=== PATIENT | male | born 1955 | race Caucasian/White ===

== ENCOUNTER → 2018-05-04 00:05 | Outpatient (CLI) | payer MEDICAID, SELFPAY ==
[2018-05-04 10:48] LABS: INR 1.2 (1.0-3.5); Prothrombin Time 11.5 sec (9.3-10.8)
[2018-05-05 07:29] LABS: Hemoglobin A1C 9.7 % (4.5-6.2)
== END ==
PROVIDERS: PCP Family Medicine; Visit Provider Family Medicine
DX: I26.99 Other pulmonary embolism without acute cor pulmonale (principal); E11.39 Type 2 diabetes mellitus with other diabetic ophthalmic complication
CPT/HCPCS: 36415; 83036; 85610

== ENCOUNTER → 2018-05-13 08:19 | Outpatient (CLI) | payer MEDICAID, SELFPAY ==
[2018-05-13 12:03] LABS: Hemoglobin A1C 9.4 % (4.5-6.2)
[2018-05-13 12:38] LABS: INR 2.2 (1.0-3.5); Prothrombin Time 20.6 sec (9.3-10.8)
[2018-05-13 13:23] LABS: CREATININE 2.03 mg/dL (0.70-1.30); Estimated GFR 33.56 (mL/min/1.73m2)
== END ==
PROVIDERS: PCP Family Medicine; Visit Provider Family Medicine
DX: E11.39 Type 2 diabetes mellitus with other diabetic ophthalmic complication (principal); E11.65 Type 2 diabetes mellitus with hyperglycemia; I10 Essential (primary) hypertension; I26.99 Other pulmonary embolism without acute cor pulmonale; Z79.01 Long term (current) use of anticoagulants
CPT/HCPCS: 36415; 82565; 83036; 85610

== ENCOUNTER → 2018-05-20 08:56 | Outpatient (CLI) | payer MEDICAID, SELFPAY ==
[2018-05-20 15:37] LABS: INR 1.8 (1.0-3.5); Prothrombin Time 17.6 sec (9.3-10.8)
== END ==
PROVIDERS: PCP Family Medicine; Visit Provider Family Medicine
DX: I26.99 Other pulmonary embolism without acute cor pulmonale (principal); Z79.01 Long term (current) use of anticoagulants
CPT/HCPCS: 36415; 85610

== ENCOUNTER → 2018-05-27 13:44 | Outpatient (CLI) | payer MEDICAID, SELFPAY ==
[2018-05-27 14:47] LABS: Prothrombin Time 46.3 sec (9.3-10.8)
== END ==
PROVIDERS: PCP Family Medicine; Visit Provider Family Medicine
DX: I26.99 Other pulmonary embolism without acute cor pulmonale (principal); Z79.01 Long term (current) use of anticoagulants
CPT/HCPCS: 36415; 85610

== ENCOUNTER 2018-05-29 13:16 | Outpatient (CLI) | payer MEDICAID, SELFPAY ==
[2018-05-29 13:51] LABS: INR 2.5 (1.0-3.5); Prothrombin Time 23.2 sec (9.3-10.8)
== END 2018-05-29 13:17 ==
PROVIDERS: PCP Family Medicine; Visit Provider Family Medicine
DX: I26.99 Other pulmonary embolism without acute cor pulmonale (principal); Z79.01 Long term (current) use of anticoagulants
CPT/HCPCS: 36415; 85610

== ENCOUNTER 2018-06-03 10:53 | Outpatient (CLI) | payer MEDICAID, SELFPAY ==
[2018-06-03 16:10] LABS: INR 2.8 (1.0-3.5); Prothrombin Time 26.4 sec (9.3-10.8)
== END 2018-06-03 11:13 ==
PROVIDERS: PCP Family Medicine; Visit Provider Family Medicine
DX: I26.99 Other pulmonary embolism without acute cor pulmonale (principal); Z79.01 Long term (current) use of anticoagulants
CPT/HCPCS: 36415; 85610

== ENCOUNTER 2018-06-17 09:28 | Outpatient (CLI) | payer MEDICAID, SELFPAY ==
[2018-06-17 14:49] LABS: INR 1.8 (1.0-3.5)
== END 2018-06-17 09:48 ==
PROVIDERS: PCP Family Medicine; Visit Provider Family Medicine
DX: I26.99 Other pulmonary embolism without acute cor pulmonale (principal); Z79.01 Long term (current) use of anticoagulants
CPT/HCPCS: 36415; 85610

== ENCOUNTER 2018-06-25 09:03 | Outpatient (CLI) | payer MEDICAID, SELFPAY ==
[2018-06-25 12:07] LABS: INR 2.4 (1.0-3.5); Prothrombin Time 22.9 sec (9.3-10.8)
== END 2018-06-25 09:23 ==
PROVIDERS: PCP Family Medicine; Visit Provider Family Medicine
DX: I26.99 Other pulmonary embolism without acute cor pulmonale (principal); Z79.01 Long term (current) use of anticoagulants
CPT/HCPCS: 36415; 85610

== ENCOUNTER 2018-07-02 08:43 | Outpatient (CLI) | payer MEDICAID, SELFPAY ==
[2018-07-02 10:27] LABS: Prothrombin Time 38.2 sec (9.3-10.8)
[2018-07-02 10:41] LABS: INR 4.1 (1.0-3.5)
== END 2018-07-02 09:03 ==
PROVIDERS: PCP Family Medicine; Visit Provider Family Medicine
DX: I26.99 Other pulmonary embolism without acute cor pulmonale (principal); Z79.01 Long term (current) use of anticoagulants
CPT/HCPCS: 36415; 85610

== ENCOUNTER 2018-07-09 08:01 | Outpatient (CLI) | payer MEDICAID, SELFPAY ==
[2018-07-09 11:42] LABS: INR 2.9 (1.0-3.5); Prothrombin Time 27.6 sec (9.3-10.8)
== END 2018-07-09 08:21 ==
PROVIDERS: PCP Family Medicine; Visit Provider Family Medicine
DX: I26.99 Other pulmonary embolism without acute cor pulmonale (principal); Z79.01 Long term (current) use of anticoagulants
CPT/HCPCS: 36415; 85610

== ENCOUNTER 2018-07-11 10:21 | Outpatient (CLI) | payer MEDICAID, SELFPAY ==
[2018-07-11 15:31] LABS: INR 1.2 (1.0-3.5); Prothrombin Time 12.1 sec (9.3-10.8)
== END 2018-07-11 10:41 ==
PROVIDERS: PCP Family Medicine; Visit Provider Family Medicine
DX: I26.99 Other pulmonary embolism without acute cor pulmonale (principal); Z79.01 Long term (current) use of anticoagulants
CPT/HCPCS: 36415; 85610

== ENCOUNTER 2018-10-16 09:32 | Outpatient (CLI) | payer MEDICARE, MEDICAID, SELFPAY ==
[2018-10-16 13:01] LABS: CREATININE 1.46 mg/dL (0.70-1.30); Cholesterol 218 mg/dL (50-200); Estimated GFR 49.09 (mL/min/1.73m2); HDL Cholesterol 31 mg/dL (40-60); LDL CHOLESTEROL 94 mg/dL (<100); Potassium 4.7 mmol/L (3.5-5.1); Triglyceride 422 mg/dL (30-150)
[2018-10-16 13:02] LABS: Hemoglobin A1C 9.7 % (4.5-6.2)
[2018-10-17 10:38] LABS: PSA, Screening 0.4 ng/ml (0-4.5)
== END 2018-10-16 09:52 ==
PROVIDERS: PCP Family Medicine; Visit Provider Family Medicine
DX: E78.5 Hyperlipidemia, unspecified (principal); E11.39 Type 2 diabetes mellitus with other diabetic ophthalmic complication; E11.65 Type 2 diabetes mellitus with hyperglycemia; Z12.5 Encounter for screening for malignant neoplasm of prostate
CPT/HCPCS: 36415; 80061; 83721; 84153; 82565; 83036; 84132

== ENCOUNTER 2019-01-13 09:00 | Outpatient (CLI) | payer MEDICARE, OTHER, SELFPAY ==
[2019-01-13 11:39] LABS: CREATININE 2.23 mg/dL (0.70-1.30); Estimated GFR 30.11 (mL/min/1.73m2); Potassium 4.4 mmol/L (3.5-5.1)
[2019-01-13 11:51] LABS: Hemoglobin A1C 10.3 % (4.5-6.2)
== END 2019-01-13 09:20 ==
PROVIDERS: PCP Family Medicine; Visit Provider Family Medicine
DX: E11.9 Type 2 diabetes mellitus without complications (principal)
CPT/HCPCS: 36415; 82565; 83036; 84132

== ENCOUNTER 2019-02-26 12:56 | Outpatient (CLI) | payer MEDICARE, OTHER, SELFPAY ==
[2019-02-26 14:21] LABS: Hemoglobin A1C 9.3 % (4.5-6.2)
[2019-02-26 14:23] LABS: Prothrombin Time 9.9 sec (9.3-11.0)
[2019-02-26 15:41] LABS: CREATININE 2.24 mg/dL (0.70-1.30); Estimated GFR 29.85 (mL/min/1.73m2); Potassium 4.6 mmol/L (3.5-5.1)
== END 2019-02-26 13:16 ==
PROVIDERS: Internal Medicine Endocrinology, Diabetes & Metabolism; PCP Family Medicine; Visit Provider Family Medicine
DX: E11.9 Type 2 diabetes mellitus without complications (principal); I26.99 Other pulmonary embolism without acute cor pulmonale; Z79.01 Long term (current) use of anticoagulants
CPT/HCPCS: 36415; 82565; 83036; 84132; 85610

== ENCOUNTER 2019-06-29 07:57 | Outpatient (CLI) | payer MEDICARE, OTHER, SELFPAY | END 2019-06-29 08:17 | PROVIDERS: PCP Family Medicine; Visit Provider Internal Medicine Interventional Cardiology | DX: I25.10 Atherosclerotic heart disease of native coronary artery without angina pectoris (principal); I27.20 Pulmonary hypertension, unspecified; I42.9 Cardiomyopathy, unspecified; I26.99 Other pulmonary embolism without acute cor pulmonale | CPT/HCPCS: 93005; 93010; 99213 ==

== ENCOUNTER → 2019-12-04 08:01 | Outpatient (BNVA) | payer MEDICARE, OTHER, SELFPAY | PROVIDERS: PCP Family Medicine; Referring Provider Family Medicine; Visit Provider Surgery | DX: Z12.11 Encounter for screening for malignant neoplasm of colon (principal); Z86.010 Personal history of colon polyps ==

== ENCOUNTER 2020-02-22 09:00 | Outpatient (CLI) | payer MEDICARE, OTHER, MEDICAID, SELFPAY ==
[2020-02-23 03:25] LABS: COVID-19 RT-PCR UVMMC Result Negative (Negative)
== END 2020-02-22 09:20 ==
PROVIDERS: PCP Family Medicine; Visit Provider Surgery
DX: Z03.818 Encounter for observation for suspected exposure to other biological agents ruled out (principal)
CPT/HCPCS: U0003

== ENCOUNTER 2020-02-24 06:11 | Day surgery (SDC) | payer MEDICARE, OTHER, MEDICAID, SELFPAY ==
--- NOTE | 2020-02-24 06:18 | HPE_ITS ---
Date of service: 02/24/20 Time of Service: 06:21 Assessment and Plan Assessment and plan (1) Hx of colonic polyps: Status: Acute Assessment and plan: A\\ 64 year old male with hx of polyp here to discuss colonoscopy. He had an CO in 1999 and a stent placed. Saw cardiology last months. Stable. On eliquis for DVT in 2016. NO chest pain, SOB P\\ Colonoscopy under sedation Risks, benefits and complications have been reviewed. Complications include but are not limited to bleeding, pain, perforation, missed small lesion/polyp, sore throat, aspiration and adverse reaction to the medications. Questions were entertained and answered to their satisfaction and they wished to proceed. No guarantees were given or implied History of Present Illness Narrative: Mr. Hernandez is a pleasant 64 year old male with a PMHx of CO in 1999 and stent placement in 1999, DM, DVT and obesity who is here to discuss another colonoscopy. His last Colonoscopy was in 2013 and he was noted to have an adenomatous polyp. He denies any melena, hematochezia, abdominal pain, unintentional weight loss or changes in bowel habits. He has no family history of colon cancer that he is aware off. His last ECHO was in 2016, cath in 1999. Last EKG this year. Saw Cardiology who felt patient has been stable. No ECHO ordered at this time as he has had no symptoms since stent placement in 2013. He denies chest pain, chest pressure or SOB. He also has sleep apnea diagnosed in 2016 His Colonoscopy was postponed in November due to COVID-19. He is here today to have his Colonoscopy done. He has had no new health issues since he was seen in the office. His COVID-19 test done on 02/22/20, was negative Review of Systems Constitutional Constitutional: Denies fever(s) Cardiovascular Cardiovascular: Denies chest pain, Denies irregular heart rhythm, Denies palpitations and Denies dyspnea Respiratory Respiratory: Denies cough and Denies dyspnea Endocrine Endocrine: Denies palpitations FORMERLY [facility], [facility] Medical History Acute osteomyelitis of right foot (Inactive 06/25/16) Atherosclerosis of [place] coronary artery (Inactive) Stent 1999 Positive MPI in May 2010 Coronary disease (Inactive) a. s/p cath with stent 1999 b. MPI positive for ischemia 2009 Current use of insulin (Inactive) Depression (Inactive) Depressive disorder (Inactive 08/10/13) Diabetes mellitus (Acute) Diabetes mellitus, type II (Inactive) a. Hgb A1C 11.6 b. on high dose glargine insulin therapy DM (diabetes mellitus), type 2, uncontrolled w/ophthalmic complication (Inactive 08/06/12) Essential hypertension (Inactive) if creat ok, will add KULWANT Heart failure (Inactive) 01/31/17 [facility]; EF 45-50%;ATRIAL DIALATION on coumadin Hyperlipidemia (Inactive 03/26/13) Impacted cerumen of both ears (Inactive) Low back pain (Acute) Obesity (Chronic) Osteomyelitis (Inactive 08/13/14) a. left foot fifth metatarsal and proximal phalanx Polyp of colon (Inactive 11/17/13) DR. Dick RODRIGUEZ; TUBULAR ADENOMA Proliferative diabetic retinopathy (Inactive 08/06/12) 08/09/16; [facility] Rupture of left quadriceps muscle (Inactive 01/15/18) Sensorineural hearing loss, bilateral (Chronic 07/16/16) Sleep apnea (Inactive 05/16/15) Well adult (Inactive) Surgical History (Updated 02/24/20 @ 06:28 by Alhaji Nixon) Colonoscopy - MAC (11/17/13) H/O surgical procedure (Inactive) a. Right quadriceps repair [address] Smart b. Colonoscopy 11/17/[address] Rodriguez History of appendectomy (Chronic) History of intravascular stent placement (Inactive) History of right knee surgery (Inactive 04/22/14) PROCEDURES INSERT 1 VASCULAR STENT, 1999 LEFT CIRC. QUADRICEPS REPAIR 01/16/18 (L) S/P cataract surgery (Acute) 10/02/18; [facility] [place] Family History Mother , AGE 84 Diabetes Stroke Father Depression Heart disease Hyperlipidemia Hypertension Sister Alcohol abuse Substance abuse Diabetes Depression Social History Smoking/Tobacco Use Status: Never Alcohol Intake: former Drug use: Never Substance use type: does not use Caregiver/Support person: No Household members: significant other Housing: house Communication Needs: Hard of Hearing Do you need help understanding health information?: Never Pets and animals: No Sexually active: Yes Do you think of yourself as: straight/heterosexual Current gender identity: male What is your relationship status?: living with partner How often do you talk on the phone with friends or family?: once per week How often do you get together with friends or relatives?: twice per week How often do you attend yarsanism or mormonism services?: decline to answer Do you belong to any clubs or organized social groups?: no Panel score (0-1 are the most socially isolated patients): 2 What type of physical activity do you participate in: other Details: Rowing Duration: 15-30 minutes/day Frequency: 3-4 times per week Verna/Voodoo: Restorationism Special verna needs: No Seatbelt use: always Helmet use: Yes Helmet use: always Drive intox or ride w/intox belly dump driver: No Do you feel safe at home: Yes Do you feel safe in your relationship?: Yes Meds Home Medications and Allergies Home Medications Medication Instructions Recorded Confirmed Type Bupropion HCl 100 mg PO BID #180 tab-cap 05/06/18 02/18/20 Clinic nitroglycerin [Nitrostat] 1 tab SUBLINGUAL PRN #25 tab 05/06/18 02/18/20 Rx blood-glucose meter #1 each 12/30/18 12/04/19 Rx insulin glargine 100 unit/mL (3 60 unit SUB-Q BID #8 box 04/21/19 02/18/20 Rx mL) subcutaneous pen metoprolol tartrate 25 mg tablet 25 mg PO BID #180 tab-cap 05/19/19 02/18/20 Rx bupropion HCl 100 mg tablet 100 mg PO BID #60 tab 08/18/19 02/18/20 Rx insulin aspart U-100 100 unit/mL 24 unit SUBCUT AC #5 ml MDD 90 09/16/19 0 Rx (3 mL) subcutaneous pen units blood sugar diagnostic #300 each 10/20/19 12/04/19 Rx citalopram 20 mg tablet 20 mg PO DAILY #90 tab 10/20/19 02/18/20 Rx lancets #100 each 10/20/19 12/04/19 Rx melatonin 5 mg tablet 10 mg PO HS tab 10/20/19 02/18/20 History pen needle, diabetic 31 gauge x #100 10/20/19 12/04/19 Rx 02/12 apixaban 5 mg tablet 5 mg PO BID #60 tab 11/18/19 02/18/20 Rx pravastatin 80 mg PO HS 02/18/20 02/18/20 History Allergies Allergy/AdvReac Type Severity Reaction Status Date / Time atorvastatin AdvReac Verified 02/18/20 11:22 Exam Const General: cooperative, comfortable and no acute distress Orientation: alert and oriented x3 HENMT Head: normocephalic and atraumatic Resp Effort & Inspection: normal respiratory effort Auscultation: clear to auscultation bilaterally Cardio Rate: regular rate Rhythm: regular rhythm Heart Sounds: no gallops, no murmurs and no rubs
--- NOTE | 2020-02-24 06:21 | W.PM.DSUDISC ---
Discharge Plan Disposition Patient Disposition: HOME Condition: Good Discharge Details Reason For Visit: HX OF COLON POLYPS Attending Provider: Crystal Blevins Primary Care Provider: Hammad Enrique Home Meds and New Rx's Prescriptions: Continued (DME) Accu-Chek Mariana Plus test strp Strip See Dose Instructions .ROUTE .MEDSUPPLY Qty: 300 RF: 3 citalopram [Celexa] 20 mg tablet 20 mg PO DAILY Qty: 90 RF: 3 (DME) lancets [Accu-Chek Fastclix Lancet Drum] Misc See Dose Instructions .ROUTE .MEDSUPPLY Qty: 100 RF: 6 (DME) pen needle, diabetic [BD Ultra-Fine Short Pen Needle] 31 gauge x 5/16 needle 1 ea SQ 5x day Qty: 100 RF: 6 melatonin 5 mg tablet 10 mg PO HS RF: 0 nitroglycerin [Nitrostat] 0.4 MG tablet, sublingual 1 tab Sublingual PRN Qty: 25 RF: 1 Bupropion HCl 100 MG tablet 100 mg PO BID Qty: 180 RF: 3 (DME) blood-glucose meter [Accu-Chek Mariana Plus Meter] misc See Dose Instructions .ROUTE .MEDSUPPLY Qty: 1 RF: 0 Lantus Solostar U-100 Insulin 100 unit/mL (3 mL) insulin pen 60 unit Sub-Q BID Qty: 8 RF: 2 metoprolol tartrate 25 mg tablet 25 mg PO BID Qty: 180 RF: 3 bupropion HCl 100 mg tablet 100 mg PO BID Qty: 60 RF: 5 insulin aspart U-100 [Novolog Flexpen U-100 Insulin] 100 unit/mL (3 mL) insulin pen 24 unit subcut AC MDD 90 units Qty: 5 RF: 12 Eliquis 5 mg tablet 5 mg PO BID Qty: 60 RF: 11 pravastatin 80 mg tablet 80 mg PO HS RF: 0 Discontinued bisacodyl [Dulcolax (bisacodyl)] 5 mg tablet,delayed release (DR/EC) 5 mg PO ONCE Qty: 4 RF: 0 polyethylene glycol 3350 17 gram powder in packet 255 g PO DAILY Qty: 15 RF: 0 Discharge Instructions Instructions: Colorectal Polyps (DC) Additional Instructions: Findings: 8 polyps Follow up: 3-5 years depending on final pathology Please call if you develop: fevers >101.5 Nausea or Vomiting Abdominal pain that is not transient DAY SURGERY UNIT POST ENDOSCOPY INSTRUCTIONS 1. Because there will be medication in your system for the next 24 hours, you may feel a little sleepy. Your coordination will be affected. Therefore: a. Do not drive or operate dangerous equipment for 24 hours. b. Do not drink alcohol beverages for 24 hours (not even beer). c. Plan to go home and rest for the day. 2. Generally there are no restrictions on your activity after a day or so has gone by, but you may feel a bit fatigued for a few days. 3 After you arrive home you may have a light meal and return to a normal diet as you can tolerate it without feeling sick to your stomach. 4. After surgery, you may feel pain or discomfort. This should be only transient, but if it persists please contact your doctor. 5. If there are any questions regarding the findings of your procedure, please feel free to contact your doctor. 6. If you are unable to contact your doctor with a problem, contact the hospital at [phone]. 7. Continue all your regular medications unless directed otherwise. I understand the above instructions and have no questions. Signature of Patient or Responsible Adult Escort Date/Time Name of Responsible Adult Escort Signature of Nurse Date/Time Activity:: Activity as Tolerated Diet:: As Tolerated Discharge Orders Discharge Orders: Discharge Order (Routine); Ordered 02/24/20 Ordered By: Crystal Blevins DS: Diagnosis Discharge Diagnosis (1) Hx of colonic polyps: Status: Acute
--- NOTE | 2020-02-24 06:22 | W.COLOREPORT ---
Date of service: 02/24/20 Time of Service: : Colonoscopy Report Date of procedure: 02/24/20 Pre-op diagnosis general: Hx of polyps Post-op diagnosis procedure note: same Procedure: Colonoscopy with polypectomy Surgeon: Crystal Blevins Anesthesia proc note operative: other (General/ ASA 3/Natasha cohen, CHOLO) Estimated blood loss (mL): 3 Pathology: other (Ascending polyp, Transverse polyps x7) Complications: None Disposition: same day Indications: 64 year old male with hx of polyp here to discuss colonoscopy. He had an HI in 1999 and a stent placed. Saw cardiology last months. Stable. On eliquis for DVT in 2017. Risks, benefits and complications have been reviewed. Complications include but are not limited to bleeding, pain, perforation, missed small lesion/polyp, sore throat, aspiration and adverse reaction to the medications. Questions were entertained and answered to their satisfaction and they wished to proceed. No guarantees were given or implied Prep: Miralax/Dulcolax Procedure Start Time: : Procedure End Time: :59 Retraction Time: 17 minutes Findings: multiple small adenomatous polyps Procedure Description: After informed consent was obtained the patient was taken to the procedure room and placed in a left decubitous position. Monitors were applied and a time out was done. The patients name, date of , procedure, allergies to medications and metal in their body was reviewed. The patient was then sedated. Once sedated and comfortable a rectal exam was done. External exam was normal. Internal exam revealed a normal sphincter tone and no palpable masses. The prostate could not be felt. The scope was then introduced and retro-flexed. No internal hemorrhoids, masses or polyps were identified on retro-flexion. The scope was then advanced to the cecum without difficulty. The TI and appendiceal orifice were identified. The prep was adequate. The scope was then slowly retracted over 17 minutes back into the rectum. Polyps were removed with cold forceps in the ascending colon, proximal transverse colon x2, mid-transverse colon x4, and with cold snare in the distal Transverse colon. There were no diverticula noted. The scope was removed and the patient was woken up and taken back to Same day surgery in stable condition. The patient tolerated the procedure well and there were no immediate complications. Follow up: The patient should follow up in 3-5 years unless they develop changes in bowel habits or other new gastrointestinal complaints.
[2020-02-24 06:33] VITALS: BP 147/56; PULSE 57; RESP 16; TEMP 36.4; O2SAT 96
[2020-02-24] MEDS: Lactated Ringers 1,000 ML 80 ML IV (06:50)
--- NOTE | 2020-02-24 07:36 | BOWEL_PTH ---
PATIENT: Alpesh Hernandez LOC: [facility] U#:[id number] AGE/SX: 65/M ROOM: RE02/24/[address]: Crystal Blevins MD : 1955 BED: DIS: 02/24/2020 SPEC #: [id number] RECD: 02/24/20 12:17 STATUS: TREVA RE #: [id number] ALVARO: 02/24/20 07:[address]: Crystal Blevins DEPT: Surgical Specimen RECD BY: Radha Hicks ENTERED: 02/24/20 12:19 SP TYPE: Bowel OTHR DR: Hammad Enrique MD Tissues: 1 - BIOPSY BOWEL 2 - BIOPSY BOWEL 3 - BIOPSY BOWEL 4 - BIOPSY BOWEL Procedures: GROSS AND MICRO LEVEL 4 Comments: [id number]
[2020-02-24 08:29] VITALS: BP 138/66; PULSE 53; RESP 18; TEMP 37.1; O2SAT 97
== END 2020-02-24 09:05 | disposition home or self-care (01) ==
PROVIDERS: PCP Family Medicine; Visit Provider Surgery
PROC: 0DJD8ZZ Inspection of Lower Intestinal Tract, Via Natural or Artificial Opening Endoscopic (ICD-10-PCS; CPT 45378; principal; 2020-02-24 07:30)
DX: Z12.11 Encounter for screening for malignant neoplasm of colon (principal); D12.2 Benign neoplasm of ascending colon; D12.3 Benign neoplasm of transverse colon; Z79.01 Long term (current) use of anticoagulants
CPT/HCPCS: 45385; 45380; 88305; NC; J2001

== ENCOUNTER 2020-04-18 08:25 | Outpatient (CLI) | payer MEDICARE, OTHER, MEDICAID, SELFPAY ==
[2020-04-18 12:42] LABS: Anion Gap 9.9 mmol/L (3-11); BUN 42 mg/dL (7-18); CO2 25.1 mmol/L (21.0-32.0); CREATININE 1.76 mg/dL (0.70-1.30); Calcium 8.4 mg/dL (8.5-10.1); Chloride 103 mmol/L (98-107); Cholesterol 200 mg/dL (<200); Glucose 132 mg/dL (74-106); HDL Cholesterol 31 mg/dL (40-60); Potassium 4.6 mmol/L (3.5-5.1); Sodium 138 mmol/L (136-145); Triglyceride 448 mg/dL (<150)
[2020-04-18 12:46] LABS: Hemoglobin A1C 7.8 % (3.8-5.6)
[2020-04-18 12:54] LABS: LDL CHOLESTEROL 106 mg/dL (<100)
== END 2020-04-18 08:45 ==
PROVIDERS: PCP Family Medicine; Visit Provider Family Medicine
DX: E11.65 Type 2 diabetes mellitus with hyperglycemia (principal); E78.5 Hyperlipidemia, unspecified; Z00.00 Encounter for general adult medical examination without abnormal findings
CPT/HCPCS: 36415; 80048; 80061; 83721; 83036

== ENCOUNTER 2020-06-20 00:10 | Outpatient (CLI) | payer MEDICARE, OTHER, SELFPAY ==
--- NOTE | 2020-06-20 09:30 | DI.NM_ITS ---
APPROVED REPORT Exam: Pharmacologic Patient Location: In-Patient Room/Bed: Stress Nurse: Mirian Garrison RN BMI: 38.68 Baseline Rhythm: Sinus Bradycardia, First Degree Heart Block. Indications: Patient testing today for further risk stratification. He reports extreme fatigue. He more s a history of coronary arteriosclerosis with an MD in 1999 and stent placement. Medical History Medical History: MD (stent 1999), Chronic Renal Impairment (Stage 2), NADIA, Obesity, PE/DVT, Pulmonary Hypertension, Cardiomyopathy, Heart Failure, Hypersomnia. Cardiac Medications: Eliquis, Metoprolol Tartrate, Nitroglycerine, Pravastatin. Allergies: Atorvastatin. Cardiac Risk Factors: FHX of CAD, HTN, Hyperlipidemia, Diabetes (insulin) Previous Cardiac Procedures: PCI, Stent X1. Pretest Chest Pain Characteristics: None reported per patient. Exercise History: Sedentary Lung Sounds: Crackles in bases bilaterally, Otherwise CTA. Heart Sounds: Regular, Distant. Stress Test Details Test: Pharmacologic stress testing performed using 0.4 mg of regadenoson per 5 mL given IV over 10 s econds. Nuclear Acquisition: Rest Tc-99m/Stress Tc-99m 1 day Rest Isotope: Tc-99m Sestamibi. Dose: 11.4 Date: 06/20/2020 Injection Time: 0930 Stress Isotope: Tc-99m Sestamibi. Dose: 36.3 Date: 06/20/2020 Injection Time: 1133 HR Resting HR Supine: 59 bpm Max Heart Rate (APMHR): 157 bpm Target HR (85% APMHR): 133 bpm Max HR Achieved: 72 bpm % of APMHR: 45 BP Resting BP Supine: 150/90 mmHg Max BP: 152/86 mmHg ECG Resting ECG: Sinus Bradycardia, 1st degree AV block Stress ECG: Sinus Rhythm ST Change: No significant ST segment changes noted. Arrhythmia: None Recovery ECG: Sinus Rhythm Recovery ST Change: Normal Recovery Arrhythmia: None Clinical Stress Symptoms: None reported per patient. Stress ECG Conclusion 1. This is a pharmacological stress test. 2. Patient no symptoms suggestive of ischemia. 3. EKG portion of the exam is nondiagnostic. Stress Test Summary STAGE HR BP Symptoms NOTES Supine 59 150/90 1 min post Lexiscan injection 71 146/80 3 min post Lexiscan injection 72 144/78 6 min post Lexiscan injection 70 152/86 MPI Conclusion Patient's ejection fraction was 40% with stress. There was global hypokinesis. There is a small area of fixed perfusion defect at the apex Stambaugh representing infarct. There is no significant mukund-infarct ischemia. Radiologist Interpretation Radiologist Interpretation by: Leo Dee MD Interpretation Date/Time: 06/20/2020 15:46:01
[2020-06-20] MEDS: Regadenoson 0.4 MG/5 ML SYR IVP (11:29)
== END 2020-06-20 00:30 ==
PROVIDERS: PCP Family Medicine; Visit Provider Internal Medicine Interventional Cardiology
DX: I25.10 Atherosclerotic heart disease of native coronary artery without angina pectoris (principal); R53.83 Other fatigue; Z82.49 Family history of ischemic heart disease and other diseases of the circulatory system; I10 Essential (primary) hypertension; E78.5 Hyperlipidemia, unspecified; E11.9 Type 2 diabetes mellitus without complications; Z79.4 Long term (current) use of insulin; Z95.5 Presence of coronary angioplasty implant and graft; R94.39 Abnormal result of other cardiovascular function study
CPT/HCPCS: 78452; 93016; 93018; 93017; J2785

== ENCOUNTER 2020-06-22 02:59 | Outpatient (CLI) | payer MEDICARE, OTHER, SELFPAY ==
[2020-06-22 10:20] LABS: Potassium 5.3 mmol/L (3.5-5.1)
== END 2020-06-22 03:19 ==
PROVIDERS: PCP Family Medicine; Visit Provider Family Medicine
DX: I10 Essential (primary) hypertension (principal)
CPT/HCPCS: 36415; 84132

== ENCOUNTER 2020-10-27 01:39 | Outpatient (CLI) | payer MEDICARE, OTHER, SELFPAY ==
--- NOTE | 2020-10-27 07:15 | DI.RAD_ITS ---
EXAM: XR LUMBAR SPINE COMPLETE CLINICAL HISTORY: chronic low back pain,ACUTE BILAT LOW BACK PAIN,M54.5. TECHNIQUE: 2D digital imaging was performed. COMPARISON: No exams were available for comparison FINDINGS: There is sacralization of the L5 segment. Rudimentary 12th ribs noted. No evidence of fracture or l isthesis. No prominent disc space narrowing with the exception of posteriorly at L2-3 level. Degene rative changes are noted in the facet joints-mild. No pars defects. Left-sided osteophytes bridging L2-3 level. There is no scoliosis. Sacroiliac joints appear unremarkable. IMPRESSION: Degenerative changes. Sacralized L5 segment. Rudimentary 12th ribs. DATA REPOSITORY: RADIATION DOSE DELIVERED:
== END 2020-10-27 01:59 ==
PROVIDERS: PCP Family Medicine; Visit Provider Family Medicine
DX: M47.816 Spondylosis without myelopathy or radiculopathy, lumbar region (principal); M43.27 Fusion of spine, lumbosacral region; Q79.9 Congenital malformation of musculoskeletal system, unspecified
CPT/HCPCS: 72110

== ENCOUNTER → 2021-01-04 09:29 | Outpatient (BNVA) | payer MEDICARE, OTHER, SELFPAY | PROVIDERS: PCP Family Medicine; Referring Provider Family Medicine; Visit Provider Physician Assistant Surgical | DX: M19.011 Primary osteoarthritis, right shoulder (principal); M19.012 Primary osteoarthritis, left shoulder; M75.21 Bicipital tendinitis, right shoulder; M75.22 Bicipital tendinitis, left shoulder; E11.9 Type 2 diabetes mellitus without complications | CPT/HCPCS: 99213 ==

== ENCOUNTER 2021-01-04 10:23 | Outpatient (CLI) | payer MEDICARE, OTHER, SELFPAY ==
--- NOTE | 2021-01-04 09:45 | DI.RAD_ITS ---
EXAM: XR SHOULDER LT COMPLETE 2+V CLINICAL HISTORY: shoulder pain limited motion TECHNIQUE: 2D digital imaging was performed. COMPARISON: CR CHEST 2 VIEWS PA,LAT from 01/30/2017 CR XR SHOULDER RT COMPLETE 2+V from 01/04/2021 FINDINGS: Deformity at the distal clavicle which could be secondary to an old fracture. Hypertrophic changes a t the AC joint. Moderate narrowing of the glenohumeral joint with marginal spurs. Spurs at the gela ral head. Subchondral cysts in the humeral head. Normal cranial humeral distance. IMPRESSION: Moderate to severe degenerative changes
--- NOTE | 2021-01-04 09:45 | DI.RAD_ITS ---
EXAM: XR SHOULDER RT COMPLETE 2+V CLINICAL HISTORY: pain limited motion TECHNIQUE: 2D digital imaging was performed. COMPARISON: No exams were available for comparison FINDINGS: Spurring at the inferior AC joint and tip of the acromion. Spurring at the glenoid and humeral head . Joint space relatively well maintained. Question of faint calcifications in the distal supraspina tus tendon. IMPRESSION: Moderate degenerative changes. Question of mild supraspinatus calcific tendinosis.
== END 2021-01-04 10:24 | disposition home or self-care (01) ==
LOC: DIORS 10:23
PROVIDERS: PCP Family Medicine; Referring Provider Family Medicine; Visit Provider Physician Assistant Surgical
DX: M25.511 Pain in right shoulder (principal); M25.512 Pain in left shoulder; M19.011 Primary osteoarthritis, right shoulder; M19.012 Primary osteoarthritis, left shoulder
CPT/HCPCS: 99213; 73030

== ENCOUNTER 2021-01-15 18:14 | Inpatient (IN) | payer MEDICARE, OTHER, SELFPAY ==
[2021-01-15] VITALS (15 sets, daily range): BP systolic 122–218; BP diastolic 43–161; PULSE 90–153; RESP 15–26; TEMP 37.9–39.6; O2SAT 90–98
--- NOTE | 2021-01-15 18:30 | RT.EKG_ITS ---
APPROVED REPORT Exam: Resting ECG Patient Location: E HR:107 bpm ECG Measurements Heart Rate 107 AXIS ID [id number] P 57 QRSd 111 QRS 30 QT 320 T 55 QTc 426 Conclusion Sinus tachycardia...rate> 99 I have reviewed and interpreted ECG and agree with software generated interpretation.
--- NOTE | 2021-01-15 18:37 | W.ED.GENAD ---
Discharge Plan Disposition Patient Disposition: [facility] INPATIENT Condition: Serious Discharge Details Clinical Impression: Fever, Rash, Transaminitis Admit Date/Time: 01/17/21 10:05 Admit Provider: Abimael Vinson Attending Provider: Abimael Vinson Primary Care Provider: Hammad Enrique ED Provider: Erik Bowles Discharge Data Discharge Date/Time-TO BE ENTERED AT DEPARTURE: 01/15/21 23:00 Medical Decision Making <Mary Elizondo DO - Last Filed: 01/17/21 14:14> 1830 -- 65-year-old male with a history of morbid obesity, diabetes, hypertension, coronary artery disease, CHF, hyperlipidemia, OR, pulmonary embolism and coronary stent placement presents for fever, shaking chills and rash today. Patient appears fatigued and slow to respond but oriented x3. Temp 102.4 on arrival. Patient noted to have shaking chills. Heart rate 110s to 120s. Oxygen saturation 90 to 94% on room air. He has a diffuse erythematous maculopapular rash with questionable areas of urticaria. As he endorses some itching with scratching, consider allergic source. He is currently on prednisone and another NSAID for the past 12 days so unsure if this is associated. As he has a fever, also consider rash of viral or infectious origin. Considering patient's age and multiple comorbidities, will check screening labs, lactate, blood cultures, ESR, CRP, urinalysis, rapid Covid and CT chest to rule out PE. Will give IV Tylenol, IV Benadryl, IV Solu-Medrol and fluids. Patient will need admission or transfer due to potential need for IV fluids and medication and potential concern for sepsis. 1919 -- Labs reviewed. Normal white blood cell count. ESR 29. Potassium 5.3. Creatinine 2.2, GFR 30. Magnesium 1.6. AST 311. ALT 545. These are both increased from baseline. Alk phos 355 which is slightly improved from baseline. Strep negative. CRP elevated at 9.56. Urinalysis negative. Covid negative. EKG notes a rate of 107, sinus tachycardia. Patient potassium has been 5.3 in May 2020. As he has no EKG changes, will hold on treatment for hyperkalemia at this time. Will cancel CT chest with IV contrast and change to CT chest abdomen pelvis without IV. 2019 -- Patient reassessed and he states he feels better. Patient appears more awake and alert and rash appears improved. Repeat temp still 39. Patient has already received IV Tylenol. He cannot receive NSAIDs due to Eliquis. Will give another liter of IV fluids and continue to monitor. Case endorsed to Dr. Bowles to follow-up on imaging results and final disposition. Patient will either need admission or transfer for fever, rash. Medical Records Medical records reviewed: Yes I reviewed the patient's medical records. <Erik Bowles, DO - Last Filed: 01/15/21 22:47> Case was signed out to me by my colleague Dr. Mary Elizondo. Please refer to her HPI, physical exam assessment and plan. At time of signout we are pending labs and imaging to come back. CT scan shows no acute process, there is some subsegmental atelectasis but no other significant abnormality otherwise. Labs do show transaminitis, but no elevation in white count. Patient remains febrile. Lactate is 2.0, potassium is minimally elevated at 5.3, EKG is benign though per Dr. Elizondo's report. Creatinine high at 2.2, GFR low at 30. Magnesium slightly low at 1.6. Troponin normal, CRP and ESR are both elevated, urinalysis is negative for infection. Covid test is negative. On my personal reevaluation of the patient he demonstrates no meningeal signs, no nuchal rigidity. Rashes present but improving per staff. Posterior oropharynx shows no redness, no signs of tonsillitis. No signs of airway compromise or other abnormality otherwise. Uncertain as to what the exact causes of his transaminitis and his rash and his fever. I do feel that the patient definitely needs needs admission, we will start broad-spectrum antibiotics for bacteremia and sepsis. Uncertain for the etiology but it certainly does not appear to be significant pneumonia, Covid, meningococcemia meningitis or urinary source. Potentially a viral etiology causing the transaminitis and fever and rash. Discussed the case with Dr. Vinson, he agrees with the assessment and plan. We have started vancomycin and Zosyn and doxycycline. I have extensively reviewed the treatment plan with the patient. I have addressed all patient concerns at this time. I have also discussed the plan with the admitting physician and they agree with the current assessment and plan and have agreed to assume responsibility for the patient. All parties demonstrate verbal understanding and agreement with our assessment and plan at this time. The documentation in this chart was dictated using [employer] dictation software. Please excuse any dictation errors. FINDINGS: Lungs: Dependent subsegmental atelectasis in the lung bases. Pleural spaces: Unremarkable. No pneumothorax. No pleural effusion. Heart: Mild coronary artery calcification. No cardiac chamber enlargement, great vessel dilatation, or pericardial effusion. Aorta: Unremarkable. No aortic aneurysm. Lymph nodes: Pretracheal and subcarinal lymphadenopathy. Left greater than right bilateral hilar lymphadenopathy. Bones/joints: Unremarkable. No acute fracture. Soft tissues: Unremarkable. IMPRESSION: 1. Dependent subsegmental atelectasis. No focal parenchymal consolidation or mass. 2. Mediastinal and hilar lymphadenopathy FINDINGS: Liver: Normal. No mass. Gallbladder and bile ducts: Normal. No calcified stones. No ductal dilation. Pancreas: Normal. No ductal dilation. Spleen: Normal. No splenomegaly. Adrenal glands: Normal. No mass. Kidneys and ureters: Normal. No hydronephrosis. Stomach and bowel: Unremarkable. No obstruction. No mucosal thickening. Appendix: No evidence of appendicitis. Intraperitoneal space: Unremarkable. No free air. No significant fluid collection. Vasculature: Mild calcified atherosclerotic disease. No aneurysm. Pelvic phleboliths. Lymph nodes: Unremarkable. No enlarged lymph nodes. Urinary bladder: Pitts catheter in place. Urinary bladder is nondistended. Reproductive: Unremarkable as visualized. Bones/joints: Unremarkable. No acute fracture. Soft tissues: Bilateral anterior abdominal wall subcutaneous fat stranding, likely related to medication administration. IMPRESSION: 1. No significant abnormality. 2. Pitts catheter in place. Thank you for allowing us to participate in the care of your patient. Dictated and Authenticated by: Abimael Hinojosa MD 01/15/2021 8:28 PM Eastern Time ([place] & [place]) HPI <Mary Elizondo DO - Last Filed: 01/17/21 14:14> General Mode of arrival: wheelchair. Date/Time Provider Initiated Documentation: 01/15/21 18:15. Limitations to Documentation: no limitations. Information obtained by: patient. HPI Narrative: Patient is a 55-year-old male with a history of diabetes, morbid obesity, coronary artery disease, CHF, hypertension, hyperlipidemia, pulmonary embolism and coronary stents who presents to the ED for fever, rash and shaking chills today. Case discussed with partner Roseanna over the phone who states that patient complained of not feeling well with fatigue yesterday. She states he awoke this morning with a diffuse body rash and a temperature of 101.4. She states he appeared confused at times today and also had a low blood sugar at 56 at one point this afternoon for which he had a chocolate bar. She states he had his first Moderna vaccine on December 25. She states he also is taking prednisone and an NSAID for his shoulder pain per Dr. Leiva for the past 12 days. She denies any other new medications, recent antibiotics, recent travel or known exposure to coronavirus. She states she gave him Tylenol early afternoon and Benadryl at 3 PM. She states that patient appeared to have some itching of his rash earlier. Patient does admit to itching and scratching at the rash but denies any itching at present. He also took a bath for his rash which seemed to give him some improvement with the itching. Related Data Home Medications Medication Instructions Recorded Confirmed blood-glucose meter #1 each 12/30/18 01/15/21 lancets #100 each 10/20/19 01/15/21 bupropion HCl 100 mg tablet 100 mg PO BID #60 tab 04/06/20 01/15/21 metoprolol tartrate 25 mg tablet 25 mg PO BID #180 tab-cap 04/19/20 01/15/21 nitroglycerin 0.4 mg sublingual 0.4 mg SUBLINGUAL PRN #25 tab 04/19/20 01/15/21 tablet pravastatin 80 mg tablet 80 mg PO HS #90 tab 04/19/20 01/15/21 pen needle, diabetic 31 gauge x #400 ea 09/06/20 01/15/2116 apixaban 5 mg tablet 5 mg PO BID #60 tab 10/26/20 01/15/21 citalopram 20 mg tablet 20 mg PO DAILY #90 tab 10/26/20 01/15/21 insulin glargine 100 unit/mL (3 60 unit SUB-Q BID #36 ml 10/26/20 01/15/21 mL) subcutaneous pen losartan 25 mg tablet 25 mg PO DAILY 01/04/21 01/15/21 prednisone 5 mg tablet 5 mg PO BID #30 tab 01/04/21 01/15/21 blood sugar diagnostic #300 each 01/05/21 01/15/21 insulin aspart U-100 100 unit/mL 26 - 30 unit SUBCUT AC #27 syrg 01/05/21 01/15/21 (3 mL) subcutaneous pen celecoxib 200 mg PO BID 01/15/21 01/15/21 Previous Rx's Medication Instructions Recorded blood-glucose meter #1 each 12/30/18 lancets #100 each 10/20/19 bupropion HCl 100 mg tablet 100 mg PO BID #60 tab 04/06/20 metoprolol tartrate 25 mg tablet 25 mg PO BID #180 tab-cap 04/19/20 nitroglycerin 0.4 mg sublingual 0.4 mg SUBLINGUAL PRN #25 tab 04/19/20 tablet pravastatin 80 mg tablet 80 mg PO HS #90 tab 04/19/20 pen needle, diabetic 31 gauge x #400 ea 09/06/20 5/16 apixaban 5 mg tablet 5 mg PO BID #60 tab 10/26/20 citalopram 20 mg tablet 20 mg PO DAILY #90 tab 10/26/20 insulin glargine 100 unit/mL (3 60 unit SUB-Q BID #36 ml 10/26/20 mL) subcutaneous pen prednisone 5 mg tablet 5 mg PO BID #30 tab 01/04/21 blood sugar diagnostic #300 each 01/05/21 insulin aspart U-100 100 unit/mL 26 - 30 unit SUBCUT AC #27 syrg 01/05/21 (3 mL) subcutaneous pen Allergies Allergy/AdvReac Type Severity Reaction Status Date / Time atorvastatin AdvReac Verified 01/04/21 09:33 General Stated Complaint: Fever SCOTT: 2 Review of Systems <Mary Elizondo, - Last Filed: 01/17/21 14:14> All systems reviewed & are unremarkable except as noted in HPI and below Constitutional Constitutional: Reports as per HPI, Reports chills and Reports fever(s) Eyes Eyes: Denies blurry vision ENT Ears, Nose, Mouth, and Throat: Denies dizziness, Denies sore throat and Denies throat swelling Cardiovascular Cardiovascular: Denies chest pain and Denies dyspnea Respiratory Respiratory: Denies cough and Denies dyspnea Gastrointestinal Gastrointestinal: Denies abdominal pain, Denies diarrhea and Denies vomiting Genitourinary Genitourinary: Denies hematuria and Denies dysuria Musculoskeletal Musculoskeletal: Denies back pain and Denies numbness Integumentary/Breasts Skin/Breast: Denies lesions and Reports rash Neurologic Neurologic: Denies dizziness, Denies localized weakness and Denies numbness Allergic/Immunologic Allergic/Immunologic: Denies throat swelling [facility] <Mary Elizondo DO - Last Filed: 01/17/21 14:14> Medical History (Updated 01/17/21 @ 09:50 by Delilah Allen NP) Acute osteomyelitis of right foot (06/25/16) Atherosclerosis of [place] coronary artery Stent 1999 Positive MPI in May 2010 Chronic renal impairment, stage 2 (mild) Coronary disease a. s/p cath with stent 1999 b. MPI positive for ischemia 2009 Current use of insulin Depression Depressive disorder (08/10/13) Diabetes mellitus Diabetes mellitus, type II a. Hgb A1C 11.6 b. on high dose glargine insulin therapy DM (diabetes mellitus), type 2, uncontrolled w/ophthalmic complication (08/06/12) Essential hypertension if creat ok, will add KULWANT Heart failure 01/31/17 [facility] ; EF 45-50%;ATRIAL DIALATION on coumadin Hyperlipidemia (03/26/13) Impacted cerumen of both ears Low back pain Obesity Osteomyelitis (08/13/14) a. left foot fifth metatarsal and proximal phalanx Polyp of colon (11/17/13) DR. Dick RODRIGUEZ; TUBULAR ADENOMA Proliferative diabetic retinopathy (08/06/12) 08/09/16; [facility] Rupture of left quadriceps muscle (01/15/18) Sensorineural hearing loss, bilateral (07/16/16) Sleep apnea (05/16/15) Well adult Surgical History Colonoscopy - MAC (11/17/13) H/O surgical procedure a. Right quadriceps repair [address] Bing mendoza. Colonoscopy 11/17/[address] Rodriguez History of appendectomy History of intravascular stent placement History of right knee surgery (04/22/14) PROCEDURES INSERT 1 VASCULAR STENT, 1999 LEFT CIRC. QUADRICEPS REPAIR 01/16/18 (L) S/P [place]02[place]18[place] [facility] [place] Family History Mother , AGE 84 Diabetes Stroke Father Depression Heart disease Hyperlipidemia Hypertension Sister Alcohol abuse Substance abuse Diabetes Depression Social History Smoking/Tobacco Use Status: Never Second Hand Exposure: Yes Smoking risk assessment performed?: Yes Alcohol Intake: former Drug use: Never Substance use type: does not use Caregiver/Support person: No Household members: significant other Housing: house Communication Needs: Hard of Hearing Do you need help understanding health information?: Never Pets and animals: No Sexually active: Yes Do you think of yourself as: straight/heterosexual Current gender identity: male What is your relationship status?: living with partner How often do you talk on the phone with friends or family?: once per week How often do you get together with friends or relatives?: twice per week How often do you attend alevism or catholic services?: decline to answer Do you belong to any clubs or organized social groups?: no Panel score (0-1 are the most socially isolated patients): 2 What type of physical activity do you participate in: other Details: Rowing Duration: 15-30 minutes/day Frequency: 3-4 times per week Verna/Pentecostal: Druze Special verna needs: No Seatbelt use: always Helmet use: Yes Helmet use: always Drive intox or ride w/intox school bus driver/teacher assistant: No Do you feel safe at home: Yes Do you feel safe in your relationship?: Yes Exam <Mary Elizondo DO - Last Filed: 01/17/21 14:14> Const General: cooperative and ill appearing chronically Orientation: awake and oriented x3 HENMT Head: normal to inspection Ears: hearing grossly normal bilaterally and external ears normal General nose exam: external nose normal Face and sinus: normal facial exam Mouth: mucous membranes dry Throat: posterior oropharynx normal Eyes General: appearance normal, both eyes and all related structures Eyelids: eyelids normal Pupils: PERRL EOM: EOM intact bilaterally Neck Neck: normal visual inspection Lymphatic: no lymphadenopathy noted Chest Chest: normal inspection of the chest Resp Effort & Inspection: normal respiratory effort and able to speak in complete sentences Auscultation: clear to auscultation bilaterally Cardio Rate: regular rate Rhythm: regular rhythm GI Inspection: normal to inspection and obesity Palpation: soft, not firm, no guarding, no hepatosplenomegaly, no masses and nontender Auscultation: hypoactive bowel sounds Back/Spine/Pelvis Back: no CVA tenderness Skin Rashes: rashes noted (diffuse, erythematous, maculopapular) Neuro General: patient alert and patient awake Cognition: normal cognition Speech: speech normal Gait: normal gait Motor: muscle tone normal throughout Sensory Exam: no sensory deficits noted Extrem General: normal to inspection, full ROM and capillary refill normal Psych Appearance: grossly normal Mental Status: mental status grossly normal Speech and Movement: speech and movement normal Affect: normal affect Thought Process: normal Course <Mary Elizondo DO - Last Filed: 01/17/21 14:14> Vital Signs Vital signs: Vital Signs Temperature 102.4 F H 01/15/21 18:28 Pulse 124 H 01/15/21 18:28 Respiratory Rate 21 01/15/21 18:28 Blood Pressure 205/82 H 01/15/21 18:28 Pulse Oximetry 94 01/15/21 18:28 Temperature 102.4 F H 01/15/21 18:28 Temperature Source Temporal Artery Scan 01/15/21 18:28 Pulse 124 H 01/15/21 18:28 Respiratory Rate 21 01/15/21 18:28 Blood Pressure 205/82 H 01/15/21 18:28 Blood Pressure Position Supine 01/15/21 18:28 Pulse Oximetry 94 01/15/21 18:28 Oxygen Delivery Method Room Air 01/15/21 18:28 Oxygen Flow Rate 0 01/15/21 18:28 Pain Level 0 01/15/21 18:28 Comment 01/15/21 18:28 Lab/Test Results Lab/Test Results: 01/15/21 18:34 Blood Blood Culture - Pending 01/15/21 18:34 Blood Blood Culture - Pending Sign Out <Mary Elizondo DO - Last Filed: 01/17/21 14:14> Sign Out Data: Sign Out Comment: Follow up on CT imaging and final disposition. Will need admission or transfer for fever, chills, rash. Last updated by Mary Elizondo DO at 01/15/21 19:44
--- NOTE | 2021-01-15 18:42 | NUR.NOTE ---
Nursing Note: Kenneth, female recordak operator cell [phone], home [phone]
[2021-01-15] MEDS: ACETAMINOPHEN 1,000 MG/100 ML BTL 400 MG IVPB (18:45)
[2021-01-15 19:03] LABS: Absolute Basophil Count 0.04 10^3/uL (0.0-0.2); Absolute Eosinophil Count 0.08 10^3/uL (0.0-0.7); Absolute Lymphocyte Count 0.67 10^3/uL (1.2-3.4); Absolute Neutrophil Count 9.34 10^3/uL (1.2-6.7); Basophils % 0.4; Eosinophils % 0.8; HCT 36.6 % (40.0-50.0); HGB 11.7 g/dL (13.5-17.5); Immature Grans % 0.9; Lymphocytes % 6.3; MCH 28.3 pg (27.0-33.0); MCV 88.4 fL (80-95); MPV 8.5 fL (8.0-11.0); Monocytes % 3.8; Neutrophils % 87.8; Nucleated RBC 0 %; Platelet Count 255 10^3/uL (130-400); RBC 4.14 10^6/uL (4.36-5.78); RDW 13.4 % (11.8-14.1); RDW-SD 43.6 fL; WBC 10.63 10^3/uL (4.4-10.8)
[2021-01-15 19:06] LABS: ESR 29 mm//hr (0-20)
[2021-01-15] MEDS: Normal Saline 1,000 ML 1000 ML IV ×2 (19:06→20:27)
[2021-01-15] MEDS: methylPREDNISolone SUCC 125 MG VIAL IVP (19:07)
[2021-01-15] MEDS: diphenhydrAMINE 50 MG/ML VIAL 25 MG IVP (19:08)
--- NOTE | 2021-01-15 19:15 | DI.CT_ITS ---
EXAM: CT CHEST/ABD/PEL WO CLINICAL HISTORY: fever, cough, chills. TECHNIQUE: Imaging Protocol: Axial computed tomography images with coronal and sagittal reformatted images were created and reviewed CONTRAST MATERIAL: Intravenous: none Oral: None COMPARISON: No exams were available for comparison FINDINGS: CHEST: LUNGS: Less than optimal inspiration which results in some increased markings but no true confluent i nfiltrates. No air bronchograms. No pleural effusions. No focal findings in the trachea and mainst em bronchi.. MEDIASTINUM: There is adenopathy in both hilar regions. There is also significant subcarinal adenopa thy. There is no supraclavicular adenopathy. No significant axillary adenopathy. Visualized thyroi d unremarkable. CARDIAC: There is cardiomegaly. No pericardial effusion.Caliber of the thoracic aorta is within norm al limits. OSSEOUS: There is a healed fracture of the left 8th rib posterolaterally. No other significant rib f indings.No lytic osseous lesions identified.. ABDOMEN: There is no ascites. LIVER: There are no obvious focal hepatic lesions evident of this noninfused study. GALLBLADDER/BILIARY: No obvious gallbladder pathology. CBD is not dilated. PANCREAS: No evidence of obvious pancreatic mass nor dilatation of the pancreatic duct. SPLEEN: Spleen size is upper normal. No obvious intrasplenic lesions. ADRENALS: There are no significant adrenal masses. KIDNEYS: No calculi nor hydronephrosis. No obvious solid renal masses. No cysts evident. ABDOMINAL AORTA: Abdominal aorta is not enlarged. LYMPH NODES: There is no retroperitoneal nor para-aortic adenopathy. ABDOMINAL WALL/GI: No evidence of signature anterior abdominal wall hernia. No bowel obstruction. PELVIS: LYMPH NODES: There is no intrapelvic nor inguinal adenopathy. GI: No evidence of appendicitis.No evidence of sigmoid diverticulitis. URINARY BLADDER: There is a Pitts catheter in the urinary bladder in the bladder is collapsed. REPRODUCTIVE: Prostate gland is not enlarged. OSSEOUS: No significant osseous lesions. IMPRESSION: 1. The main finding here is mediastinal-subcarinal and hilar adenopathy. Suspicious for lymphoma. N o other adenopathy evident in the abdomen and pelvis nor in the axillary regions nor in the groins. 2. Spleen size is upper normal. 3. There is Pitts catheter in the urinary bladder and the urinary bladder is collapsed. RADIATION DOSE DELIVERED: 1,890.87mGy.cm Total DLP DATA REPOSITORY: All CT scans at this facility are submitted to the National Radiology Data Registry (NRDR) Dose Index Registry (DIR) with the [employer] (ACR). RADIATION OPTIMIZATION: All CT scans at this facility use at least one of these dose optimization te chniques: automated exposure control; mA and/or kV adjustment per patient size (includes targeted exa ms where dose is matched to clinical indication); or iterative reconstruction.
[2021-01-15 19:18] LABS: INR 1.2 (0.9-1.1); PTT Activated 26.7 sec (21.0-27.5)
[2021-01-15 19:19] LABS: C-Reactive Protein 9.56 mg/dL (0.0-0.3)
[2021-01-15 19:23] LABS: ALT 545 U/L (16-63); AST 311 U/L (15-37); Albumin 3.2 g/dL (3.4-5.0); Alkaline Phosphatase 355 U/L (46-116); Anion Gap 9.7 mmol/L (3-11); BUN 51 mg/dL (7-18); Bilirubin, Total 1.1 mg/dL (0.2-1.0); CO2 25.3 mmol/L (21.0-32.0); CREATININE 2.2 mg/dL (0.70-1.30); Chloride 100 mmol/L (98-107); Estimated GFR 30.38 (mL/min/1.73m2); Glucose 107 mg/dL (74-106); Magnesium 1.6 mg/dL (1.8-2.4); Potassium 5.3 mmol/L (3.5-5.1); Sodium 135 mmol/L (136-145); Total Protein 7.4 g/dL (6.4-8.2); Troponin I < 0.05 ng/mL (<0.06)
[2021-01-15 19:27] LABS: Bilirubin Negative (Negative); Blood Small (Negative); Clarity Clear (Clear); Glucose Negative (Negative); Ketones Negative (Negative); Leukocyte Esterase Negative (Negative); Nitrite Negative (Negative); Specific Gravity 1.015 (1.005-1.025); pH 5.5 (5-8)
[2021-01-15 19:39] LABS: Bacteria Negative HPF (Negative); C & S Indicated? No; Crystals Few Amorphous HPF (Negative); Epithelial Cells Negative HPF (Negative); Mucus Negative (Negative); Other Cells Few Transitional (Negative); RBC 0-2 HPF (0-2); WBC Negative HPF (0-5)
[2021-01-15 19:48] LABS: COVID-19 PCR Negative (Negative)
--- NOTE | 2021-01-15 20:28 | DI.VRAD_ITS ---
PROCEDURE INFORMATION: Exam: CT Chest Without Contrast; Diagnostic Exam date and time: 01/15/2021 7:50 PM Age: 65 years old Clinical indication: Prior surgery; Surgery date: 6+ months; Surgery type: Appendectomy and vascular stent; Patient HX: Cough, fever, chills, rash TECHNIQUE: Imaging protocol: Diagnostic computed tomography of the chest without contrast. Radiation optimization: All CT scans at this facility use at least one of these dose optimization techniques: automated exposure control; mA and/or kV adjustment per patient size (includes targeted exams where dose is matched to clinical indication); or iterative reconstruction. COMPARISON: CR CHEST 2 VIEWS PA,LAT 01/30/2017 11:12 PM FINDINGS: Lungs: Dependent subsegmental atelectasis in the lung bases. Pleural spaces: Unremarkable. No pneumothorax. No pleural effusion. Heart: Mild coronary artery calcification. No cardiac chamber enlargement, great vessel dilatation, or pericardial effusion. Aorta: Unremarkable. No aortic aneurysm. Lymph nodes: Pretracheal and subcarinal lymphadenopathy. Left greater than right bilateral hilar lymphadenopathy. Bones/joints: Unremarkable. No acute fracture. Soft tissues: Unremarkable. IMPRESSION: 1. Dependent subsegmental atelectasis. No focal parenchymal consolidation or mass. 2. Mediastinal and hilar lymphadenopathy. PROCEDURE INFORMATION: Exam: CT Abdomen And Pelvis Without Contrast Exam date and time: 01/15/2021 7:50 PM Age: 65 years old Clinical indication: Prior surgery; Surgery date: 6+ months; Surgery type: Appendectomy and vascular stent; Patient HX: Cough, fever, chills, rash TECHNIQUE: Imaging protocol: Computed tomography of the abdomen and pelvis without contrast. Radiation optimization: All CT scans at this facility use at least one of these dose optimization techniques: automated exposure control; mA and/or kV adjustment per patient size (includes targeted exams where dose is matched to clinical indication); or iterative reconstruction. COMPARISON: CR CHEST 2 VIEWS PA,LAT 01/30/2017 11:12 PM FINDINGS: Liver: Normal. No mass. Gallbladder and bile ducts: Normal. No calcified stones. No ductal dilation. Pancreas: Normal. No ductal dilation. Spleen: Normal. No splenomegaly. Adrenal glands: Normal. No mass. Kidneys and ureters: Normal. No hydronephrosis. Stomach and bowel: Unremarkable. No obstruction. No mucosal thickening. Appendix: No evidence of appendicitis. Intraperitoneal space: Unremarkable. No free air. No significant fluid collection. Vasculature: Mild calcified atherosclerotic disease. No aneurysm. Pelvic phleboliths. Lymph nodes: Unremarkable. No enlarged lymph nodes. Urinary bladder: Pitts catheter in place. Urinary bladder is nondistended. Reproductive: Unremarkable as visualized. Bones/joints: Unremarkable. No acute fracture. Soft tissues: Bilateral anterior abdominal wall subcutaneous fat stranding, likely related to medication administration. IMPRESSION: 1. No significant abnormality. 2. Pitts catheter in place. Dictated and Authenticated by: Abimael Hinojosa MD. Ordering:BLADIMIR Hernandez MD
[2021-01-15] MEDS: DOXYCYCLINE 100 MG in Normal Saline 100 ML IVPB (21:35)
--- NOTE | 2021-01-15 21:35 | HPE_ITS ---
Date of service: 01/15/21 Time of Service: 21:35 Assessment and Plan Assessment and plan (1) Fever: Status: Acute Assessment and plan: Fever and rash, with transaminitis and hilar lympadenopathy. DDx is broad but I think infectious is most likely, more likely than not viral. Drug reaction (to prednisone) to be considered. Would also consider systemic inflammatory process (eg sarcoid). The only specific clue is the liver enzymes and in addition to current w/u will add acute viral serology, along with HIV, tick panel and Caroline screen. I do not see indication for antibiotics at present and will hold any further. History of Present Illness History of Present Illness Chief Complaint: fever and rash Narrative: 65 male with multiple problems. Comes in with one day of fever, chills and diffuse rash, starting on LEs. In ER findings of note for temp 39.2, diffuse rash, normal white count, CT chest negastive for airspace disease but showing hilar adenopathy, CT abd negative, negative urine and chemistries of note for moderate transaminitis, with AST 311, ALT 545, Alkphos 355, TB 1.1. Rapid COVID negative. No similar illness at home. Denies IVDA, shared needles, transfusion or new sex partner. Only new medication (2 weeks [employer]) is prednisone, which he is on for so me shoulder pain which developed after COVID vaccine some 3 weeks ago. States he feels entirely well otherwise. Here in ER he was given doses of Vanco, Zosyn and Doxy along with Benadryl and Solumedrol. he is admitted for further management. Review of Systems All systems reviewed & are unremarkable except as noted in HPI and below PFSH Medical History Acute osteomyelitis of right foot (06/25/16) Atherosclerosis of [place] coronary artery Stent 1999 Positive MPI in May 2010 Chronic renal impairment, stage 2 (mild) Coronary disease a. s/p cath with stent 1999 b. MPI positive for ischemia 2009 Current use of insulin Depression Depressive disorder (08/10/13) Diabetes mellitus Diabetes mellitus, type II a. Hgb A1C 11.6 b. on high dose glargine insulin therapy DM (diabetes mellitus), type 2, uncontrolled w/ophthalmic complication (08/06/12) Essential hypertension if creat ok, will add KULWANT Heart failure 01/31/17 [facility] ; EF 45-50%;ATRIAL DIALATION on coumadin Hyperlipidemia (03/26/13) Impacted cerumen of both ears Low back pain Obesity Osteomyelitis (08/13/14) a. left foot fifth metatarsal and proximal phalanx Polyp of colon (11/17/13) DR. Dick RODRIGUEZ; TUBULAR ADENOMA Proliferative diabetic retinopathy (08/06/12) 08/09/16; [facility] Rupture of left quadriceps muscle (01/15/18) Sensorineural hearing loss, bilateral (07/16/16) Sleep apnea (05/16/15) Well adult Surgical History Colonoscopy - MAC (11/17/13) H/O surgical procedure a. Right quadriceps repair [address] Smart b. Colonoscopy 11/17/[address] Rodriguez History of appendectomy History of intravascular stent placement History of right knee surgery (04/22/14) PROCEDURES INSERT 1 VASCULAR STENT, 1999 LEFT CIRC. QUADRICEPS REPAIR 01/16/18 (L) S/P [place] 10[place]02/18[place] [facility] [place] Family History Mother , AGE 84 Diabetes Stroke Father Depression Heart disease Hyperlipidemia Hypertension Sister Alcohol abuse Substance abuse Diabetes Depression Social History Smoking/Tobacco Use Status: Never Second Hand Exposure: Yes Smoking risk assessment performed?: Yes Alcohol Intake: former Drug use: Never Substance use type: does not use Caregiver/Support person: No Household members: significant other Housing: house Communication Needs: Hard of Hearing Do you need help understanding health information?: Never Pets and animals: No Sexually active: Yes Do you think of yourself as: straight/heterosexual Current gender identity: male What is your relationship status?: living with partner How often do you talk on the phone with friends or family?: once per week How often do you get together with friends or relatives?: twice per week How often do you attend jehovah's witness or sabianist services?: decline to answer Do you belong to any clubs or organized social groups?: no Panel score (0-1 are the most socially isolated patients): 2 What type of physical activity do you participate in: other Details: Rowing Duration: 15-30 minutes/day Frequency: 3-4 times per week Verna/Anabaptist: Oriental Orthodox Special verna needs: No Seatbelt use: always Helmet use: Yes Helmet use: always Drive intox or ride w/intox over the road driver: No Do you feel safe at home: Yes Do you feel safe in your relationship?: Yes Meds Allergies and Home Medications Allergies Allergy/AdvReac Type Severity Reaction Status Date / Time atorvastatin AdvReac Verified 01/04/21 09:33 Home Medications Medication Instructions Recorded Confirmed Type Bupropion HCl 100 mg PO BID #180 tab-cap 05/06/18 01/15/21 Clinic blood-glucose meter #1 each 12/30/18 01/15/21 Rx lancets #100 each 10/20/19 01/15/21 Rx bupropion HCl 100 mg tablet 100 mg PO BID #60 tab 04/06/20 01/15/21 Rx metoprolol tartrate 25 mg tablet 25 mg PO BID #180 tab-cap 04/19/20 01/15/21 Rx nitroglycerin 0.4 mg sublingual 0.4 mg SUBLINGUAL PRN #25 tab 04/19/20 01/15/21 Rx tablet pravastatin 80 mg tablet 80 mg PO HS #90 tab 04/19/20 01/15/21 Rx pen needle, diabetic 31 gauge x #400 ea 09/06/20 01/15/21 Rx 5/16 apixaban 5 mg tablet 5 mg PO BID #60 tab 10/26/20 01/15/21 Rx citalopram 20 mg tablet 20 mg PO DAILY #90 tab 10/26/20 01/15/21 Rx insulin glargine 100 unit/mL (3 60 unit SUB-Q BID #36 ml 10/26/20 01/15/21 Rx mL) subcutaneous pen losartan 25 mg tablet 25 mg PO DAILY 01/04/21 01/15/21 History prednisone 5 mg tablet 5 mg PO BID #30 tab 01/04/21 01/15/21 Rx blood sugar diagnostic #300 each 01/05/21 01/15/21 Rx insulin aspart U-100 100 unit/mL 26 - 30 unit SUBCUT AC #27 syrg 01/05/21 01/15/21 Rx (3 mL) subcutaneous pen celecoxib 200 mg PO BID 01/15/21 01/15/21 History Exam Narrative Exam Narrative: 133/43, 92, 38.6 (Tmax 39.6), 23, 97% RA. HEENT conjunctiva clear; throat no oral lesions or exudate; neck supple; lungs clear; heart RRR w/o MRG; abdomen soft and NT w/O HSM; no scrotal swelling of penile D/C; ext remities w/o edema; neuro Ox3, nonfocal; no lymphadenopathy; skin diffuse erythematous eruption in large whorls and plaques with areas of confluence Results Labs Result diagrams: 01/15/21 18:45 01/15/21 18:45 Labs: Laboratory Results - last 24 hr 01/15/21 01/15/21 01/15/21 18:45 18:45 18:45 WBC RBC Hgb Hct MCV MCH MCHC RDW Plt Count MPV Immature Gran % Neutrophils % Lymphocytes % Monocytes % Eosinophils % Basophils % Nucleated RBC % Absolute Neutrophils Absolute Lymphocytes Absolute Monocytes Absolute Eosinophils Absolute Basophils ESR PT 12.0 H INR 1.2 H APTT 26.7 VBG Lactate 2.0 H Sodium 135 L Potassium 5.3 H Chloride 100 Carbon Dioxide 25.3 Anion Gap 9.7 BUN 51 H Creatinine 2.2 H Estimated GFR/1.73 m2 30.38 Glucose 107 H Calcium 9.0 Magnesium 1.6 L Total Bilirubin 1.1 H AST 311 H ALT 545 H Alkaline Phosphatase 355 H Troponin I < 0.05 C-Reactive Protein Total Protein 7.4 Albumin 3.2 L Urine Color Urine Clarity Urine pH Ur Specific [place] Urine Protein Urine Ketones Urine Blood Urine Nitrite Urine Bilirubin Urine Urobilinogen Ur Leukocyte Esterase Urine RBC Urine WBC Ur Epithelial Cells Urine Crystals Urine Bacteria Urine Mucus Urine Other Ur Culture Indicated? Urine Glucose COVID-19 Source SARS-CoV-2 (PCR) 01/15/21 01/15/21 01/15/21 18:45 18:45 18:45 WBC 10.63 RBC 4.14 L Hgb 11.7 L Hct 36.6 L MCV 88.4 MCH 28.3 MCHC 32.0 RDW 13.4 Plt Count 255 MPV 8.5 Immature Gran % 0.9 Neutrophils % 87.8 Lymphocytes % 6.3 Monocytes % 3.8 Eosinophils % 0.8 Basophils % 0.4 Nucleated RBC % 0 Absolute Neutrophils 9.34 H Absolute Lymphocytes 0.67 L Absolute Monocytes 0.40 Absolute Eosinophils 0.08 Absolute Basophils 0.04 ESR 29 H PT INR APTT VBG Lactate Sodium Potassium Chloride Carbon Dioxide Anion Gap BUN Creatinine Estimated GFR/1.73 m2 Glucose Calcium Magnesium Total Bilirubin AST ALT Alkaline Phosphatase Troponin I C-Reactive Protein 9.56 H Total Protein Albumin Urine Color Urine Clarity Urine pH Ur Specific [place] Urine Protein Urine Ketones Urine Blood Urine Nitrite Urine Bilirubin Urine Urobilinogen Ur Leukocyte Esterase Urine RBC Urine WBC Ur Epithelial Cells Urine Crystals Urine Bacteria Urine Mucus Urine Other Ur Culture Indicated? Urine Glucose COVID-19 Source SARS-CoV-2 (PCR) 01/15/21 01/15/21 19:00 19:05 WBC RBC Hgb Hct MCV MCH MCHC RDW Plt Count MPV Immature Gran % Neutrophils % Lymphocytes % Monocytes % Eosinophils % Basophils % Nucleated RBC % Absolute Neutrophils Absolute Lymphocytes Absolute Monocytes Absolute Eosinophils Absolute Basophils ESR PT INR APTT VBG Lactate Sodium Potassium Chloride Carbon Dioxide Anion Gap BUN Creatinine Estimated GFR/1.73 m2 Glucose Calcium Magnesium Total Bilirubin AST ALT Alkaline Phosphatase Troponin I C-Reactive Protein Total Protein Albumin Urine Color Yellow Urine Clarity Clear Urine pH 5.5 Ur Specific [place] 1.015 Urine Protein 100 H Urine Ketones Negative Urine Blood Small H Urine Nitrite Negative Urine Bilirubin Negative Urine Urobilinogen 2.0 H Ur Leukocyte Esterase Negative Urine RBC 0-2 Urine WBC Negative Ur Epithelial Cells Negative Urine Crystals Few amorphous Urine Bacteria Negative Urine Mucus Negative Urine Other Few transitional Ur Culture Indicated? No Urine Glucose Negative COVID-19 Source Nasopharyx SARS-CoV-2 (PCR) Negative Last Vital Signs Temp 38.6 C H 01/15/21 21:28 Pulse 92 H 01/15/21 21:28 Resp 23 01/15/21 21:28 BP 133/43 L 01/15/21 21:28 Pulse Ox 97 01/15/21 21:28 COVID-19 Screening Have you, or household traveled for leisure in last 14 days?: No
[2021-01-15 22:20] LABS: Mono Screening Negative (Negative)
[2021-01-15] MEDS: PIPERACILLIN/TAZO 3.375 GM in Normal Saline 50 ML IVPB (22:45)
[2021-01-16] VITALS (10 sets, daily range): BP systolic 144–204; BP diastolic 66–78; PULSE 70–104; RESP 16–25; TEMP 37–39.8; O2SAT 92–94
[2021-01-16] MEDS: Normal Saline 500 ML 30 ML IV (01:40)
[2021-01-16] MEDS: VANCOMYCIN 2,000 MG in Normal Saline 500 ML 333.3333 MG IVPB (01:41)
[2021-01-16] MEDS: Water,Injection,Sterile 10 ML VIAL (01:55)
[2021-01-16] MEDS: Ibuprofen 600 MG TAB PO (03:29)
[2021-01-16 06:39] LABS: HCT 30.7 % (40.0-50.0); HGB 9.9 g/dL (13.5-17.5); MCH 28.2 pg (27.0-33.0); MCHC 32.2 % (32.0-36.0); MCV 87.5 fL (80-95); MPV 8.7 fL (8.0-11.0); Platelet Count 215 10^3/uL (130-400); RBC 3.51 10^6/uL (4.36-5.78); RDW 13.6 % (11.8-14.1); RDW-SD 43.9 fL; WBC 13.51 10^3/uL (4.4-10.8)
[2021-01-16 06:56] LABS: ALT 426 U/L (16-63); AST 149 U/L (15-37); Alkaline Phosphatase 307 U/L (46-116); Bilirubin, Total 0.8 mg/dL (0.2-1.0)
--- NOTE | 2021-01-16 07:00 | HOME_ITS ---
Home Ventilator Equipment Home care company [employer] Reason: Obstructive Sleep Apnea Make: Respironics Model: Dreamstation Mask type: Face mask Mask size: Medium Mode: BiPAP Settings: Max IPAP 25/Min EPAP 17 PS min/max 4 Oxygen bleed in (lpm): Condition: Good Date last checked: 01/16/21 Year of last sleep study: Compliance Daily Comments: Device on RA
[2021-01-16] MEDS: Insulin Glargine 300 UNITS/3 ML PEN 30 UNITS SC ×2 (08:51→23:28)
[2021-01-16] MEDS: Famotidine 20 MG TAB PO (08:52)
[2021-01-16] MEDS: Celecoxib 200 MG CAP PO ×2 (08:52→21:25)
[2021-01-16] MEDS: Losartan 25 MG TAB PO (08:52)
[2021-01-16] MEDS: Citalopram 20 MG TAB PO (08:52)
[2021-01-16] MEDS: Metoprolol 25 MG TAB PO ×2 (08:52→21:26)
[2021-01-16] MEDS: buPROPion 100 MG TAB PO ×2 (08:52→21:25)
[2021-01-16] MEDS: Apixaban 5 MG TAB PO ×2 (08:52→21:26)
[2021-01-16 10:04] LABS: C-Reactive Protein 12.72 mg/dL (0.0-0.3)
[2021-01-16] MEDS: predniSONE 20 MG TAB PO ×2 (10:08→21:26)
[2021-01-16] MEDS: Insulin Aspart 300 UNITS/3 ML PEN SC ×2 (11:53→16:55)
--- NOTE | 2021-01-16 14:29 | CHAPLAIN ---
Alpesh was resting in bed when I visited. He's dealing with some kind of rash, that he believes is caused a new medicine he is taking following surgery with Dr. Leiva. Alpesh is calm and taking everything in stride. He's in touch with family by johnathan
--- NOTE | 2021-01-16 15:19 | PGE_ITS ---
Date of Service Date of service: 01/16/21 Time of Service: 15:19 Assessment and Plan Assessment and plan (1) Fever: Start date: 01/16/21 Start time: 15:28 Status: Acute Assessment and plan: Fever and rash, with transaminitis and hilar lympadenopathy. DDx is broad but I think infectious is most likely, more likely than not viral. [place] negative R/o sarcoidosis, lupus, tick panel, HIV, Hep c, CRP 12.72 UKLWANT level pending Ila titer, ESR 29 Afebrile since 0420 High dose steroid in setting of possible sarcoidosis, this is a drug reaction from prednisone will d/c Also given pepcid and IV benadryl (2) Rash: Start date: 01/16/21 Start time: 15:35 Status: Acute Assessment and plan: as above (3) Transaminitis: Start date: 01/16/21 Start time: 15:35 Status: Acute Assessment and plan: elevated LFT hold statin until they improve (4) Diabetes mellitus: Start date: 01/16/21 Start time: 15:40 Status: Acute Assessment and plan: Monitor fingersticks Ac/hs SSI above case discussed with dr. Darling Subjective Subjective Patient reports: no new complaints Interval history since last seen: No SOB, CP, denies itching. R/o lupus vs sarcoidosis vs lyme panel vs HIV vs Hep panel, vs viral. He received his first COVID vaccine 3 weeks. Greene negative. Started on high dose steroids. Continue to monitor. Exam Narrative Exam Narrative: . HEENT conjunctiva clear; throat no oral lesions or exudate; neck supple; lungs clear; heart RRR w/o MRG; abdomen soft and NT w/O HSM; ; extremities w/o edema; neuro Ox3, nonfocal; no lymphadenopathy; skin diffuse erythematous in large whorls and plaques with areas of confluence no itchy or raised. Able to move all extremities no edema clubbing or cyanosis. Objective Last Vital Signs Temp 37 C 01/16/21 15:16 Pulse 70 01/16/21 15:16 Resp 16 01/16/21 15:16 BP 172/77 H 01/16/21 15:16 Pulse Ox 94 01/16/21 15:16 Laboratory Results - last 24 hr 01/15/21 01/15/21 01/15/21 18:45 18:45 18:45 WBC RBC Hgb Hct MCV MCH MCHC RDW Plt Count MPV Immature Gran % Neutrophils % Lymphocytes % Monocytes % Eosinophils % Basophils % Nucleated RBC % Absolute Neutrophils Absolute Lymphocytes Absolute Monocytes Absolute Eosinophils Absolute Basophils ESR PT 12.0 H INR 1.2 H APTT 26.7 VBG Lactate 2.0 H Sodium 135 L Potassium 5.3 H Chloride 100 Carbon Dioxide 25.3 Anion Gap 9.7 BUN 51 H Creatinine 2.2 H Estimated GFR/1.73 m2 30.38 Glucose 107 H Calcium 9.0 Magnesium 1.6 L Total Bilirubin 1.1 H AST 311 H ALT 545 H Alkaline Phosphatase 355 H Troponin I < 0.05 C-Reactive Protein Total Protein 7.4 Albumin 3.2 L Urine Color Urine Clarity Urine pH Ur Specific [place] Urine Protein Urine Ketones Urine Blood Urine Nitrite Urine Bilirubin Urine Urobilinogen Ur Leukocyte Esterase Urine RBC Urine WBC Ur Epithelial Cells Urine Crystals Urine Bacteria Urine Mucus Urine Other Ur Culture Indicated? Urine Glucose CSF Lyme DNA Comment CSF B.burgdorferi (PCR) CSF B.mayonii (PCR) CSF B.alexsandra/afzel PCR Lyme Specimen Source COVID-19 Source SARS-CoV-2 (PCR) Monoscreen 01/15/21 01/15/21 01/15/21 18:45 18:45 18:45 WBC 10.63 RBC 4.14 L Hgb 11.7 L Hct 36.6 L MCV 88.4 MCH 28.3 MCHC 32.0 RDW 13.4 Plt Count 255 MPV 8.5 Immature Gran % 0.9 Neutrophils % 87.8 Lymphocytes % 6.3 Monocytes % 3.8 Eosinophils % 0.8 Basophils % 0.4 Nucleated RBC % 0 Absolute Neutrophils 9.34 H Absolute Lymphocytes 0.67 L Absolute Monocytes 0.40 Absolute Eosinophils 0.08 Absolute Basophils 0.04 ESR 29 H PT INR APTT VBG Lactate Sodium Potassium Chloride Carbon Dioxide Anion Gap BUN Creatinine Estimated GFR/1.73 m2 Glucose Calcium Magnesium Total Bilirubin AST ALT Alkaline Phosphatase Troponin I C-Reactive Protein 9.56 H Total Protein Albumin Urine Color Urine Clarity Urine pH Ur Specific [place] Urine Protein Urine Ketones Urine Blood Urine Nitrite Urine Bilirubin Urine Urobilinogen Ur Leukocyte Esterase Urine RBC Urine WBC Ur Epithelial Cells Urine Crystals Urine Bacteria Urine Mucus Urine Other Ur Culture Indicated? Urine Glucose CSF Lyme DNA Comment CSF B.burgdorferi (PCR) CSF B.mayonii (PCR) CSF B.alexsandra/afzel PCR Lyme Specimen Source COVID-19 Source SARS-CoV-2 (PCR) Monoscreen 01/15/21 01/15/21 01/15/21 18:45 19:00 19:05 WBC RBC Hgb Hct MCV MCH MCHC RDW Plt Count MPV Immature Gran % Neutrophils % Lymphocytes % Monocytes % Eosinophils % Basophils % Nucleated RBC % Absolute Neutrophils Absolute Lymphocytes Absolute Monocytes Absolute Eosinophils Absolute Basophils ESR PT INR APTT VBG Lactate Sodium Potassium Chloride Carbon Dioxide Anion Gap BUN Creatinine Estimated GFR/1.73 m2 Glucose Calcium Magnesium Total Bilirubin AST ALT Alkaline Phosphatase Troponin I C-Reactive Protein Total Protein Albumin Urine Color Yellow Urine Clarity Clear Urine pH 5.5 Ur Specific [place] 1.015 Urine Protein 100 H Urine Ketones Negative Urine Blood Small H Urine Nitrite Negative Urine Bilirubin Negative Urine Urobilinogen 2.0 H Ur Leukocyte Esterase Negative Urine RBC 0-2 Urine WBC Negative Ur Epithelial Cells Negative Urine Crystals Few amorphous Urine Bacteria Negative Urine Mucus Negative Urine Other Few transitional Ur Culture Indicated? No Urine Glucose Negative CSF Lyme DNA Comment CSF B.burgdorferi (PCR) CSF B.mayonii (PCR) CSF B.alexsandra/afzel PCR Lyme Specimen Source COVID-19 Source Nasopharyx SARS-CoV-2 (PCR) Negative Monoscreen Negative 01/16/21 01/16/21 01/16/21 06:20 06:20 07:53 WBC 13.51 H RBC 3.51 L Hgb 9.9 L Hct 30.7 L MCV 87.5 MCH 28.2 MCHC 32.2 RDW 13.6 Plt Count 215 MPV 8.7 Immature Gran % Neutrophils % Lymphocytes % Monocytes % Eosinophils % Basophils % Nucleated RBC % Absolute Neutrophils Absolute Lymphocytes Absolute Monocytes Absolute Eosinophils Absolute Basophils ESR PT INR APTT VBG Lactate Sodium Potassium Chloride Carbon Dioxide Anion Gap BUN Creatinine Estimated GFR/1.73 m2 Glucose Calcium Magnesium Total Bilirubin 0.8 AST 149 H ALT 426 H Alkaline Phosphatase 307 H Troponin I C-Reactive Protein Total Protein Albumin Urine Color Urine Clarity Urine pH Ur Specific [place] Urine Protein Urine Ketones Urine Blood Urine Nitrite Urine Bilirubin Urine Urobilinogen Ur Leukocyte Esterase Urine RBC Urine WBC Ur Epithelial Cells Urine Crystals Urine Bacteria Urine Mucus Urine Other Ur Culture Indicated? Urine Glucose CSF Lyme DNA Comment Cancelled CSF B.burgdorferi (PCR) Cancelled CSF B.mayonii (PCR) Cancelled CSF B.alexsandra/afzel PCR Cancelled Lyme Specimen Source Cancelled COVID-19 Source SARS-CoV-2 (PCR) Monoscreen 01/16/21 08:48 WBC RBC Hgb Hct MCV MCH MCHC RDW Plt Count MPV Immature Gran % Neutrophils % Lymphocytes % Monocytes % Eosinophils % Basophils % Nucleated RBC % Absolute Neutrophils Absolute Lymphocytes Absolute Monocytes Absolute Eosinophils Absolute Basophils ESR PT INR APTT VBG Lactate Sodium Potassium Chloride Carbon Dioxide Anion Gap BUN Creatinine Estimated GFR/1.73 m2 Glucose Calcium Magnesium Total Bilirubin AST ALT Alkaline Phosphatase Troponin I C-Reactive Protein 12.72 H Total Protein Albumin Urine Color Urine Clarity Urine pH Ur Specific [place] Urine Protein Urine Ketones Urine Blood Urine Nitrite Urine Bilirubin Urine Urobilinogen Ur Leukocyte Esterase Urine RBC Urine WBC Ur Epithelial Cells Urine Crystals Urine Bacteria Urine Mucus Urine Other Ur Culture Indicated? Urine Glucose CSF Lyme DNA Comment CSF B.burgdorferi (PCR) CSF B.mayonii (PCR) CSF B.alexsandra/afzel PCR Lyme Specimen Source COVID-19 Source SARS-CoV-2 (PCR) Monoscreen
[2021-01-16] MEDS: diphenhydrAMINE 50 MG/ML VIAL 25 MG IVP ×2 (16:21→22:15)
--- NOTE | 2021-01-16 17:10 | INITIAL_ITS ---
- If Service Date Differs Date of service: 01/16/21 Time of Service: 17:16 Care Management Initial Assess REASON FOR HOSPITALIZATION:: Fever and Rash PAST MEDICAL HISTORY/PAST SURGICAL HISTORY:: DM, AMI, CAD, DVT, hyperlipidemia, HTN, PE, NADIA surgical hx: angioplasty, cardiac stent, appendectomy, knee arthroscopy and quad tendon repair. PREVIOUS FUNCTIONAL STATUS/SOCIAL/FAMILY SUPPORTS:: Alpesh lives at home with his JOVI Condon in [place], [place]. He has his own home, and his own truck. He is independent with ADL's. Alpesh retired from the [employer]. He is disabled and receives disability. CURRENT FUNCTIONAL STATUS:: Alpesh is lying in bed, he reports having little memory of the events after admitting to [facility]. He reports being delirious from fever. He shares that he is feeling much better and has not had any fever since admission. ADVANCE DIRECTIVES:: None on file at [facility]. Has patient been provided with info about the portal/API?: Yes Did the patient sign up for the portal?: No CODE STATUS:: Full Code INSURANCE COVERAGE / FINANCIAL ISSUES:: Medicaid CURRENT HOME/COMMUNITY SERVICES/EQUIPMENT:: CPAP through [facility], crutches, glucometer. PRIMARY CARE PHYSICIAN:: Dr. Enrique POTENTIAL DISCHARGE NEEDS:: Follow up with appointment with , and primary care provider. PATIENT/FAMILY EDUCATION NEEDS:: Discharge education, limitations, follow up plan of care and ask me three discussion and self management. ANTICIPATED BARRIERS TO DISCHARGE:: No barriers identified at this time. TRANSPORTATION:: Alpesh will transport home with his SO at time of discharge via private car. PLAN:: Alpesh will discharge home when medically ready per MD. He will be transported home via private vehicle with his SOAmy upon discharge. CM will continue to follow and support discharge planning consideration.
[2021-01-16] MEDS: Ibuprofen 400 MG TAB PO (22:13)
[2021-01-16 23:06] LABS: Glucose 445 mg/dL (74-106)
[2021-01-16] MEDS: ACETAMINOPHEN 1,000 MG/100 ML BTL 400 MG IVPB (23:29)
[2021-01-17] VITALS (14 sets, daily range): BP systolic 111–198; BP diastolic 64–75; PULSE 57–93; RESP 15–25; TEMP 35.8–40.2; O2SAT 90–97
[2021-01-17] MEDS: Normal Saline Flush 10 ML SYR IVP ×3 (00:20→22:11)
[2021-01-17] MEDS: diphenhydrAMINE 50 MG/ML VIAL 25 MG IVP ×3 (04:17→22:10)
[2021-01-17 06:59] LABS: Abs Immature Grans 0.23 10^3/uL (0.0-0.06); HCT 35.4 % (40.0-50.0); HGB 11.2 g/dL (13.5-17.5); MCH 28.2 pg (27.0-33.0); MCHC 31.6 % (32.0-36.0); MCV 89.2 fL (80-95); MPV 8.8 fL (8.0-11.0); Nucleated RBC 0 %; Platelet Count 238 10^3/uL (130-400); RBC 3.97 10^6/uL (4.36-5.78); RDW 13.3 % (11.8-14.1); RDW-SD 43.8 fL; WBC 16.97 10^3/uL (4.4-10.8)
[2021-01-17 07:23] LABS: ALT 422 U/L (16-63); AST 69 U/L (15-37); Albumin 2.9 g/dL (3.4-5.0); Alkaline Phosphatase 362 U/L (46-116); BUN 53 mg/dL (7-18); Bilirubin, Total 0.8 mg/dL (0.2-1.0); CREATININE 2.4 mg/dL (0.70-1.30); Calcium 9.2 mg/dL (8.5-10.1); Chloride 102 mmol/L (98-107); Estimated GFR 27.48 (mL/min/1.73m2); Glucose 255 mg/dL (74-106); Potassium 5.6 mmol/L (3.5-5.1); Sodium 134 mmol/L (136-145)
[2021-01-17 07:33] LABS: Absolute Eosinophil Count 0.17 10^3/uL (0.0-0.7); Absolute Lymphocyte Count 0.68 10^3/uL (1.2-3.4); Absolute Monocyte Count 0.68 10^3/uL (0.1-0.8); Absolute Neutrophil Count 15.44 10^3/uL (1.2-6.7); Bands % 4
[2021-01-17 07:34] LABS: Diff Comment Manual Differential; RBC Morphology Normal
[2021-01-17] MEDS: Citalopram 20 MG TAB PO (08:08)
[2021-01-17] MEDS: buPROPion 100 MG TAB PO ×2 (08:08→21:07)
[2021-01-17] MEDS: Famotidine 20 MG TAB PO (08:08)
[2021-01-17] MEDS: Losartan 25 MG TAB PO (08:09)
[2021-01-17] MEDS: Apixaban 5 MG TAB PO ×2 (08:09→21:07)
[2021-01-17] MEDS: Celecoxib 200 MG CAP PO (08:09)
[2021-01-17] MEDS: Metoprolol 25 MG TAB PO ×2 (08:09→21:06)
[2021-01-17] MEDS: Insulin Aspart 300 UNITS/3 ML PEN SC ×3 (08:09→17:12)
[2021-01-17] MEDS: predniSONE 20 MG TAB PO ×2 (08:09→21:07)
[2021-01-17] MEDS: Insulin Glargine 300 UNITS/3 ML PEN 30 UNITS SC (08:10)
--- NOTE | 2021-01-17 08:54 | W.PM.PROGNOT ---
Date of Service Date of service: 01/17/21 Time of Service: 08:54 Assessment and Plan Assessment and plan (1) Fever: Status: Acute Assessment and plan: ongoing fever and rash, with transaminitis and hilar lympadenopathy. white count up to 16 from 13 with left shift. blood cultures remain negative. max temp overnight 39.4 [place] negative R/o sarcoidosis, lupus, tick panel, HIV, Hep c, CRP 12.72 KULWANT level pending Ila titer, ESR 29 High dose steroid in setting of possible sarcoidosis, this is a drug reaction from prednisone will d/c Also given pepcid and IV benadryl started on doxycycline while awaiting lab investigations (2) Rash: Status: Acute Assessment and plan: as above (3) Transaminitis: Status: Acute Assessment and plan: elevated LFT hold statin until they improve (4) Depressive disorder: Status: Acute Assessment and plan: stable, continue antidepressant. (5) KATRIN (acute kidney injury): Status: Acute Assessment and plan: creatinine up 2.4, potassium at 5.6 hold losartan and celebrex give gentle IV fluid bolus. (6) Diabetes mellitus, type II: Status: Acute Assessment and plan: hyperglycemia in setting of steroids with blood sugars over 200 Monitor fingersticks Ac/hs SSI continue lantus bid increasing to 35 units bid from 30 units, at home on 60 units bid. A1C 7.8 in March 2020, will recheck. (7) Sleep apnea: Status: Acute Assessment and plan: continue home cpap (8) Discharge planning issues: Status: Acute Assessment and plan: case management following above case discussed with Subjective Subjective Patient reports: no new complaints, feels better, tolerating liquids well, tolerating a regular diet and afebrile; denies shortness of breath Interval history since last seen: denies itching, states he feels well today. Exam Const General: cooperative, frail appearing (older than stated age) and ill appearing chronically Nutritional Appearance: overweight Orientation: alert, awake and oriented x3 HENMT Head: normal to inspection, normocephalic and atraumatic Mouth: oral mucosae normal and moist mucous membranes Resp Effort & Inspection: normal respiratory effort Auscultation: clear to auscultation bilaterally Cardio Rate: regular rate Rhythm: regular rhythm GI Inspection: normal to inspection Palpation: soft Auscultation: normal bowel sounds Skin Rashes: rashes noted (diffuse red macular rash, states not itchy) Neuro General: patient alert, patient awake, patient oriented x3 (some intermittent confusion), moves all extremities and no focal motor deficits Speech: speech normal Extrem General: normal to inspection and full ROM Objective Last Vital Signs Temp 35.8 C L 01/17/21 07:25 Pulse 62 01/17/21 07:25 Resp 18 01/17/21 07:25 BP 111/66 01/17/21 07:25 Pulse Ox 93 01/17/21 08:24 Laboratory Results - last 24 hr 01/16/21 01/16/21 01/17/21 08:48 22:45 06:30 WBC RBC Hgb Hct MCV MCH MCHC RDW Plt Count MPV Immature Gran % Neutrophils % Band Neutrophils % Lymphocytes % Monocytes % Eosinophils % Basophils % Nucleated RBC % Absolute Neutrophils Absolute Lymphocytes Absolute Monocytes Absolute Eosinophils Absolute Basophils RBC Morphology Sodium 134 L Potassium 5.6 H Chloride 102 Carbon Dioxide 23.0 Anion Gap 9.0 BUN 53 H Creatinine 2.4 H Estimated GFR/1.73 m2 27.48 Glucose 445 H D 255 H D Calcium 9.2 Total Bilirubin 0.8 AST 69 H ALT 422 H Alkaline Phosphatase 362 H C-Reactive Protein 12.72 H Total Protein 7.0 Albumin 2.9 L 01/17/21 06:30 WBC 16.97 H RBC 3.97 L Hgb 11.2 L Hct 35.4 L MCV 89.2 MCH 28.2 MCHC 31.6 L RDW 13.3 Plt Count 238 MPV 8.8 Immature Gran % See Differential Neutrophils % 87.0 Band Neutrophils % 4 Lymphocytes % 4.0 Monocytes % 4.0 Eosinophils % 1.0 Basophils % 0.0 Nucleated RBC % 0 Absolute Neutrophils 15.44 H Absolute Lymphocytes 0.68 L Absolute Monocytes 0.68 Absolute Eosinophils 0.17 Absolute Basophils 0.00 RBC Morphology Normal Sodium Potassium Chloride Carbon Dioxide Anion Gap BUN Creatinine Estimated GFR/1.73 m2 Glucose Calcium Total Bilirubin AST ALT Alkaline Phosphatase C-Reactive Protein Total Protein Albumin
[2021-01-17 10:21] LABS: HIV-1/2 Ag & Ab Screen Negative (Negative)
[2021-01-17] MEDS: Normal Saline 500 ML IV (10:35)
[2021-01-17] MEDS: DOXYCYCLINE 100 MG in Normal Saline 100 ML IVPB ×2 (10:35→22:09)
[2021-01-17 10:47] LABS: Lyme Ab w Rflx to Lyme Confirm Negative (Negative)
[2021-01-17 10:54] LABS: Hepatitis A Antibody IgM Negative (Negative); Hepatitis B Core Antibody Negative (Negative); Hepatitis B surface Ag Negative (Negative); Hepatitis C Ab w Rflx HCV PCR Negative (Negative)
[2021-01-17] MEDS: Sodium Zirconium Cyclosilicate 10 GM PKT PO ×2 (11:04→22:08)
[2021-01-17 12:10] LABS: Glucose 454 mg/dL (74-106)
--- NOTE | 2021-01-17 12:40 | W.INDIABCONS ---
Date of service: 01/17/21 Time of Service: 12:40 Diabetes Inpatient Consult DESCRIPTION/ASSESSMENT: 65 year old male admitted with fever, transaminitis with hx of CKD, DM 2, obesity, osteo of right foot with A1C of 8% (01/17/21) and elevated finger sticks. Meds include steriods. Alpesh reports reduction of 50% of his typical lantus dose this AM. MD to adjust to help normalize BS while having steriods on board. Home DM meds: lantus 60 u BID, novolog 26-30 u AC. Alpesh reports checking blood sugars TID. Provided education on new diabetes medications/devices- not interested in continuous glucose monitor at this time or diet education at this time. A1C mildly elevated indicating blood sugars ranging 170-190 mg/dl. INTERVENTION: Declines diet education at this time PLAN: Continue diabetic diet will monitor po intake, labs and weight Time Spent in Nutritional Counseling and Treatment: 5
[2021-01-17] MEDS: Insulin Glargine 300 UNITS/3 ML PEN 10 UNITS SC (13:01)
--- NOTE | 2021-01-17 13:17 | PDOC.CMPRO ---
Care Management Progress Note S/O: Work-up continues for Alpesh per MD. He remains pleasant in interaction and shares no concerns with this designer/writer at this time. CM continues to follow. A: 65 year old male admitted to [facility] 01/15/21 for Fever and Rash P: Anticipate Alpesh will return home when ready per MD. He will follow up with his PCP and plan of care as prescribed. He will transport via private vehicle with his significant other, Amy.
[2021-01-17 13:53] LABS: dsDNA Ab, IgG <12.3 IU/mL (<30.0)
[2021-01-17 14:24] LABS: ANCA Interpretation Negative (Negative)
[2021-01-17 14:55] LABS: Angiotensin Converting Enzyme 65 U/L (16 - 85)
[2021-01-17 15:51] LABS: Potassium 5.7 mmol/L (3.5-5.1)
[2021-01-17 16:36] LABS: Glucose 509 mg/dL (74-106)
[2021-01-17] MEDS: Insulin Glargine 300 UNITS/3 ML PEN 50 UNITS SC (21:07)
[2021-01-17] MEDS: Acetaminophen 325 MG TAB 650 MG PO (23:39)
[2021-01-18 01:57] LABS: Anaplasma phagocytophilum Negative (Negative); B. miyamotoi PCR Negative (Negative); Babesia divergens/MO-1 Negative (Negative); Babesia duncani Negative (Negative); Babesia microti Negative (Negative); Ehrlichia chaffeensis Negative (Negative); Ehrlichia ewingii/canis Negative (Negative); Ehrlichia muris eauclairensis Negative (Negative)
[2021-01-18 02:29] VITALS: O2SAT 92
[2021-01-18] MEDS: Normal Saline Flush 10 ML SYR IVP ×3 (03:48→22:04)
[2021-01-18] MEDS: diphenhydrAMINE 50 MG/ML VIAL 25 MG IVP ×4 (03:48→22:03)
[2021-01-18 03:55] VITALS: BP 125/64; PULSE 74; RESP 18; TEMP 37; O2SAT 91
[2021-01-18] MEDS: Sodium Zirconium Cyclosilicate 10 GM PKT PO (05:41)
[2021-01-18 07:46] LABS: Abs Immature Grans 0.33 10^3/uL (0.0-0.06); HCT 31.9 % (40.0-50.0); HGB 10.1 g/dL (13.5-17.5); MCH 27.8 pg (27.0-33.0); MCHC 31.7 % (32.0-36.0); MCV 87.9 fL (80-95); MPV 9.4 fL (8.0-11.0); Nucleated RBC 0 %; Platelet Count 282 10^3/uL (130-400); RBC 3.63 10^6/uL (4.36-5.78); RDW 13.6 % (11.8-14.1); RDW-SD 43.7 fL; WBC 16.31 10^3/uL (4.4-10.8)
[2021-01-18 07:49] LABS: Anion Gap 9.2 mmol/L (3-11); BUN 61 mg/dL (7-18); CO2 24.8 mmol/L (21.0-32.0); CREATININE 2.4 mg/dL (0.70-1.30); Calcium 8.7 mg/dL (8.5-10.1); Chloride 106 mmol/L (98-107); Estimated GFR 27.48 (mL/min/1.73m2); Glucose 128 mg/dL (74-106); Potassium 5.1 mmol/L (3.5-5.1); Sodium 140 mmol/L (136-145)
[2021-01-18 07:52] VITALS: BP 134/66; PULSE 65; RESP 19; TEMP 36.9; O2SAT 93
[2021-01-18] MEDS: Famotidine 20 MG TAB PO (08:23)
[2021-01-18] MEDS: Metoprolol 25 MG TAB PO ×2 (08:23→20:06)
[2021-01-18] MEDS: predniSONE 20 MG TAB PO (08:23)
[2021-01-18] MEDS: buPROPion 100 MG TAB PO ×2 (08:23→20:06)
[2021-01-18] MEDS: Citalopram 20 MG TAB PO (08:23)
[2021-01-18] MEDS: Apixaban 5 MG TAB PO ×2 (08:23→20:06)
[2021-01-18] MEDS: DOXYCYCLINE 100 MG in Normal Saline 100 ML IVPB (08:24)
[2021-01-18] MEDS: Insulin Glargine 300 UNITS/3 ML PEN 50 UNITS SC ×2 (08:25→20:05)
[2021-01-18] MEDS: Insulin Aspart 300 UNITS/3 ML PEN SC ×3 (08:25→17:09)
[2021-01-18 08:53] LABS: Absolute Lymphocyte Count 1.63 10^3/uL (1.2-3.4); Absolute Monocyte Count 0.65 10^3/uL (0.1-0.8); Absolute Neutrophil Count 14.03 10^3/uL (1.2-6.7); Atypical Lymphocytes % 0; Bands % 1; Diff Comment Manual Differential; RBC Morphology Normal
[2021-01-18 09:10] VITALS: RESP 25
--- NOTE | 2021-01-18 09:38 | W.PM.PROGNOT ---
Date of Service Date of service: 01/18/21 Time of Service: 09:38 Assessment and Plan Assessment and plan (1) Fever: Status: Acute Assessment and plan: ongoing fever and rash, with transaminitis and hilar lympadenopathy. white count stable at 16 from 13 with left shift. blood cultures remain negative. max temp overnight 40.2 All investigations negative: [place] negative R/o sarcoidosis, lupus, tick panel, HIV, Hep c, CRP 12.72 KULWANT level 65 Ila titer, negative ESR 29 continued on steroids in setting of possible sarcoidosis Also given pepcid and IV benadryl stop doxycycline as tick panel negative discussed with Dr Blevins at [facility] infectious diseases, consider DRESS syndrome but with normal KULWANT, less likely. will consult surgery for rash biopsy. (2) Rash: Status: Acute Assessment and plan: as above awaiting biopsy (3) Transaminitis: Status: Acute Assessment and plan: elevated LFT stable and slightly improving hold statin until they improve (4) Depressive disorder: Status: Acute Assessment and plan: stable, continue antidepressant. (5) KATRIN (acute kidney injury): Status: Acute Assessment and plan: creatinine up 2.4, potassium improving on lokema continue to hold losartan and celebrex give gentle IV fluid bolus. (6) Diabetes mellitus, type II: Status: Acute Assessment and plan: hyperglycemia in setting of steroids with blood sugars over 200 Monitor fingersticks Ac/hs SSI continue lantus bid increasing to 35 units bid from 30 units, at home on 60 units bid. A1C 7.8 in March 2020, will recheck. (7) Sleep apnea: Status: Acute Assessment and plan: continue home cpap (8) Discharge planning issues: Status: Acute Assessment and plan: case management following above case discussed with Subjective Subjective Patient reports: no new complaints Interval history since last seen: denies itching, states he feels well today. Exam Const General: cooperative, frail appearing (older than stated age) and ill appearing chronically Nutritional Appearance: overweight Orientation: alert, awake and oriented x3 HENMT Head: normal to inspection, normocephalic and atraumatic Mouth: oral mucosae normal and moist mucous membranes Resp Effort & Inspection: normal respiratory effort Auscultation: clear to auscultation bilaterally Cardio Rate: regular rate Rhythm: regular rhythm GI Inspection: normal to inspection Palpation: soft Auscultation: normal bowel sounds Skin Rashes: rashes noted (diffuse red macular rash, states not itchy) Neuro General: patient alert, patient awake, patient oriented x3 (some intermittent confusion), moves all extremities and no focal motor deficits Speech: speech normal Extrem General: normal to inspection and full ROM Objective Last Vital Signs Temp 36.9 C 01/18/21 07:52 Pulse 65 01/18/21 07:52 Resp 19 01/18/21 07:52 BP 134/66 01/18/21 07:52 Pulse Ox 93 01/18/21 07:52 Laboratory Results - last 24 hr 01/15/21 01/15/21 01/16/21 18:45 18:45 08:48 WBC RBC Hgb Hct MCV MCH MCHC RDW Plt Count MPV Immature Gran % Neutrophils % Band Neutrophils % Lymphocytes % Atypical Lymphs % Monocytes % Eosinophils % Basophils % Nucleated RBC % Absolute Neutrophils Absolute Lymphocytes Absolute Monocytes Absolute Eosinophils Absolute Basophils RBC Morphology Sodium Potassium Chloride Carbon Dioxide Anion Gap BUN Creatinine Estimated GFR/1.73 m2 Glucose Hemoglobin A1c Calcium Angiotensin Convert Enz 65 ANCA Immunofluorescen ANCA Titer ANCA Pattern Double Strand DNA Ab A.phagocytophil DNA PCR B. divergens/MO-1 PCR Babesia duncani (PCR) Babesia microti DNA PCR Borrelia (PCR) Lyme Disease Antibody E.chaffeensis DNA (PCR) E.ewingii/canis DNA PCR E. muris-like DNA (PCR) Hepatitis A IgM Ab Negative Hep Bs Antigen Negative Hep B Core Total Ab Negative Hepatitis C Antibody Negative HIV 1&2 Ag/Ab, 4th Gen Negative 01/16/21 01/16/21 01/16/21 08:48 08:48 08:48 WBC RBC Hgb Hct MCV MCH MCHC RDW Plt Count MPV Immature Gran % Neutrophils % Band Neutrophils % Lymphocytes % Atypical Lymphs % Monocytes % Eosinophils % Basophils % Nucleated RBC % Absolute Neutrophils Absolute Lymphocytes Absolute Monocytes Absolute Eosinophils Absolute Basophils RBC Morphology Sodium Potassium Chloride Carbon Dioxide Anion Gap BUN Creatinine Estimated GFR/1.73 m2 Glucose Hemoglobin A1c Calcium Angiotensin Convert Enz ANCA Immunofluorescen Negative ANCA Titer Not Applicable ANCA Pattern Not Applicable Double Strand DNA Ab <12.3 A.phagocytophil DNA PCR Negative B. divergens/MO-1 PCR Negative Babesia duncani (PCR) Negative Babesia microti DNA PCR Negative Borrelia (PCR) Negative Lyme Disease Antibody Negative E.chaffeensis DNA (PCR) Negative E.ewingii/canis DNA PCR Negative E. muris-like DNA (PCR) Negative Hepatitis A IgM Ab Hep Bs Antigen Hep B Core Total Ab Hepatitis C Antibody HIV 1&2 Ag/Ab, 4th Gen 01/17/21 01/17/21 01/17/21 06:30 11:56 15:35 WBC RBC Hgb Hct MCV MCH MCHC RDW Plt Count MPV Immature Gran % Neutrophils % Band Neutrophils % Lymphocytes % Atypical Lymphs % Monocytes % Eosinophils % Basophils % Nucleated RBC % Absolute Neutrophils Absolute Lymphocytes Absolute Monocytes Absolute Eosinophils Absolute Basophils RBC Morphology Sodium Potassium 5.7 H Chloride Carbon Dioxide Anion Gap BUN Creatinine Estimated GFR/1.73 m2 Glucose 454 H D Hemoglobin A1c 8.0 H Calcium Angiotensin Convert Enz ANCA Immunofluorescen ANCA Titer ANCA Pattern Double Strand DNA Ab A.phagocytophil DNA PCR B. divergens/MO-1 PCR Babesia duncani (PCR) Babesia microti DNA PCR Borrelia (PCR) Lyme Disease Antibody E.chaffeensis DNA (PCR) E.ewingii/canis DNA PCR E. muris-like DNA (PCR) Hepatitis A IgM Ab Hep Bs Antigen Hep B Core Total Ab Hepatitis C Antibody HIV 1&2 Ag/Ab, 4th Gen 01/17/21 01/18/21 01/18/21 15:35 06:50 06:50 WBC 16.31 H RBC 3.63 L Hgb 10.1 L Hct 31.9 L MCV 87.9 MCH 27.8 MCHC 31.7 L RDW 13.6 Plt Count 282 MPV 9.4 Immature Gran % 0.0 Neutrophils % 85.0 Band Neutrophils % 1 Lymphocytes % 10.0 Atypical Lymphs % 0 Monocytes % 4.0 Eosinophils % 0.0 Basophils % 0.0 Nucleated RBC % 0 Absolute Neutrophils 14.03 H Absolute Lymphocytes 1.63 Absolute Monocytes 0.65 Absolute Eosinophils 0.00 Absolute Basophils 0.00 RBC Morphology Normal Sodium 140 Potassium 5.1 Chloride 106 Carbon Dioxide 24.8 Anion Gap 9.2 BUN 61 H Creatinine 2.4 H Estimated GFR/1.73 m2 27.48 Glucose 509 H* 128 H D Hemoglobin A1c Calcium 8.7 Angiotensin Convert Enz ANCA Immunofluorescen ANCA Titer ANCA Pattern Double Strand DNA Ab A.phagocytophil DNA PCR B. divergens/MO-1 PCR Babesia duncani (PCR) Babesia microti DNA PCR Borrelia (PCR) Lyme Disease Antibody E.chaffeensis DNA (PCR) E.ewingii/canis DNA PCR E. muris-like DNA (PCR) Hepatitis A IgM Ab Hep Bs Antigen Hep B Core Total Ab Hepatitis C Antibody HIV 1&2 Ag/Ab, 4th Gen
[2021-01-18 10:37] LABS: ALT 319 U/L (16-63); AST 39 U/L (15-37); Albumin 2.6 g/dL (3.4-5.0); Alkaline Phosphatase 351 U/L (46-116); Bilirubin, Direct 0.2 mg/dL (0.0-0.2); Bilirubin, Total 0.4 mg/dL (0.2-1.0); Total Protein 6.6 g/dL (6.4-8.2)
[2021-01-18] MEDS: Normal Saline 500 ML 1000 ML IV (12:20)
[2021-01-18 15:40] VITALS: BP 158/75; PULSE 67; RESP 17; TEMP 36.6; O2SAT 92
[2021-01-18] MEDS: Lidocaine 1% Multi-Dose 50 ML VIAL (17:15)
--- NOTE | 2021-01-18 17:18 | W.SURGCON ---
Date of service: 01/18/21 Time of Service: 17:18 Assessment and Plan Assessment and plan (1) Fever: Status: Acute (2) Rash: Status: Acute Assessment and plan: A\\ Diffuse rash and fevers of unknown origin. P\\ Punch biopsy of skin Risks, benefits and complications were reviewed with him. He agrees to proceed. History of Present Illness Narrative: Mr. Hernandez is a 65 year old male admitted on 01/15 for fevers of unknown origin. He came in with one day of fever, chills and diffuse rash, starting on LEs. In ER findings of note for temp 39.2, diffuse rash, normal white count, CT chest negative for airspace disease but showing hilar adenopathy, CT abd negative, negative urine and chemistries of note for moderate transaminitis, with AST 311, ALT 545, Alkphos 355, TB 1.1. Rapid COVID negative. No similar illness at home. Denies IVDA, shared needles, transfusion or new sex partner. Only new medication (2 weeks [employer]) is prednisone, which he is on for some shoulder pain which developed after COVID vaccine some 3 weeks ago. States he feels entirely well otherwise. Extensive workup has been done for his fever. I was asked to do a punch biopsy of the rash to potentially help with diagnoses. Consults Consult date: 01/18/21 Requesting physician: Delilah Allen Review of Systems Constitutional Constitutional: Reports fever(s) and Denies headache(s) Eyes Eyes: Denies change in vision ENT Ears, Nose, Mouth, and Throat: Denies change in voice, Denies headache(s) and Denies hoarseness Cardiovascular Cardiovascular: Denies chest pain, Denies chest pain at rest, Denies irregular heart rhythm, Denies dyspnea and Denies dyspnea on exertion Respiratory Respiratory: Denies cough, Denies dyspnea and Denies dyspnea on exertion Gastrointestinal Gastrointestinal: Reports system reviewed and no additional complaints, except as documented Genitourinary Genitourinary: Reports system reviewed and no additional complaints, except as documented, Denies dysuria, Denies urinary incontinence and Denies urinary urgency Musculoskeletal Musculoskeletal: Reports system reviewed and no additional complaints, except as documented Integumentary/Breasts Skin/Breast: Reports as per HPI Neurologic Neurologic: Denies headache(s) Psychiatric Psychiatric: Reports system reviewed and no additional complaints, except as documented Endocrine Endocrine: Reports system reviewed and no additional complaints, except as documented Hematologic/Lymphatic Hematologic/Lymphatic: Denies easy bruising and Denies lymphadenopathy [facility] Medical History Acute osteomyelitis of right foot (06/25/16) Atherosclerosis of [place] coronary artery Stent 1999 Positive MPI in May 2010 Chronic renal impairment, stage 2 (mild) Coronary disease a. s/p cath with stent 1999 b. MPI positive for ischemia 2009 Current use of insulin Depression Depressive disorder (08/10/13) Diabetes mellitus Diabetes mellitus, type II a. Hgb A1C 11.6 b. on high dose glargine insulin therapy DM (diabetes mellitus), type 2, uncontrolled w/ophthalmic complication (08/06/12) Essential hypertension if creat ok, will add KULWANT Heart failure 01/31/17 [facility] ; EF 45-50%;ATRIAL DIALATION on coumadin Hyperlipidemia (03/26/13) Impacted cerumen of both ears Low back pain Obesity Osteomyelitis (08/13/14) a. left foot fifth metatarsal and proximal phalanx Polyp of colon (11/17/13) DR. Dick RODRIGUEZ; TUBULAR ADENOMA Proliferative diabetic retinopathy (08/06/12) 08/09/16; [facility] Rupture of left quadriceps muscle (01/15/18) Sensorineural hearing loss, bilateral (07/16/16) Sleep apnea (05/16/15) Well adult Surgical History Colonoscopy - MAC (11/17/13) H/O surgical procedure a. Right quadriceps repair [address] Smart b. Colonoscopy 11/17/[address] Rodriguez History of appendectomy History of intravascular stent placement History of right knee surgery (04/22/14) PROCEDURES INSERT 1 VASCULAR STENT, 1999 LEFT CIRC. QUADRICEPS REPAIR 01/16/18 (L) S/P cataract [place]02[place]18[place] [facility] [place] Family History Mother , AGE 84 Diabetes Stroke Father Depression Heart disease Hyperlipidemia Hypertension Sister Alcohol abuse Substance abuse Diabetes Depression Social History Smoking/Tobacco Use Status: Never Second Hand Exposure: Yes Smoking risk assessment performed?: Yes Alcohol Intake: former Drug use: Never Substance use type: does not use Caregiver/Support person: No Household members: significant other Housing: house Communication Needs: Hard of Hearing Do you need help understanding health information?: Never Pets and animals: No Sexually active: Yes Do you think of yourself as: straight/heterosexual Current gender identity: male What is your relationship status?: living with partner How often do you talk on the phone with friends or family?: once per week How often do you get together with friends or relatives?: twice per week How often do you attend christian or hoahaoism services?: decline to answer Do you belong to any clubs or organized social groups?: no Panel score (0-1 are the most socially isolated patients): 2 What type of physical activity do you participate in: other Details: Rowing Duration: 15-30 minutes/day Frequency: 3-4 times per week Verna/Uatsdin: Denominational Special verna needs: No Seatbelt use: always Helmet use: Yes Helmet use: always Drive intox or ride w/intox driver medic: No Do you feel safe at home: Yes Do you feel safe in your relationship?: Yes Exam Const General: cooperative, comfortable and no acute distress Orientation: alert and oriented x3 HENMT Head: normocephalic and atraumatic Eyes Pupils: PERRL Resp Effort & Inspection: normal respiratory effort Auscultation: clear to auscultation bilaterally Cardio Rate: regular rate Rhythm: regular rhythm Results Last Vital Signs Temp 97.9 F 01/18/21 15:40 Pulse 67 01/18/21 15:40 Resp 17 01/18/21 15:40 BP 158/75 H 01/18/21 15:40 Pulse Ox 92 01/18/21 15:40 Labs Result diagrams: 01/18/21 06:50 01/18/21 06:50 Labs: Laboratory Results - last 24 hr 01/16/21 01/18/21 01/18/21 08:48 06:50 06:50 WBC 16.31 H RBC 3.63 L Hgb 10.1 L Hct 31.9 L MCV 87.9 MCH 27.8 MCHC 31.7 L RDW 13.6 Plt Count 282 MPV 9.4 Immature Gran % 0.0 Neutrophils % 85.0 Band Neutrophils % 1 Lymphocytes % 10.0 Atypical Lymphs % 0 Monocytes % 4.0 Eosinophils % 0.0 Basophils % 0.0 Nucleated RBC % 0 Absolute Neutrophils 14.03 H Absolute Lymphocytes 1.63 Absolute Monocytes 0.65 Absolute Eosinophils 0.00 Absolute Basophils 0.00 RBC Morphology Normal Sodium 140 Potassium 5.1 Chloride 106 Carbon Dioxide 24.8 Anion Gap 9.2 BUN 61 H Creatinine 2.4 H Estimated GFR/1.73 m2 27.48 Glucose 128 H D Calcium 8.7 Total Bilirubin Conjugated Bilirubin AST ALT Alkaline Phosphatase Total Protein Albumin A.phagocytophil DNA PCR Negative B. divergens/MO-1 PCR Negative Babesia duncani (PCR) Negative Babesia microti DNA PCR Negative Borrelia (PCR) Negative E.chaffeensis DNA (PCR) Negative E.ewingii/canis DNA PCR Negative E. muris-like DNA (PCR) Negative 01/18/21 06:50 WBC RBC Hgb Hct MCV MCH MCHC RDW Plt Count MPV Immature Gran % Neutrophils % Band Neutrophils % Lymphocytes % Atypical Lymphs % Monocytes % Eosinophils % Basophils % Nucleated RBC % Absolute Neutrophils Absolute Lymphocytes Absolute Monocytes Absolute Eosinophils Absolute Basophils RBC Morphology Sodium Potassium Chloride Carbon Dioxide Anion Gap BUN Creatinine Estimated GFR/1.73 m2 Glucose Calcium Total Bilirubin 0.4 Conjugated Bilirubin 0.2 AST 39 H ALT 319 H Alkaline Phosphatase 351 H Total Protein 6.6 Albumin 2.6 L A.phagocytophil DNA PCR B. divergens/MO-1 PCR Babesia duncani (PCR) Babesia microti DNA PCR Borrelia (PCR) E.chaffeensis DNA (PCR) E.ewingii/canis DNA PCR E. muris-like DNA (PCR) Procedures Other Procedure Description/Findings: After informed consent was obtained the an area on the dorsum of the forearm was cleaned with alcohol and injected with 1% Lidocaine. The skin was then prepped with chlorhexedine. A 5 mm punch biopsy of the skin was done. The specimen was placed in formalin. Pressure was held over the punch biopsy site and secured with a band-aid. The patient tolerated the procedure well.
--- NOTE | 2021-01-18 17:41 | SKI_PTH ---
PATIENT: Alpesh Hernandez LOC: U#:[id number] AGE/SX: 65/M ROOM: RE01/17/[address]: Abimael Vinson : 1955 BED: A DIS: 01/21/2021 SPEC #: [id number] RECD: 01/18/21 18:02 STATUS: TREVA ADORE #: [id number] ALVARO: 01/18/21 17:[address]: Abimael Vinson DEPT: Surgical Specimen RECD BY: Radha Hicks ENTERED: 01/18/21 18:03 SP TYPE: SKI OTHR DR: Hammad Enrique MD Tissues: 1 - SKIN BIOPSY(SHAVE/PUNCH) Procedures: SKIN LEVEL 4 Comments: [id number]
--- NOTE | 2021-01-18 17:49 | PDOC.CMPRO ---
Care Management Progress Note S/O: Per provider, Alpesh will likely return home tomorrow. He will follow up with [facility] [place] for lymph node biopsy. Surgery will be consulted for possible punch biopsy for Alpesh's rash as well. He remains pleasant in interaction and shares no concerns with this technical proposal writer at this time. CM continues to follow. A: 65 year old male admitted to [facility] 01/15/21 for Fever and Rash P: Anticipate Alpesh will return home when ready per MD. He will follow up with his PCP and plan of care as prescribed. He will transport via private vehicle with his significant other, Amy.
--- NOTE | 2021-01-19 | DI.MRI_ITS ---
EXAM: MR BRAIN WO/W CLINICAL HISTORY: AMS ,Fever TECHNIQUE: Multiplanar multisequence MRI of the brain was performed. Both noninfused and contrast i nfused sequences were performed. IV Contrast injected was 12 cc Dotarem. COMPARISON: No exams were available for comparison FINDINGS: CEREBRAL PARENCHYMA: No evidence of intracranial hemorrhage, mass effect nor shift of midline structu re. No extraaxial fluid collections. Ventricles are not enlarged nor shifted. There is no significant focal signal abnormality in the cerebellar hemispheres nor within the tonya, m idbrain, and thalami. There are few small nonspecific foci of FLAIR bright signal in the periventricular regions, not assoc iated with hemorrhage or surrounding edema nor abnormal enhancement. There are no ring enhancing les ions in the brain. There is no abnormal meningeal enhancement, focal nor diffuse. PITUITARY GLAND: No mass nor parasellar abnormality. No obvious abnormality in the cavernous sinuses. FLOW VOIDS: The expected flow void are noted. No evidence of obvious aneurysm nor obvious vascular ma lformation. PARANASAL SINUSES: There is focal mucosal thickening in the medial wall of the left maxillary sinus w hich is probably a small post inflammatory retention cyst. There is no fluid level. Right maxillary sinus and sphenoid sinuses are clear. Ethmoidal air cells are clear. The frontal sinuses are not d eveloped. ORBITS: No obvious abnormal findings. IMPRESSION: 1. No significant intracranial findings on this MRI scan of the brain. 2. No abnormal enhancing intracranial findings. 3. Incidental note of small retention cyst in the left maxillary sinus. No evidence of acute sinusi tis. DATA REPOSITORY:
[2021-01-19 01:48] VITALS: BP 165/79; PULSE 67; RESP 16; TEMP 36.3; O2SAT 97
[2021-01-19] MEDS: Normal Saline Flush 10 ML SYR IVP ×4 (04:36→12:10)
[2021-01-19] MEDS: diphenhydrAMINE 50 MG/ML VIAL 25 MG IVP ×3 (04:36→22:37)
[2021-01-19 07:23] LABS: Abs Immature Grans 0.79 10^3/uL (0.0-0.06); HCT 35.5 % (40.0-50.0); MCH 27.7 pg (27.0-33.0); MCV 89.4 fL (80-95); MPV 9.2 fL (8.0-11.0); Nucleated RBC 0 %; Platelet Count 272 10^3/uL (130-400); RBC 3.97 10^6/uL (4.36-5.78); RDW 13.5 % (11.8-14.1); RDW-SD 44.3 fL
[2021-01-19 07:33] LABS: ALT 245 U/L (16-63); AST 30 U/L (15-37); Albumin 2.8 g/dL (3.4-5.0); Alkaline Phosphatase 338 U/L (46-116); BUN 58 mg/dL (7-18); Bilirubin, Total 0.5 mg/dL (0.2-1.0); C-Reactive Protein 10.14 mg/dL (0.0-0.3); CREATININE 2.1 mg/dL (0.70-1.30); Calcium 9.2 mg/dL (8.5-10.1); Chloride 106 mmol/L (98-107); Estimated GFR 32.06 (mL/min/1.73m2); Glucose 121 mg/dL (74-106); Potassium 4.4 mmol/L (3.5-5.1); Sodium 140 mmol/L (136-145); Total Protein 7.2 g/dL (6.4-8.2)
[2021-01-19 07:42] VITALS: BP 184/76; PULSE 78; RESP 18; TEMP 37.4; O2SAT 95
[2021-01-19] MEDS: Apixaban 5 MG TAB PO (07:46)
[2021-01-19] MEDS: buPROPion 100 MG TAB PO ×2 (07:46→19:53)
[2021-01-19] MEDS: predniSONE 20 MG TAB PO (07:47)
[2021-01-19] MEDS: Famotidine 20 MG TAB PO (07:47)
[2021-01-19] MEDS: Citalopram 20 MG TAB PO (07:47)
[2021-01-19] MEDS: Metoprolol 25 MG TAB PO ×2 (07:47→19:53)
[2021-01-19] MEDS: Insulin Glargine 300 UNITS/3 ML PEN 50 UNITS SC ×2 (07:48→19:53)
[2021-01-19 08:20] LABS: Absolute Eosinophil Count 0.14 10^3/uL (0.0-0.7); Absolute Lymphocyte Count 2.13 10^3/uL (1.2-3.4); Absolute Monocyte Count 0.71 10^3/uL (0.1-0.8); Absolute Neutrophil Count 10.51 10^3/uL (1.2-6.7); Bands % 16
[2021-01-19 08:21] LABS: Diff Comment Manual Differential; Metamyelocytes % 3; Myelocytes % 2; RBC Morphology Normal
--- NOTE | 2021-01-19 11:36 | PDOC.CMPRO ---
Care Management Progress Note S/O: Per provider, Alpesh will remain at [facility] for further monitoring today due to concerns central to Alpesh presenting differently-with possible altered mental status. He will follow up with [facility] for lymph node biopsy. Surgery will be consulted for possible punch biopsy for Alpesh's rash as well. CM met with Alpesh and Amy with CARLOS Osuna present in the room as well. Amy shared concerns and RN answered questions. CM reviewed periods of confusion with Alpesh who is well known to this telegraphic typewriter operator, and need to remain at [facility] at this time. Both Alpesh and Amy verbalized understanding of the current plan. CM continues to follow. A: 65 year old male admitted to [facility] 01/15/21 for Fever and Rash P: Anticipate Alpesh will return home when ready per MD. He will follow up with his PCP and plan of care as prescribed. He will transport via private vehicle with his significant other, Amy.
[2021-01-19] MEDS: Gadoterate meglumine 20 ML VIAL 12 ML IVP (12:11)
[2021-01-19] MEDS: cefTRIAXone 2 GM/50 ML BAG IVPB ×2 (12:56→23:40)
[2021-01-19] MEDS: Normal Saline 500 ML 30 ML IV (12:56)
[2021-01-19] MEDS: AMPICILLIN SODIUM 2 GM in Normal Saline 100 ML IVPB ×2 (14:18→18:29)
[2021-01-19] MEDS: VANCOMYCIN/WATER (PEG) 1 GM/200 ML BAG IV (15:36)
--- NOTE | 2021-01-19 16:26 | NCONE_ITS ---
Date of service: 01/19/21 Time of Service: 16:26 Assessment and Plan Assessment and plan (1) Encephalopathy: Status: Acute (2) Fever: Status: Acute (3) Rash: Status: Acute Assessment and plan: Mr. Hernandez is a 65 year-old, right-handed man admitted with fever, rash, and transamnitis. Now with encephalopathy and hallucinations. He has no signs of meningismus, but agree with lucero-coverage for infection. Agree with ongoing work-up as per primary team. His symptoms Please call with any further questions. History of Present Illness History of Present Illness Chief Complaint: altered mental status Narrative: Handedness: right. HPI: Mr. Hernandez is a 65 year-old man with HTN, HLD, heart disease s/p MA and stenting, CHF, diabetes, PE/DVT on Eliquis, NADIA, depression, obesity, and chronic low back. Mr. Hernandez was admitted on 01/15/21 with diffuse maculopapular rash, fevers, and chills. About two weeks prior to admission, he was started on prednisone 10mg BID for bilateral shoulder pain by orthopedics. He has had an extensive negative work-up as below. He had an initial normal WBC count that then increased and is now downtrending with noted neutrophilia. He also had moderate transaminitis with AST 311, ALT 545, Alkphos 355, TB 1.1 - also now down-trending to AST 30 and ALT 245. ESR 29. CRP 9->12->10. KULWANT 65. He had a CT Chest negative for airspace disease but showing hilar adenopathy. A CT abd was negative. Rapid COVID negative. Lyme/tick panel, HIV, hepatitis panel, and monospot have all been negative. ANCA and dsDNA were also negative. UA negative Blood cx x2 on 01/15/21 NG. He underwent punch biopsy of his rash on 01/18/21 - pathology pending. RPR pending. Repeat blood cultures drawn today. This am, reported by staff with altered mental status and odd behavior. Per common-law , she noted early odd behavior yesterday. She notes intermittent confusion: acting like he was talking on the phone and visual hallucinations - saw a car outside, trying to get her to see it too. She notes at home, he will occasionally say and do weird things out of sleep, but isn't sure if this is similar or not. Given AMS, he was started on ampicillin, cefepime, vanco, and acyclovir. He has been afebrile since 01/17/21 at 2350. His rash has improved in some aspects. He underwent a brain MRI w/wo today. I reviewed the images personally. It was unremarkable. Consults Requesting physician: Merari Maza Review of Systems All systems reviewed & are unremarkable except as noted in HPI and below PFSH Medical History Acute osteomyelitis of right foot (06/25/16) Atherosclerosis of [place] coronary artery Stent 1999 Positive MPI in May 2010 Chronic renal impairment, stage 2 (mild) Coronary disease a. s/p cath with stent 1999 b. MPI positive for ischemia 2009 Current use of insulin Depression Depressive disorder (08/10/13) Diabetes mellitus Diabetes mellitus, type II a. Hgb A1C 11.6 b. 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 left foot fifth metatarsal and proximal phalanx Polyp of colon (11/17/13) DR. Dick RODRIGUEZ; TUBULAR ADENOMA Proliferative diabetic retinopathy (08/06/12) 08/09/16; [facility] Rupture of left quadriceps muscle (01/15/18) Sensorineural hearing loss, bilateral (07/16/16) Sleep apnea (05/16/15) Well adult Surgical History Colonoscopy - MAC (11/17/13) H/O surgical procedure a. Right quadriceps repair [address] Smart b. Colonoscopy 11/17/[address] Rodriguez History of appendectomy History of intravascular stent placement History of right knee surgery (04/22/14) PROCEDURES INSERT 1 VASCULAR STENT, 1999 LEFT CIRC. QUADRICEPS REPAIR 01/16/18 (L) [place]/P [place]18[place] [facility] [place] Family History Mother , AGE 84 Diabetes Stroke Father Depression Heart disease Hyperlipidemia Hypertension Sister Alcohol abuse Substance abuse Diabetes Depression Social History Smoking/Tobacco Use Status: Never Second Hand Exposure: Yes Smoking risk assessment performed?: Yes Alcohol Intake: former Drug use: Never Substance use type: does not use Caregiver/Support person: No Household members: significant other Housing: house Communication Needs: Hard of Hearing Do you need help understanding health information?: Never Pets and animals: No Sexually active: Yes Do you think of yourself as: straight/heterosexual Current gender identity: male What is your relationship status?: living with partner How often do you talk on the phone with friends or family?: once per week How often do you get together with friends or relatives?: twice per week How often do you attend worship or orthodox services?: decline to answer Do you belong to any clubs or organized social groups?: no Panel score (0-1 are the most socially isolated patients): 2 What type of physical activity do you participate in: other Details: Rowing Duration: 15-30 minutes/day Frequency: 3-4 times per week Verna/Islam: Jew Special verna needs: No Seatbelt use: always Helmet use: Yes Helmet use: always Drive intox or ride w/intox medical driver: No Do you feel safe at home: Yes Do you feel safe in your relationship?: Yes Visit Medication and Allergies Active Medications Generic Name Dose Route Start Last Admin Trade Name Freq PRN Reason Stop Dose Admin Acetaminophen 650 mg 01/17/21 23:23 01/17/21 23:39 Acetaminophen 325 Mg Tab PO 650 mg Q6H PRN PRN Administration Apixaban 5 mg 01/16/21 08:30 01/19/21 07:46 Apixaban 5 Mg Tab PO 5 mg BID KYLE Administration Bupropion HCl 100 mg 01/16/21 08:30 01/19/21 07:46 Bupropion 100 Mg Tab PO 100 mg BID KYLE Administration Citalopram Hydrobromide 20 mg 01/16/21 08:30 01/19/21 07:47 Citalopram 20 Mg Tab PO 20 mg DAILY KYLE Administration Dextrose 0 gm 01/15/21 22:00 Glucose 40% Oral Solution 15 Gm/37.5 Gm Tube PO DIRECTED PRN Dextrose/Water 0 gm 01/15/21 22:00 Dextrose 50%-Water 25 Gm/50 Ml Syr IVP DIRECTED PRN Dimethicone/Zinc Oxide 0 gm 01/15/21 21:56 Sena Protect Cream 142 Gm Tube TP PRN PRN Diphenhydramine HCl 25 mg 01/16/21 16:00 01/19/21 11:32 Diphenhydramine 50 Mg/Ml Vial IVP 25 mg Q6H KYLE Administration Famotidine 20 mg 01/16/21 08:30 01/19/21 07:47 Famotidine 20 Mg Tab PO 20 mg DAILY KYLE Administration Gadoterate Meglumine 12 ml 01/19/21 12:15 01/19/21 12:11 Gadoterate Meglumine 20 Ml Vial IVP 01/19/21 23:59 12 ml DIRECTED KYLE Administration Hydrocortisone 0 gm 01/16/21 07:57 01/17/21 16:29 Hydrocortisone 2.5% Cr 30 Gm Tube TP 1 applic TID PRN PRN Administration Sodium Chloride 500 mls @ 0 mls/hr 01/15/21 18:34 01/19/21 12:56 Saline 500ml Bag IV 30 mls/hr PRN PRN Administration As Directed Vancomycin/PEG/NADA/Lysine/Water 1 gm in 200 mls @ 200 mls/hr 01/19/21 14:00 01/19/21 15:36 Vancocin Injection IV 200 mls/hr Q16H KYLE Administration Protocol Ceftriaxone Sodium/Dextrose 2 gm in 50 mls @ 100 mls/hr 01/19/21 10:00 01/19/21 12:56 Rocephin IVPB 100 mls/hr Q12H KYLE Administration Ampicillin Sodium 2 gm/ Sodium 100 mls @ 200 mls/hr 01/19/21 12:00 01/19/21 14:18 Chloride IVPB 200 mls/hr Q6H KYLE Administration Acyclovir Sodium 1,000 mg/ 250 mls @ 250 mls/hr 01/19/21 12:00 01/19/21 14:18 Sodium Chloride IVPB 250 mls/hr Q12H KYLE Administration IV Miscellaneous Supplies 1 each 01/15/21 18:45 Iv Access IV DIRECTED [facility] Insulin Aspart 0 units 01/16/21 08:00 01/19/21 12:56 Insulin Aspart 300 Units/3 Ml Pen SC Not Given 0800,1200,1700 [facility] Protocol Insulin Glargine 50 units 01/17/21 20:00 01/19/21 07:48 Insulin Glargine 300 Units/3 Ml Pen SC 50 units BID KYLE Administration Lidocaine HCl 50 ml 01/18/21 17:30 Lidocaine 1% Multi-Dose 50 Ml Vial IJ DIRECTED [facility] Metoprolol Tartrate 25 mg 01/16/21 08:30 01/19/21 07:47 Metoprolol 25 Mg Tab PO 25 mg BID KYLE Administration Prednisone 20 mg 01/19/21 08:30 01/19/21 07:47 Prednisone 20 Mg Tab PO 20 mg DAILY KYLE Administration Sodium Chloride 0 ml 01/15/21 18:34 01/19/21 11:32 Normal Saline Flush 10 Ml Syr IVP 20 ml PRN PRN Administration Sodium Chloride 10 ml 01/19/21 12:10 01/19/21 12:10 Normal Saline Flush 10 Ml Syr IVP 01/19/21 23:59 10 ml PRN PRN Administration Zolpidem Tartrate 5 mg 01/15/21 22:06 Zolpidem 5 Mg Tab PO HS PRN MAY REPEAT X1 PRN Allergies atorvastatin Adverse Reaction (Verified 01/04/21 09:33) Exam Narrative Exam Narrative: Physical Exam: Gen: Patient of apparent stated age, NAD Head and face: no facial or cranial abnormalities Neck: Supple, no meningismus, no occipital tenderness CV: + S1, S2, RRR, no murmur Resp: CTA B/L Abd: soft, nontender, nondistended Ext: No edema. No clubbing or cyanosis. No bony deformity. Diffuse maculopapular rash, mainly of the LE at present. Scalded look to the cheeks L>R with peeling of the skin. Neuro Exam: Language: fluency, naming, repetition, and comprehension intact; Mental Status: AAOx2 - knew year, month, date, day but did not know location - said he was home in [facility] each time I asked; could not recall current President; current events however were intact Speech: no dysarthria Cranial nerves: Funduscopy: not performed CN II: visual ross intact CN III, IV, : extraocular movements intact, no nystagmus, pupils symmetric and reactive to light CN V: face sensation intact to LT and PP CN VII: no facial asymmetry noted CN VIII: hearing intact bilaterally CN IX, X: palate rises symmetrically CN XI: trapezius/SCM 5/5 bilaterally CN XII: protrudes tongue symmetrically Sensory: intact to PP, vibration, and joint position in all extremities Motor: bulk and tone intact. Fine motor movements intact bilaterally. No pronator drift. Strength 5/5 throughout including the deltoids, biceps, triceps, wrist extensors, hip flexors, knee flexors, knee extensors, ankle flexors, and ankle extensors. Reflexes: hyporeflexic throughout; toes down going bilaterally; Coordination: FTN and HTS intact bilaterally Gait: not performed First Impression: When I first walked in the room, he was sleeping - no CPAP. When he awoke, he immediately asked for a drink of water. Once he was given his cup, he used his other hand to take pills - i.e. brought his left hand to his mouth like he had pills in them and kept trying to get them into his mouth. When we asked him what he was doing, he said he was trying to take pills. We told him he didn't have any and he insisted that he did. Then he looked at his hand and realized he didn't have any and then carried on like nothing happened. Results Last Vital Signs Temp 37.4 C 01/19/21 07:42 Pulse 78 01/19/21 07:42 Resp 18 01/19/21 07:42 BP 184/76 H 01/19/21 07:42 Pulse Ox 95 01/19/21 07:42 Labs Result diagrams: 01/19/21 06:56 01/19/21 06:56 Labs: Laboratory Results - last 24 hr 01/19/21 01/19/21 06:56 06:56 WBC 14.20 H RBC 3.97 L Hgb 11.0 L Hct 35.5 L MCV 89.4 MCH 27.7 MCHC 31.0 L RDW 13.5 Plt Count 272 MPV 9.2 Immature Gran % See Differential Neutrophils % 58.0 Band Neutrophils % 16 Lymphocytes % 15.0 Monocytes % 5.0 Eosinophils % 1.0 Basophils % 0.0 Metamyelocytes % 3 Myelocytes % 2 Nucleated RBC % 0 Absolute Neutrophils 10.51 H Absolute Lymphocytes 2.13 Absolute Monocytes 0.71 Absolute Eosinophils 0.14 Absolute Basophils 0.00 RBC Morphology Normal Sodium 140 Potassium 4.4 Chloride 106 Carbon Dioxide 24.0 Anion Gap 10.0 BUN 58 H Creatinine 2.1 H Estimated GFR/1.73 m2 32.06 Glucose 121 H Calcium 9.2 Total Bilirubin 0.5 AST 30 ALT 245 H Alkaline Phosphatase 338 H C-Reactive Protein 10.14 H Total Protein 7.2 Albumin 2.8 L
--- NOTE | 2021-01-19 16:43 | W.PM.PROGNOT ---
Date of Service Date of service: 01/19/21 Time of Service: 16:43 Assessment and Plan Assessment and plan (1) Fever: Start date: 01/19/21 Start time: 15:30 Status: Acute Assessment and plan: Fever and rash, with transaminitis and hilar lympadenopathy. All differentials have been r/o at this time. LP to r/o meningitis. Will be done on Saturday Syphilis serology Steroids are po Also given pepcid and IV benadryl (2) Rash: Start date: 01/19/21 Start time: 16:51 Status: Acute Assessment and plan: as above (3) Transaminitis: Start date: 01/19/21 Start time: 16:51 Status: Acute Assessment and plan: elevated LFT improving hold statin until they improve (4) Diabetes mellitus: Start date: 01/19/21 Start time: 16:52 Status: Acute Assessment and plan: Monitor fingersticks Ac/hs SSI above case discussed with dr. Darling Subjective Subjective Patient reports: fever Interval history since last seen: Patient is now having periods of confusion with fever and rash, thus far all work up has been negative. Tick panel, HIV, Hepatitis, lupus, sarcoidosis mono all negative. MRI done today negative. Anesthesia consulted for lumbar puncture of spine r/o syphilis vs meningitis. He was started on ampicillin cefepime vanco and antiviral. Eliquis on hold will plan for LP on Saturday. ABG in am to assess for CO2 and ammonia to r/o encephalitis. He denies CP, SOB, N/V/D Exam Narrative Exam Narrative: . HEENT conjunctiva clear; throat no oral lesions or exudate; neck supple; lungs clear; heart RRR w/o MRG; abdomen soft and NT w/O HSM; ; extremities w/o edema; neuro Ox3, nonfocal; no lymphadenopathy; skin diffuse erythematous in large whorls and plaques with areas of confluence no itchy or raised. Able to move all extremities no edema clubbing or cyanosis. Palms with whorls of rash as well HENMT Head: normal to inspection, normocephalic and atraumatic Mouth: oral mucosae normal and moist mucous membranes Resp Effort & Inspection: normal respiratory effort Auscultation: clear to auscultation bilaterally Cardio Rate: regular rate Rhythm: regular rhythm GI Inspection: normal to inspection Palpation: soft Auscultation: normal bowel sounds Skin Rashes: rashes noted (diffuse red macular rash, states not itchy) Neuro General: patient alert, patient awake, patient oriented x3 (some intermittent confusion), moves all extremities and no focal motor deficits Speech: speech normal Extrem General: normal to inspection and full ROM Objective Last Vital Signs Temp 37.4 C 01/19/21 07:42 Pulse 78 01/19/21 07:42 Resp 18 01/19/21 07:42 BP 184/76 H 01/19/21 07:42 Pulse Ox 95 01/19/21 07:42 Laboratory Results - last 24 hr 01/19/21 01/19/21 06:56 06:56 WBC 14.20 H RBC 3.97 L Hgb 11.0 L Hct 35.5 L MCV 89.4 MCH 27.7 MCHC 31.0 L RDW 13.5 Plt Count 272 MPV 9.2 Immature Gran % See Differential Neutrophils % 58.0 Band Neutrophils % 16 Lymphocytes % 15.0 Monocytes % 5.0 Eosinophils % 1.0 Basophils % 0.0 Metamyelocytes % 3 Myelocytes % 2 Nucleated RBC % 0 Absolute Neutrophils 10.51 H Absolute Lymphocytes 2.13 Absolute Monocytes 0.71 Absolute Eosinophils 0.14 Absolute Basophils 0.00 RBC Morphology Normal Sodium 140 Potassium 4.4 Chloride 106 Carbon Dioxide 24.0 Anion Gap 10.0 BUN 58 H Creatinine 2.1 H Estimated GFR/1.73 m2 32.06 Glucose 121 H Calcium 9.2 Total Bilirubin 0.5 AST 30 ALT 245 H Alkaline Phosphatase 338 H C-Reactive Protein 10.14 H Total Protein 7.2 Albumin 2.8 L
[2021-01-19] MEDS: Insulin Aspart 300 UNITS/3 ML PEN SC (17:15)
[2021-01-19 17:36] VITALS: BP 146/62; PULSE 65; RESP 19; TEMP 36.2; O2SAT 65
[2021-01-19 19:51] VITALS: BP 178/74; PULSE 65; RESP 19; TEMP 36.3; O2SAT 93
[2021-01-19] MEDS: Normal Saline 50 ML (20:51)
[2021-01-19] MEDS: PHENobarbital 130 MG/ML VIAL 650 MG IVP (20:51)
[2021-01-19 20:59] VITALS: BP 164/66; PULSE 66; RESP 18; TEMP 36.4; O2SAT 93
[2021-01-19 21:28] VITALS: BP 167/66; PULSE 66; RESP 18; TEMP 36.3; O2SAT 94
[2021-01-20] VITALS (8 sets, daily range): BP systolic 137–186; BP diastolic 68–88; PULSE 61–84; RESP 18–20; TEMP 35.9–36.5; O2SAT 93–98
[2021-01-20] MEDS: AMPICILLIN SODIUM 2 GM in Normal Saline 100 ML IVPB ×5 (00:23→23:32)
[2021-01-20] MEDS: diphenhydrAMINE 50 MG/ML VIAL 25 MG IVP ×4 (04:30→21:11)
[2021-01-20] MEDS: Normal Saline Flush 10 ML SYR IVP ×7 (06:20→21:15)
[2021-01-20 06:54] LABS: Ammonia 11 umol/L (11-32)
[2021-01-20 07:06] LABS: Anion Gap 9.6 mmol/L (3-11); CO2 25.4 mmol/L (21.0-32.0); CREATININE 1.8 mg/dL (0.70-1.30); Calcium 8.9 mg/dL (8.5-10.1); Chloride 109 mmol/L (98-107); Magnesium 1.8 mg/dL (1.8-2.4); Potassium 3.9 mmol/L (3.5-5.1); Sodium 144 mmol/L (136-145)
[2021-01-20 07:15] LABS: Glucose 58 mg/dL (74-106)
[2021-01-20 07:16] LABS: BUN 45 mg/dL (7-18)
[2021-01-20] MEDS: Dextrose 50%-Water 25 GM/50 ML SYR IVP (07:21)
[2021-01-20] MEDS: VANCOMYCIN/WATER (PEG) 1 GM/200 ML BAG IV ×2 (07:24→22:08)
[2021-01-20 08:45] LABS: BE 2 mmol/L (-2-3); HCO3 28 mmol/L (22-26); pCO2 55 mmHg (35-45); pH 7.31 (7.35-7.45); pO2 42 mmHg (80-105); sO2 70 % (95-98); tCO2 26 mmol/L (23-27)
[2021-01-20] MEDS: Normal Saline 500 ML 100 ML IV (08:45)
[2021-01-20 08:49] LABS: FIO2 21 %; Site Right Radial
[2021-01-20] MEDS: Insulin Glargine 300 UNITS/3 ML PEN 25 UNITS SC ×2 (08:55→21:14)
[2021-01-20] MEDS: cefTRIAXone 2 GM/50 ML BAG IVPB ×2 (10:00→21:10)
--- NOTE | 2021-01-20 10:45 | CMPROGNOTE_ITS ---
Care Management Progress Note S/O: Alpesh continues to be closely monitored and treated. Per provider, lumbar puncture anticipated over the weekend. Both Alpesh and Amy verbalized understanding of the current plan. CM continues to follow. A: 65 year old male admitted to [facility] 01/15/21 for Fever and Rash P: Anticipate Alpesh will return home when ready per MD. He will follow up with his PCP and plan of care as prescribed. He will transport via private vehicle with his significant other, Amy.
[2021-01-20 10:56] LABS: Syphilis Serology (RPR) Negative (Negative)
--- NOTE | 2021-01-20 13:00 | W.PM.PROGNOT ---
Date of Service Date of service: 01/20/21 Time of Service: 09:00 Assessment and Plan Assessment and plan (1) Encephalopathy: Start date: 01/20/21 Start time: 09:00 Status: Acute Assessment and plan: Intermittent episodes of AMS evaluation done while patient sleeping not wearing bipap, he was having apnec episodes lasting at least 20 seconds. Oxygen sat 78% on RA ABG with 70% SO2, 7.31 pH CO2 55 po2 42 This is why patient is having AMS intermittently, he is sleeping off and no throughout the day and hypoxic Ammonia level 11 (2) Sleep apnea: Start date: 01/20/21 Start time: 09:00 Status: Chronic Assessment and plan: Needs to wear bipap at all times when sleeping, if not complaint at least wear oxygen to sats above 92%, will do overnight oximetry (3) Hypoglycemia: Start date: 01/20/21 Start time: 09:00 Status: Acute Assessment and plan: Hypoglycemic episode this am at 58. decreased long acting in half and will monitor bgl and am labs 1600 fingerstick 71, he is eating now. Lantus for HS only and changed to sensitive will monitor glucose and increase as needed. (4) Fever: Start date: 01/20/21 Start time: 09:00 Status: Acute Assessment and plan: Afebrile in over 48 hours. On multiple antibiotics, including antivirals All differentials have been r/o at this time. LP to r/o meningitis. Will be done on Saturday also r/o lymphoma and leukemia. Syphilis serology negative Steroids are po Also given pepcid and IV benadryl (5) Rash: Start date: 01/20/21 Start time: 16:23 Status: Acute Assessment and plan: as above, little to no improvement (6) Urinary retention: Start date: 01/20/21 Start time: 16:26 Status: Acute Assessment and plan: Patient was not having a lot of output, bladder scanned and found to have 991 in bladder calero placed with 1250 UOP. Will start flomax and trial calero d/c (7) Transaminitis: Start date: 01/20/21 Start time: 16:23 Status: Acute Assessment and plan: elevated LFT improving hold statin until they improve Repeat LFT in am (8) Diabetes mellitus: Start date: 01/20/21 Start time: 16:25 Status: Acute Assessment and plan: Monitor fingersticks Ac/hs SSI (9) DVT prophylaxis: Start date: 01/20/21 Start time: 16:28 Status: Acute Assessment and plan: eliquis on hold for LP on saturday (10) Discharge planning issues: Start date: 01/20/21 Start time: 16:28 Status: Acute Assessment and plan: Home when medically cleared above case discussed with dr. Darling Subjective Subjective Patient reports: other Interval history since last seen: Intermittent confusion, when assessing patient he was sleeping and found to not be using bipap. He had several episodes of apnea lasting apprx 20+ seconds. ABG ordered his sO2 was 70%. pH 7.3, p02 42, CO2 26. He needs to wear bipap at all times if he is refusing then oxygen is at least required. Will do continuous over night extremity. My suspicion is that his AMS likely is due oxygen deprivation. He wakes up with AMS and then clears after hours of being awake. So far all testing has been negative. So far all testing has been negative. Will reach out to [facility] tomorrow ID and discuss patient. r/o leukemia panel and meningitis as well. LP for Saturday. Anticoags on hold till then Exam Narrative Exam Narrative: . HEENT conjunctiva clear; throat no oral lesions or exudate; neck supple; lungs clear; heart RRR w/o MRG; abdomen soft and NT w/O HSM; ; extremities w/o edema; neuro Ox3, nonfocal; no lymphadenopathy; skin diffuse erythematous in large whorls and plaques with areas of confluence no itchy or raised. Able to move all extremities no edema clubbing or cyanosis. Palms with whorls of rash as well, AMS due to hypoxia Objective Last Vital Signs Temp 36.4 C L 01/20/21 11:51 Pulse 68 01/20/21 11:51 Resp 20 01/20/21 11:51 BP 186/84 H 01/20/21 11:52 Pulse Ox 98 01/20/21 12:14 Laboratory Results - last 24 hr 01/19/21 01/19/21 01/20/21 06:56 10:50 06:37 ABG Sample Site ABG pH ABG pCO2 ABG pO2 ABG HCO3 ABG Total CO2 ABG O2 Saturation ABG Base Excess FiO2 Sodium 144 Potassium 3.9 Chloride 109 H Carbon Dioxide 25.4 Anion Gap 9.6 BUN 45 H D Creatinine 1.8 H Estimated GFR/1.73 m2 38.30 Glucose 58 L D Calcium 8.9 Magnesium 1.8 Ammonia Syphilis Serology Negative Path Cons Comment 01/20/21 01/20/21 06:37 08:40 ABG Sample Site Right radial ABG pH 7.31 L ABG pCO2 55 H ABG pO2 42 L ABG HCO3 28 H ABG Total CO2 26 ABG O2 Saturation 70 L ABG Base Excess 2 FiO2 21 Sodium Potassium Chloride Carbon Dioxide Anion Gap BUN Creatinine Estimated GFR/1.73 m2 Glucose Calcium Magnesium Ammonia 11 Syphilis Serology Path Cons Comment
[2021-01-20] MEDS: Tamsulosin 0.4 MG CAPCR PO (13:07)
--- NOTE | 2021-01-20 14:49 | RESPIRATORY ---
At 0840 pt had an abg on RA while sleeping. He was had obvious apneic episodes lasting up to 20 seconds and his pulse ox was reading from 70-95%. Pt was placed back on his home bipap unit after abg was drawn and provider notified. If pt sleeps without bipap tonight RN is expected to do a cont pulse ox and place pt on oxygen per provider Foulke.
[2021-01-20 16:38] LABS: BE 2 mmol/L (-2-3); HCO3 27 mmol/L (22-26); pCO2 42 mmHg (35-45); pH 7.41 (7.35-7.45); pO2 65 mmHg (80-105); sO2 92 % (95-98); tCO2 25 mmol/L (23-27)
[2021-01-20 16:41] LABS: FIO2 21 %; Site Left Radial
[2021-01-20] MEDS: buPROPion 100 MG TAB PO (19:56)
[2021-01-20] MEDS: Metoprolol 25 MG TAB PO (19:56)
[2021-01-21 02:32] VITALS: BP 157/68; PULSE 66; RESP 19; TEMP 36.3; O2SAT 96
[2021-01-21 02:44] LABS: PROTEIN 90.7 mg/dL (0.0-11.9)
[2021-01-21 02:50] LABS: TOTAL PROTEIN,URINE TIMED 2267.5 mg/24hr (0.0-149.1); Total Volume 2500 ml
[2021-01-21] MEDS: Normal Saline Flush 10 ML SYR IVP ×2 (03:45→12:35)
[2021-01-21] MEDS: diphenhydrAMINE 50 MG/ML VIAL 25 MG IVP (03:48)
[2021-01-21 04:32] VITALS: O2SAT 96
[2021-01-21] MEDS: AMPICILLIN SODIUM 2 GM in Normal Saline 100 ML IVPB ×2 (05:28→11:26)
[2021-01-21 07:54] LABS: ALT 135 U/L (16-63); AST 30 U/L (15-37); Albumin 2.4 g/dL (3.4-5.0); Alkaline Phosphatase 248 U/L (46-116); Bilirubin, Direct 0.1 mg/dL (0.0-0.2); Bilirubin, Total 0.3 mg/dL (0.2-1.0); Total Protein 6.1 g/dL (6.4-8.2)
[2021-01-21 08:04] VITALS: BP 184/78; PULSE 68; RESP 18; TEMP 36.8; O2SAT 98
[2021-01-21 08:23] LABS: Anion Gap 11.6 mmol/L (3-11); BUN 36 mg/dL (7-18); CO2 24.4 mmol/L (21.0-32.0); CREATININE 1.6 mg/dL (0.70-1.30); Calcium 8.3 mg/dL (8.5-10.1); Chloride 108 mmol/L (98-107); Creatine Kinase 106 U/L (39-308); Estimated GFR 43.87 (mL/min/1.73m2); Glucose 54 mg/dL (74-106); Sodium 144 mmol/L (136-145)
[2021-01-21 08:24] LABS: Creatine Kinase 261 U/L (39-308)
[2021-01-21] MEDS: Tamsulosin 0.4 MG CAPCR PO (08:34)
[2021-01-21] MEDS: buPROPion 100 MG TAB PO (08:34)
[2021-01-21] MEDS: Metoprolol 25 MG TAB PO (08:34)
[2021-01-21] MEDS: Famotidine 20 MG TAB PO (08:34)
[2021-01-21] MEDS: Citalopram 20 MG TAB PO (08:34)
[2021-01-21] MEDS: cefTRIAXone 2 GM/50 ML BAG IVPB (10:36)
[2021-01-21 10:55] VITALS: PULSE 61; RESP 25; O2SAT 100
[2021-01-21 11:10] LABS: Syphilis Total Ab w/Reflex Nonreactive (Nonreactive)
[2021-01-21] MEDS: Insulin Aspart 300 UNITS/3 ML PEN SC ×2 (12:35→17:06)
[2021-01-21 13:36] LABS: Vancomycin, Trough 10.8 ug/mL (10.0-20.0)
[2021-01-21] MEDS: VANCOMYCIN/WATER (PEG) 1.25 GM/250 ML BAG IV (14:25)
--- NOTE | 2021-01-21 14:50 | W.PM.PROGNOT ---
Date of Service Date of service: 01/21/21 Time of Service: 14:50 Assessment and Plan Assessment and plan (1) Encephalopathy: Status: Acute Assessment and plan: Intermittent episodes of AMS evaluation done while patient sleeping not wearing bipap, he was having apnec episodes lasting at least 20 seconds. Oxygen sat 78% on RA ABG with 70% SO2, 7.31 pH CO2 55 po2 42 This is why patient is having AMS intermittently, he is sleeping off and no throughout the day and hypoxic Ammonia level 11 (2) Sleep apnea: Status: Chronic Assessment and plan: Needs to wear bipap at all times when sleeping, if not complaint at least wear oxygen to sats above 92%, will do overnight oximetry (3) Hypoglycemia: Status: Acute Assessment and plan: Hypoglycemic episode this am at 58. decreased long acting in half and will monitor bgl and am labs 1600 fingerstick 71, he is eating now. Lantus for HS only and changed to sensitive will monitor glucose and increase as needed. (4) Fever: Status: Acute Assessment and plan: Afebrile in over 48 hours. On multiple antibiotics, including antivirals All differentials have been r/o at this time. LP to r/o meningitis. Will be done on Saturday also r/o lymphoma and leukemia. Syphilis serology negative Steroids are po Also given pepcid and IV benadryl (5) Rash: Status: Acute Assessment and plan: as above, little to no improvement (6) Urinary retention: Status: Acute Assessment and plan: Patient was not having a lot of output, bladder scanned and found to have 991 in bladder calero placed with 1250 UOP. Will start flomax and trial calero d/c (7) Transaminitis: Status: Acute Assessment and plan: elevated LFT improving hold statin until they improve Repeat LFT in am (8) Diabetes mellitus: Status: Acute Assessment and plan: Monitor fingersticks Ac/hs SSI (9) DVT prophylaxis: Status: Acute Assessment and plan: eliquis on hold for LP on saturday (10) Discharge planning issues: Status: Acute Assessment and plan: Home when medically cleared above case discussed with dr. Darling Subjective Subjective Patient reports: no new complaints Interval history since last seen: he is alert awake and oriented. Alpesh's rash is improving though he is starting to have skin peeling to his face and back. he still has rashes to bilateral legs. He has open sores around lips. I have contacted dermatology Dr. La at [facility] [place] they are requesting pictures . We will take and send. Patient was on bipap all night. He is AAOx3 Exam Narrative Exam Narrative: . Objective Last Vital Signs Temp 36.8 C 01/21/21 08:04 Pulse 61 01/21/21 10:55 Resp 18 01/21/21 08:04 BP 184/78 H 01/21/21 08:04 Pulse Ox 100 01/21/21 10:55 Laboratory Results - last 24 hr 01/20/21 01/20/21 01/21/21 06:37 16:39 01:00 ABG Sample Site Left radial ABG pH 7.41 ABG pCO2 42 ABG pO2 65 L ABG HCO3 27 H ABG Total CO2 25 ABG O2 Saturation 92 L ABG Base Excess 2 FiO2 21 Sodium 144 Potassium 3.9 Chloride 109 H Carbon Dioxide 25.4 Anion Gap 9.6 BUN 45 H D Creatinine 1.8 H Estimated GFR/1.73 m2 38.30 Glucose 58 L D Calcium 8.9 Magnesium 1.8 Total Bilirubin Conjugated Bilirubin AST ALT Alkaline Phosphatase Creatine Kinase 261 Total Protein Albumin U Random Total Protein 90.7 H Urine Total Volume 2500 Ur Total Protein 24 Hr 2267.5 H Vancomycin Trough 01/21/21 01/21/21 01/21/21 06:20 06:20 13:12 ABG Sample Site ABG pH ABG pCO2 ABG pO2 ABG HCO3 ABG Total CO2 ABG O2 Saturation ABG Base Excess FiO2 Sodium 144 Potassium 4.0 Chloride 108 H Carbon Dioxide 24.4 Anion Gap 11.6 H BUN 36 H D Creatinine 1.6 H Estimated GFR/1.73 m2 43.87 Glucose 54 L Calcium 8.3 L Magnesium Total Bilirubin 0.3 Conjugated Bilirubin 0.1 AST 30 ALT 135 H Alkaline Phosphatase 248 H Creatine Kinase 106 Total Protein 6.1 L Albumin 2.4 L U Random Total Protein Urine Total Volume Ur Total Protein 24 Hr Vancomycin Trough 10.8
[2021-01-21 15:50] VITALS: BP 167/71; PULSE 70; RESP 20; TEMP 37.2; O2SAT 94
--- NOTE | 2021-01-21 16:05 | DSE_ITS ---
Date of service: 01/21/21 Time of Service: 16:06 DS: Diagnosis Discharge Diagnosis (1) Encephalopathy: Start date: 01/21/21 Start time: 16:06 Status: Resolved Asessment and Plan: Found to be due to hypoxia with hypercabnic due to not using bipap. Once he was using bipap mental status cleared. (2) Sleep apnea: Start date: 01/21/21 Start time: 16:10 Status: Chronic Asessment and Plan: Requires bipap at all times (3) Hypoglycemia: Start date: 01/21/21 Start time: 16:10 Status: Acute Asessment and Plan: He did have low am glucose by labs. Lantus decreased toa 15 units (4) Fever: Start date: 01/21/21 Start time: 16:11 Status: Resolved Asessment and Plan: Has defervesced for about 3 days after being started on antivirals, ampicilliin, vanco, ceftriaxone. found out he was on celebrex prior to admission today in addition to prednsione. 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 and they want the patient at their facility. Derm atology wants to see him in person and feel he needs transfer there fore he is being transferred to [facility] accepting Dr. Jarvis (5) Rash: Start date: 01/21/21 Start time: 16:16 Status: Acute Asessment and Plan: desquamantion of rash to face, back, ears, he also has lesions and open sores to his lips all within the last 24 hours (6) Urinary retention: Start date: 01/21/21 Start time: 16:18 Status: Acute Asessment and Plan: Could be part of his syndrome. Continue calero and flomax (7) Transaminitis: Start date: 01/21/21 Start time: 16:18 Status: Acute Asessment and Plan: Alt elevated but improving, ast normalized (8) Diabetes mellitus: Start date: 01/21/21 Start time: 16:19 Status: Acute Asessment and Plan: as above continue finger sticks Discharge Plan Disposition Patient Disposition: [facility] Condition: Serious Discharge Details Reason For Visit: FEVER AND RASH Admit Date/Time: 01/17/21 10:05 Admit Provider: Abimael Vinson Attending Provider: Abimael Vinson Primary Care Provider: Hammad Enrique Hospital Course Hospital Course: 65 y.o male with PMH of DM, tendinitis dx prior to admission presented to the ED after 3 days of rash with high fever. Work in ED revealed elevated LFTs, Leukocytosis, ESR 29, BGL 445, CT revealed the main finding here is mediastinal-subcarinal and hilar adenopathy. Suspicious for lymphoma. He was asked to be admitted for further management. At the time he was not found to be infectious and not placed on antibiotics. Over course of couple days he continued to spike fevers as high as 40.2. Rash appeared in whorls all over his body on palms, back legs, abdomen, due to imaging, lukemia, lymphoma is being r/o. Tick panel, sarcoidosis, HIV, Hep C, lupus, syphilis, mono all negative. Punch biopsy revealed pigmented purpuric dermatosis, however drug-related eruption possible. Due to no findings, he was placed on antibiotics and antivirals. After 24 hours of IV medications fevers defervesced. He did start to have intermittent ams a couple of days ago, yesterday I witnessed patient have 20+ sec of apnec episodes off bipap, abg done revealing hypoxia with hypercapnia. He was placed on bipap throughout the day and his abg last night corrected. Today he is AAOx 3 however he is have desquamanination of skin to face, ears, back, his lips have oral lesion on them, the rash is receding on palms but continues on his bilateral lower extremities. We found out today by his patient took celebrex prior to admission, which means this co uld likely by SJS. [facility] dermatology contacted and spoke with Dr. Roblero. Both her and her attending felt that the patient needed to be seen by them at the hospital. Hospitalist Dr. Jarvis has agreed to accept patient for transfer to /. Of note he did have two mornings of hypogylcemic events. I decreased his lantus from BID yesterday to daily and halved it then I cut it from 25 to 15 today and changed him from resistant to sensitive. He denies itching, SOB, N/V/D, CP. Home Meds and New Rx's Prescriptions: No Action (DME) lancets [Accu-Chek Fastclix Lancet Drum] Misc See Dose Instructions .ROUTE .MEDSUPPLY Qty: 100 RF: 6 citalopram [Celexa] 20 mg tablet 20 mg PO DAILY Qty: 90 RF: 3 Eliquis 5 mg tablet 5 mg PO BID Qty: 60 RF: 11 Lantus Solostar U-100 Insulin 100 unit/mL (3 mL) insulin pen 60 unit Sub-Q BID Qty: 36 RF: 3 metoprolol tartrate 25 mg tablet 25 mg PO BID Qty: 180 RF: 3 nitroglycerin [Nitrostat] 0.4 mg tablet, sublingual 0.4 mg Sublingual PRN Qty: 25 RF: 1 pravastatin 80 mg tablet 80 mg PO HS Qty: 90 RF: 3 losartan 25 mg tablet 25 mg PO DAILY RF: 0 prednisone 5 mg tablet 5 mg PO BID Qty: 30 RF: 0 Bupropion HCl 100 MG tablet 100 mg PO BID Qty: 180 RF: 3 (DME) blood-glucose meter [Accu-Chek Mariana Plus Meter] [facility] See Dose Instructions .ROUTE .MEDSUPPLY Qty: 1 RF: 0 bupropion HCl 100 mg tablet 100 mg PO BID Qty: 60 RF: 11 (DME) pen needle, diabetic [BD Ultra-Fine Short Pen Needle] 31 gauge x 5/16 needle 1 ea SQ 5x day Qty: 400 RF: 3 (DME) Accu-Chek Mariana Plus test strp Strip See Dose Instructions .ROUTE .MEDSUPPLY Qty: 300 RF: 3 insulin aspart U-100 [Novolog Flexpen U-100 Insulin] 100 unit/mL (3 mL) insulin pen 26 - 30 unit subcut AC Qty: 27 RF: 3 celecoxib 200 mg capsule 200 mg PO BID RF: 0 Discharge Instructions Additional Instructions: Transfer to [facility] for higher level of care Please see medication list for meds administered at [facility] and home med list Activity:: Activity as Tolerated Diet:: Low Sodium Discharge Orders Discharge Orders: Discharge Order (Routine); Ordered 01/21/21 Ordered By: Merari Maza DS: Summary Time Spent with Patient providing and/or coordinating discharge services: Greater than 30 minutes (discharge approx 90 min) Status at Discharge Functional status at discharge: independent ambulation Overall status at discharge: patient is not back to baseline Mental Status: mental status grossly normal Speech and Movement: speech and movement normal Mood: congruent mood Affect: normal affect Exam HENMT Head: abnormal to inspection, normocephalic, atraumatic and other (skin peeling from multiple areas) Mouth: oral mucosae normal and lip abnormal (sores around mouth) Resp Effort & Inspection: normal respiratory effort Auscultation: clear to auscultation bilaterally Cardio Rate: regular rate Rhythm: regular rhythm GI Inspection: normal to inspection Palpation: soft Auscultation: normal bowel sounds Skin General skin exam: purpura Rashes: rashes noted (diffuse red macular rash, to bilateral lE) Other: desquaminating to face, back, ears. Neuro General: patient alert, patient awake, patient oriented x3 (some intermittent confusion), moves all extremities and no focal motor deficits Speech: speech normal Extrem General: normal to inspection and full ROM Psych Mental Status: mental status grossly normal Speech and Movement: speech and movement normal Mood: congruent mood Affect: normal affect DS: Data Vitals/I&O Vitals and I&O: Vital Signs Temperature 37.2 C 01/21/21 15:50 Temperature Source Tympanic 01/21/21 15:50 Pulse 70 01/21/21 15:50 Pulse Rhythm Regular 01/21/21 08:35 Pulse 102 H 01/15/21 19:16 Respiratory Rate 20 01/21/21 15:50 Respiratory Effort Non-Labored 01/21/21 08:35 Respiratory Depth Deep 01/21/21 08:35 Respiratory Pattern Normal 01/21/21 08:35 Blood Pressure 167/71 H 01/21/21 15:50 Blood Pressure Mean 90 01/15/21 19:16 Blood Pressure Position Supine 01/15/21 18:28 Pulse Oximetry 94 01/21/21 15:50 Oxygen Delivery Method Room Air 01/21/21 15:50 Oxygen Flow Rate 0 01/21/21 15:50 Fraction of Inspired Oxygen (FIO2) 21 01/21/21 10:55 Pain Level 0 01/21/21 02:32 Comment 01/20/21 14:40 Intake & Output 01/20/21 01/21/21 01/21/21 23:59 11:59 23:59 Intake Total 1383.333 / 2840.000 840 / 1190 350 / 1190 Output Total 525 / 2750 850 / 850 Balance 858.333 / 90.000 -10 / 340 350 / 340 Intake: IV 783.333 / 2240.000 500 / 850 350 / 850 Oral 600 / 600 340 / 340 Output: Urine 525 / 2750 850 / 850 Other: Urine Color Yellow Yellow Urine Appearance Clear Clear Data Completed and Pending Completed studies during hospitalization [Text1]: Exam(s) a CT:CT chest/abd/pel wo EXAM: CT CHEST/ABD/PEL WO CLINICAL HISTORY: fever, cough, chills. TECHNIQUE: Imaging Protocol: Axial computed tomography images with coronal and sagittal reformatted images were created and reviewed CONTRAST MATERIAL: Intravenous: none Oral: None COMPARISON: No exams were available for comparison FINDINGS: CHEST: LUNGS: Less than optimal inspiration which results in some increased markings but no true confluent infiltrates. No air bronchograms. No pleural effusions. No focal findings in the trachea and mainstem bronchi.. MEDIASTINUM: There is adenopathy in both hilar regions. There is also significant subcarinal adenopathy. There is no supraclavicular adenopathy. No significant axillary adenopathy. Visualized thyroid unremarkable. CARDIAC: There is cardiomegaly. No pericardial effusion.Caliber of the thoracic aorta is within normal limits. OSSEOUS: There is a healed fracture of the left 8th rib posterolaterally. No other significant rib findings.No lytic osseous lesions identified.. ABDOMEN: There is no ascites. LIVER: There are no obvious focal hepatic lesions evident of this noninfused study. GALLBLADDER/BILIARY: No obvious gallbladder pathology. CBD is not dilated. PANCREAS: No evidence of obvious pancreatic mass nor dilatation of the pancreatic duct. SPLEEN: Spleen size is upper normal. No obvious intrasplenic lesions. ADRENALS: There are no significant adrenal masses. KIDNEYS: No calculi nor hydronephrosis. No obvious solid renal masses. No cysts evident. ABDOMINAL AORTA: Abdominal aorta is not enlarged. LYMPH NODES: There is no retroperitoneal nor para-aortic adenopathy. ABDOMINAL WALL/GI: No evidence of signature anterior abdominal wall hernia. No bowel obstruction. PELVIS: LYMPH NODES: There is no intrapelvic nor inguinal adenopathy. GI: No evidence of appendicitis.No evidence of sigmoid diverticulitis. URINARY BLADDER: There is a Calero catheter in the urinary bladder in the bladder is collapsed. REPRODUCTIVE: Prostate gland is not enlarged. OSSEOUS: No significant osseous lesions. IMPRESSION: 1. The main finding here is mediastinal-subcarinal and hilar adenopathy. Suspicious for lymphoma. No other adenopathy evident in the abdomen and pelvis nor in the axillary regions nor in the groins. 2. Spleen size is upper normal. 3. There is Calero catheter in the urinary bladder and the urinary bladder is collapsed. Exam(s) PROCEDURE INFORMATION: Exam: CT Chest Without Contrast; Diagnostic Exam date and time: 01/15/2021 7:50 PM Age: 65 years old Clinical indication: Prior surgery; Surgery date: 6+ months; Surgery type: Appendectomy and vascular stent; Patient HX: Cough, fever, chills, rash TECHNIQUE: Imaging protocol: Diagnostic computed tomography of the chest without contrast. Radiation optimization: All CT scans at this facility use at least one of these dose optimization techniques: automated exposure control; mA and/or kV adjustment per patient size (includes targeted exams where dose is matched to clinical indication); or iterative reconstruction. COMPARISON: CR CHEST 2 VIEWS PA,LAT 01/30/2017 11:12 PM FINDINGS: Lungs: Dependent subsegmental atelectasis in the lung bases. Pleural spaces: Unremarkable. No pneumothorax. No pleural effusion. Heart: Mild coronary artery calcification. No cardiac chamber enlargement, great vessel dilatation, or pericardial effusion. Aorta: Unremarkable. No aortic aneurysm. Lymph nodes: Pretracheal and subcarinal lymphadenopathy. Left greater than right bilateral hilar lymphadenopathy. Bones/joints: Unremarkable. No acute fracture. Soft tissues: Unremarkable. IMPRESSION: 1. Dependent subsegmental atelectasis. No focal parenchymal consolidation or mass. 2. Mediastinal and hilar lymphadenopathy. Exam(s) a MRI:MR brain wo/w EXAM: MR BRAIN WO/W CLINICAL HISTORY: AMS ,Fever TECHNIQUE: Multiplanar multisequence MRI of the brain was performed. Both noninfused and contrast infused sequences were performed. IV Contrast injected was 12 cc Dotarem. COMPARISON: No exams were available for comparison FINDINGS: CEREBRAL PARENCHYMA: No evidence of intracranial hemorrhage, mass effect nor shift of midline structure. No extraaxial fluid collections. Ventricles are not enlarged nor shifted. There is no significant focal signal abnormality in the cerebellar hemispheres nor within the tonya, midbrain, and thalami. There are few small nonspecific foci of FLAIR bright signal in the periventricular regions, not associated with hemorrhage or surrounding edema nor abnormal enhancement. There are no ring enhancing lesions in the brain. There is no abnormal meningeal enhancement, focal nor diffuse. PITUITARY GLAND: No mass nor parasellar abnormality. No obvious abnormality in the cavernous sinuses. FLOW VOIDS: The expected flow void are noted. No evidence of obvious aneurysm nor obvious vascular malformation. PARANASAL SINUSES: There is focal mucosal thickening in the medial wall of the left maxillary sinus which is probably a small post inflammatory retention cyst. There is no fluid level. Right maxillary sinus and sphenoid sinuses are clear. Ethmoidal air cells are clear. The frontal sinuses are not developed. ORBITS: No obvious abnormal findings. IMPRESSION: 1. No significant intracranial findings on this MRI scan of the brain. 2. No abnormal enhancing intracranial findings. 3. Incidental note of small retention cyst in the left maxillary sinus. No evidence of acute sinusitis. Labs on day of discharge: Labs from last 24 hours 01/21/21 01/21/21 01/21/21 13:12 06:20 06:20 Xanthochromia ABG Sample Site ABG pH ABG pCO2 ABG pO2 ABG HCO3 ABG Total CO2 ABG O2 Saturation ABG Base Excess FiO2 Sodium 144 Potassium 4.0 Chloride 108 H Carbon Dioxide 24.4 Anion Gap 11.6 H BUN 36 H D Creatinine 1.6 H Estimated GFR/1.73 m2 43.87 Glucose 54 L Calcium 8.3 L Magnesium Total Bilirubin 0.3 Conjugated Bilirubin 0.1 AST 30 ALT 135 H Alkaline Phosphatase 248 H Creatine Kinase 106 Total Protein 6.1 L Albumin 2.4 L Ur Random Albumin U Random Total Protein U Collection Duration Urine Total Volume Ur Total Protein 24 Hr Ur Protein 24 Hr Calc Urine Globulin Urine Random PEP Note CSF Tube Number CSF Color CSF Clarity CSF WBC CSF RBC CSF Neutrophils % CSF Lymphocytes % CSF Monos/Macrophage % CSF Other Cells % CSF Diff Comment CSF VDRL Vancomycin Trough 10.8 Urine Immunofixation Syphilis Total Ab 01/21/21 01/21/21 01/21/21 02:01 01:00 01:00 Xanthochromia Cancelled ABG Sample Site ABG pH ABG pCO2 ABG pO2 ABG HCO3 ABG Total CO2 ABG O2 Saturation ABG Base Excess FiO2 Sodium Potassium Chloride Carbon Dioxide Anion Gap BUN Creatinine Estimated GFR/1.73 m2 Glucose Calcium Magnesium Total Bilirubin Conjugated Bilirubin AST ALT Alkaline Phosphatase Creatine Kinase Total Protein Albumin Ur Random Albumin Pending U Random Total Protein Pending 90.7 H U Collection Duration Pending Urine Total Volume Pending 2500 Ur Total Protein 24 Hr 2267.5 H Ur Protein 24 Hr Calc Pending Urine Globulin Pending Urine Random PEP Note Pending CSF Tube Number Cancelled CSF Color Cancelled CSF Clarity Cancelled CSF WBC Cancelled CSF RBC Cancelled CSF Neutrophils % Cancelled CSF Lymphocytes % Cancelled CSF Monos/Macrophage % Cancelled CSF Other Cells % Cancelled CSF Diff Comment Cancelled CSF VDRL Vancomycin Trough Urine Immunofixation Pending Syphilis Total Ab 01/20/21 01/20/21 01/19/21 16:39 06:37 10:50 Xanthochromia ABG Sample Site Left radial ABG pH 7.41 ABG pCO2 42 ABG pO2 65 L ABG HCO3 27 H ABG Total CO2 25 ABG O2 Saturation 92 L ABG Base Excess 2 FiO2 21 Sodium 144 Potassium 3.9 Chloride 109 H Carbon Dioxide 25.4 Anion Gap 9.6 BUN 45 H D Creatinine 1.8 H Estimated GFR/1.73 m2 38.30 Glucose 58 L D Calcium 8.9 Magnesium 1.8 Total Bilirubin Conjugated Bilirubin AST ALT Alkaline Phosphatase Creatine Kinase 261 Total Protein Albumin Ur Random Albumin U Random Total Protein U Collection Duration Urine Total Volume Ur Total Protein 24 Hr Ur Protein 24 Hr Calc Urine Globulin Urine Random PEP Note CSF Tube Number CSF Color CSF Clarity CSF WBC CSF RBC CSF Neutrophils % CSF Lymphocytes % CSF Monos/Macrophage % CSF Other Cells % CSF Diff Comment CSF VDRL Vancomycin Trough Urine Immunofixation Syphilis Total Ab Nonreactive 01/19/21 10:07 Xanthochromia ABG Sample Site ABG pH ABG pCO2 ABG pO2 ABG HCO3 ABG Total CO2 ABG O2 Saturation ABG Base Excess FiO2 Sodium Potassium Chloride Carbon Dioxide Anion Gap BUN Creatinine Estimated GFR/1.73 m2 Glucose Calcium Magnesium Total Bilirubin Conjugated Bilirubin AST ALT Alkaline Phosphatase Creatine Kinase Total Protein Albumin Ur Random Albumin U Random Total Protein U Collection Duration Urine Total Volume Ur Total Protein 24 Hr Ur Protein 24 Hr Calc Urine Globulin Urine Random PEP Note CSF Tube Number CSF Color CSF Clarity CSF WBC CSF RBC CSF Neutrophils % CSF Lymphocytes % CSF Monos/Macrophage % CSF Other Cells % CSF Diff Comment CSF VDRL Cancelled Vancomycin Trough Urine Immunofixation Syphilis Total Ab Preliminary micro results at discharge 01/19/21 10:50 Blood Culture - Preliminary Blood NO GROWTH 48 HOURS 01/19/21 10:50 Blood Culture - Preliminary Blood NO GROWTH 48 HOURS 01/20/21 01:10 Urine Culture - Preliminary Urine - Voided Gram Positive Deja,Mixed [facility] Medical History Acute osteomyelitis of right foot (06/25/16) Atherosclerosis of [place] coronary artery Stent 1999 Positive MPI in May 2010 Chronic renal impairment, stage 2 (mild) Coronary disease a. s/p cath with stent 1999 b. MPI positive for ischemia 2009 Current use of insulin Depression Depressive disorder (08/10/13) Diabetes mellitus Diabetes mellitus, type II a. Hgb A1C 11.6 b. on high dose glargine insulin therapy DM (diabetes mellitus), type 2, uncontrolled w/ophthalmic complication (08/06/12) Essential hypertension if creat ok, will add KULWANT Heart failure 01/31/17 [facility] ; EF 45-50%;ATRIAL DIALATION on coumadin Hyperlipidemia (03/26/13) Impacted cerumen of both ears Low back pain Obesity Osteomyelitis (08/13/14) a. left foot fifth metatarsal and proximal phalanx Polyp of colon (11/17/13) DR. Dick RODRIGUEZ; TUBULAR ADENOMA Proliferative diabetic retinopathy (08/06/12) 08/09/16; [facility] Rupture of left quadriceps muscle (01/15/18) Sensorineural hearing loss, bilateral (07/16/16) Sleep apnea (05/16/15) Well adult Surgical History Colonoscopy - MAC (11/17/13) H/O surgical procedure a. Right quadriceps repair [address] Smart b. Colonoscopy 11/17/[address] Rodriguez History of appendectomy History of intravascular stent placement History of right knee surgery (04/22/14) PROCEDURES INSERT 1 VASCULAR STENT, 1999 LEFT CIRC. QUADRICEPS REPAIR 01/16/18 (L) S/P cataract surgery 10/02/18; [facility];B/L-kb Family History Mother , AGE 84 Diabetes Stroke Father Depression Heart disease Hyperlipidemia Hypertension Sister Alcohol abuse Substance abuse Diabetes Depression Social History Smoking/Tobacco Use Status: Never Second Hand Exposure: Yes Smoking risk assessment performed?: Yes Alcohol Intake: former Drug use: Never Substance use type: does not use Caregiver/Support person: No Household members: significant other Housing: house Communication Needs: Hard of Hearing Do you need help understanding health information?: Never Pets and animals: No Sexually active: Yes Do you think of yourself as: straight/heterosexual Current gender identity: male What is your relationship status?: living with partner How often do you talk on the phone with friends or family?: once per week How often do you get together with friends or relatives?: twice per week How often do you attend caodaism or taoism services?: decline to answer Do you belong to any clubs or organized social groups?: no Panel score (0-1 are the most socially isolated patients): 2 What type of physical activity do you participate in: other Details: Rowing Duration: 15-30 minutes/day Frequency: 3-4 times per week Verna/Christian: Adventism Special verna needs: No Seatbelt use: always Helmet use: Yes Helmet use: always 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
--- NOTE | 2021-01-21 16:22 | WOUNDCONS_ITS ---
- If Service Date Differs Date of service: 01/21/21 Time of Service: 16:23 Wound Initial Evaluation Narrative: Pt has transfer orders to [facility]. Wound consult deferred @ this time.
--- NOTE | 2021-01-21 16:22 | WOUNDCONS ---
- If Service Date Differs Date of service: 01/21/21 Time of Service: 16:23 Wound Initial Evaluation Narrative: Pt [place] [facility] Wound consult deferred @ this time.
--- NOTE | 2021-01-21 17:10 | PDOC.CMPRO ---
- If Service Date Differs Date of service: 01/21/21 Time of Service: 17:10 Care Management Progress Note S/O: Alpesh was sitting up in bed with his by his side when CM met with them. He reported that he didn't really know what was going on. His asked to speak to the provider. CM informed the provider, who was on the way to meet with both the pt and his . Per report, Alpesh was accepted in transfer to [facility] to be seen by dermatology for the rash. There is a suspicion of SJS, due to new information that he had taken celebrex prior to admission. Alpesh will transport via ambulance, coordinated by RN Holistic Health Practitioner. A: 65 year old male admitted to [facility] 01/15/21 for Fever and Rash P: Alpesh is being transferred to [facility] to be seen by dermatology today. He will transport via ambulance, coordinated by RN Holistic Health Practitioner. His was present when this was determined, so she has been updated on the plan. Alpesh is agreeable to transfer.
--- NOTE | 2021-01-21 18:52 | RESPIRATORY ---
Patient was suppose to have an overnight oximetry done on Saturday night but it wasn't performed. Doctor placed order to have testing done tonight but patient is transfering to [facility] for further testing per nursing. Overnight oximetry not performed on patiet pre-discharge to [facility] as leaving shortly.
[2021-01-23 15:06] LABS: Albumin 50.7 % (55.8-66.1); Total Protein 6.1 g/dL (6.3-8.2)
[2021-01-23 15:24] LABS: Albumin, Urine % 56.4 %; Globulins, Urine % 43.6 %; Immunotyping, Urine (See Note); Total Protein Urine 84 mg/dL (See Note); Total Protein, Urine 24hrs 2100 mg/24hrs (<150); Urine Volume 2500 mL
[2021-01-25 09:43] LABS: Leukemia/Lymphoma by FC (Blood See Comments
== END 2021-01-21 19:10 | disposition short-term general hospital (02) | DRG 596 ==
LOC: ER 22:46 → MS 23:10
PROVIDERS: Internal Medicine; Nurse Practitioner Acute Care; Nurse Practitioner Family; Physician Assistant; Admitting Provider General Practice; Emergency Provider Student in an Organized Health Care Education/Training Program; PCP Family Medicine; Visit Provider General Practice
DX: L51.1 Stevens-Johnson syndrome (principal); N17.9 Acute kidney failure, unspecified; I13.0 Hypertensive heart and chronic kidney disease with heart failure and stage 1 through stage 4 chronic kidney disease, or unspecified chronic kidney disease; G93.1 Anoxic brain damage, not elsewhere classified; R50.9 Fever, unspecified; R21 Rash and other nonspecific skin eruption; R74.01 Elevation of levels of liver transaminase levels; R59.0 Localized enlarged lymph nodes; Z20.822 Contact with and (suspected) exposure to COVID-19; I25.10 Atherosclerotic heart disease of native coronary artery without angina pectoris; Z95.5 Presence of coronary angioplasty implant and graft; N18.2 Chronic kidney disease, stage 2 (mild); Z79.4 Long term (current) use of insulin; F32.9 Major depressive disorder, single episode, unspecified; E11.22 Type 2 diabetes mellitus with diabetic chronic kidney disease; E11.65 Type 2 diabetes mellitus with hyperglycemia; Z79.01 Long term (current) use of anticoagulants; I50.9 Heart failure, unspecified; E78.5 Hyperlipidemia, unspecified; M54.5 Low back pain; E66.9 Obesity, unspecified; E11.3599 Type 2 diabetes mellitus with proliferative diabetic retinopathy without macular edema, unspecified eye; H90.3 Sensorineural hearing loss, bilateral; G47.33 Obstructive sleep apnea (adult) (pediatric); R44.1 Visual hallucinations; I25.2 Old myocardial infarction; G89.29 Other chronic pain; R09.02 Hypoxemia; E11.649 Type 2 diabetes mellitus with hypoglycemia without coma; R33.9 Retention of urine, unspecified; T38.0X5A Adverse effect of glucocorticoids and synthetic analogues, initial encounter
CPT/HCPCS: 11104; 36415; 36416; 70553; 71250; 80048; 80053; 80076; 82164; 82550; 82805; 82947; 82962; 84156; 84166; 85027; 85652; 86255; 86335; 86704; 86709; 86803; 87040; 87340; 87389; 87635; 87798; 87880; 88185; 89050; 89051; 93005; 96361; 96365; 96367; 96375; 99221; 99222; 99226; 99233; 99252; 99285; 36600; 74176; 80202; 81003; 81015; 82140; 82247; 83036; 83605; 83735; 84075; 84132; 84155; 84165; 84450; 84460; 84484; 85025; 85610; 85730; 86140; 86225; 86308; 86592; 86618; 86780; 87081; 87086; 87476; 88184; 88189; 88305; 93010; 99219; 99239; G0378; J0131; J0133; J0290; J1200; J2543; J2560; J2930; J7512

== ENCOUNTER → 2021-01-19 10:15 | Outpatient (BNVA) | payer MEDICARE, OTHER, SELFPAY | PROVIDERS: PCP Family Medicine; Referring Provider Family Medicine; Visit Provider Psychiatry & Neurology Neurology | DX: R69 Illness, unspecified (principal) ==

== ENCOUNTER 2021-08-15 09:13 | Outpatient (CLI) | payer MEDICARE, OTHER, SELFPAY ==
[2021-08-15 11:11] LABS: Hemoglobin A1C 8.4 % (<5.7)
[2021-08-15 12:28] LABS: CREATININE 1.7 mg/dL (0.70-1.30); Estimated GFR 40.78 (mL/min/1.73m2); Potassium 5.4 mmol/L (3.5-5.1)
== END 2021-08-15 09:14 | disposition home or self-care (01) ==
LOC: LBO 09:14
PROVIDERS: PCP Family Medicine; Visit Provider Family Medicine
DX: I10 Essential (primary) hypertension (principal); R73.9 Hyperglycemia, unspecified
CPT/HCPCS: 36415; 82565; 83036; 84132

== ENCOUNTER 2021-10-31 02:08 | Outpatient (CLI) | payer MEDICARE, OTHER, SELFPAY ==
[2021-10-31 14:19] LABS: Potassium 4.8 mmol/L (3.5-5.1)
== END 2021-10-31 02:09 | disposition home or self-care (01) ==
LOC: LBO 02:08
PROVIDERS: PCP Family Medicine; Visit Provider Family Medicine
DX: I10 Essential (primary) hypertension (principal)
CPT/HCPCS: 36415; 84132

== ENCOUNTER 2021-12-02 03:13 | Emergency (ER) | payer MEDICARE, OTHER, SELFPAY ==
[2021-12-02] VITALS (29 sets, daily range): BP systolic 151–195; BP diastolic 62–77; PULSE 61–74; RESP 10–18; TEMP 36.8; O2SAT 84–98
--- NOTE | 2021-12-02 03:00 | RT.EKG_ITS ---
APPROVED REPORT Exam: Resting ECG Reason for Exam: chest pain Patient Location: E HR:65 bpm ECG Measurements Heart Rate 65 AXIS FL 229 P 51 QRSd 105 QRS -20 QT 408 T 62 QTc 424 Conclusion Sinus rhythm...normal P axis, V-rate 60- 99 Prolonged FL interval...FL >220, V-rate 50- 90 Physician: Sinus rhythm, rate 85, no significant ST elevations or depressions. No STEMI. Small ques tionable Q wave in lead III. No change from prior EKGin 2019
--- NOTE | 2021-12-02 03:15 | RT.EKG_ITS ---
APPROVED REPORT Exam: Resting ECG Reason for Exam: chest pain Patient Location: E HR:63 bpm ECG Measurements Heart Rate 63 AXIS NE 233 P 35 QRSd 115 QRS -12 QT 417 T 39 QTc 427 Conclusion Sinus rhythm...normal P axis, V-rate 60- 99 Prolonged NE interval...NE >220, V-rate 50- 90 Nonspecific intraventricular conduction delay...QRSd >115mS, not LBBB/RBBB Physician: no stemi, unchagned
--- NOTE | 2021-12-02 03:15 | DI.RAD_ITS ---
Exam(s) XR CHEST 2V PA LATERAL EXAM: XR CHEST 2V PA LATERAL CLINICAL HISTORY: epigastric pressure TECHNIQUE: COMPARISON: CR CHEST 2 VIEWS PA,LAT from 01/30/2017 FINDINGS: The diaphragm is mildly elevated on the right as noted on prior films from 2017. Heart is not enlarg ed. Lungs appear grossly clear. No pleural effusion identified. IMPRESSION: No evidence of acute process. RADIATION DOSE DELIVERED: Total DLP
[2021-12-02 03:52] LABS: Abs Immature Grans 0.08 10^3/uL (0.0-0.06); Absolute Basophil Count 0.09 10^3/uL (0.0-0.2); Absolute Eosinophil Count 0.36 10^3/uL (0.0-0.7); Absolute Lymphocyte Count 1.47 10^3/uL (1.2-3.4); Absolute Monocyte Count 0.82 10^3/uL (0.1-0.8); Absolute Neutrophil Count 3.63 10^3/uL (1.2-6.7); Basophils % 1.4; Eosinophils % 5.6; HCT 37.3 % (40.0-50.0); HGB 11.9 g/dL (13.5-17.5); Immature Grans % 1.2; Lymphocytes % 22.8; MCHC 31.9 % (32.0-36.0); MCV 87.8 fL (80-95); MPV 8.3 fL (8.0-11.0); Monocytes % 12.7; Neutrophils % 56.3; Nucleated RBC 0 %; Platelet Count 251 10^3/uL (130-400); RBC 4.25 10^6/uL (4.36-5.78); RDW-SD 41.4 fL; WBC 6.45 10^3/uL (4.4-10.8)
--- NOTE | 2021-12-02 03:55 | W.ED.GENAD ---
Discharge Plan Disposition Patient Disposition: HOME Condition: Good Discharge Details Clinical Impression: Epigastric fullness Primary Care Provider: Hammad Enrique ED Provider: Erik Bowles Home Meds and New Rx's Prescriptions: Continued (DME) lancets [Accu-Chek Fastclix Lancet Drum] Misc See Dose Instructions .ROUTE .MEDSUPPLY Qty: 100 6RF Dose Instruction: As directed Rx Instructions: test TID nitroglycerin [Nitrostat] 0.4 mg tablet, sublingual 0.4 mg Sublingual PRN Qty: 25 1RF Rx Instructions: REPEAT Q5 MIN. PRN X 3 (DME) Accu-Chek Guide test strips Strip See Rx Instructions .ROUTE .MEDSUPPLY Qty: 300 3RF Rx Instructions: test TID citalopram [Celexa] 20 mg tablet 20 mg PO DAILY Qty: 90 3RF Bupropion HCl 100 MG tablet 100 mg PO BID Qty: 180 3RF (DME) blood-glucose meter [Accu-Chek Mariana Plus Meter] [facility] [place] See Dose Instructions .ROUTE .MEDSUPPLY Qty: 1 0RF Dose Instruction: As directed Rx Instructions: As directed (DME) pen needle, diabetic [BD Ultra-Fine Short Pen Needle] 31 gauge x 5/16 needle 1 ea SQ 5x day Qty: 400 3RF Rx Instructions: inject 4 times/day (DME) Accu-Chek Mariana Plus test strp Strip See Dose Instructions .ROUTE .MEDSUPPLY Qty: 300 3RF Dose Instruction: As directed Rx Instructions: test TID bupropion HCl 100 mg tablet 100 mg PO BID Qty: 60 11RF metoprolol tartrate 25 mg tablet 25 mg PO BID Qty: 180 3RF losartan 25 mg tablet 12.5 mg PO DAILY Qty: 90 3RF Rx Instructions: dose reduction 08/15/21 Lantus Solostar U-100 Insulin 100 unit/mL (3 mL) insulin pen 60 unit Sub-Q BID Qty: 108 3RF Eliquis 5 mg tablet 5 mg PO BID Qty: 180 3RF insulin aspart U-100 [Novolog Flexpen U-100 Insulin] 100 unit/mL (3 mL) insulin pen 26 - 30 unit subcut AC Qty: 27 3RF Rx Instructions: diabetes E11.9 24 units plus sliding scale before each meal needs three boxes for a thirty day supply Discharge Instructions Instructions: Chest Pain (ED) Additional Instructions: At first time your work-up shows normal blood work showing no sign of heart attack, your EKG shows no signs of heart attack. There may certainly have been a component of indigestion that brought about your symptoms. Although this work-up currently shows no signs of heart attack, you still do have a history of heart disease and so it is very important to follow-up closely your primary care provider for reassessment. If you notice any worsening of your symptoms, or any new symptoms such as vomiting, diarrhea, fever, chills, shortness of breath, chest pain, numbness, weakness, or fainting , please return immediately to the emergency department for reevaluation. Please follow up with your primary care provider as soon as possible for reassessment and reevaluation. As always, it was a pleasure participating in your medical care today. Referrals: Hammad Enrique MD [Primary Care Provider] - Medical Decision Making 66-year-old male with a past medical history of type 2 diabetes, acute kidney injury, hypertension, renal disease, previous heart attack with stents placed in 1999, currently on apixaban, presents today for evaluation. Patient states that this evening he woke up out of bed felt tingly all over, and then had notable amount of self-described indigestion. He states he burped a few times, took a nitroglycerin he had and around the same time his symptoms got better on their own. He denies any chest arm neck back or shoulder pain. He denies any chest heaviness or chest pressure. He denies any cough, hemoptysis, numbness in general, or weakness. He denies any tearing or ripping sensation in his chest. Patient states that when he had his previous stent he had similar symptoms. He does not smoke, but does have other cardiac risk factors. No other complaints at this time. Currently the patient states he feels fine and asymptomatic but is concerned due to his history. No other modifying factors. He denies any recent exertional chest pain or exertional shortness of breath. Physical exam demonstrates no significant abnormalities. No epigastric tenderness. No chest wall tenderness. Lung sounds are clear. Vital signs are stable. EKG demonstrates no evidence of STEMI, no significant ST elevation. Comparison with prior EKG from 06/29/2019 demonstrates no acute changes currently. At this time whether the patient's symptoms certainly appear atypical for ACS, with his previous history, risk factors, and previous self described symptoms this does raise her differential. Symptoms clinically inconsistent at this time with dissection, pulmonary embolism, or pneumonia. Pancreatitis is included on the differential. We will get basic labs, evaluate for concerning etiologies, since he has no pain at this time, and he is already on anticoagulant will not give any additional aspirin or nitroglycerin at this time. Will monitor closely and reassess. 7:15 AM Laboratory work-up is returned, the CBC was unremarkable, hemoglobin stable. Electrolytes normal, renal function at baseline. Initial troponin and repeat troponin are both normal. Lipase is normal. Initial and repeat EKG are stable with no evidence of STEMI or significant T wave abnormality or changes. Patient remains completely asymptomatic during his entire stay here. He feels well, and would like to go home. Symptoms at this time are clinically inconsistent with ACS, and inconsistent with ACS and unstable angina. However the patient does have a history of heart disease, so we do recommend very close follow-up with his primary care provider for reassessment. Discussed red flags for which to return. I have extensively reviewed the treatment plan and discharge instructions with the patient. I have addressed all patient concerns at this time. The patient was made aware of what symptoms to monitor for that would warrant a return to the emergency department. Discussed the plan with the patient, they demonstrate verbal understanding and agreement with our assessment and plan at this time. The documentation in this chart was dictated using [employer] dictation software. Please excuse any dictation errors. EKG 3: 34 Sinus rhythm, rate 85, no significant ST elevations or depressions. No STEMI. Small questionable Q wave in lead III. No change from prior EKGin 2019 FINDINGS: Lungs: Unremarkable. No consolidation or pulmonary edema. Pleural spaces: Unremarkable. No pleural effusion or pneumothorax. Heart/Mediastinum: Cardiomediastinal contours are stable and satisfactory. Heart size is within normal limits. Bones/joints: Unremarkable. Visualized upper abdomen: No radiographic findings of concern. IMPRESSION: No active disease in the chest. Thank you for allowing us to participate in the care of your patient. Dictated and Authenticated by: Fern Gramajo MD 12/02/2021 4:22 AM Eastern Time ([place] & [place]) HPI General Date/Time Provider Initiated Documentation: 12/02/21 03:14. HPI Narrative: 66-year-old male with a past medical history of type 2 diabetes, acute kidney injury, hypertension, renal disease, previous heart attack with stents placed in 1999, currently on apixaban, presents today for evaluation. Patient states that this evening he woke up out of bed felt tingly all over, and then had notable amount of self-described indigestion. He states he burped a few times, took a nitroglycerin he had and around the same time his symptoms got better on their own. He denies any chest arm neck back or shoulder pain. He denies any chest heaviness or chest pressure. He denies any cough, hemoptysis, numbness in general, or weakness. He denies any tearing or ripping sensation in his chest. Patient states that when he had his previous stent he had similar symptoms. He does not smoke, but does have other cardiac risk factors. No other complaints at this time. Currently the patient states he feels fine and asymptomatic but is concerned due to his history. No other modifying factors. He denies any recent exertional chest pain or exertional shortness of breath. Related Data Home Medications Medication Instructions Recorded Confirmed blood-glucose meter (Accu-Chek #1 each 12/30/18 11/01/21 Mariana Plus Meter) lancets (Accu-Chek Fastclix Lancet #100 each 10/20/19 11/01/21 Drum) nitroglycerin 0.4 mg sublingual 0.4 mg SUBLINGUAL PRN #25 tab 04/19/20 12/02/21 tablet (Nitrostat) pen needle, diabetic 31 gauge x #400 ea 09/06/20 11/01/2102/12 (BD Ultra-Fine Short Pen Needle) blood sugar diagnostic (Accu-Chek #300 each 01/05/21 11/01/21 Mariana Plus test strp) bupropion HCl 100 mg tablet 100 mg PO BID #60 tab 06/08/21 12/02/21 metoprolol tartrate 25 mg tablet 25 mg PO BID #180 tab-cap 07/27/21 12/02/21 losartan 25 mg tablet 12.5 mg PO DAILY #90 tab 08/15/21 12/02/21 insulin glargine 100 unit/mL (3 60 unit (0.6 mL) SUB-Q BID #108 ml 10/16/21 12/02/21 mL) subcutaneous pen (Lantus Solostar U-100 Insulin) blood sugar diagnostic (Accu-Chek #300 ea 11/01/21 11/01/21 Guide test strips) citalopram 20 mg tablet (Celexa) 20 mg PO DAILY #90 tab 11/01/21 12/02/21 apixaban 5 mg tablet (Eliquis) 5 mg PO BID #180 tab 11/27/21 12/02/21 insulin aspart U-100 100 unit/mL 26 - 30 unit (0.26 - 0.3 mL) 11/28/21 12/02/21 (3 mL) subcutaneous pen (Novolog SUBCUT AC #27 syrg Flexpen U-100 Insulin aspart) Previous Rx's Medication Instructions Recorded blood-glucose meter (Accu-Chek #1 each 12/30/18 Mariana Plus Meter) lancets (Accu-Chek Fastclix Lancet #100 each 10/20/19 Drum) nitroglycerin 0.4 mg sublingual 0.4 mg SUBLINGUAL PRN #25 tab 04/19/20 tablet (Nitrostat) pen needle, diabetic 31 gauge x #400 ea 09/06/2002/12 (BD Ultra-Fine Short Pen Needle) blood sugar diagnostic (Accu-Chek #300 each 01/05/21 Mariana Plus test strp) bupropion HCl 100 mg tablet 100 mg PO BID #60 tab 06/08/21 metoprolol tartrate 25 mg tablet 25 mg PO BID #180 tab-cap 07/27/21 losartan 25 mg tablet 12.5 mg PO DAILY #90 tab 08/15/21 insulin glargine 100 unit/mL (3 60 unit (0.6 mL) SUB-Q BID #108 ml 10/16/21 mL) subcutaneous pen (Lantus Solostar U-100 Insulin) blood sugar diagnostic (Accu-Chek #300 ea 11/01/21 Guide test strips) citalopram 20 mg tablet (Celexa) 20 mg PO DAILY #90 tab 11/01/21 apixaban 5 mg tablet (Eliquis) 5 mg PO BID #180 tab 11/27/21 insulin aspart U-100 100 unit/mL 26 - 30 unit (0.26 - 0.3 mL) 11/28/21 (3 mL) subcutaneous pen (Novolog SUBCUT AC #27 syrg Flexpen U-100 Insulin aspart) Allergies Allergy/AdvReac Type Severity Reaction Status Date / Time celecoxib [From Celebrex] Allergy Severe BERRIOS-JAYME Verified 12/02/21 03:27 SYNDROME atorvastatin AdvReac Verified 12/02/21 03:27 General Stated Complaint: GenMedical SCOTT: 3 Review of Systems All systems reviewed & are unremarkable except as noted in HPI and below PFSH All Active Problems (Updated 12/02/21 @ 07:18 by Erik Bowles DO) Epigastric fullness (Acute) Mixed conductive and sensorineural hearing loss of right ear with restricted hearing of left ear (Acute) DVT prophylaxis (Acute) Urinary retention (Acute) Hypoglycemia (Acute) Sleep apnea (Chronic 05/16/15) KATRIN (acute kidney injury) (Acute) Diabetes mellitus, type II (Acute) a. Hgb A1C 11.6 b. on high dose glargine insulin therapy Depressive disorder (Acute 08/10/13) Discharge planning issues (Acute) Transaminitis (Acute) Rash (Acute) Arthritis of right shoulder region (Acute) Arthritis of left shoulder region (Acute) History of rotator cuff tear (Acute ~1995) Tendinitis of long head of biceps brachii of left shoulder (Acute) Tendinitis of long head of biceps brachii of right shoulder (Acute) Tendinitis of left rotator cuff (Acute) Right rotator cuff tendonitis (Acute) Multiple exostoses (Acute) Abnormal auditory perception (Acute) Essential hypertension (Acute) if creat ok, will add KULWANT Chronic renal impairment, stage 2 (mild) (Acute) Hx of colonic polyps (Acute) Obesity (Acute) Low back pain (Acute) Diabetes mellitus (Acute) Sensorineural hearing loss, bilateral (Chronic 07/16/16) Medical History Acute osteomyelitis of right foot (06/25/16) Atherosclerosis of [place] coronary artery Stent 1999 Positive MPI in May 2010 Coronary disease a. s/p cath with stent 1999 b. MPI positive for ischemia 2009 Current use of insulin Depression DM (diabetes mellitus), type 2, uncontrolled w/ophthalmic complication (08/06/12) Heart failure 01/31/17 [facility]; EF 45-50%;ATRIAL DIALATION on coumadin Hyperlipidemia (03/26/13) Impacted cerumen of both ears Osteomyelitis (08/13/14) a. left foot fifth metatarsal and proximal phalanx Polyp of colon (11/17/13) DR. Dick RODRIGUEZ; TUBULAR ADENOMA Proliferative diabetic retinopathy (08/06/12) 08/09/16; [facility] Rupture of left quadriceps muscle (01/15/18) Well adult Surgical History Colonoscopy - MAC (11/17/13) H/O surgical procedure a. Right quadriceps repair [address] Bing guillory Colonoscopy 11/17/[address] Rodriguez History of appendectomy History of intravascular stent placement History of right knee surgery (04/22/14) PROCEDURES INSERT 1 VASCULAR STENT, 1999 LEFT CIRC. QUADRICEPS REPAIR 01/16/18 (L) S/P cataract surgery 10/02/18; [facility] [place] Family History Mother , AGE 84 Diabetes Stroke Father Depression Heart disease Hyperlipidemia Hypertension Sister Alcohol abuse Substance abuse Diabetes Depression Social History Smoking/Tobacco Use Status: Never Second Hand Exposure: Yes Smoking risk assessment performed?: Yes Alcohol Intake: never Drug use: Never Substance use type: does not use Caregiver/Support person: No Household members: significant other Housing: house Communication Needs: Hard of Hearing Do you need help understanding health information?: Never Pets and animals: No Sexually active: Yes Do you think of yourself as: straight/heterosexual Current gender identity: male What is your relationship status?: never How often do you talk on the phone with friends or family?: three or more times per week How often do you get together with friends or relatives?: once per week How often do you attend yazidism or episcopalian services?: decline to answer Do you belong to any clubs or organized social groups?: no Panel score (0-1 are the most socially isolated patients): 1 What type of physical activity do you participate in: other Details: Rowing Duration: 15-30 minutes/day Frequency: daily Verna/Jainism: Taoism Special verna needs: No Seatbelt use: always Helmet use: Yes Helmet use: always Drive intox or ride w/intox special client bus driver: No Do you feel safe at home: Yes Do you feel safe in your relationship?: Yes Exam Narrative Exam Narrative: 1.Const: Well-nourished, Well-developed, appearing stated age 2.Eyes: PERRL, no conjunctival injection, and symmetrical lids. 3.ENT: Atraumatic external nose and ears. Moist MM. Neck: Symmetric, trachea midline, No thyromegaly. 4.CVS: +S1/S2, No murmurs or gallops. Peripheral pulses 2+ and equal in all extremities. Brisk capillary refill in all extremities. 5.RESP: Unlabored respiratory effort. Clear to auscultation bilaterally. No wheezes rales or rhonchi 6.GI: Soft, Nontender/Nondistended, No hepatosplenomegaly. No guarding or rebound. No pain at McBurney's point, negative Huertas sign. No epigastric tenderness. 7.MSK: Normocephalic/Atraumatic, Extremities w/o deformity or ttp No cyanosis or clubbing, Normal movement of all extremities 8.Skin: Warm, Dry. No rashes or lesions. 9.Neuro: sales operations II-XII grossly intact. Sensation grossly intact, no focal neurologic deficits. 10.Psych: (AAO) x3. Appropriate mood and affect Course Vital Signs Vital signs: Vital Signs Temperature 36.8 C 12/02/21 03:17 Pulse 74 12/02/21 03:17 Respiratory Rate 18 12/02/21 03:17 Blood Pressure 195/76 H 12/02/21 03:17 Pulse Oximetry 98 12/02/21 03:17 Temperature 36.8 C 12/02/21 03:17 Temperature Source Oral 12/02/21 03:17 Pulse 74 12/02/21 03:17 Respiratory Rate 18 12/02/21 03:24 Respiratory Effort 12/02/21 03:50 Respiratory Depth Normal 12/02/21 03:24 Respiratory Pattern Normal 12/02/21 03:24 Blood Pressure 195/76 H 12/02/21 03:17 Blood Pressure Position Supine 12/02/21 03:17 Pulse Oximetry 98 12/02/21 03:17 Oxygen Delivery Method Room Air 12/02/21 03:17 Oxygen Flow Rate 0 12/02/21 03:17 Pain Level 0 12/02/21 03:17 Lab/Test Results Lab/Test Results: Laboratory Tests Range/Units 12/02/21 03:40 WBC (4.4-10.8) 10^3/uL 6.45 RBC (4.36-5.78) 10^6/uL 4.25 L Hgb (13.5-17.5) g/dL 11.9 L Hct (40.0-50.0) % 37.3 L MCV (80-95) fL 87.8 MCH (27.0-33.0) pg 28.0 MCHC (32.0-36.0) % 31.9 L RDW (11.8-14.1) % 13.0 Plt Count (130-400) 10^3/uL 251 MPV (8.0-11.0) fL 8.3 Immature Gran % 1.2 Neutrophils % 56.3 Lymphocytes % 22.8 Monocytes % 12.7 Eosinophils % 5.6 Basophils % 1.4 Nucleated RBC % % 0 Absolute Neutrophils (1.2-6.7) 10^3/uL 3.63 Absolute Lymphocytes (1.2-3.4) 10^3/uL 1.47 Absolute Monocytes (0.1-0.8) 10^3/uL 0.82 H Absolute Eosinophils (0.0-0.7) 10^3/uL 0.36 Absolute Basophils (0.0-0.2) 10^3/uL 0.09
[2021-12-02 04:07] LABS: PTT Activated 24.5 sec (21.0-27.5); Prothrombin Time 10.4 sec (9.3-11.0)
[2021-12-02 04:13] LABS: ALT 59 U/L (16-63); AST 26 U/L (15-37); Albumin 3.3 g/dL (3.4-5.0); Alkaline Phosphatase 115 U/L (46-116); Anion Gap 7.2 mmol/L (3-11); BUN 34 mg/dL (7-18); Bilirubin, Total 0.3 mg/dL (0.2-1.0); CO2 26.8 mmol/L (21.0-32.0); CREATININE 1.9 mg/dL (0.70-1.30); Calcium 8.9 mg/dL (8.5-10.1); Chloride 103 mmol/L (98-107); Estimated GFR 35.87 (mL/min/1.73m2); Glucose 250 mg/dL (74-106); Sodium 137 mmol/L (136-145); Total Protein 6.9 g/dL (6.4-8.2); Troponin I < 50 ng/L (<or=60)
[2021-12-02 04:23] LABS: Lipase 59 U/L (73-393)
--- NOTE | 2021-12-02 04:23 | DI.VRAD_ITS ---
PROCEDURE INFORMATION: Exam: XR Chest Exam date and time: 12/02/2021 3:28 AM Age: 66 years old Clinical indication: Other: Epigastric pressure TECHNIQUE: Imaging protocol: XR of the chest. Views: 2 views. COMPARISON: CT CHEST/ABD/PEL WO 01/15/2021 7:38 PM, chest radiographs dated 01/30/2017. FINDINGS: Lungs: Unremarkable. No consolidation or pulmonary edema. Pleural spaces: Unremarkable. No pleural effusion or pneumothorax. Heart/Mediastinum: Cardiomediastinal contours are stable and satisfactory. Heart size is within normal limits. Bones/joints: Unremarkable. Visualized upper abdomen: No radiographic findings of concern. IMPRESSION: No active disease in the chest. Dictated and Authenticated by: Fern Gramajo MD. Ordering:SHARMAINE Valencia MD
[2021-12-02 06:54] LABS: Troponin I < 50 ng/L (<or=60)
== END 2021-12-02 07:39 | disposition home or self-care (01) ==
PROVIDERS: Emergency Provider Student in an Organized Health Care Education/Training Program; PCP Family Medicine
DX: R10.13 Epigastric pain (principal); R14.0 Abdominal distension (gaseous); R07.89 Other chest pain; I10 Essential (primary) hypertension
CPT/HCPCS: 36415; 80053; 83690; 93005; 99284; 71046; 84484; 85025; 85610; 85730; 93010; 99283

== ENCOUNTER 2021-12-07 02:36 | Outpatient (CLI) | payer MEDICARE, OTHER, SELFPAY ==
[2021-12-07 11:49] LABS: Hemoglobin A1C 8.2 % (<5.7)
[2021-12-07 12:16] LABS: Calculated LDL 231 mg/dL (<100); Cholesterol 308 mg/dL (<200); HDL Cholesterol 36 mg/dL (40-60); Triglyceride 209 mg/dL (<150)
== END 2021-12-07 02:37 | disposition home or self-care (01) ==
LOC: LBO 02:36
PROVIDERS: PCP Family Medicine; Visit Provider Family Medicine
DX: E78.5 Hyperlipidemia, unspecified (principal); R73.9 Hyperglycemia, unspecified
CPT/HCPCS: 36415; 80061; 83036

== ENCOUNTER 2022-11-05 03:30 | Outpatient (CLI) | payer MEDICARE, OTHER, SELFPAY ==
[2022-11-05 12:45] LABS: Calculated LDL 118 mg/dL (<100); Cholesterol 184 mg/dL (<200); HDL Cholesterol 41 mg/dL (40-60); Triglyceride 127 mg/dL (<150)
[2022-11-05 19:54] LABS: Lab Add On Test DONE
[2022-11-05 20:11] LABS: ALT 62 U/L (16-63); AST 29 U/L (15-37)
== END 2022-11-05 03:31 | disposition home or self-care (01) ==
LOC: LOS 03:30
PROVIDERS: PCP Family Medicine; Visit Provider Family Medicine
DX: E11.69 Type 2 diabetes mellitus with other specified complication (principal); E78.5 Hyperlipidemia, unspecified
CPT/HCPCS: 36415; 80061; 84450; 84460

== ENCOUNTER 2023-01-03 03:21 | Outpatient (CLI) | payer MEDICARE, OTHER, SELFPAY ==
[2023-01-03 12:59] LABS: Anion Gap 8.5 mmol/L (3-11); BUN 49 mg/dL (7-18); CO2 26.5 mmol/L (21.0-32.0); CREATININE 1.9 mg/dL (0.70-1.30); Calcium 8.9 mg/dL (8.5-10.1); Chloride 104 mmol/L (98-107); Estimated GFR 38.66 (mL/min/1.73m2); Glucose 235 mg/dL (74-106); Potassium 5.5 mmol/L (3.5-5.1); Sodium 139 mmol/L (136-145)
== END 2023-01-03 03:22 | disposition home or self-care (01) ==
LOC: LOS 03:21
PROVIDERS: PCP Family Medicine; Visit Provider Family Medicine
DX: E87.1 Hypo-osmolality and hyponatremia (principal); E78.5 Hyperlipidemia, unspecified; E11.9 Type 2 diabetes mellitus without complications
CPT/HCPCS: 36415; 80048

== ENCOUNTER 2023-02-06 09:30 | Outpatient (CLI) | payer MEDICARE, OTHER, SELFPAY ==
[2023-02-06 13:06] LABS: CREATININE 1.9 mg/dL (0.70-1.30); Estimated GFR 38.66 (mL/min/1.73m2); Potassium 5.6 mmol/L (3.5-5.1)
== END 2023-02-06 09:31 | disposition home or self-care (01) ==
LOC: LOS 09:30
PROVIDERS: PCP Family Medicine; Referring Provider Family Medicine; Visit Provider Family Medicine
DX: I10 Essential (primary) hypertension (principal); E11.9 Type 2 diabetes mellitus without complications
CPT/HCPCS: 36415; 82565; 84132

== ENCOUNTER 2023-03-14 01:13 | Outpatient (CLI) | payer MEDICARE, OTHER, SELFPAY ==
[2023-03-14 15:46] LABS: Potassium 5.9 mmol/L (3.5-5.1)
== END 2023-03-14 01:14 | disposition home or self-care (01) ==
LOC: LBO 01:13
PROVIDERS: PCP Family Medicine; Visit Provider Family Medicine
DX: I10 Essential (primary) hypertension (principal)
CPT/HCPCS: 36415; 84132

== ENCOUNTER 2023-03-21 02:15 | Outpatient (CLI) | payer MEDICARE, OTHER, SELFPAY ==
[2023-03-21 13:42] LABS: Potassium 4.5 mmol/L (3.5-5.1)
== END 2023-03-21 02:16 | disposition home or self-care (01) ==
PROVIDERS: PCP Family Medicine; Visit Provider Family Medicine
DX: I10 Essential (primary) hypertension (principal)
CPT/HCPCS: 36415; 84132

== ENCOUNTER 2023-05-09 02:44 | Outpatient (CLI) | payer MEDICARE, OTHER, SELFPAY ==
[2023-05-09 12:21] LABS: Potassium 4.3 mmol/L (3.5-5.1)
== END 2023-05-09 02:45 | disposition home or self-care (01) ==
LOC: LOS 02:44
PROVIDERS: PCP Family Medicine; Visit Provider Family Medicine
DX: E78.5 Hyperlipidemia, unspecified (principal); I10 Essential (primary) hypertension
CPT/HCPCS: 36415; 84132

== ENCOUNTER 2023-07-31 05:37 | Outpatient (CLI) | payer MEDICARE, OTHER, SELFPAY ==
[2023-07-31 12:51] LABS: Potassium 5.1 mmol/L (3.5-5.1)
== END 2023-07-31 05:38 | disposition home or self-care (01) ==
LOC: LOS 05:38
PROVIDERS: PCP Family Medicine; Visit Provider Family Medicine
DX: I10 Essential (primary) hypertension (principal)
CPT/HCPCS: 36415; 84132

== ENCOUNTER 2023-12-11 03:54 | Outpatient (CLI) | payer MEDICARE, OTHER, SELFPAY ==
[2023-12-11 12:38] LABS: CREATININE 2.3 mg/dL (0.70-1.30); Estimated GFR 30.55 (mL/min/1.73m2)
== END 2023-12-11 03:55 | disposition home or self-care (01) ==
LOC: LOS 03:54
PROVIDERS: PCP Family Medicine; Visit Provider Family Medicine
DX: I10 Essential (primary) hypertension (principal)
CPT/HCPCS: 36415; 82565; 84132

== ENCOUNTER 2024-02-06 00:53 | Outpatient (CLI) | payer MEDICARE, OTHER, SELFPAY ==
[2024-02-06 12:37] LABS: CREATININE 2.3 mg/dL (0.70-1.30); Estimated GFR 30.55 (mL/min/1.73m2)
== END 2024-02-06 00:54 | disposition home or self-care (01) ==
LOC: LOS 00:53
PROVIDERS: PCP Family Medicine; Visit Provider Family Medicine
DX: I10 Essential (primary) hypertension (principal)
CPT/HCPCS: 36415; 82565

== ENCOUNTER 2024-03-25 15:12 | Inpatient (IN) | payer MEDICARE, OTHER, SELFPAY ==
[2024-03-25] VITALS (11 sets, daily range): BP systolic 143–167; BP diastolic 45–74; PULSE 71–81; RESP 14–18; TEMP 37.2–38; O2SAT 93–95
--- NOTE | 2024-03-25 15:30 | DI.RAD_ITS ---
Exam(s) XR FOOT LT COMPLETE EXAM: XR FOOT LT COMPLETE CLINICAL HISTORY: dm, foot infection, concern for osteo lateral. TECHNIQUE: 2D digital imaging was performed of the left foot. Three images were obtained. AP, obli que and lateral views were obtained. COMPARISON: CR LEFT FOOT COMPLETE from 09/13/2014 FINDINGS: BONES: No acute fracture is present. No bony destructive lesion is seen. There again seen findings of an amputation of the 5th toe to the level of the proximal 5th metatarsal bone. Dystrophic calcifica tions are seen in the soft tissues laterally. There is an enthesophyte at the posterior calcaneus. JOINTS: No dislocation present. SOFT TISSUE: There is diffuse soft tissue swelling of the foot, but there is prominent soft tissue sw elling lateral to the base of the 5th metatarsal with subcutaneous gas. Vascular calcifications are present. IMPRESSION: 1. Prominent soft tissue swelling lateral to the base of the 5th metatarsal with a large amount of hayes bcutaneous gas present. Infection/ulcer is suggested. 2. No radiographic evidence to suggest osteomyelitis. 3. Findings are again seen of a 5th digit amputation. DATA REPOSITORY: RADIATION DOSE DELIVERED:
--- NOTE | 2024-03-25 15:36 | W.ED.GENAD ---
Discharge Plan Disposition Patient Disposition: Admit to [facility] Condition: Stable Discharge Details Chief Complaint: Cellulitis Clinical Impression: Gangrene of left foot, Cellulitis of foot Primary Care Provider: Hammad Enrique ED Provider: Max Spencer [place] Meds and New Rx's Prescriptions: No Action (DME) lancets [Accu-Chek Fastclix Lancet Drum] Misc See Dose Instructions .ROUTE .MEDSUPPLY Qty: 100 6RF Dose Instruction: As directed Rx Instructions: test TID (DME) pen needle, diabetic [BD Ultra-Fine Short Pen Needle] 31 gauge x 5/16 needle 1 ea SQ 5x day Qty: 400 3RF Rx Instructions: inject 4 times/day sildenafil (pulm.hypertension) 20 mg tablet 20 - 100 mg PO DAILY PRN (Reason: sexual activity) Qty: 30 5RF dapagliflozin propanediol [Farxiga] 10 mg tablet 10 mg PO DAILY Qty: 90 3RF nitroglycerin [Nitrostat] 0.4 mg tablet, sublingual 0.4 mg Sublingual PRN Qty: 25 1RF Rx Instructions: REPEAT Q5 MIN. PRN X 3 (DME) blood-glucose meter [Accu-Chek Mariana Plus Meter] [facility] [place] See Dose Instructions .ROUTE .MEDSUPPLY Qty: 1 0RF Dose Instruction: As directed Rx Instructions: As directed (DME) Accu-Chek Mariana Plus test strp Strip See Dose Instructions .ROUTE .MEDSUPPLY Qty: 300 3RF Dose Instruction: As directed Rx Instructions: test TID (DME) Accu-Chek Guide test strips Strip See Rx Instructions .ROUTE .MEDSUPPLY Qty: 300 3RF Rx Instructions: test 3 x day rosuvastatin 20 mg tablet 20 mg PO DAILY Qty: 90 3RF insulin glargine-yfgn [Semglee(insulin glarg-yfgn)Pen] 100 unit/mL (3 mL) insulin pen 60 unit subcut BID Qty: 45 3RF citalopram [Celexa] 20 mg tablet 20 mg PO DAILY Qty: 90 3RF losartan 100 mg tablet 50 mg PO DAILY Qty: 90 3RF Rx Instructions: dose reduce 12/11/23 (due to creatinine rise) carvedilol 12.5 mg tablet 12.5 mg PO BID Qty: 180 3RF Rx Instructions: must administer with a meal/food insulin aspart U-100 [Novolog FlexPen U-100 Insulin] 100 unit/mL (3 mL) insulin pen 26 - 30 unit subcut AC Qty: 27 3RF Rx Instructions: diabetes E11.9 24 units plus sliding scale before each meal needs three boxes for a thirty day supply bupropion HCl 100 mg tablet 100 mg PO BID Qty: 180 3RF Eliquis 5 mg tablet 5 mg PO BID Qty: 180 3RF HPI General Date/Time Provider Initiated Documentation: 03/25/24 15:24. HPI Narrative: 69-year-old male history of diabetes, prior amputation of left fifth digit presents with infection to lateral aspect of left foot over the last couple of months worsening swelling discomfort drainage foul-smelling after obtaining a new pair of shoes Related Data Home Medications Medication Instructions Recorded Confirmed blood-glucose meter (Accu-Chek #1 ea 12/30/18 11/29/23 Mariana Plus Meter) lancets (Accu-Chek Fastclix Lancet #100 ea 10/20/19 11/29/23 Drum) blood sugar diagnostic (Accu-Chek #300 ea 01/05/21 11/29/23 Mariana Plus test strips) pen needle, diabetic 31 gauge x #400 ea 11/07/22 11/29/2302/12 (BD Ultra-Fine Short Pen Needle) sildenafil (pulm.hypertension) 20 20 - 100 mg (1 - 5 x 20 mg) PO 11/07/22 03/25/24 mg tablet DAILY PRN sexual activity #30 tabs blood sugar diagnostic (Accu-Chek #300 ea 04/22/23 11/29/23 Guide test strips) rosuvastatin 20 mg tablet 20 mg PO DAILY #90 tabs 05/09/23 03/25/24 dapagliflozin propanediol 10 mg 10 mg PO DAILY #90 tabs 08/27/23 03/25/24 tablet (Farxiga) nitroglycerin 0.4 mg sublingual 0.4 mg sublingual PRN #25 tabs 08/27/23 03/25/24 tablet (Nitrostat) insulin glargine-yfgn 100 unit/mL 60 unit (0.6 mL) subcut BID #45 mL 09/17/23 03/25/24 (3 mL) subcutaneous pen (Semglee (insulin glargine-yfgn) Pen) citalopram 20 mg tablet (Celexa) 20 mg PO DAILY #90 tabs 11/14/23 03/25/24 losartan 100 mg tablet 50 mg (1/2 x 100 mg) PO DAILY #90 12/11/23 03/25/24 tabs carvedilol 12.5 mg tablet 12.5 mg PO BID #180 tabs 02/01/24 03/25/24 insulin aspart U-100 100 unit/mL 26 - 30 unit (0.26 - 0.3 mL) 02/03/24 03/25/24 (3 mL) subcutaneous pen (Novolog subcut AC #27 SYRGS FlexPen U-100 Insulin aspart) bupropion HCl 100 mg tablet 100 mg PO BID #180 tabs 03/17/24 03/25/24 apixaban 5 mg tablet (Eliquis) 5 mg PO BID #180 tabs 03/18/24 03/25/24 Previous Rx's Medication Instructions Recorded blood-glucose meter (Accu-Chek #1 ea 12/30/18 Mariana Plus Meter) lancets (Accu-Chek Fastclix Lancet #100 ea 10/20/19 Drum) blood sugar diagnostic (Accu-Chek #300 ea 01/05/21 Mariana Plus test strips) pen needle, diabetic 31 gauge x #400 ea 11/07/2202/12 (BD Ultra-Fine Short Pen Needle) sildenafil (pulm.hypertension) 20 20 - 100 mg (1 - 5 x 20 mg) PO 11/07/22 mg tablet DAILY PRN sexual activity #30 tabs blood sugar diagnostic (Accu-Chek #300 ea 04/22/23 Guide test strips) rosuvastatin 20 mg tablet 20 mg PO DAILY #90 tabs 05/09/23 dapagliflozin propanediol 10 mg 10 mg PO DAILY #90 tabs 08/27/23 tablet (Farxiga) nitroglycerin 0.4 mg sublingual 0.4 mg sublingual PRN #25 tabs 08/27/23 tablet (Nitrostat) insulin glargine-yfgn 100 unit/mL 60 unit (0.6 mL) subcut BID #45 mL 09/17/23 (3 mL) subcutaneous pen (Semglee (insulin glargine-yfgn) Pen) citalopram 20 mg tablet (Celexa) 20 mg PO DAILY #90 tabs 11/14/23 losartan 100 mg tablet 50 mg (1/2 x 100 mg) PO DAILY #90 12/11/23 tabs carvedilol 12.5 mg tablet 12.5 mg PO BID #180 tabs 02/01/24 insulin aspart U-100 100 unit/mL 26 - 30 unit (0.26 - 0.3 mL) 02/03/24 (3 mL) subcutaneous pen (Novolog subcut AC #27 SYRGS FlexPen U-100 Insulin aspart) bupropion HCl 100 mg tablet 100 mg PO BID #180 tabs 03/17/24 apixaban 5 mg tablet (Eliquis) 5 mg PO BID #180 tabs 03/18/24 Allergies Allergy/AdvReac Type Severity Reaction Status Date / Time celecoxib [From Celebrex] Allergy Severe BERRIOS-JAYME Verified 03/25/24 15:22 SYNDROME atorvastatin AdvReac Unknown Verified 03/25/24 15:22 General Stated Complaint: Cellulitis SCOTT: 3 Review of Systems Narrative: Review of Systems Constitutional: negative Eyes: negative ENT: negative Cardiovascular: negative Respiratory: negative Gastrointestinal: negative : negative Musculoskeletal: Foot infection Skin: negative Neurologic: negative Psych: negative Exam Narrative Exam Narrative: Physical Examination General: alert, awake, cooperative, resting comfortably, no acute distress HEENT: normocephalic, atraumatic; PERRL, EOM intact, conjunctiva normal; no nasal discharge; moist mucous membranes, oral and pharyngeal mucosa normal, tolerating secretions Neck: supple, trachea midline; full ROM Respiratory: normal respiratory effort, speaking in full sentences, clear to auscultation, no wheezing, rales or rhonchi Cardiac: regular rate, regular rhythm, S1S2 intact, no murmurs rubs or gallops GI: abdomen soft, non-tender, non-distended; no palpable mass or hepatosplenomegaly Neuro: AAOx3, normal speech, moving all extremities Skin: Appears pale and ashen Extremities: Mixture of dry wet gangrene lateral aspect of left foot, 2 cm open ulceration with surrounding necrotic flesh, erythema and induration to remainder of dorsum of left foot, DP pulse intact able to range remaining toes sensation intact Psych: Appropriate mood and affect Course Vital Signs Vital signs: Vital Signs Temperature 37.2 C 03/25/24 15:17 Pulse 81 03/25/24 15:17 Respiratory Rate 18 03/25/24 15:17 Blood Pressure 162/72 H 03/25/24 15:17 Pulse Oximetry 95 03/25/24 15:17 Temperature 37.2 C 03/25/24 15:17 Pulse 81 03/25/24 15:17 Respiratory Rate 18 03/25/24 15:17 Blood Pressure 162/72 H 03/25/24 15:17 Pulse Oximetry 95 03/25/24 15:17 Oxygen Delivery Method Room Air 03/25/24 15:17 Oxygen Flow Rate 0 03/25/24 15:17 Pain Level 2 03/25/24 15:17 Lab/Test Results Lab/Test Results: 03/25/24 15:32 Blood Blood Culture - Pending 03/25/24 15:32 Blood Blood Culture - Pending Medical Decision Making 69-year-old male presents with several weeks to months of worsening infection to left foot, mixture of dry and wet gangrene lateral aspect of left foot, foul-smelling active drainage, with surrounding induration erythema high clinical suspicion for underlying osteomyelitis of metatarsals must also consider underlying abscess, patient appears ashen and pale although afebrile normotensive and nontachycardic patient is likely systemically ill, starting empiric fluids and antibiotics vancomycin and cefepime IV, obtaining wound cultures and blood cultures, attempted to contact podiatry team but was unsuccessful as office is closed, will likely need operative debridement will consult with orthopedic surgery and general surgery 18: 06 discussed case with on-call orthopedic surgeon Dr. Medina who does not perform debridement of feet, however he was able to contact mid level developer Dr. Harris who is available tomorrow to assess patient. Will admit patient to medical service will continue with antibiotics will have patient evaluated by podiatric team tomorrow 18: 44 in the interim x-rays returned showing gas in the subcutaneous tissue concerning for necrotizing infection. Attempting to make contact directly with podiatry team to see if they are willing to debride this evening have been unable to contact directly, and currently in conversation with general surgeon Dr. Dee who is willing to debride this evening if podiatry team unavailable 20: 31 was able to speak with Dr. Harris who after reviewing case and images will be taking patient to the operating room tomorrow for debridement. Patient be kept n.p.o. tonight. Quality:SDOH Health Related Social Needs: No Data to Display PFSH All Active Problems (Updated 03/25/24 @ 20:32 by Max Spencer MD) Cellulitis of foot (Acute) Gangrene of left foot (Acute) Hyponatremia (Acute) CKD (chronic kidney disease) (Chronic) Cellulitis and abscess of foot (Acute) Cerumen impaction (Acute) Conductive hearing loss (Acute) Hyperkalemia (Acute) Erectile dysfunction (Acute) Diabetes mellitus (Acute) Obesity (Acute) Diabetic retinopathy (Acute ~12/2021) 01/12/22 B/L MODERATE/[facility]-KB Hyperlipidemia associated with type 2 diabetes mellitus (Acute) Mixed hearing loss (Acute) Depressive disorder (Acute 08/10/13) Mixed conductive and sensorineural hearing loss of right ear with restricted hearing of left ear (Acute) DVT prophylaxis (Acute) Urinary retention (Acute) Hypoglycemia (Acute) Sleep apnea (Chronic 05/16/15) KATRIN (acute kidney injury) (Acute) Diabetes mellitus, type II (Acute) a. Hgb A1C 11.6 b. on high dose glargine insulin therapy Discharge planning issues (Acute) Transaminitis (Acute) Rash (Acute) Arthritis of right shoulder region (Acute) Arthritis of left shoulder region (Acute) History of rotator cuff tear (Acute ~1995) Tendinitis of long head of biceps brachii of left shoulder (Acute) Tendinitis of long head of biceps brachii of right shoulder (Acute) Tendinitis of left rotator cuff (Acute) Right rotator cuff tendonitis (Acute) Multiple exostoses (Acute) Abnormal auditory perception (Acute) Essential hypertension (Acute) if creat ok, will add KULWANT Chronic renal impairment, stage 2 (mild) (Acute) Hx of colonic polyps (Acute) Low back pain (Acute) Sensorineural hearing loss, bilateral (Chronic 07/16/16) Medical History Well adult Impacted cerumen of both ears Acute osteomyelitis of right foot (06/25/16) Rupture of left quadriceps muscle (01/15/18) Proliferative diabetic retinopathy (08/06/12) 08/09/16; [facility] Polyp of colon (11/17/13) DR. Dick RODRIGUEZ; TUBULAR ADENOMA Hyperlipidemia (03/26/13) Heart failure 01/31/17 [facility] ; EF 45-50%;ATRIAL DIALATION on coumadin DM (diabetes mellitus), type 2, uncontrolled w/ophthalmic complication (08/06/12) Atherosclerosis of [place] coronary artery Stent 1999 Positive MPI in May 2010 Depression Coronary disease a. s/p cath with stent 1999 b. MPI positive for ischemia 2009 Current use of insulin Osteomyelitis (08/13/14) a. left foot fifth metatarsal and proximal phalanx Surgical History History of appendectomy History of intravascular stent placement History of right knee surgery (04/22/14) S/P cataract surgery 10/02/18[place] [facility] [place]/L-kb QUADRICEPS REPAIR 01/16/18 (L) PROCEDURES INSERT 1 VASCULAR STENT, 1999 LEFT CIRC. Colonoscopy - MAC (11/17/13) H/O surgical procedure a. Right quadriceps repair [address] Smart b. Colonoscopy 11/17/[address] Rodriguez Family History Mother , AGE 84 Diabetes Stroke Father Depression Heart disease Hyperlipidemia Hypertension Sister Alcohol abuse Substance abuse Diabetes Depression Social History Smoking/Tobacco Use Status: Never Second Hand Exposure: Yes Smoking risk assessment performed?: Yes Alcohol Intake: never Drug use: Never Substance use type: does not use Caregiver/Support person: No Household members: significant other Housing: house Communication Needs: Hard of Hearing Do you need help understanding health information?: Never Pets and animals: No Sexually active: Yes Do you think of yourself as: straight/heterosexual Current gender identity: male What is your relationship status?: never How often do you talk on the phone with friends or family?: three or more times per week How often do you get together with friends or relatives?: decline to answer How often do you attend christianity or caodaism services?: decline to answer Do you belong to any clubs or organized social groups?: no Panel score (0-1 are the most socially isolated patients): 1 What type of physical activity do you participate in: other Details: Rowing Duration: 15-30 minutes/day Frequency: daily Verna/Buddhism: Sikhism Special verna needs: No Seatbelt use: always Helmet use: Yes Helmet use: always Drive intox or ride w/intox passenger coach driver: No Do you feel safe at home: Yes Do you feel safe in your relationship?: Yes
[2024-03-25 16:48] LABS: HCT 34.3 % (40.0-50.0); HGB 11.1 g/dL (13.5-17.5); MCHC 32.4 % (32.0-36.0); MCV 87 fL (80-95); MPV 8.5 fL (8.0-11.0); Platelet Count 325 10^3/uL (130-400); RBC 3.96 10^6/uL (4.36-5.78); RDW 12.8 % (11.8-14.1); RDW-SD 40.5 fL; WBC 14.61 10^3/uL (4.4-10.8)
[2024-03-25 17:01] LABS: INR 1.1 (0.9-1.1); Prothrombin Time 11.1 sec (9.1-11.1)
[2024-03-25 17:03] LABS: ALT 33 U/L (16-63); AST 20 U/L (15-37); Albumin 3.1 g/dL (3.4-5.0); Alkaline Phosphatase 143 U/L (46-116); Anion Gap 10.4 mmol/L (3-11); BUN 55 mg/dL (7-18); Bilirubin, Total 0.69 mg/dL (0.2-1.0); CO2 26.6 mmol/L (21.0-32.0); CREATININE 2.5 mg/dL (0.70-1.30); Calcium 8.9 mg/dL (8.5-10.1); Chloride 98 mmol/L (98-107); Estimated GFR 27.47 (mL/min/1.73m2); Glucose 86 mg/dL (74-106); Potassium 4.6 mmol/L (3.5-5.1); Sodium 135 mmol/L (136-145); Total Protein 8.1 g/dL (6.4-8.2)
[2024-03-25 17:07] LABS: Absolute Lymphocyte Count 0.73 10^3/uL (1.2-3.4); Absolute Monocyte Count 1.17 10^3/uL (0.1-0.8); Absolute Neutrophil Count 12.71 10^3/uL (1.2-6.7); Bands % 1 %; Diff Comment Manual Differential; RBC Morphology Normal
[2024-03-25] MEDS: CEFEPIME 2 GM in Normal Saline 100 ML IVPB (17:10)
[2024-03-25] MEDS: Normal Saline 1,000 ML 1000 ML IV (17:12)
--- NOTE | 2024-03-25 17:12 | NUR.NOTE ---
Nursing Note: this Rn and [address] IV, S.D. placed 18g left upper arm via US. Lab dia blood. This RN retrieved ABX from pyxsis. while out of room patient urinated all over bed. Said he missed the urinal APPLICATION SUPPORT ANALYST and this RN changed sheets, gave patient wipes to clean self. Patient in DI at this time
--- NOTE | 2024-03-25 18:00 | DI.VRAD_ITS ---
Addendum created by Harsh Tariq MD on 03/25/2024 6:15:03 PM EDT: THIS REPORT CONTAINS FINDINGS THAT MAY BE CRITICAL TO PATIENT CARE. The findings were verbally communicated via telephone conference with Max Spencer at 6:14 PM EDT on 03/25/2024. The findings were acknowledged and understood. Initial report created on 03/25/2024 5:59:52 PM EDT: PROCEDURE INFORMATION: Exam: XR Left Foot Exam date and time: 03/25/2024 5:14 PM Age: 69 years old Clinical indication: Other: Dm, foot infection, concern for osteo lateral TECHNIQUE: Imaging protocol: Radiologic exam of the left foot. Views: 3 or more views. Total images: 3 COMPARISON: CR LEFT TIB/FIB 12/31/2017 5:49 PM FINDINGS: Bones/joints: Status post 5th digit amputation with residual heterotopic bone. No acute bony destruction. Achilles insertion heel spur. Soft tissues: Significant soft tissue gas lateral midfoot. Midfoot soft tissue swelling. Vasculature: Vascular calcification. IMPRESSION: 1. Possible necrotizing infection lateral left midfoot. 2. No plain film evidence of acute osteomyelitis. Dictated and Authenticated by: Harsh Tariq MD. Ordering:PIDA Santana MD
[2024-03-25] MEDS: VANCOMYCIN/WATER (PEG) 2 GM/400 ML BAG IVPB (18:06)
--- NOTE | 2024-03-25 18:26 | NUR.NOTE ---
Nursing Note: Patient pushed call light, HUMAN RESOURCES PROJECT MANAGER responded, turned light on in the room. Patient stated We (him and )are having wild sex in here . This RN reminded patient that it is not approp to speak to health care workers in this manner. patient said okay.
--- NOTE | 2024-03-25 20:02 | HPE_ITS ---
Date of service: 03/25/24 Time of Service: 20:02 Assessment and Plan Assessment and plan (1) Cellulitis and abscess of foot: Start date: 03/25/24 Status: Acute Assessment and plan: This is a 69-year-old gentleman with chronic problems with his left foot present with persistent infection and worsening swelling and drainage over his left lateral foot. He does not have sensation in that foot. Initial trauma was removed boot but now he has new shoes which fit better. He was placed on IV antibiotics with vancomycin and cefepime having failed oral antibiotic therapy as an outpatient. He will be n.p.o. for surgical debridement in the morning. He is on Eliquis and this will be held and to be reinitiated after surgery once surgery clears this treatment. Patient is a full code. (2) Hyponatremia: Start date: 03/25/24 Status: Acute Assessment and plan: Gentle IV hydration and treatment of acute infection. Patient may need fluid restriction if this persist. (3) Diabetes mellitus: Status: Chronic Assessment and plan: Check glucometer measurements before meals and at bedtime with Jardiance and insulin coverage holding outpatient medical therapy while hospitalized. Qualifiers: Chronic kidney disease stage: stage 4 (severe) Diabetes mellitus complication detail: with chronic kidney disease Diabetes mellitus complication status: with kidney complications Diabetes mellitus senior living insulin use: with termite treater helper use Diabetes mellitus type: type 2 Qualified Code(s): E11.22 - Type 2 diabetes mellitus with diabetic chronic kidney disease; N18.4 - Chronic kidney disease, stage 4 (severe); Z79.4 - FDC (current) use of insulin (4) Sleep apnea: Status: Chronic Assessment and plan: Continue home BiPAP with home measurements. Patient is morbidly obese. Qualifiers: Sleep apnea type: obstructive Qualified Code(s): G47.33 - Obstructive sleep apnea (adult) (pediatric) (5) CKD (chronic kidney disease): Status: Chronic Assessment and plan: Appearing stable stage IV. Monitor while hospitalized on vancomycin with adjusting dose through pharmacy. Qualifiers: Chronic kidney disease stage: stage 4 (severe) Qualified Code(s): N18.4 - Chronic kidney disease, stage 4 (severe) History of Present Illness History of Present Illness Chief Complaint: Worsening left foot infection in diabetic Narrative: This is a 69-year-old male patient who has been battling an infection in his left foot status post amputation of the left fifth digit and now infected over the lateral aspect of his left foot with increased swelling and drainage. He recently had new shoes which are benefiting after having 2 boots 1 month ago which caused the start of this infection. He reported to the ED for evaluation was found to have a mixture of wet and dry gangrene of the left foot. It was foul-smelling with active drainage. There is question of underlying osteomyelitis as well. Patient is diabetic with neuropathy. He was afebrile but appeared pale and chronically ill. He was given IV fluids and IV antibiotic therapy with vancomycin and cefepime which will be continued. Consultation with podiatry was obtained and plans are for debridement and evaluation surgically in the morning. Patient is on Eliquis and this will be held. He is not complaining of pain. Patient does wear BiPAP at night with sleep apnea and is overweight. He is diabetic and does have CKD with these problems. Stable. He does have neuropathy and does not have feeling in his feet. He is a full code. Review of Systems Narrative: 13 point review of systems otherwise unrevealing or stable. [facility] All Active Problems (Updated 03/26/24 @ 00:54 by Abimael Harry) Cellulitis of foot (Acute) Gangrene of left foot (Acute) Hyponatremia (Acute) CKD (chronic kidney disease) (Chronic) Cellulitis and abscess of foot (Acute) Cerumen impaction (Acute) Conductive hearing loss (Acute) Hyperkalemia (Acute) Erectile dysfunction (Acute) Diabetes mellitus (Chronic) Obesity (Acute) Diabetic retinopathy (Acute ~12/2021) 01/12/22 B/L MODERATE/SHIPPEE-KB Hyperlipidemia associated with type 2 diabetes mellitus (Acute) Mixed hearing loss (Acute) Depressive disorder (Acute 08/10/13) Mixed conductive and sensorineural hearing loss of right ear with restricted hearing of left ear (Acute) DVT prophylaxis (Acute) Urinary retention (Acute) Hypoglycemia (Acute) Sleep apnea (Chronic 05/16/15) KATRIN (acute kidney injury) (Acute) Diabetes mellitus, type II (Acute) a. Hgb A1C 11.6 b. on high dose glargine insulin therapy Discharge planning issues (Acute) Transaminitis (Acute) Rash (Acute) Arthritis of right shoulder region (Acute) Arthritis of left shoulder region (Acute) History of rotator cuff tear (Acute ~1995) Tendinitis of long head of biceps brachii of left shoulder (Acute) Tendinitis of long head of biceps brachii of right shoulder (Acute) Tendinitis of left rotator cuff (Acute) Right rotator cuff tendonitis (Acute) Multiple exostoses (Acute) Abnormal auditory perception (Acute) Essential hypertension (Acute) if creat ok, will add UKLWANT Chronic renal impairment, stage 2 (mild) (Acute) Hx of colonic polyps (Acute) Low back pain (Acute) Sensorineural hearing loss, bilateral (Chronic 07/16/16) Medical History Well adult Impacted cerumen of both ears Acute osteomyelitis of right foot (06/25/16) Rupture of left quadriceps muscle (01/15/18) Proliferative diabetic retinopathy (08/06/12) 08/09/16; [facility] Polyp of colon (11/17/13) DR. Dick RODRIGUEZ; TUBULAR ADENOMA Hyperlipidemia (03/26/13) Heart failure 01/31/17 [facility] ; EF 45-50%;ATRIAL DIALATION on coumadin DM (diabetes mellitus), type 2, uncontrolled w/ophthalmic complication (08/06/12) Atherosclerosis of [place] coronary artery Stent 1999 Positive MPI in May 2010 Depression Coronary disease a. s/p cath with stent 1999 b. MPI positive for ischemia 2009 Current use of insulin Osteomyelitis (08/13/14) a. left foot fifth metatarsal and proximal phalanx Surgical History History of appendectomy History of intravascular stent placement History of right knee surgery (04/22/14) [place] [facility] [place] QUADRICEPS REPAIR 01/16/18 (L) PROCEDURES INSERT 1 VASCULAR STENT, 1999 LEFT CIRC. Colonoscopy - MAC (11/17/13) H/O surgical procedure a. Right quadriceps repair [address] Smart b. Colonoscopy 11/17/[address] Rodriguez Family History Mother , AGE 84 Diabetes Stroke Father Depression Heart disease Hyperlipidemia Hypertension Sister Alcohol abuse Substance abuse Diabetes Depression Social History Smoking/Tobacco Use Status: Never Second Hand Exposure: Yes Smoking risk assessment performed?: Yes Alcohol Intake: never Drug use: Never Substance use type: does not use Caregiver/Support person: No Household members: significant other Housing: house Communication Needs: Hard of Hearing Do you need help understanding health information?: Never Pets and animals: No Sexually active: Yes Do you think of yourself as: straight/heterosexual Current gender identity: male What is your relationship status?: never How often do you talk on the phone with friends or family?: three or more times per week How often do you get together with friends or relatives?: decline to answer How often do you attend buddhism or sikhism services?: decline to answer Do you belong to any clubs or organized social groups?: no Panel score (0-1 are the most socially isolated patients): 1 What type of physical activity do you participate in: other Details: Rowing Duration: 15-30 minutes/day Frequency: daily Verna/Sabianism: Zoroastrianism Special verna needs: No Seatbelt use: always Helmet use: Yes Helmet use: always Drive intox or ride w/intox corrugated fastener driver: No Do you feel safe at home: Yes Do you feel safe in your relationship?: Yes Meds Allergies and Home Medications Allergies Allergy/AdvReac Type Severity Reaction Status Date / Time celecoxib [From Celebrex] Allergy Severe BERRIOS-JAYME Verified 03/25/24 15:22 SYNDROME atorvastatin AdvReac Unknown Verified 03/25/24 15:22 Home Medications Medication Instructions Recorded Confirmed Type blood-glucose meter (Accu-Chek #1 ea 12/30/18 03/25/24 Rx Mariana Plus Meter) lancets (Accu-Chek Fastclix Lancet #100 ea 10/20/19 03/25/24 Rx Drum) blood sugar diagnostic (Accu-Chek #300 ea 01/05/21 03/25/24 Rx Mariana Plus test strips) pen needle, diabetic 31 gauge x #400 ea 11/07/22 03/25/24 Rx 5/16 (BD Ultra-Fine Short Pen Needle) sildenafil (pulm.hypertension) 20 20 - 100 mg (1 - 5 x 20 mg) PO 11/07/22 03/25/24 Rx mg tablet DAILY PRN sexual activity #30 tabs blood sugar diagnostic (Accu-Chek #300 ea 04/22/23 03/25/24 Rx Guide test strips) rosuvastatin 20 mg tablet 20 mg PO DAILY #90 tabs 05/09/23 03/25/24 Rx dapagliflozin propanediol 10 mg 10 mg PO DAILY #90 tabs 08/27/23 03/25/24 Rx tablet (Farxiga) nitroglycerin 0.4 mg sublingual 0.4 mg sublingual PRN #25 tabs 08/27/23 03/25/24 Rx tablet (Nitrostat) insulin glargine-yfgn 100 unit/mL 60 unit (0.6 mL) subcut BID #45 mL 09/17/23 03/25/24 Rx (3 mL) subcutaneous pen (Semglee (insulin glargine-yfgn) Pen) citalopram 20 mg tablet (Celexa) 20 mg PO DAILY #90 tabs 11/14/23 03/25/24 Rx losartan 100 mg tablet 50 mg (1/2 x 100 mg) PO DAILY #90 12/11/23 03/25/24 Rx tabs carvedilol 12.5 mg tablet 12.5 mg PO BID #180 tabs 02/01/24 03/25/24 Rx insulin aspart U-100 100 unit/mL 26 - 30 unit (0.26 - 0.3 mL) 02/03/24 03/25/24 Rx (3 mL) subcutaneous pen (Novolog subcut AC #27 SYRGS FlexPen U-100 Insulin aspart) bupropion HCl 100 mg tablet 100 mg PO BID #180 tabs 03/17/24 03/25/24 Rx apixaban 5 mg tablet (Eliquis) 5 mg PO BID #180 tabs 03/18/24 03/25/24 Rx Exam Narrative Exam Narrative: General: Patient appears appropriate for age, morbidly obese with tense obesity over the trunk, alert and oriented x 3 in no acute distress. He is wearing BiPAP when I approached him for exam. HEENT: Normocephalic, eyes with pupils equal and react to light symmetrically, extraocular movement intact and sclera anicteric. Oropharynx with moist mucosa and poor dentition. Neck: Supple without JVD. Back: Kyphotic without CVA tenderness. Lungs: Fair aeration and clear to auscultation percussion with no focalizing rales or rhonchi. Heart: Regular rate and rhythm with no murmurs or gallops appreciated. Abdomen: Obese contour, soft and nontender to palpation no palpable hepatosplenomegaly. Bowel sounds positive all quadrants. Genitalia/rectal: Exam deferred. Extremities: Without clubbing, cyanosis or pitting edema with chronic nonpitting edema both lower extremities. Left foot has a bandage with foul-smelling drainage over the lateral aspect and was not unwrapped for inspection. Fair capillary refill. Skin: Normal color, warm and dry. Neuro: Cranial nerves II through XII gross intact, no focal motor deficits. No tremor. Patient does have decreased sensation over both lower extremities. Psych: Normal affect and mood. Normal thought processes. Remote and recent memory grossly intact. Results Imaging Imaging Studies: Exam: XR Left Foot Exam date and time: 03/25/2024 5:14 PM Age: 69 years old Clinical indication: Other: Dm, foot infection, concern for osteo lateral TECHNIQUE: Imaging protocol: Radiologic exam of the left foot. Views: 3 or more views. Total images: 3 COMPARISON: CR LEFT TIB/FIB 12/31/2017 5:49 PM FINDINGS: Bones/joints: Status post 5th digit amputation with residual heterotopic bone. No acute bony destruction. Achilles insertion heel spur. Soft tissues: Significant soft tissue gas lateral midfoot. Midfoot soft tissue swelling. Vasculature: Vascular calcification. IMPRESSION: 1. Possible necrotizing infection lateral left midfoot. 2. No plain film evidence of acute osteomyelitis. Labs 03/25/24 16:30 03/25/24 16:30 Labs: Laboratory Results - last 24 hr 03/25/24 16:30 WBC 14.61 H RBC 3.96 L Hgb 11.1 L Hct 34.3 L MCV 87 MCH 28.0 MCHC 32.4 RDW 12.8 Plt Count 325 MPV 8.5 Immature Gran % 0.0 Neutrophils % 86.0 Band Neutrophils % 1 Lymphocytes % 5.0 Monocytes % 8.0 Eosinophils % 0.0 Basophils % 0.0 Nucleated RBC % 0.0 Absolute Neutrophils 12.71 H Absolute Lymphocytes 0.73 L Absolute Monocytes 1.17 H Absolute Eosinophils 0.00 Absolute Basophils 0.00 RBC Morphology Normal PT 11.1 INR 1.1 APTT 35.0 H Sodium 135 L Potassium 4.6 Chloride 98 Carbon Dioxide 26.6 Anion Gap 10.4 BUN 55 H Creatinine 2.5 H Est GFR (CKD-EPI 2020) 27.47 Glucose 86 Calcium 8.9 Total Bilirubin 0.69 AST 20 ALT 33 Alkaline Phosphatase 143 H Total Protein 8.1 Albumin 3.1 L ABO/Rh A Positive Antibody Screen NEGATIVE Last Vital Signs Temp 37.2 C 03/25/24 17:47 Pulse 75 03/25/24 19:31 Resp 18 03/25/24 17:47 BP 158/51 H 03/25/24 19:31 Pulse Ox 95 03/25/24 17:47 Time Spent Time spent with Patient: >75 minutes Time was spent: preparing to see the patient(eg.review tests), obtaining and/or reviewing separately otained hiistory, ordering medications,tests, procedures, referring, communicating with other health daytime caregiver, indepentently interpreting results and care coordination
--- NOTE | 2024-03-25 20:56 | NUR.NOTE ---
Nursing Note: patient was reminded multiple times during stay in ED to not eat or drink anything due to pending surgery. This RN witnessed patient drinking soda @ 2044 just prior to transport to Med/Surg. Pateint transported to MS hand off given to MS GONZALEZ
[2024-03-26] VITALS (17 sets, daily range): BP systolic 113–158; BP diastolic 44–85; PULSE 56–81; RESP 12–19; TEMP 36.3–37; O2SAT 95–100; BMI 35.9
--- NOTE | 2024-03-26 | DI.RAD_ITS ---
Exam(s) XR TIB/FIB LT EXAM: XR TIB/FIB LT CLINICAL HISTORY: gas. TECHNIQUE: 2D digital imaging was performed of the left tibia and fibula. Two images were obtained. AP and lateral views were obtained. COMPARISON: CR LEFT TIB/FIB from 12/31/2017 CR LEFT FEMUR from 12/31/2017 CR LEFT KNEE 3 VIEW COMPLETE from 01/06/2018 FINDINGS: BONES: No acute fracture is present. No bony destructive lesion is seen. Degenerative changes are see n around the knee in the proximal tibial fibular joint. SOFT TISSUE: Vascular calcifications are present. No soft tissue gas is seen. IMPRESSION: No soft tissue gas is present. DATA REPOSITORY: RADIATION DOSE DELIVERED:
[2024-03-26] MEDS: Normal Saline Flush 10 ML SYR IVP ×2 (06:02→08:26)
[2024-03-26] MEDS: CEFEPIME 2 GM in Normal Saline 100 ML IVPB ×2 (06:03→17:32)
[2024-03-26 06:19] LABS: HCT 31.1 % (40.0-50.0); HGB 10.1 g/dL (13.5-17.5); MCH 27.9 pg (27.0-33.0); MCHC 32.5 % (32.0-36.0); MCV 86 fL (80-95); MPV 8.7 fL (8.0-11.0); Platelet Count 318 10^3/uL (130-400); RBC 3.62 10^6/uL (4.36-5.78); RDW 12.8 % (11.8-14.1); RDW-SD 39.8 fL; WBC 12.31 10^3/uL (4.4-10.8)
[2024-03-26 06:36] LABS: ALT 28 U/L (16-63); AST 17 U/L (15-37); Albumin 2.6 g/dL (3.4-5.0); Alkaline Phosphatase 123 U/L (46-116); Anion Gap 11.2 mmol/L (3-11); BUN 57 mg/dL (7-18); CO2 22.8 mmol/L (21.0-32.0); CREATININE 2.4 mg/dL (0.70-1.30); Calcium 8.6 mg/dL (8.5-10.1); Chloride 102 mmol/L (98-107); Estimated GFR 28.85 (mL/min/1.73m2); Glucose 104 mg/dL (74-106); Potassium 4.4 mmol/L (3.5-5.1); Sodium 136 mmol/L (136-145); Total Protein 7.1 g/dL (6.4-8.2)
[2024-03-26 07:02] LABS: Vancomycin, Random 17.3 ug/mL
[2024-03-26] MEDS: Lactated Ringers 1,000 ML 125 ML IV (07:03)
[2024-03-26] MEDS: Rosuvastatin 20 MG TAB PO (08:25)
[2024-03-26] MEDS: buPROPion 100 MG TAB PO ×2 (08:26→19:35)
[2024-03-26] MEDS: Citalopram 20 MG TAB PO (08:26)
[2024-03-26] MEDS: Losartan 50 MG TAB PO (08:26)
[2024-03-26] MEDS: Carvedilol 12.5 MG TAB PO ×2 (08:26→19:35)
--- NOTE | 2024-03-26 08:35 | INITIAL_ITS ---
Date of service: 03/26/24 Time of Service: 08:35 Care Management Initial Assmt Initial Assessment Reason for Hospitalization: Foot infection, Gangrene, needs surgical intervention Functional Status/Living Situation Patient Presentation: Alpesh went to the OR today and is currently sleeping. CM will follow. Town of Residence: [place] Resides with: Other (Female Partner: Amy Mcdaniel) Significant Other/Family: Local Instrumental Activities of Daily Living (ADLs): Independent Medications Medication Management: No Issues/Barriers identified Physical Functioning/Mobility Assistive Device: CPAP Glucometer Advance Directives Advance Directives: Do you have an Advance Directive: N 05/22/21 11:30 AD On File at [facility]: N 05/22/21 11:30 Date Asked 03/25/24 03/25/24 15:25 AD Date Reviewed COLST On File at [facility] COLST Date Scanned Code Status Resuscitation Status Full Code Insurance Coverage/Financial Issues Insurance: Medicare Supplemental Insurance ACO Member: Yes Care Team Visit Care Team Role Provider Type Hammad Enrique MD Primary Care Provider [facility] STAFF PHYSICIAN Tammy Harris, DPM Other Providers DPM [facility] STAFF PHYSICIAN Bonifacio Falk, UI DEVELOPER DESIGNER Other Providers [employer] REG NURSE MINE SURVEYOR Swapnil Spring, DPM Other Providers [facility] STAFF PHYSIC[facility] Max Spencer MD Emergency Provider [facility] STAFF PHYSICIAN Abimael Harry Admit Provider NON-[facility] STAFF PHYSICIAN Attending Provider Discharge Potential Discharge Needs: PT Evaluation, PCP F/U Appt and Surgical F/U Appt Anticipated Barriers to Discharge: None Identified Patient/Family Education Needs: Review discharge instructions, discuss Ask Me Three Transportation: Private vehicle Plan: Alpesh is diagnosed with Diabetic wet gangrene of the foot and requires surgical intervention and likely lobsterman abx. Anticipate, Alpesh will discharge home when medically ready per MD. Pt will be transported home via private car at the time of discharge. CM will continue to support discharge considerations. PFSH All Active Problems Uncontrolled diabetes mellitus with hyperglycemia (Acute) Gas gangrene (Acute) Diabetic wet gangrene of the foot (Acute) Cellulitis of foot (Acute) Gangrene of left foot (Acute) Hyponatremia (Acute) CKD (chronic kidney disease) (Chronic) Cellulitis and abscess of foot (Acute) Cerumen impaction (Acute) Conductive hearing loss (Acute) Hyperkalemia (Acute) Erectile dysfunction (Acute) Diabetes mellitus (Chronic) Obesity (Acute) Diabetic retinopathy (Acute ~12/2021) 01/12/22 B/L MODERATE/SHIPPEE-KB Hyperlipidemia associated with type 2 diabetes mellitus (Acute) Mixed hearing loss (Acute) Depressive disorder (Acute 08/10/13) Mixed conductive and sensorineural hearing loss of right ear with restricted hearing of left ear (Acute) DVT prophylaxis (Acute) Urinary retention (Acute) Hypoglycemia (Acute) Sleep apnea (Chronic 05/16/15) KATRIN (acute kidney injury) (Acute) Diabetes mellitus, type II (Acute) a. Hgb A1C 11.6 b. on high dose glargine insulin therapy Discharge planning issues (Acute) Transaminitis (Acute) Rash (Acute) Arthritis of right shoulder region (Acute) Arthritis of left shoulder region (Acute) History of rotator cuff tear (Acute ~1995) Tendinitis of long head of biceps brachii of left shoulder (Acute) Tendinitis of long head of biceps brachii of right shoulder (Acute) Tendinitis of left rotator cuff (Acute) Right rotator cuff tendonitis (Acute) Multiple exostoses (Acute) Abnormal auditory perception (Acute) Essential hypertension (Acute) if creat ok, will add KULWANT Chronic renal impairment, stage 2 (mild) (Acute) Hx of colonic polyps (Acute) Low back pain (Acute) Sensorineural hearing loss, bilateral (Chronic 07/16/16) Medical History Well adult Impacted cerumen of both ears Acute osteomyelitis of right foot (06/25/16) Rupture of left quadriceps muscle (01/15/18) Proliferative diabetic retinopathy (08/06/12) 08/09/16; [facility] Polyp of colon (11/17/13) DR. Dick RODRIGUEZ; TUBULAR ADENOMA Hyperlipidemia (03/26/13) Heart failure 01/31/17 [facility] ; EF 45-50%;ATRIAL DIALATION on coumadin DM (diabetes mellitus), type 2, uncontrolled w/ophthalmic complication (08/06/12) Atherosclerosis of [place] coronary artery Stent 1999 Positive MPI in May 2010 Depression Coronary disease a. s/p cath with stent 1999 b. MPI positive for ischemia 2009 Current use of insulin Osteomyelitis (08/13/14) a. left foot fifth metatarsal and proximal phalanx Surgical History History of appendectomy History of intravascular stent placement History of right knee surgery (04/22/14) S/P cataract surgery 10/02/18; [facility] [place]B/L-kb QUADRICEPS REPAIR 01/16/18 (L) PROCEDURES INSERT 1 VASCULAR STENT, 1999 LEFT CIRC. Colonoscopy - MAC (11/17/13) H/O surgical procedure a. Right quadriceps repair [address] Bing mendoza. Colonoscopy 11/17/[address] Rodrgiuez Family History Mother , AGE 84 Diabetes Stroke Father Depression Heart disease Hyperlipidemia Hypertension Sister Alcohol abuse Substance abuse Diabetes Depression Social History Smoking/Tobacco Use Status: Never Second Hand Exposure: Yes Smoking risk assessment performed?: Yes Alcohol Intake: never Drug use: Never Substance use type: does not use Caregiver/Support person: No Household members: significant other Housing: house Communication Needs: Hard of Hearing Do you need help understanding health information?: Never Pets and animals: No Sexually active: Yes Do you think of yourself as: straight/heterosexual Current gender identity: male What is your relationship status?: never How often do you talk on the phone with friends or family?: three or more times per week How often do you get together with friends or relatives?: decline to answer How often do you attend roman catholic or adventism services?: decline to answer Do you belong to any clubs or organized social groups?: no Panel score (0-1 are the most socially isolated patients): 1 What type of physical activity do you participate in: other Details: Rowing Duration: 15-30 minutes/day Frequency: daily Verna/Cheondoism: Sabianist Special verna needs: No Seatbelt use: always Helmet use: Yes Helmet use: always Drive intox or ride w/intox trailer truck driver: No Do you feel safe at home: Yes Do you feel safe in your relationship?: Yes SDOH(Care Management) Screening Will the Patient Participate in the Screening?: Yes Do you worry about having a steady place to live?: yes In the past 12 months, have you had to go without electric, gas, oil or water in your home?: no Have you or anyone in your house had to go without enough food to eat?: no Has lack of transportation kept you from medical appointments or from doing things needed for daily living?: no Has anyone in your support network made you feel unsafe for any reason?: no Health Related Social Needs Health related social needs: housing instability, housed, with risk of homeles keysha(Z59.085)
--- NOTE | 2024-03-26 08:45 | DI.RAD_ITS ---
Exam(s) XR FOOT LT COMPLETE EXAM: XR FOOT LT COMPLETE CLINICAL HISTORY: gas. TECHNIQUE: 2D digital imaging was performed of the left foot. Three images were obtained. AP, obli que and lateral views were obtained. COMPARISON: CR,XR XR FOOT LT COMPLETE from 03/25/2024 FINDINGS: Compared to the examination from the prior day the amount of gas in the subcutaneous tissues adjacent to the 5th metatarsal remnant has decreased in size. There is focal soft tissue swelling in this ar ea. This may be secondary to surgical intervention. No radiopaque foreign bodies are seen. There i s overlying bandage material present. There is again seen prior resection of the 5th digit to the le asif of the base of the 5th metatarsal bone. No destructive changes are seen in the bone at this time to suggest osteomyelitis. IMPRESSION: Interval decrease in the amount of subcutaneous gas adjacent to the base of the 5th metatarsal bone s uggesting interval surgical intervention. No evidence radiographically at this time to suggest osteo myelitis. DATA REPOSITORY: RADIATION DOSE DELIVERED:
--- NOTE | 2024-03-26 08:56 | POCOE_ITS ---
Date of service: 03/26/24 Time of Service: 07:30 Assessment and Plan Assessment and plan (1) Gangrene of left foot: Status: Acute (2) Diabetic wet gangrene of the foot: Status: Acute (3) Gas gangrene: Status: Acute (4) CKD (chronic kidney disease): Status: Chronic Qualifiers: Chronic kidney disease stage: stage 4 (severe) Qualified Code(s): N18.4 - Chronic kidney disease, stage 4 (severe) (5) Cellulitis and abscess of foot: Status: Acute (6) Uncontrolled diabetes mellitus with hyperglycemia: Status: Acute (7) Heart failure: (8) DM (diabetes mellitus), type 2, uncontrolled w/ophthalmic complication: (9) Atherosclerosis of [place] coronary artery: (10) Osteomyelitis: Assessment and plan: Patient was seen and evaluated bedside today. I was consulted yesterday and in discussion with the ER physician, considering the patient was hemodynamically stable and there is no evidence for ascending soft tissue emphysema and decision was made to place the patient n.p.o. and proceed with incision and drainage in the morning to allow for n.p.o. prior to surgery. At bedside today, patient denies pain. He reports that ulcer has been present for several months. He states he does not know why he did not seek medical intervention earlier. I advised the patient that there is a large necrotic ulcer to the left foot with presence of soft tissue gas. I advised the patient he is at risk for limb loss. I recommended bedside incision and drainage of the abscess/gas to prevent worsening. Patient understood and agreed. Using a sterile #15 blade, a large incision was made directly overlying the necrotic tissue laterally on the left foot this incision was deepened through the necrotic tissue to the level of bone and gas/bubbling was noted immediately from the wound bed as well as drainage. Several 4 to 5 cm incisions were made throughout the wound bed to allow for drainage of reaccumulating abscess. The sites were then irrigated with copious amounts of sterile saline. Dressings were then applied with 4 x 4, Kerlix, Alex wrap. I advised the patient I recommend call our wound debridement today. Patient has been placed n.p.o. since midnight. OR debridement planned for around 1:30 PM today. May resect some bone if it appears necrotic. Please continue IV antibiotics. Will likely require shelter antibiotics. Repeat foot XR ordered as well as Tib/Fib XR to rule out ascending gas Thank you for allow me to participate in this patient's care History of Present Illness Narrative: This is a 69-year-old male patient with history of uncontrolled diabetes, prior amputation of the left fifth ray presented to the ER on 03/25/2024 for infection to the left foot. Patient presented with wound and worsening swelling with drainage to the lateral aspect of the foot. He states that the wound has been present for a while. He states he does not know why he did not seek care for this wound earlier. No other pedal complaints reported at this time. Patient seen bedside today resting comfortably. Offers no pedal complaints today. Consults Consult date: 03/25/24 Requesting physician: Max Spencer Review of Systems Cardiovascular Cardiovascular: Reports system reviewed and no additional complaints, except as documented Integumentary/Breasts Comments: Infected ulcer left foot Neurologic Comments: Numbness to the toes bilateral bilateral foot PFSH All Active Problems Uncontrolled diabetes mellitus with hyperglycemia (Acute) Gas gangrene (Acute) Diabetic wet gangrene of the foot (Acute) Cellulitis of foot (Acute) Gangrene of left foot (Acute) Hyponatremia (Acute) CKD (chronic kidney disease) (Chronic) Cellulitis and abscess of foot (Acute) Cerumen impaction (Acute) Conductive hearing loss (Acute) Hyperkalemia (Acute) Erectile dysfunction (Acute) Hyperlipidemia associated with type 2 diabetes mellitus (Acute) Mixed hearing loss (Acute) Diabetic retinopathy (Acute ~12/2021) 01/12/22 B/L MODERATE/SHIPPEE-KB Mixed conductive and sensorineural hearing loss of right ear with restricted hearing of left ear (Acute) DVT prophylaxis (Acute) Urinary retention (Acute) Hypoglycemia (Acute) KATRIN (acute kidney injury) (Acute) Discharge planning issues (Acute) Transaminitis (Acute) Rash (Acute) Arthritis of right shoulder region (Acute) Arthritis of left shoulder region (Acute) History of rotator cuff tear (Acute ~1995) Tendinitis of long head of biceps brachii of left shoulder (Acute) Tendinitis of long head of biceps brachii of right shoulder (Acute) Tendinitis of left rotator cuff (Acute) Right rotator cuff tendonitis (Acute) Multiple exostoses (Acute) Abnormal auditory perception (Acute) Chronic renal impairment, stage 2 (mild) (Acute) Hx of colonic polyps (Acute) Obesity (Acute) Essential hypertension (Acute) if creat ok, will add ALEX Low back pain (Acute) Diabetes mellitus (Chronic) Sleep apnea (Chronic 05/16/15) Sensorineural hearing loss, bilateral (Chronic 07/16/16) Depressive disorder (Acute 08/10/13) Diabetes mellitus, type II (Acute) a. Hgb A1C 11.6 b. on high dose glargine insulin therapy Medical History Well adult Impacted cerumen of both ears Acute osteomyelitis of right foot (06/25/16) Rupture of left quadriceps muscle (01/15/18) Proliferative diabetic retinopathy (08/06/12) 08/09/16; [facility] Polyp of colon (11/17/13) DR. Dick RODRIGUEZ; TUBULAR ADENOMA Hyperlipidemia (03/26/13) Heart failure 01/31/17 [facility] ; EF 45-50%;ATRIAL DIALATION on coumadin DM (diabetes mellitus), type 2, uncontrolled w/ophthalmic complication (08/06/12) Atherosclerosis of [place] coronary artery Stent 1999 Positive MPI in May 2010 Depression Coronary disease a. s/p cath with stent 1999 b. MPI positive for ischemia 2009 Current use of insulin Osteomyelitis (08/13/14) a. left foot fifth metatarsal and proximal phalanx Surgical History History of appendectomy History of intravascular stent placement History of right knee surgery (04/22/14) S/P cataract surgery 10/02/18; [facility] [place]B/L-kb QUADRICEPS REPAIR 01/16/18 (L) PROCEDURES INSERT 1 VASCULAR STENT, 1999 LEFT CIRC. Colonoscopy - MAC (11/17/13) H/O surgical procedure a. Right quadriceps repair [address] Smart b. Colonoscopy 11/17/[address] Rodriguez Family History Mother , AGE 84 Diabetes Stroke Father Depression Heart disease Hyperlipidemia Hypertension Sister Alcohol abuse Substance abuse Diabetes Depression Social History (Reviewed 03/26/24 @ 09:04 by GLORIA Collins Smoking/Tobacco Use Status: Never Second Hand Exposure: Yes Smoking risk assessment performed?: Yes Alcohol Intake: never Drug use: Never Substance use type: does not use Caregiver/Support person: No Household members: significant other Housing: house Communication Needs: Hard of Hearing Do you need help understanding health information?: Never Pets and animals: No Sexually active: Yes Do you think of yourself as: straight/heterosexual Current gender identity: male What is your relationship status?: never How often do you talk on the phone with friends or family?: three or more times per week How often do you get together with friends or relatives?: decline to answer How often do you attend yarsani or tenriism services?: decline to answer Do you belong to any clubs or organized social groups?: no Panel score (0-1 are the most socially isolated patients): 1 What type of physical activity do you participate in: other Details: Rowing Duration: 15-30 minutes/day Frequency: daily Verna/Gnosticism: Synagogue Special verna needs: No Seatbelt use: always Helmet use: Yes Helmet use: always Drive intox or ride w/intox hammer driver: No Do you feel safe at home: Yes Do you feel safe in your relationship?: Yes Exam Extrem Other: Bilateral lower extremity physical exam: Derm: Unstageable ulcer, with gangrenous changes noted to the lateral aspect of the left fifth metatarsal base into the fourth metatarsal base area as seen above, there is periwound erythema edema drainage and foul odor, there is brown purulence noted from the wound, upon incision there is evidence for gas noted. No proximal crepitus or fluctuance noted, no crepitus appreciated to the erythematous area there is crepitus noted to the necrotic tissue however, no ascending erythema beyond the margins is marked in the ER. Skin is otherwise warm dry and supple bilaterally no other open lesions or ulcerations noted bilaterally. Vascular: DP PT pulses are palpable to the right lower extremity diminished to nonpalpable to the left lower extremity could be secondary to edema, CFT is delayed bilaterally. There is evidence for fifth toe amputation to the left. Hair growth is absent. MSK: No tenderness to palpation noted to the left foot or ankle. 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 Results Last Vital Signs Temp 98.2 F 03/26/24 07:29 Pulse 67 03/26/24 07:29 Resp 16 03/26/24 07:29 BP 136/57 L 03/26/24 07:29 Pulse Ox 97 03/26/24 07:29 Labs 03/26/24 05:58 03/26/24 05:58 Labs: Laboratory Results - last 24 hr 03/25/24 03/26/24 16:30 05:58 WBC 14.61 H 12.31 H RBC 3.96 L 3.62 L Hgb 11.1 L 10.1 L Hct 34.3 L 31.1 L MCV 87 86 MCH 28.0 27.9 MCHC 32.4 32.5 RDW 12.8 12.8 Plt Count 325 318 MPV 8.5 8.7 Immature Gran % 0.0 Neutrophils % 86.0 Band Neutrophils % 1 Lymphocytes % 5.0 Monocytes % 8.0 Eosinophils % 0.0 Basophils % 0.0 Nucleated RBC % 0.0 Absolute Neutrophils 12.71 H Absolute Lymphocytes 0.73 L Absolute Monocytes 1.17 H Absolute Eosinophils 0.00 Absolute Basophils 0.00 RBC Morphology Normal PT 11.1 INR 1.1 APTT 35.0 H Sodium 135 L 136 Potassium 4.6 4.4 Chloride 98 102 Carbon Dioxide 26.6 22.8 Anion Gap 10.4 11.2 H BUN 55 H 57 H Creatinine 2.5 H 2.4 H Est GFR (CKD-EPI 2020) 27.47 28.85 Glucose 86 104 Calcium 8.9 8.6 Magnesium 2.0 Total Bilirubin 0.69 0.60 AST 20 17 ALT 33 28 Alkaline Phosphatase 143 H 123 H Total Protein 8.1 7.1 Albumin 3.1 L 2.6 L Random Vancomycin 17.3 ABO/Rh A Positive Antibody Screen NEGATIVE Imaging Imaging Studies: Patient Name: Alpesh Hernandez Unit #: [id number] Loc: [place] Ordering Provider: Max Spencer M.D. Status: ADM IN Primary Care Provider: Hammad Enrique M.D. Date of Exam: 03/25/24 Sex: M Admission Date: 03/25/24 : 1955 Age: 69 Exam(s) XR FOOT LT COMPLETE EXAM: XR FOOT LT COMPLETE CLINICAL HISTORY: dm, foot infection, concern for osteo lateral. TECHNIQUE: 2D digital imaging was performed of the left foot. Three images were obtained. AP, oblique and lateral views were obtained. COMPARISON: CR LEFT FOOT COMPLETE from 09/13/2014 FINDINGS: BONES: No acute fracture is present. No bony destructive lesion is seen. There again seen findings of an amputation of the 5th toe to the level of the proximal 5th metatarsal bone. Dystrophic calcifications are seen in the soft tissues laterally. There is an enthesophyte at the posterior calcaneus. JOINTS: No dislocation present. SOFT TISSUE: There is diffuse soft tissue swelling of the foot, but there is prominent soft tissue swelling lateral to the base of the 5th metatarsal with subcutaneous gas. Vascular calcifications are present. IMPRESSION: 1. Prominent soft tissue swelling lateral to the base of the 5th metatarsal with a large amount of subcutaneous gas present. Infection/ulcer is suggested. 2. No radiographic evidence to suggest osteomyelitis. 3. Findings are again seen of a 5th digit amputation. Procedures Abscess I/D Site: foot (Left) Side (if applicable): left Sedation/analgesia: none Amount of fluid (mL): 20 Irrigation: Yes (Normal saline) Packing used?: none
--- NOTE | 2024-03-26 10:46 | W.ANESPRE ---
General Info Date of Service Date Performed: 03/26/24 Height: 5 ft 9 in Weight: 110.2 kg Body Mass Index (BMI): 35.9 Surgical Procedure: Operation Date: 03/26/24 11:25 Proposed Procedure Side Surgeon p I&D Foot Left Tammy Harris DPM Meds Allergies and Home Medications Allergies Allergy/AdvReac Type Severity Reaction Status Date / Time celecoxib [From Celebrex] Allergy Severe BERRIOS-JAYME Verified 03/25/24 15:22 SYNDROME atorvastatin AdvReac Unknown Verified 03/25/24 15:22 Home Medication Medication Instructions Recorded blood-glucose meter (Accu-Chek #1 ea 12/30/18 Mariana Plus Meter) lancets (Accu-Chek Fastclix Lancet #100 ea 10/20/19 Drum) blood sugar diagnostic (Accu-Chek #300 ea 01/05/21 Mariana Plus test strips) pen needle, diabetic 31 gauge x #400 ea 11/07/2202/12 (BD Ultra-Fine Short Pen Needle) sildenafil (pulm.hypertension) 20 20 - 100 mg (1 - 5 x 20 mg) PO 11/07/22 mg tablet DAILY PRN sexual activity #30 tabs blood sugar diagnostic (Accu-Chek #300 ea 04/22/23 Guide test strips) rosuvastatin 20 mg tablet 20 mg PO DAILY #90 tabs 05/09/23 dapagliflozin propanediol 10 mg 10 mg PO DAILY #90 tabs 08/27/23 tablet (Farxiga) nitroglycerin 0.4 mg sublingual 0.4 mg sublingual PRN #25 tabs 08/27/23 tablet (Nitrostat) insulin glargine-yfgn 100 unit/mL 60 unit (0.6 mL) subcut BID #45 mL 09/17/23 (3 mL) subcutaneous pen (Semglee (insulin glargine-yfgn) Pen) citalopram 20 mg tablet (Celexa) 20 mg PO DAILY #90 tabs 11/14/23 losartan 100 mg tablet 50 mg (1/2 x 100 mg) PO DAILY #90 12/11/23 tabs carvedilol 12.5 mg tablet 12.5 mg PO BID #180 tabs 02/01/24 insulin aspart U-100 100 unit/mL 26 - 30 unit (0.26 - 0.3 mL) 05/06/24 (3 mL) subcutaneous pen (Novolog subcut AC #27 SYRGS FlexPen U-100 Insulin aspart) bupropion HCl 100 mg tablet 100 mg PO BID #180 tabs 03/17/24 apixaban 5 mg tablet (Eliquis) 5 mg PO BID #180 tabs 03/18/24 Current Visit Medications: Current Medications Generic Name Dose Route Start Last Admin Trade Name Freq PRN Reason Stop Dose Admin Acetaminophen 0 mg 03/25/24 20:08 Acetaminophen 325 Mg Tab PO Q4H PRN PRN Al Hydrox/Mg Hydrox/Simethicone 15 ml 03/25/24 20:08 Mylanta Double Strength Suspension 30 Ml Cup PO Q2H PRN PRN Bupropion HCl 100 mg 03/26/24 08:30 03/26/24 08:26 Bupropion 100 Mg Tab PO 100 mg BID KYLE Administration Carvedilol 12.5 mg 03/26/24 08:30 03/26/24 08:26 Carvedilol 12.5 Mg Tab PO 12.5 mg BID KYLE Administration Citalopram Hydrobromide 20 mg 03/26/24 08:30 03/26/24 08:26 Citalopram 20 Mg Tab PO 20 mg DAILY KYLE Administration Dextrose 0 gm 03/25/24 20:14 Glucose Oral Gel 15 Gm/37.5 Gm Tube PO DIRECTED PRN Dextrose/Water 0 gm 03/25/24 20:14 Dextrose 50%-Water 25 Gm/50 Ml Syr IVP DIRECTED PRN Docusate Sodium 100 mg 03/25/24 20:08 Docusate Sodium 100 Mg Cap PO TID PRN PRN Ringer's Solution 1,000 mls @ 125 mls/hr 03/25/24 20:15 03/26/24 07:03 IV 125 mls/hr INFUSION KYLE Administration Cefepime HCl 2 gm/ Sodium 100 mls @ 200 mls/hr 03/26/24 06:00 03/26/24 07:03 Chloride IVPB Infused Q12H [facility] Infusion Vancomycin/PEG/NADA/Lysine/Water 1 gm in 200 mls @ 133.333 mls/hr 03/26/24 18:00 Vancocin Injection IV Q24H [facility] IV Miscellaneous Supplies 1 each 03/25/24 20:15 Iv Access IV DIRECTED [facility] Insulin Aspart 0 units 03/25/24 21:00 03/26/24 09:09 Insulin Aspart 300 Units/3 Ml Pen SC Not Given Q6H [facility] Protocol Losartan Potassium 50 mg 03/26/24 08:30 03/26/24 08:26 Losartan 50 Mg Tab PO 50 mg DAILY KYLE Administration Magnesium Hydroxide 30 ml 03/25/24 20:08 Milk Of Magnesia 30 Ml Cup PO DAILY PRN PRN Nitroglycerin 0.4 mg 03/25/24 20:16 Nitroglycerin 0.4 Mg Tab SL Q5 MIN PRN X3 PRN Patient's Own 1 each 03/27/24 08:30 Medication ( PO Dapagliflozin [ DAILY [facility]] 10 Mg Tablet) Polyethylene Glycol 17 gm 03/25/24 20:08 Polyethylene Glycol 3350 17 Gm Packet PO DAILY PRN PRN Constipation Rosuvastatin Calcium 20 mg 03/26/24 08:30 03/26/24 08:25 Rosuvastatin 20 Mg Tab PO 20 mg DAILY KYLE Administration Sodium Chloride 0 ml 03/25/24 20:08 03/26/24 06:02 Normal Saline Flush 10 Ml Syr IVP 10 ml PRN PRN Administration Sodium Chloride 0 ml 03/26/24 08:30 03/26/24 08:26 Normal Saline Flush 10 Ml Syr IVP 10 ml BID KYLE Administration Sodium Chloride 0 ml 03/25/24 20:08 Normal Saline 10 Ml Vial IJ DIRECTED PRN Sodium Hypochlorite 473 ml 03/26/24 09:00 Dakin's Solution 0.25% 473 Ml Btl TP DIRECTED [facility] PFSH Active Problems Active Problems: Problem Status Onset Code Uncontrolled diabetes mellitus with hyperglycemia E11.65 Gas gangrene A48.0 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 Cellulitis of foot L03.119 Gangrene of left foot I96 Hyponatremia E87.1 CKD (chronic kidney disease) N18.9 Cellulitis and abscess of foot L03.119, L02.619 Cerumen impaction H61.20 Conductive hearing loss H90.2 Hyperkalemia E87.5 Erectile dysfunction N52.9 Diabetes mellitus E11.9 Obesity E66.9 Diabetic retinopathy ~12/2021 E11.319 Hyperlipidemia associated with type 2 diabetes mellitus E11.69, E78.5 Mixed hearing loss H90.8 Depressive disorder 08/10/13 F32.9 Mixed conductive and sensorineural hearing loss of right ear with restricted hearing of left ear H90.A31 DVT prophylaxis Z29.9 Urinary retention R33.9 Hypoglycemia E16.2 Encephalopathy G93.40 Sleep apnea 05/16/15 G47.30 KATRIN (acute kidney injury) N17.9 Diabetes mellitus, type II E11.9 Discharge planning issues Z02.9 Transaminitis R74.01 Fever R50.9 Rash R21 Arthritis of right shoulder region M19.011 Arthritis of left shoulder region M19.012 History of rotator cuff tear ~1995 Z87.39 Tendinitis of long head of biceps brachii of left shoulder M75.22 Tendinitis of long head of biceps brachii of right shoulder M75.21 Tendinitis of left rotator cuff M75.82 Right rotator cuff tendonitis M75.81 Multiple exostoses M89.8X0 Abnormal auditory perception H93.299 Essential hypertension I10 Chronic renal impairment, stage 2 (mild) N18.2 Hx of colonic polyps Z86.010 Low back pain M54.5 Sensorineural hearing loss, bilateral 07/16/16 H90.3 Medical History Medical History Well adult Impacted cerumen of both ears Acute osteomyelitis of right foot (06/25/16) Rupture of left quadriceps muscle (01/15/18) Proliferative diabetic retinopathy (08/06/12) 08/09/16; [facility] Polyp of colon (11/17/13) DR. Dick RODRIGUEZ; TUBULAR ADENOMA Hyperlipidemia (03/26/13) Heart failure 01/31/17 [facility] ; EF 45-50%;ATRIAL DIALATION on coumadin DM (diabetes mellitus), type 2, uncontrolled w/ophthalmic complication (08/06/12) Atherosclerosis of [place] coronary artery Stent 1999 Positive MPI in May 2010 Depression Coronary disease a. s/p cath with stent 1999 b. MPI positive for ischemia 2009 Current use of insulin Osteomyelitis (08/13/14) a. left foot fifth metatarsal and proximal phalanx Surgical History Surgical History History of appendectomy History of intravascular stent placement History of right knee surgery (04/22/14) [place] [facility] [place] QUADRICEPS REPAIR 01/16/18 (L) PROCEDURES INSERT 1 VASCULAR STENT, 2000 LEFT CIRC. Colonoscopy - MAC (11/17/13) H/O surgical procedure a. Right quadriceps repair [address] Smart b. Colonoscopy 11/17/[address] Rodriguez Tobacco Smoking/Tobacco Use Status: Never Passive smoking exposure: Yes Second hand exposure: Yes Alcohol Alcohol Intake: never Substance Use Substance use: Never Substance use type: does not use Vital Signs and Lab Results Vital Signs Most Recent Vital Signs in EMR: Most Recent Vital Signs Temp Pulse Resp BP Pulse Ox 36.8 C 67 16 136/57 L 97 03/26/24 07:29 03/26/24 07:29 03/26/24 07:29 03/26/24 07:29 03/26/24 07:29 Point of Care Results Point of Care Results: Finger Stick Blood Glucose 103 03/26/24 09:03 Lab Results 03/26/24 05:58 03/26/24 05:58 Blood Type / Crossmatch: Antibody Screen NEGATIVE 03/25/24 Complete Blood Count: White Blood Count 12.31 10^3/uL (4.4-10.8) H 03/26/24 05:58 Red Blood Count 3.62 10^6/uL (4.36-5.78) L 03/26/24 05:58 Hemoglobin 10.1 g/dL (13.5-17.5) L 03/26/24 05:58 Hematocrit 31.1 % (40.0-50.0) L 03/26/24 05:58 Platelet Count 318 10^3/uL (130-400) 03/26/24 05:58 Complete Metabolic Panel: Sodium 136 mmol/L (136-145) 03/26/24 05:58 Potassium 4.4 mmol/L (3.5-5.1) 03/26/24 05:58 Chloride 102 mmol/L (98-107) 03/26/24 05:58 Carbon Dioxide 22.8 mmol/L (21.0-32.0) 03/26/24 05:58 BUN 57 mg/dL (7-18) H 03/26/24 05:58 Creatinine 2.4 mg/dL (0.70-1.30) H 03/26/24 05:58 Est GFR (CKD-EPI 2020) 28.85 (mL/min/1.73m2) 03/26/24 05:58 Magnesium 2.0 mg/dL (1.8-2.4) 03/26/24 05:58 Calcium 8.6 mg/dL (8.5-10.1) 03/26/24 05:58 Albumin 2.6 g/dL (3.4-5.0) L 03/26/24 05:58 Glucose 104 mg/dL (74-106) 03/26/24 05:58 Hemoglobin A1c 9.1 % (4.5-5.7) H 03/25/24 14:39 Liver Function Panel: Alanine Aminotransferase (ALT/SGPT) 28 U/L (16-63) 03/26/24 05:58 Aspartate Amino Transf (AST/SGOT) 17 U/L (15-37) 03/26/24 05:58 Coagulation Panel: INR International Normalized Ratio 1.1 (0.9-1.1) 03/25/24 16:30 Prothrombin Time 11.1 sec (9.1-11.1) 03/25/24 16:30 Activated Partial Thromboplast Time 35.0 sec (23.6-32.8) H 03/25/24 16:30 Cardiac Panel: No Data to Display Arterial Blood Gas: No Data to Display Venous Blood Gas: No Data to Display Pancreas Panel: No Data to Display Thyroid Panel: No Data to Display Infectious Disease: No Data to Display Blood Cultures: No Data to Display Toxicology Panel: No Data to Display Imaging and Studies Imaging and Studies Study information below may be from another EMR and interpreted by another provider. Please see original notes in EMR for more complete details. EKG Summary: DATE/TIME OF SERVICE: 12/02/21635 : 1955 PERFORMING LOCATION: ER APPROVED REPORT Exam: Resting ECG Reason for Exam: chest pain Patient Location: E HR:63 bpm ECG Measurements Heart Rate 63 AXIS OR 233 P 35 QRSd 115 QRS -12 QT 417 T39 QTc 427 Conclusion Sinus rhythm...normal P axis, V-rate 60- 99 Prolonged OR interval...OR >220, V-rate 50- 90 Nonspecific intraventricular conduction delay...QRSd >115mS, not LBBB/RBBB Stress Test Summary: Patient Name: TABBY JOSUE Unit #: [id number] Loc: Ordering Provider: Kareem Whitehead M.D. Status: [facility] Primary Care Provider: Hammad Enrique Date of Exam: 06/20/20 Sex: M Admission Date: 06/20/20 : 1955 Age: 65 Exam(s) a NM:NM MPI rest & stress grp APPROVED REPORT Exam: Pharmacologic Patient Location: In-Patient Room/Bed: Stress Nurse: Mirian Garrison RN BMI: 38.68 Baseline Rhythm: Sinus Bradycardia, First Degree Heart Block. Indications: Patient testing today for further risk stratification. He reports extreme fatigue. He has a history of coronary arteriosclerosis with an AR in 1999 and stent placement. Medical History Medical History: AR (stent 1999), Chronic Renal Impairment (Stage 2), NADIA, Obesity, PE/DVT, Pulmonary Hypertension, Cardiomyopathy, Heart Failure, Hypersomnia. Cardiac Medications: Eliquis, Metoprolol Tartrate, Nitroglycerine, Pravastatin. Allergies: Atorvastatin. Cardiac Risk Factors: FHX of CAD, HTN, Hyperlipidemia, Diabetes (insulin) Previous Cardiac Procedures: PCI, Stent X1. Pretest Chest Pain Characteristics: None reported per patient. Exercise History: Sedentary Lung Sounds: Crackles in bases bilaterally, Otherwise CTA. Heart Sounds: Regular, Distant. Stress Test Details Test: Pharmacologic stress testing performed using 0.4 mg of regadenoson per 5 mL given IV over 10 seconds. Nuclear Acquisition: Rest Tc-99m/Stress Tc-99m 1 day Rest Isotope: Tc-99m Sestamibi. Dose: 11.4 Date: 06/20/2020 Injection Time: 0930 Stress Isotope: Tc-99m Sestamibi. Dose: 36.3 Date: 06/20/2020 Injection Time: 1133 HR Resting HR Supine: 59 bpmMax Heart Rate (APMHR): 157 bpm Target HR (85% APMHR): 133 bpm Max HR Achieved: 72 bpm % of APMHR: 45 BP Resting BP Supine: 150/90 mmHg Max BP: 152/86 mmHg ECG Resting ECG: Sinus Bradycardia, 1st degree AV block Stress ECG: Sinus Rhythm ST Change: No significant ST segment changes noted. Arrhythmia: None Recovery ECG: Sinus Rhythm Recovery ST Change: Normal Recovery Arrhythmia: None Clinical Stress Symptoms: None reported per patient. Stress ECG Conclusion 1. This is a pharmacological stress test. 2. Patient no symptoms suggestive of ischemia. 3. EKG portion of the exam is nondiagnostic. Stress Test Summary STAGEHRBPSymptomsNOTES [id number]/90 1 min post Lexiscan [id number]/80 3 min post Lexiscan [id number]/78 6 min post Lexiscan [id number]/86 MPI Conclusion Patient's ejection fraction was 40% with stress. There was global hypokinesis. There is a small area of fixed perfusion defect at the apex [place] representing infarct. There is no significant mukund-infarct ischemia. Echocardiogram Summary: 06/2020: moderate hypokinesis, EF 45-50% Anesthesia Assessment and Plan Anesthesia History Personal History: No History of Anesthesia Complications Family History: No Family History of Anesthesia Complications Exercise Tolerance Exercise Tolerance: Metabolic Equivalents>4 Pertinent Negatives Pertinent Negatives: No Symptoms of GERD, No Major Pulmonary Symptoms or Complaints and No History of CVA/TIA Cardiac & Pulmonary Exam Cardiac Exam: Normal S1/S2 Heart Sounds Pulmonary Exam: Clear Bilateral Breath Sounds Implantable Cardiac Device Does patient have a Pacemaker or an ICD?: No Airway Exam Known Difficult Airway: Yes Mallampati Class: 2 Mouth Opening: Normal (> 3cm) Thyromental Distance: Greater than 3 cm Neck Range of Motion: Full ROM Neck Circumference: Normal Teeth Condition: Normal Dentition ASA Classification ASA Score: ASA 4 Emergency Case?: No NPO Status NPO Status: NPO Clears >2 hours, Solids >8 hours Anesthesia Plan Resuscitation Status: Full Code Anesthesia Technique: General Anesthesia Airway Planned: Natural Airway Monitors Used: Standard Monitors
[2024-03-26] MEDS: Lactated Ringers 1,000 ML 30 ML IV (13:00)
--- NOTE | 2024-03-26 13:04 | W.ANESVAS ---
Midline Placement Date Performed: 03/26/24 Procedure Time: 12:44 Requesting Provider: Tammy Harris Procedure Location: PACU Sedation Given (Indicate Dose Given): No Sedation given Patient Mental Status: Awake Sterility: Hand Hygiene, Surgical Cap, Surgical Mask, Sterile Gloves, Sterile Drape/Sheet and Chlorhexidine Laterality: Right Insertion Site: Cephalic Midline Device: PowerGlide Pro 20G Catheter Length: 10 cm Midline Procedure Procedure: Vessel accessed with catheter over needle, Guidewire placed with ease, Catheter placed without resistance and Guidewire removed Dressing: Tegaderm Applied, Statlock Applied and Mastisol Used Blood Return: Present Flushes: Easily Ultrasound: Sterile probe cover and gel used Ultrasound Image Saved?: Yes Number of Attempts (See previous attempts in note section): 1 Procedure Tolerated: No Complications and Patient tolerated well Procedure Outcome: Successful Procedure Comment:: Left arm completely infiltrated with fluid. PIV removed and new midline placed Performed By: Abimael Moore
--- NOTE | 2024-03-26 13:30 | SOFT_PTH ---
PATIENT: Alpesh Hernandez LOC: U#:[id number] AGE/SX: 69/M ROOM: RE03/25/[address]: bAimael Harry : 1955 BED: A DIS: 04/07/2024 SPEC #: [id number] RECD: 03/26/24 18:13 STATUS: TREVA REQ #: [id number] ALVARO: 03/26/24 13:[address]: Abimael Harry DEPT: Surgical Specimen RECD BY: Radha Hicks ENTERED: 03/26/24 18:15 SP TYPE: SOFT OTHR DR: Bonifacio Falk Denis J Mitchell J. Sullivan, MD Sara Zaidi, DPM Tissues: 1 - SOFT TISSUE MISC (INC. LIPOMA) 2 - SOFT TISSUE MISC (INC. LIPOMA) 3 - BONE BX/CURRETTE NOT PATH FRACTURE Procedures: GROSS AND MICRO LEVEL 5 GROSS AND MICRO LEVEL 3 DECALCIFICATION Comments: [id number]
--- NOTE | 2024-03-26 14:16 | PGE_ITS ---
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 Patient is morbidly obese. Qualifiers: Sleep apnea type: obstructive Qualified Code(s): G47.33 - Obstructive sleep apnea (adult) (pediatric) (5) CKD (chronic kidney disease): Status: Chronic Assessment and plan: Appearing stable stage IV. Monitor while hospitalized on vancomycin with adjusting dose through pharmacy. Qualifiers: Chronic kidney disease stage: stage 4 (severe) Qualified Code(s): N18.4 - Chronic kidney disease, stage 4 (severe) Subjective Subjective Patient reports: no new complaints, feels better, tolerating a regular diet, voiding w/o difficulty, bowel movement and afebrile; denies flatus, diarrhea, nausea, vomiting or shortness of breath Interval history since last seen: Went to OR today, states he is feeling well. Exam Narrative Exam Narrative: Physical Examination General: alert, awake, cooperative, resting comfortably, no acute distress HEENT: normocephalic, atraumatic; PERRL, EOM intact, conjunctiva normal; no nasal discharge; moist mucous membranes Neck: supple, trachea midline; full ROM Respiratory: normal respiratory effort, speaking in full sentences, clear to auscultation, no wheezing, rales or rhonchi Cardiac: regular rate, regular rhythm, S1S2 intact, no murmurs rubs or gallops GI: abdomen soft, non-tender, non-distended; no palpable mass or hepatosplenomegaly Neuro: AAOx3, normal speech, moving all extremities Skin: Pale, dry Extremities: Left foot bandage in place, clean and dry - placed by podiatry, not removed Psych: Appropriate mood and affect Objective Last Vital Signs Temp 37.0 C 03/26/24 11:06 Pulse 60 03/26/24 11:06 Resp 15 03/26/24 11:06 BP 125/50 L 03/26/24 11:06 Pulse Ox 97 03/26/24 11:06 Laboratory Results - last 24 hr 03/25/24 03/26/24 16:30 05:58 WBC 14.61 H 12.31 H RBC 3.96 L 3.62 L Hgb 11.1 L 10.1 L Hct 34.3 L 31.1 L MCV 87 86 MCH 28.0 27.9 MCHC 32.4 32.5 RDW 12.8 12.8 Plt Count 325 318 MPV 8.5 8.7 Immature Gran % 0.0 Neutrophils % 86.0 Band Neutrophils % 1 Lymphocytes % 5.0 Monocytes % 8.0 Eosinophils % 0.0 Basophils % 0.0 Nucleated RBC % 0.0 Absolute Neutrophils 12.71 H Absolute Lymphocytes 0.73 L Absolute Monocytes 1.17 H Absolute Eosinophils 0.00 Absolute Basophils 0.00 RBC Morphology Normal PT 11.1 INR 1.1 APTT 35.0 H Sodium 135 L 136 Potassium 4.6 4.4 Chloride 98 102 Carbon Dioxide 26.6 22.8 Anion Gap 10.4 11.2 H BUN 55 H 57 H Creatinine 2.5 H 2.4 H Est GFR (CKD-EPI 2020) 27.47 28.85 Glucose 86 104 Calcium 8.9 8.6 Magnesium 2.0 Total Bilirubin 0.69 0.60 AST 20 17 ALT 33 28 Alkaline Phosphatase 143 H 123 H Total Protein 8.1 7.1 Albumin 3.1 L 2.6 L Random Vancomycin 17.3 ABO/Rh A Positive Antibody Screen NEGATIVE Time Spent with Patient Time Spent with Patient: 35-49 minutes Time was spent: preparing to see the patient(eg.review tests), ordering medications,tests, procedures, referring, communicating with other health nonfarm animal caretaker, indepentently interpreting results and counseling the patient
--- NOTE | 2024-03-26 14:30 | DI.RAD_ITS ---
Exam(s) XR FOOT LT COMPLETE EXAM: XR FOOT LT COMPLETE CLINICAL HISTORY: Postop. TECHNIQUE: 2D digital imaging was performed of the left foot. Three images were obtained. AP, obli que and lateral views were obtained. COMPARISON: CR XR FOOT LT COMPLETE from 03/26/2024 FINDINGS: BONES: No acute fracture is present. No bony destructive lesion is seen. 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 No destructive changes are seen. There is a small enthesophyte at the posterior calcaneus . JOINTS: No dislocation present. Mild degenerative changes are seen in the foot. SOFT TISSUE: There are postsurgical changes of debridement in the lateral soft tissue ulcer of the fo ot adjacent to the base of the 5th metatarsal bone. IMPRESSION: 1. Status post debridement of the ulcer of the lateral soft tissues of the foot. 2. No acute destructive changes are seen in the bone. DATA REPOSITORY: RADIATION DOSE DELIVERED:
--- NOTE | 2024-03-26 14:34 | W.PM.OP ---
Date of service: 03/26/24 Time of Service: 13:00 Operative Note Operative Note DATE OF PROCEDURE: 03/26/24 PRE-OP DIAGNOSIS: Gas gangrene, left foot POST-OP DIAGNOSIS: same PROCEDURE: Incision and debridement, with resection of distal end of the fifth metatarsal stump, left foot SURGEON: Tammy Harris Refer to Anesthesia Record ESTIMATED BLOOD LOSS: 100 PATHOLOGY: other (Soft tissue and bone, left foot) Patient was transported to: PACU Patient's condition: stable Findings: This is a 69-year-old diabetic male patient with infection to the left foot. Patient presented to the ER on 03/25/2024 with infected ulcer to the left foot. Patient had an I&D bedside by myself today this morning which helped relieve some soft tissue gas however purulence and infected tissue persisted the patient was planned to be taken to the OR today. I discussed the risks benefits and possible complications of the procedure with the patient in detail. Patient was advised that surgical intervention at this time is essential to attempt limb salvage. Patient was advised that there is risk for limb loss with this wound at this time. Patient was advised the and incision and debridement of all necrotic tissue as well as necrotic bone is planned at this time. Patient was advised that he will have a large open wound and will require long-term wound care until the wound is healed. Patient understood and agreed no guarantees or warranties of the procedure were made or implied. Patient assumes all risks benefits and possible complications. No contraindications noted to the procedure at this time. Procedure Description: Patient was identified in preop holding. Consent form signed reviewed and in chart. Left leg identified. Patient was brought to the operating room placed in the supine position with the anesthesia team. Following induction anesthesia the left lower extremity was scrubbed prepped and draped in the usual aseptic manner. Next, attention was directed to the lateral aspect of the left foot where a large ulcer was noted. Using a sterile #15 blade an incision was made circumferentially around the infected wound and the incision was deepened and all necrotic tissue was then excised using the sterile #15 blade as well as a rongeur, including subcutaneous tissue as well as fascia. A large amount of necrotic tissue was noted to the wound bed, coagulum was noted to the wound bed, the wound at this time does extend to the level of periosteum with periosteum exposed to the cuboid fourth and fifth metatarsals are exposed at this time. Some plantar fascia was resected as well as the wound does extend plantarly as well. Healthy bleeding was noted from the wound. Next, the distal end of the fifth metatarsal was then resected using bone cutters and passed from the operative field to be sent to pathology as well as for bone cultures. The wound was noted to be somewhat healthy and yellow. The surgical site was then flushed with sterile saline mixed with clindamycin via pulse lavage. Hemostasis was achieved via ligation, chemocautery as well as Nael. The surgical site was inspected and no further necrotic tissue was noted no active bleeders were noted. Incision site was then flushed again with sterile saline. Dressings were then applied with Betadine soaked 4 x 4 gauze, 4 x 4, Kerlix and an Alex wrap. Patient tolerated the procedure and anesthesia well with vital signs stable and vascular status intact to the left foot. He was transferred to the PACU for further monitoring. The wound at this time measures 7.0 x 6.5 x 1.5 cm with bone exposed. Patient was seen to keep the dressings clean dry and intact. Nursing may reinforce dressings if there is strikethrough. Patient to keep the left foot elevated at all times. Apply ice behind the ankle and popliteal fossa. He is to remain strictly nonweightbearing to the left lower extremity Patient will require at least 6 weeks of IV antibiotics. He will require wound care consisting of wound VAC and grafting. There is risk for limb loss
--- NOTE | 2024-03-26 14:42 | W.ANESPOSTOP ---
Postoperative Evaluation Date, Time and Location Date Performed: 03/26/24 Time Performed: 14:42 Patient Location: PACU Vital Signs Most Recent Imported Vital Signs: Most Recent Vital Signs Temp Pulse Resp BP Pulse Ox 36.7 C 62 13 143/54 H 98 03/26/24 14:37 03/26/24 14:36 03/26/24 14:36 03/26/24 14:36 03/26/24 14:36 Pain Score Most Recent Pain Score: Most Recent Pain Score Pain Level 0 03/26/24 11:06 Assessment Mental Status: Awake (Alert & Oriented to Patient Baseline) Airway and Respiratory Function: Abnormal Respiratory exam (See explanation) (Patient has significant sleep apnea and is dropping his SPO2 while napping. To PACU for monitoring until stable to head to floor. ) and Patient has been admitted and is receiving care as an inpatient Cardiovascular Function: Hemodynamically Stable Hydration Status: Adequately Hydrated Nausea & Vomiting: No Nausea or Vomiting Pain: Pt. Denies Any Pain Peripheral Nerve Block: Patient did not receive a nerve block
--- NOTE | 2024-03-26 16:15 | CHAPLAIN ---
Alpesh was in the OR for an infected foot. I spoke with his significant other and his sister. His SO brought him to Urgent Care in [facility] and then he was directed to come to the ED. He was admitted yesterday and went to the OR today. His SO explained that Alpesh is diabetic and has already lots a little toe. This would started out as a small spot irritated be new shoes and then became an infected would that wasn't healing. Alpesh's SO said she is waiting to see if they needed to remove any more of Miguels foot in order to get the wound to heal. I explained my role and offered support. I will continue to visit.
--- NOTE | 2024-03-26 18:40 | DI.VRAD_ITS ---
PROCEDURE INFORMATION: Exam: XR Left Foot Exam date and time: 03/26/2024 6:00 PM Age: 69 years old Clinical indication: Injury or trauma; Other: Postop; Other: Post op; Injury date: 03/26/2024; Prior surgery; Surgery date: Post-operative (0-2 days); Surgery type: Foot TECHNIQUE: Imaging protocol: Radiologic exam of the left foot. Views: 3 or more views. COMPARISON: CR XR FOOT LT COMPLETE 03/26/2024 9:27 AM FINDINGS: Bones/joints: Posterior calcaneal spur. No acute fracture or subluxation. No focal osseous erosion. 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 Surrounding dystrophic appearing calcifications. Soft tissues: Generalized soft tissue swelling. The large soft tissue ulcer in the lateral midfoot and forefoot has been debrided and appears packed. Vasculature: Atherosclerosis. IMPRESSION: 1. Debridement of the lateral midfoot and forefoot wound. 2. Chronic findings as described. Dictated and Authenticated by: Giselle Avilez MD. Ordering:OLE Munoz MD
[2024-03-26] MEDS: VANCOMYCIN/WATER (PEG) 1 GM/200 ML BAG IV (19:04)
[2024-03-27] VITALS (7 sets, daily range): BP systolic 109–149; BP diastolic 52–58; PULSE 64–72; RESP 16–18; TEMP 36.3–37.5; O2SAT 96–99
[2024-03-27] MEDS: Lactated Ringers 1,000 ML 125 ML IV ×3 (00:27→20:12)
[2024-03-27] MEDS: Normal Saline Flush 10 ML SYR IVP ×4 (04:17→17:15)
[2024-03-27] MEDS: CEFEPIME 2 GM in Normal Saline 100 ML IVPB ×2 (05:39→17:16)
[2024-03-27 06:51] LABS: Abs Immature Grans 0.09 10^3/uL (0.0-0.06); Absolute Basophil Count 0.05 10^3/uL (0.0-0.2); Absolute Eosinophil Count 0.21 10^3/uL (0.0-0.7); Absolute Lymphocyte Count 0.41 10^3/uL (1.2-3.4); Absolute Monocyte Count 0.98 10^3/uL (0.1-0.8); Absolute Neutrophil Count 6.21 10^3/uL (1.2-6.7); Basophils % 0.6 %; Eosinophils % 2.6 %; HCT 28.7 % (40.0-50.0); HGB 9.4 g/dL (13.5-17.5); Immature Grans % 1.1 %; Lymphocytes % 5.2 %; MCH 28.1 pg (27.0-33.0); MCHC 32.8 % (32.0-36.0); MCV 86 fL (80-95); MPV 8.9 fL (8.0-11.0); Monocytes % 12.3 %; Neutrophils % 78.2 %; Platelet Count 326 10^3/uL (130-400); RBC 3.35 10^6/uL (4.36-5.78); RDW 12.7 % (11.8-14.1); RDW-SD 39.7 fL; WBC 7.95 10^3/uL (4.4-10.8)
[2024-03-27 07:00] LABS: Anion Gap 11.3 mmol/L (3-11); BUN 60 mg/dL (7-18); C-Reactive Protein 23.62 mg/dL (<or=0.5); CO2 21.7 mmol/L (21.0-32.0); CREATININE 2.3 mg/dL (0.70-1.30); Calcium 8.3 mg/dL (8.5-10.1); Chloride 103 mmol/L (98-107); Estimated GFR 30.36 (mL/min/1.73m2); Glucose 203 mg/dL (74-106); Potassium 4.8 mmol/L (3.5-5.1); Sodium 136 mmol/L (136-145)
[2024-03-27] MEDS: Rosuvastatin 20 MG TAB PO (08:04)
[2024-03-27] MEDS: Carvedilol 12.5 MG TAB PO ×2 (08:04→20:12)
[2024-03-27] MEDS: Losartan 50 MG TAB PO (08:04)
[2024-03-27] MEDS: buPROPion 100 MG TAB PO ×2 (08:05→20:12)
[2024-03-27] MEDS: Citalopram 20 MG TAB PO (08:05)
[2024-03-27] MEDS: Insulin Aspart 300 UNITS/3 ML PEN SC ×4 (08:13→22:32)
--- NOTE | 2024-03-27 09:33 | PDOC.CMPRO ---
Date of service: 03/27/24 Time of Service: 09:33 Care Management Progress Note Progress Note Text Progress Note Text: Alpesh went to the OR yesterday for I&D of his gangrenous left foot. He was sitting up in bed, visiting with Amy when CM met with him. He says he's feeling better, denies pain and feels he is receiving great care. At this time, IV ABX are planned for atleast 7 days, wound debridement will be needed over the next 2 weeks and may need a Wound vac on Saturday. CM will continue to follow. Discharge Potential Discharge Needs: PCP F/U Appt and Surgical F/U Appt Anticipated Barriers to Discharge: None Identified Patient/Family Education Needs: Review discharge instructions, discuss Ask Me Three Transportation: Private vehicle Plan: Admitted for wound care and IV therapy, following wound debridment of his gangrenous left foot on 03/26/24. Cultures are pending. New [facility] RN will be needed for dressing changes and support with home IV therapy (if needed). Anticipate, Alpesh will discharge home when medically ready per MD. Pt will be transported home via private car at the time of discharge. CM will continue to support discharge considerations. SDOH(Care Management) Screening Will the Patient Participate in the Screening?: Yes Do you worry about having a steady place to live?: yes In the past 12 months, have you had to go without electric, gas, oil or water in your home?: no Have you or anyone in your house had to go without enough food to eat?: no Has lack of transportation kept you from medical appointments or from doing things needed for daily living?: no Has anyone in your support network made you feel unsafe for any reason?: no Health Related Social Needs Health related social needs: housing instability, housed, with risk of homelessness([id number]) Anticipated HH Services Anticipated HH Services at Discharge [facility] RN. Following Provider: Primary Care Provider: Dr. Enrique.
--- NOTE | 2024-03-27 10:12 | W.PM.PROGNOT ---
Date of Service Date of service: 03/27/24 Time of Service: 09:30 Assessment and Plan Assessment and plan (1) Gangrene of left foot: Status: Acute (2) Diabetic wet gangrene of the foot: Status: Acute (3) Gas gangrene: Status: Acute (4) CKD (chronic kidney disease): Status: Chronic Qualifiers: Chronic kidney disease stage: stage 4 (severe) Qualified Code(s): N18.4 - Chronic kidney disease, stage 4 (severe) (5) Cellulitis and abscess of foot: Status: Acute (6) Uncontrolled diabetes mellitus with hyperglycemia: Status: Acute (7) Heart failure: (8) DM (diabetes mellitus), type 2, uncontrolled w/ophthalmic complication: (9) Atherosclerosis of [place] coronary artery: (10) Osteomyelitis: Assessment and plan: Patient is seen bedside today status post OR I&D 620 03/2024. Resting comfortably with family present. Denies pain to the left foot. States overall he is doing well. Labs and images were reviewed. White count noted to be trending down at this time. No further evidence for soft tissue emphysema on x-rays, large soft tissue deficit noted on x-rays. On exam there is no further purulence erythema appears to be resolving well edema has now subsided substantially with skin wrinkling. Preliminary cultures were reviewed. Pathology reports are pending. I discussed the case with the medicine team. Will continue the patient's on IV antibiotics for 6 weeks for osteomyelitis due to evidence exposed bone to the wound at this time. Patient will require long-term wound care so as to heal this morning. Will plan for wound VAC starting Saturday if the wound bed continues to appear healthy without recurring infection. Patient was advised may require grafting. He was advised that he is at risk for limb loss. Patient verbalized understanding. Dressings changed with Xeroform gauze, Dakin soaked 4 x 4 gauze, Kerlix and Alex wrap. Nursing to continue daily dressing changes with Xeroform gauze, Dakin soaked 4 x 4, Kerlix and an Alex wrap. Patient to remain strictly nonweightbearing to the left lower extremity. May use crutches, walker or knee scooter for ambulation. Will continue to follow. No surgical intervention planned at this time however he will require wound debridement over the next 2 weeks. Subjective Subjective Interval history since last seen: 69-year-old male diabetic patient seen bedside. He is status post I&D left foot, date of surgery 03/26/2024 for soft tissue emphysema to the lateral aspect of the left foot. Resting comfortably offers no new complaints states he is feeling better than yesterday denies any pain to his foot. No over night events. Exam Extrem Other: Bilateral lower extremity physical exam: Derm: 7.0 x 6.5 x 1.0 cm full-thickness ulceration noted to the level of the periosteum to the lateral aspect of the left foot with images as below this is postoperatively, mild granulation tissue noted to the wound bed with periosteum exposed, the borders have some duskiness noted dorsally to the midfoot plantar aspect of the left foot does show some necrotic tissue to the wound bed however overall doing well no periwound erythema, edema appears to be resolving with skin wrinkling noted as above, no crepitus no fluctuance no bogginess no proximal streaking noted at this time no malodor noted from the wound. Sanguinous drainage noted to the dressings, no active bleeding noted. Skin is otherwise warm dry and supple bilaterally no other open lesions or ulcerations noted bilaterally. Vascular: Strong posterior tibial pulse noted to the left lower extremity, DP pulse nonpalpable at this time, hair growth is present to the toes, edema noted to be resolving skin is warm to touch, mild duskiness noted to the wound edges dorsal medial aspect of the left foot MSK: No tenderness to palpation noted to the left foot or ankle. 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 Objective Last Vital Signs Temp 99.5 F 03/27/24 07:45 Pulse 70 03/27/24 07:45 Resp 17 03/27/24 07:45 BP 141/52 H 03/27/24 07:45 Pulse Ox 97 03/27/24 07:45 Laboratory Results - last 24 hr 03/27/24 05:36 WBC 7.95 RBC 3.35 L Hgb 9.4 L Hct 28.7 L MCV 86 MCH 28.1 MCHC 32.8 RDW 12.7 Plt Count 326 MPV 8.9 Immature Gran % 1.1 Neutrophils % 78.2 Lymphocytes % 5.2 Monocytes % 12.3 Eosinophils % 2.6 Basophils % 0.6 Nucleated RBC % 0.0 Absolute Neutrophils 6.21 Absolute Lymphocytes 0.41 L Absolute Monocytes 0.98 H Absolute Eosinophils 0.21 Absolute Basophils 0.05 Sodium 136 Potassium 4.8 Chloride 103 Carbon Dioxide 21.7 Anion Gap 11.3 H BUN 60 H Creatinine 2.3 H Est GFR (CKD-EPI 2020) 30.36 Glucose 203 H Calcium 8.3 L Magnesium 2.0 C-Reactive Protein 23.62 H Time Spent with Patient Time Spent with Patient: >50 minutes Time was spent: preparing to see the patient(eg.review tests), obtaining and/or reviewing separately otained hiistory, referring, communicating with other health rental boats caretaker, indepentently interpreting results, counseling the patient and care coordination
[2024-03-27 10:17] LABS: Lab Add On Test DONE
[2024-03-27 10:19] LABS: ESR 50 mm/hr (0-20)
[2024-03-27 10:52] LABS: Procalcitonin 0.5 ng/mL
--- NOTE | 2024-03-27 15:12 | CHAPLAIN ---
Alpesh went to the OR yesterday to have the wound on his right foot checked out. It's wrapped now and he's on IV antibiotics. Alpesh said he's glad he still has his foot. His little toe on that foot has already been amputated. Alpesh said he learned a lesson about not letting a wound get that infected before coming to the ED. His significant other is with him and she'll be helping him at home. He's not allowed to walk on his foot for a month. Alpesh was pleasant and easily engaged in conversation. I explained my role and offered support.
--- NOTE | 2024-03-27 18:07 | W.PM.PROGNOT ---
Date of Service Date of service: 03/27/24 Time of Service: 11:00 Assessment and Plan Assessment and plan (1) Cellulitis and abscess of foot: Status: Acute Assessment and plan: Resume ruby Went to OR on 03/26/2024 with podiatry for debridement, please see notes - Awaitng for wound vac on Saturday Foot is bandaged - DCI Awaiting for wound vac on Saturday as per podaitry notes H&H 9.4 & 28.7 03/25 blood cultures showed GPC but will continue coverage with broad spectrum d/t DM, foul smelling wound and podiatry consult expertise -Continue Vancomycin and cefepime Repeat blood culture and wound cultures pending (2) Hyponatremia: Status: Acute Assessment and plan: Sodium 136 again today NMP in AM (3) Diabetes mellitus: Status: Chronic Assessment and plan: Continue glucometer measurements before meals and at bedtime with SSI coverage On Jardiance Qualifiers: Chronic kidney disease stage: stage 4 (severe) Diabetes mellitus complication detail: with chronic kidney disease Diabetes mellitus complication status: with kidney complications Diabetes mellitus intermediate project manager insulin use: with correction use Diabetes mellitus type: type 2 Qualified Code(s): E11.22 - Type 2 diabetes mellitus with diabetic chronic kidney disease; N18.4 - Chronic kidney disease, stage 4 (severe); Z79.4 - truck terminal manager (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 The patient is morbidly obese. Qualifiers: Sleep apnea type: obstructive Qualified Code(s): G47.33 - Obstructive sleep apnea (adult) (pediatric) (5) Diarrhea: Status: Acute Assessment and plan: Newly reported C-diff PCR if > 3 /24 hours Probiotics intiated (6) CKD (chronic kidney disease): Status: Chronic Assessment and plan: Cr 2.3 with BUN 60 was 2.4 & 57 on 03/26 Stable stage IV. BMP in AM Qualifiers: Chronic kidney disease stage: stage 4 (severe) Qualified Code(s): N18.4 - Chronic kidney disease, stage 4 (severe) (7) Discharge planning issues: Status: Acute Assessment and plan: CM to f/u Plan for 6 weeks of IV antibiotics for evidence of exposed bone to the wound Strictly non-weightbearing - PT consult Wound debridement over the next 2 weeks as per podiatry Discussed with Dr. Darling Subjective Subjective Patient reports: no new complaints, feels better, tolerating a regular diet, voiding w/o difficulty, bowel movement, diarrhea and afebrile; denies flatus, nausea, vomiting or shortness of breath Interval history since last seen: Went to OR today, states he is feeling well. Exam Narrative Exam Narrative: Constitutional Alert and oriented X 4, no acute distress Neuro: normal speech, non-focal s Respiratory: lungs bilaerally CTA Cardiac: regular rate, regular rhythm,no murmurs GI: abdomen soft, non-tender, non-distended, bowel sounds are present Extremities: Left foot bandage in place , clean and dry, thready pulse to left dorsal foot with + cap refill Psych: Appropriate mood and affect Objective Last Vital Signs Temp 36.3 C L 03/27/24 15:23 Pulse 64 03/27/24 15:23 Resp 16 03/27/24 15:23 BP 149/55 H 03/27/24 15:23 Pulse Ox 99 03/27/24 15:23 Laboratory Results - last 24 hr 03/27/24 05:36 WBC 7.95 RBC 3.35 L Hgb 9.4 L Hct 28.7 L MCV 86 MCH 28.1 MCHC 32.8 RDW 12.7 Plt Count 326 MPV 8.9 Immature Gran % 1.1 Neutrophils % 78.2 Lymphocytes % 5.2 Monocytes % 12.3 Eosinophils % 2.6 Basophils % 0.6 Nucleated RBC % 0.0 Absolute Neutrophils 6.21 Absolute Lymphocytes 0.41 L Absolute Monocytes 0.98 H Absolute Eosinophils 0.21 Absolute Basophils 0.05 ESR 50 H Sodium 136 Potassium 4.8 Chloride 103 Carbon Dioxide 21.7 Anion Gap 11.3 H BUN 60 H Creatinine 2.3 H Est GFR (CKD-EPI 2020) 30.36 Glucose 203 H Calcium 8.3 L Magnesium 2.0 C-Reactive Protein 23.62 H Procalcitonin 0.5 Add-On Test Request DONE Time Spent with Patient Time Spent with Patient: >50 minutes Time was spent: preparing to see the patient(eg.review tests), ordering medications,tests, procedures, referring, communicating with other health medicare interviewer (Dr. Harris), indepentently interpreting results, counseling the patient and care coordination
[2024-03-27] MEDS: VANCOMYCIN/WATER (PEG) 1 GM/200 ML BAG IV (18:08)
[2024-03-27] MEDS: Apixaban 5 MG TAB PO (20:12)
[2024-03-27] MEDS: Lactobacillus Acidophilus CAP 1 CAP PO (20:12)
[2024-03-28] VITALS (8 sets, daily range): BP systolic 150–168; BP diastolic 59–72; PULSE 65–71; RESP 15–18; TEMP 36.1–36.6; O2SAT 94–99
[2024-03-28] MEDS: Lactated Ringers 1,000 ML 125 ML IV (04:27)
[2024-03-28] MEDS: CEFEPIME 2 GM in Normal Saline 100 ML IVPB ×2 (06:12→18:15)
[2024-03-28 06:28] LABS: Abs Immature Grans 0.22 10^3/uL (0.0-0.06); Absolute Basophil Count 0.05 10^3/uL (0.0-0.2); Absolute Eosinophil Count 0.33 10^3/uL (0.0-0.7); Absolute Lymphocyte Count 0.62 10^3/uL (1.2-3.4); Absolute Monocyte Count 0.97 10^3/uL (0.1-0.8); Absolute Neutrophil Count 3.85 10^3/uL (1.2-6.7); Basophils % 0.8 %; Eosinophils % 5.5 %; HCT 29.1 % (40.0-50.0); HGB 9.6 g/dL (13.5-17.5); Immature Grans % 3.6 %; Lymphocytes % 10.3 %; MCH 27.8 pg (27.0-33.0); MCV 84 fL (80-95); MPV 8.6 fL (8.0-11.0); Monocytes % 16.1 %; Neutrophils % 63.7 %; Platelet Count 334 10^3/uL (130-400); RBC 3.45 10^6/uL (4.36-5.78); RDW 12.6 % (11.8-14.1); RDW-SD 38.7 fL; WBC 6.04 10^3/uL (4.4-10.8)
[2024-03-28 06:40] LABS: Anion Gap 12.6 mmol/L (3-11); BUN 46 mg/dL (7-18); CO2 22.4 mmol/L (21.0-32.0); CREATININE 1.8 mg/dL (0.70-1.30); Calcium 8.7 mg/dL (8.5-10.1); Chloride 105 mmol/L (98-107); Estimated GFR 40.75 (mL/min/1.73m2); Glucose 154 mg/dL (74-106); Potassium 4.7 mmol/L (3.5-5.1); Sodium 140 mmol/L (136-145)
[2024-03-28] MEDS: Citalopram 20 MG TAB PO (08:29)
[2024-03-28] MEDS: Losartan 50 MG TAB PO (08:29)
[2024-03-28] MEDS: Rosuvastatin 20 MG TAB PO (08:29)
[2024-03-28] MEDS: Apixaban 5 MG TAB PO ×2 (08:29→20:46)
[2024-03-28] MEDS: buPROPion 100 MG TAB PO ×2 (08:29→20:46)
[2024-03-28] MEDS: Normal Saline Flush 10 ML SYR IVP ×3 (08:30→20:47)
[2024-03-28] MEDS: Carvedilol 12.5 MG TAB PO ×2 (08:30→20:46)
[2024-03-28] MEDS: Lactobacillus Acidophilus CAP 1 CAP PO ×3 (08:30→20:47)
[2024-03-28 10:56] LABS: Vancomycin, Random 15.4 ug/mL
[2024-03-28] MEDS: VANCOMYCIN/WATER (PEG) 1.25 GM/250 ML BAG IVPB (12:00)
[2024-03-28] MEDS: Insulin Aspart 300 UNITS/3 ML PEN SC ×3 (12:01→22:00)
--- NOTE | 2024-03-28 14:34 | W.PM.PROGNOT ---
Date of Service Date of service: 03/28/24 Time of Service: 14:34 Assessment and Plan Assessment and plan (1) Cellulitis and abscess of foot: Status: Acute Assessment and plan: Resume ruby Went to OR on 03/26/2024 with podiatry for debridement, please see notes - Awaitng for wound vac on Saturday Foot is bandaged - DCI Awaiting for wound vac on Saturday as per podaitry notes H&H 9.4 & 28.7 03/25 blood cultures showed GPC but will continue coverage with broad spectrum d/t DM, foul smelling wound and podiatry consult expertise -Continue Vancomycin and cefepime Repeat blood culture and wound cultures pending (2) Hyponatremia: Status: Acute Assessment and plan: Sodium 136 again today NMP in AM (3) Diabetes mellitus: Status: Chronic Assessment and plan: Continue glucometer measurements before meals and at bedtime with SSI coverage On Jardiance Qualifiers: Chronic kidney disease stage: stage 4 (severe) Diabetes mellitus complication detail: with chronic kidney disease Diabetes mellitus complication status: with kidney complications Diabetes mellitus adjunct faculty for medical terminology insulin use: with detention use Diabetes mellitus type: type 2 Qualified Code(s): E11.22 - Type 2 diabetes mellitus with diabetic chronic kidney disease; N18.4 - Chronic kidney disease, stage 4 (severe); Z79.4 - long term (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 The patient is morbidly obese. Qualifiers: Sleep apnea type: obstructive Qualified Code(s): G47.33 - Obstructive sleep apnea (adult) (pediatric) (5) Diarrhea: Status: Acute Assessment and plan: Newly reported C-diff PCR if > 3 /24 hours Probiotics intiated (6) CKD (chronic kidney disease): Status: Chronic Assessment and plan: Cr 2.3 with BUN 60 was 2.4 & 57 on 03/26 Stable stage IV. BMP in AM Qualifiers: Chronic kidney disease stage: stage 4 (severe) Qualified Code(s): N18.4 - Chronic kidney disease, stage 4 (severe) (7) Discharge planning issues: Status: Acute Assessment and plan: CM to f/u Plan for 6 weeks of IV antibiotics for evidence of exposed bone to the wound Strictly non-weightbearing - PT consult Wound debridement over the next 2 weeks as per podiatry Discussed with Dr. Darling Subjective Subjective Patient reports: no new complaints Exam Narrative Exam Narrative: Obese male of stated age in no acute distress head is atraumatic oral mucosas moist neck is supple full range of motion no JVD cardiovascular regular rate and rhythm respirations even and unlabored abdomen round soft nontender positive bowel sounds extremities without edema dressing is clean dry and intact Objective Last Vital Signs Temp 36.4 C L 03/28/24 11:17 Pulse 71 03/28/24 11:17 Resp 16 03/28/24 11:17 BP 158/72 H 03/28/24 11:17 Pulse Ox 94 03/28/24 11:17 Laboratory Results - last 24 hr 03/28/24 03/28/24 06:13 10:28 WBC 6.04 RBC 3.45 L Hgb 9.6 L Hct 29.1 L MCV 84 MCH 27.8 MCHC 33.0 RDW 12.6 Plt Count 334 MPV 8.6 Immature Gran % 3.6 Neutrophils % 63.7 Lymphocytes % 10.3 Monocytes % 16.1 Eosinophils % 5.5 Basophils % 0.8 Nucleated RBC % 0.0 Absolute Neutrophils 3.85 Absolute Lymphocytes 0.62 L Absolute Monocytes 0.97 H Absolute Eosinophils 0.33 Absolute Basophils 0.05 Sodium 140 Potassium 4.7 Chloride 105 Carbon Dioxide 22.4 Anion Gap 12.6 H BUN 46 H Creatinine 1.8 H Est GFR (CKD-EPI 2020) 40.75 Glucose 154 H Calcium 8.7 Random Vancomycin 15.4 Time Spent with Patient Time Spent with Patient: 35-49 minutes Time was spent: preparing to see the patient(eg.review tests), obtaining and/or reviewing separately otained hiistory, ordering medications,tests, procedures, indepentently interpreting results and counseling the patient
[2024-03-28] MEDS: Insulin Glargine 300 UNITS/3 ML PEN 10 UNITS SC (20:46)
[2024-03-29] VITALS (7 sets, daily range): BP systolic 139–177; BP diastolic 52–74; PULSE 63–69; RESP 15–18; TEMP 36.2–36.7; O2SAT 96–98
[2024-03-29] MEDS: CEFEPIME 2 GM in Normal Saline 100 ML IVPB ×2 (06:29→17:50)
[2024-03-29] MEDS: Carvedilol 12.5 MG TAB PO ×2 (07:55→21:10)
[2024-03-29] MEDS: Rosuvastatin 20 MG TAB PO (07:55)
[2024-03-29] MEDS: Lactobacillus Acidophilus CAP 1 CAP PO ×3 (07:55→21:10)
[2024-03-29] MEDS: buPROPion 100 MG TAB PO ×2 (07:55→21:10)
[2024-03-29] MEDS: Citalopram 20 MG TAB PO (07:56)
[2024-03-29] MEDS: Losartan 50 MG TAB PO (07:56)
[2024-03-29] MEDS: Apixaban 5 MG TAB PO ×2 (07:56→21:10)
[2024-03-29] MEDS: Normal Saline Flush 10 ML SYR IVP ×4 (07:57→23:25)
[2024-03-29] MEDS: Insulin Glargine 300 UNITS/3 ML PEN 10 UNITS SC ×2 (07:57→21:10)
[2024-03-29] MEDS: Insulin Aspart 300 UNITS/3 ML PEN SC ×4 (07:58→21:11)
--- NOTE | 2024-03-29 10:17 | PT.INIE ---
Date of service: 03/29/24 Time of Service: 09:45 PT Notes Visit Reasons: Cellulitis with Abscess Left Foot, NIDDM Inpatient Physical Therapy Evaluation Date: 03/29/2024 Referring Doctor: Abimael Harry PT Orders: PT CONSULT: S/P ortho surgery, safety consult for d/c, eval for AD Precautions: NWB LLE Patient Profile/Admitting Diagnosis: Gangrene of left foot PMHX: Uncontrolled Diabetes, bilat TKAs Social History/Home Situation: Pt states he lives in [place] with his girlfriend. He has about 4 or 5 stairs to get into his house with 1 railing but then lives on one floor. 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 He states he has been here since Saturday following a wound on his left foot that didn't heal. It was brought into the OR the other day to clean it out and now he is NWB on his LLE. He has just been doing a stand pivot onto the bedside commode so far. He hopes to be able to get into the actual bathroom soon. Objective: General Observation: Pleasant, happy with his care, dressing recently changed by nursing to LLE Mental Status: A+Ox4 Pain: none ROM: bilat UE AROM WFL bilat LE AROM WFL but L ankle DF/PF limited due to dressing in place Strength: bilat hip flex 4+/5, knee ext 4+/5 able to perform SLR in the supine position bilaterally able to perform heel slides in the supine position bilaterally Sensation: Full sensation observed within bilat LEs, states that the only place he cannot feel is where his wound is Bed Mobility/Transfers: supine to sitting at EOB w/SBA sitting at EOB to supine w/SBA sit to stand w/CGA stand to sit w/CGA Gait: Amb 30 ft w/CGA to and from bathroom, being compliant with LLE NWB and showing good bilat UE support on RW Balance: Unable to fully assess due to NWB on LLE status, is able to balance on RLE and bilat UE support without issue Special Tests: Mobility Limitations Standardized Measure [facility] AM-PAC 6 clicks Basic Mobility Inpatient Short Form: Raw Score: 19 Standardized Score: 3.55 CMS Score: 41.77% Informed Consent/Education: Patient instructed in purpose of PT consult and plan of care. Assessment: Patient is a 69 year old male referred to physical therapy services following surgical debridement of a diabetic wound on his L foot. He is currently doing quite well with his NWB status as he was able to ambulate into the bathroom today. He will be cleared to continue this with CGA of nursing staff. He will need to perform stairs with PT prior to returning home as he has 4-5 to enter. He will benefit greatly from PT services while in the hospital to help him gain the functional mobility he needs to be d/c'd safely. He would likely benefit from home health PT and nursing once returning home to fully assess his home situation and continue to progress with his overall function. Patient is assessed as a [x] Low 79980 complexity based on the following: History: Low Examination: Low Presentation: Low Decision Making: Low Goals: Goals X1 week 1. Supine-Sit independent within 1-2 days 2. Sit-Supine independent within 1-2 days 3. Sit-Stand independent within 1-2 days 4. Stand-Sit independent within 1-2 days 5. Gait of 100 ft w/RW and NWB of LLE independently within 1-2 days 6. Ascend/descend 4 stairs w/one crutch and one railing w/SBA within 1-2 days 7. Independent with home exercise program within 1-2 days Plan of Care/Treatment Plan: 1-2x/day, 7 days/week x 1 week. Plan of care has been reviewed with the AIR CONTROL/ANTI AIR WARFARE OFFICER providing the service under Physical Therapy direction. Initiate Physical Therapy intervention for strengthening, bed mobility, transfers, gait, stairs, balance training, use of assistive device. DISCHARGE RECOMMENDATIONS: Pt will likely be able to be d/c'd home following receiving his wound vac tomorrow with the support of home health PT and nursing. [x] Home with home health PT and nursing services TREATMENT CODE/TIME: 45 min Please sign an return this page within 30 days if you agree with the above POC. Thank you! Physician Signature Date [facility]
--- NOTE | 2024-03-29 10:35 | PGE_ITS ---
Date of Service Date of service: 03/29/24 Time of Service: 10:35 Assessment and Plan Assessment and plan (1) Cellulitis and abscess of foot: Status: Acute Assessment and plan: stable back on eliquis with no bleeding Went to OR on 03/26/2024 with podiatry for debridement, please see notes - Awaitng for wound vac on Saturday Foot is bandaged - DCI Awaiting for wound vac on Saturday as per podaitry notes H&H 9.4 & 28.7 03/25 blood cultures showed GPC but will continue coverage with broad spectrum d/t DM, foul smelling wound and podiatry consult expertise -Continue Vancomycin and cefepime Repeat blood culture and wound cultures pending (2) Hyponatremia: Status: Acute Assessment and plan: Sodium 136 again today NMP in AM (3) Diabetes mellitus: Status: Chronic Assessment and plan: Continue glucometer measurements before meals and at bedtime with SSI coverage On Jardiance Qualifiers: Chronic kidney disease stage: stage 4 (severe) Diabetes mellitus complication detail: with chronic kidney disease Diabetes mellitus complication status: with kidney complications Diabetes mellitus supervisor long goods insulin use: with supervisor long goods use Diabetes mellitus type: type 2 Qualified Code(s): E11.22 - Type 2 diabetes mellitus with diabetic chronic kidney disease; N18.4 - Chronic kidney disease, stage 4 (severe); Z79.4 - [facility] (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 The patient is morbidly obese. Qualifiers: Sleep apnea type: obstructive Qualified Code(s): G47.33 - Obstructive sleep apnea (adult) (pediatric) (5) Diarrhea: Status: Acute Assessment and plan: Newly reported C-diff PCR if > 3 /24 hours Probiotics intiated (6) CKD (chronic kidney disease): Status: Chronic Assessment and plan: stable and below baseline IV fluid stopped avoid nephrotoxic drugs and renal dose as needed. Qualifiers: Chronic kidney disease stage: stage 4 (severe) Qualified Code(s): N18.4 - Chronic kidney disease, stage 4 (severe) (7) Discharge planning issues: Status: Acute Assessment and plan: CM to f/u Plan for 6 weeks of IV antibiotics for evidence of exposed bone to the wound Strictly non-weightbearing - PT consult Wound debridement over the next 2 weeks as per podiatry Discussed with Dr. Darling Subjective Subjective Patient reports: no new complaints, tolerating liquids well, tolerating a regular diet, voiding w/o difficulty and afebrile Exam Narrative Exam Narrative: Obese male of stated age in no acute distress head is atraumatic oral mucosas moist neck is supple full range of motion no JVD cardiovascular regular rate and rhythm respirations even and unlabored abdomen round soft nontender positive bowel sounds extremities without edema dressing is clean dry and intact Objective Last Vital Signs Temp 36.5 C 03/29/24 07:38 Pulse 67 03/29/24 07:38 Resp 15 03/29/24 07:38 BP 153/70 H 03/29/24 07:38 Pulse Ox 97 03/29/24 07:38 Laboratory Results - last 24 hr 03/28/24 10:28 Random Vancomycin 15.4 Time Spent with Patient Time Spent with Patient: 35-49 minutes Time was spent: preparing to see the patient(eg.review tests), obtaining and/or reviewing separately otained hiistory, ordering medications,tests, procedures, indepentently interpreting results and counseling the patient
[2024-03-29] MEDS: VANCOMYCIN/WATER (PEG) 1.25 GM/250 ML BAG IVPB (12:02)
[2024-03-30 03:36] VITALS: BP 115/57; PULSE 61; RESP 18; TEMP 36.1; O2SAT 98
[2024-03-30] MEDS: CEFEPIME 2 GM in Normal Saline 100 ML IVPB ×2 (05:47→18:27)
[2024-03-30] MEDS: Normal Saline Flush 10 ML SYR IVP ×3 (05:48→19:47)
[2024-03-30 07:51] VITALS: BP 148/58; PULSE 65; RESP 19; TEMP 36.6; O2SAT 95
[2024-03-30] MEDS: Rosuvastatin 20 MG TAB PO (08:04)
[2024-03-30] MEDS: buPROPion 100 MG TAB PO ×2 (08:04→19:42)
[2024-03-30] MEDS: Lactobacillus Acidophilus CAP 1 CAP PO ×3 (08:04→19:42)
[2024-03-30] MEDS: Losartan 50 MG TAB PO (08:04)
[2024-03-30] MEDS: Citalopram 20 MG TAB PO (08:04)
[2024-03-30] MEDS: Apixaban 5 MG TAB PO ×2 (08:04→19:43)
[2024-03-30] MEDS: Carvedilol 12.5 MG TAB PO ×2 (08:04→19:43)
[2024-03-30] MEDS: Insulin Aspart 300 UNITS/3 ML PEN SC ×4 (08:06→22:03)
[2024-03-30] MEDS: Insulin Glargine 300 UNITS/3 ML PEN 10 UNITS SC (08:07)
--- NOTE | 2024-03-30 09:31 | PGE_ITS ---
Date of Service Date of service: 03/30/24 Time of Service: 08:30 Assessment and Plan Assessment and plan (1) Gangrene of left foot: Status: Acute (2) Diabetic wet gangrene of the foot: Status: Acute (3) Gas gangrene: Status: Acute (4) CKD (chronic kidney disease): Status: Chronic Qualifiers: Chronic kidney disease stage: stage 4 (severe) Qualified Code(s): N18.4 - Chronic kidney disease, stage 4 (severe) (5) Cellulitis and abscess of foot: Status: Acute (6) Uncontrolled diabetes mellitus with hyperglycemia: Status: Acute (7) Heart failure: (8) DM (diabetes mellitus), type 2, uncontrolled w/ophthalmic complication: (9) Atherosclerosis of [place] coronary artery: (10) Osteomyelitis: Assessment and plan: Patient is seen bedside today status post OR I&D 03/26/2024. Labs and imaging reviewed. The wound appears to be healing at this time with no further abscess formation. Erythema appears to have resolved. At this time, I recommend a wound VAC application by the wound care team with Adaptic, granufoam at 125 mmHg continuous pressure to be changed to Saturday. Advised the patient that once the wound appears to be granulating well we can then consider grafting the lateral wound to heal. I recommend keeping the wound dressings clean dry and intact. Patient to remain strictly nonweightbearing to the left lower extremity. He may heel touch for transfers. Recommend using a surgical shoe. I discussed risks for amputation if there is any further worsening or infection to bone. Will require at least 6 weeks of antibiotics.Will continue to follow. Patient to follow-up with me outpatient within 1 week of discharge Subjective Subjective Interval history since last seen: Patient seen bedside today resting comfortably offers no pedal complaints. Exam Extrem Other: Bilateral lower extremity physical exam: Derm: 7.0 x 6.5 x 1.0 cm full-thickness ulceration noted to the level of the periosteum to the lateral aspect of the left foot there is now mild granulation tissue noted to the wound bed (75% necrotic/fibrotic, 25% granular) with periosteum exposed, however overall doing well no periwound erythema, edema appears to be resolving with skin wrinkling noted as above, no crepitus no fluctuance no bogginess no proximal streaking noted at this time no malodor noted from the wound. Mild drainage/slough noted to the dressings, no active bleeding noted. Skin is otherwise warm dry and supple bilaterally no other open lesions or ulcerations noted bilaterally. Vascular: Strong posterior tibial pulse noted to the left lower extremity, DP pulse nonpalpable at this time, hair growth is present to the toes, edema noted to be resolving skin is warm to touch, mild duskiness noted to the wound edges dorsal medial aspect of the left foot MSK: No tenderness to palpation noted to the left foot or ankle. 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 Objective Last Vital Signs Temp 97.9 F 03/30/24 07:51 Pulse 65 03/30/24 07:51 Resp 19 03/30/24 07:51 BP 148/58 H 03/30/24 07:51 Pulse Ox 95 03/30/24 07:51 Time Spent with Patient Time Spent with Patient: 35-49 minutes Time was spent: preparing to see the patient(eg.review tests), obtaining and/or reviewing separately otained hiistory, ordering medications,tests, procedures, referring, communicating with other health healthcare insurance sales agent, indepentently interpreting results, counseling the patient and care coordination
--- NOTE | 2024-03-30 10:49 | PGE_ITS ---
Date of Service Date of service: 03/30/24 Time of Service: 10:49 Assessment and Plan Assessment and plan (1) Cellulitis and abscess of foot: Status: Acute Assessment and plan: stable back on eliquis with no bleeding 03/26/2024 OR with podiatry for debridement, please see notes Wound vac in place Foot dressed with KULWANT - DCI Wound culture from OR negative Preliminary wound cultures showed mixed anaerobic [place] with Anaerobic GNR and 3 species of staphylococcus but not aureus On Vancomycin but no MRSA and on cefepime w/o pseudomonas [place] [facility] blood cultures showed GPC, staph hominis but repeated blood cultures negative at 48 hours (2) Diabetes mellitus: Status: Chronic Assessment and plan: Continue Glucs AC & HS with SSI coverage On Jardiance home dose Lantus increased to 18 units BID was on 60 units BID at home Qualifiers: Chronic kidney disease stage: stage 4 (severe) Diabetes mellitus complication detail: with chronic kidney disease Diabetes mellitus complication status: with kidney complications Diabetes mellitus senior care insulin use: with senior care use Diabetes mellitus type: type 2 Qualified Code(s): E11.22 - Type 2 diabetes mellitus with diabetic chronic kidney disease; N18.4 - Chronic kidney disease, stage 4 (severe); Z79.4 [facility] use of 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 Qualifiers: Sleep apnea type: obstructive Qualified Code(s): G47.33 - Obstructive sleep apnea (adult) (pediatric) (4) Diarrhea: Status: Acute Assessment and plan: Newly reported C-diff PCR if > 3 /24 hours Probiotics intiated (5) CKD (chronic kidney disease): Status: Chronic Assessment and plan: stable and below baseline IV fluid stopped avoid nephrotoxic drugs and renal dose as needed. Qualifiers: Chronic kidney disease stage: stage 4 (severe) Qualified Code(s): N18.4 - Chronic kidney disease, stage 4 (severe) (6) Morbid obesity: Status: Acute Assessment and plan: Continue Diabetic diet Nutrition consult (7) Discharge planning issues: Status: Acute Assessment and plan: CM to f/u Plan for 6 weeks of IV antibiotics for evidence of exposed bone to the wound: Patient is agreeable to BID infusions at [facility] Strictly non-weightbearing - PT consult Possible graft once wound healed Plan for wound debridement over the next 2 weeks as per podiatry HH for wound vac management Discussed with Dr. Keith Subjective Subjective Patient reports: feels better, tolerating liquids well, tolerating a regular diet, voiding w/o difficulty, flatus and other (Initially asking about teaching GF to perform IV antibiotic admin at home but reported to that he would come to [facility] opt BID for antibiotic infusions); denies diarrhea, nausea, vomiting, shortness of breath or fever Exam Narrative Exam Narrative: Constitutional Alert and oriented X 4, no acute distress Neuro: normal speech, non-focal Respiratory: lungs bilaterally CTA Cardiac: regular rate, regular rhythm,S1, S2 GI: abdomen soft, non-tender, non-distended, bowel sounds are present Extremities: Left foot KULWANT bandage in place with wound vac to the left lateral wound debridement site , thready pulse to left dorsal foot with + cap refill Psych: Appropriate mood and affect Objective Last Vital Signs Temp 36.6 C 03/30/24 07:51 Pulse 65 03/30/24 07:51 Resp 19 03/30/24 07:51 BP 148/58 H 03/30/24 07:51 Pulse Ox 95 03/30/24 07:51 Time Spent with Patient Time Spent with Patient: >50 minutes Time was spent: preparing to see the patient(eg.review tests), obtaining and/or reviewing separately otained hiistory, ordering medications,tests, procedures, referring, communicating with other health day care provider, indepentently interpreting results, counseling the patient and care coordination
[2024-03-30 11:24] LABS: HCT 30.6 % (40.0-50.0); HGB 10.1 g/dL (13.5-17.5); MCH 27.8 pg (27.0-33.0); MCV 84 fL (80-95); MPV 8.3 fL (8.0-11.0); Platelet Count 354 10^3/uL (130-400); RBC 3.63 10^6/uL (4.36-5.78); RDW 12.6 % (11.8-14.1); RDW-SD 38.2 fL; WBC 7.42 10^3/uL (4.4-10.8)
[2024-03-30 11:38] LABS: Anion Gap 10.3 mmol/L (3-11); BUN 47 mg/dL (7-18); CO2 23.7 mmol/L (21.0-32.0); CREATININE 1.8 mg/dL (0.70-1.30); Calcium 8.9 mg/dL (8.5-10.1); Chloride 103 mmol/L (98-107); Estimated GFR 40.75 (mL/min/1.73m2); Glucose 268 mg/dL (74-106); Potassium 5.2 mmol/L (3.5-5.1); Sodium 137 mmol/L (136-145)
[2024-03-30 11:39] VITALS: BP 127/60; PULSE 61; RESP 17; TEMP 36.5; O2SAT 95
[2024-03-30 11:40] LABS: Absolute Basophil Count 0.07 10^3/uL (0.0-0.2); Absolute Eosinophil Count 0.67 10^3/uL (0.0-0.7); Absolute Lymphocyte Count 0.74 10^3/uL (1.2-3.4); Absolute Monocyte Count 0.45 10^3/uL (0.1-0.8); Absolute Neutrophil Count 5.12 10^3/uL (1.2-6.7); Atypical Lymphocytes % 1 %; Bands % 4 %; Diff Comment Manual Differential; Metamyelocytes % 4; Myelocytes % 1; RBC Morphology Normal
[2024-03-30] MEDS: Insulin Glargine 300 UNITS/3 ML PEN 8 UNITS SC (12:10)
--- NOTE | 2024-03-30 12:48 | PT.INTREAT ---
PT Notes Visit Reasons: Cellulitis with Abscess Left Foot, NIDDM Inpatient Physical Therapy Initial Evaluation Date: 03/30/2024 Precautions: Per entrepreneur, NWB L LE with AD. Wound vacuum in place. Subjective: Seated on chair, agreeable with working with PT and checking out the stairs that he agreed to negotiate tomorrow. Complained of fatigue after a short walk from his room to the therapy room. Able to comply with NWB on the L foot with occasional to touch for balance when in standing. Objective: General Observation: Dressing and wound vacuum in place of the L eg and foot Mental Status: Alert and oriented x 4 Pain: 1-2/10 in the L foot Bed Mobility/Transfers: Minimal cueing provided for use of B hands as needed for support, movement sequence, AD management, and posture to reduce fall risk and minimize pain report Sit to stand stand by assist with FWW Stand to sit stand by assist with FWW Gait: 30 feet + 30 feet using FWW with NWB and occasional toe touch for balance to rest as patient complained of fatigue. Step asymmetric with decreased step height and length on the L. Balance: Static sitting: Normal Dynamic sitting: Normal Static standing: Fair SDynamic standing: Unable to test due to WB precaution Assessment: Fatigue and generalized weakness limited patient's mobility performance today, motivation is strong and with 2 seated rests, he was able to b=navigate distance from chair to the chair in the therapy covering about 25-[address] with 1-2 short standing rests on L toe touch. he will be sent home with front-wheeld walker to allow for continued NWB on the L LE as his wound heals. THERA EX: Instructed patient with safe and correct performance of seated level exercises to facilitate increase circulation to BLE to promote healing of wound: Ankle DF and PF x 10 LAQ's x 10 Clamshell exercise x 10 Quad sets x 10 Seated hip abduction x 10 Plan of Care/Treatment Plan: 1-2x/day, 7 days/week x 1 week. Plan of care has been reviewed with the SHIRRING MACHINE OPERATOR AUTOMATIC providing the service under Physical Therapy direction. Initiate Physical Therapy intervention for strengthening, bed mobility, transfers, gait, stairs, balance training, use of assistive device. --Progress with stairs training in the next session to increase mobility level. DISCHARGE RECOMMENDATIONS: Patient will benefit from home health PT services in order to progress mobility level using least restrictive assistive ambulatory device, assess home safety, identify additional equipment needs, and establish a functional maintenance program that will increase ability of patient to remain at home. TREATMENT CODE/TIME: 15272 x 20 minutes for 1 unit, 64112 x 14 minutes for 1 unit (12:48?13:22).
--- NOTE | 2024-03-30 13:28 | PDOC.CMPRO ---
Date of service: 03/30/24 Time of Service: 13:28 Care Management Progress Note Progress Note Text Progress Note Text: Alpesh was sitting in a recliner eating lunch when CM met with him. He currently has a wound vac and cultures are pending, shelter abx course is to be determined at this time. He says he's feeling better, denies pain and feels he is receiving great care. CM will continue to follow. Discharge Potential Discharge Needs: PCP F/U Appt and Surgical F/U Appt Anticipated Barriers to Discharge: None Identified Patient/Family Education Needs: Review discharge instructions, discuss Ask Me Three Transportation: Private vehicle Plan: Admitted for wound care and IV therapy, following wound debridment of his gangrenous left foot on 03/26/24. Cultures are pending. New [facility] RN will be needed for dressing changes and support with home IV therapy (if needed). Anticipate, Alpesh will discharge home when medically ready per MD. Pt will be transported home via private car at the time of discharge. CM will continue to support discharge considerations. SDOH(Care Management) Screening Will the Patient Participate in the Screening?: Yes Do you worry about having a steady place to live?: yes In the past 12 months, have you had to go without electric, gas, oil or water in your home?: no Have you or anyone in your house had to go without enough food to eat?: no Has lack of transportation kept you from medical appointments or from doing things needed for daily living?: no Has anyone in your support network made you feel unsafe for any reason?: no Health Related Social Needs Health related social needs: housing instability, housed, with risk of homelessness(Z59.811)
--- NOTE | 2024-03-30 13:37 | PHACLINREV_ITS ---
Pharmacy Admission Review Admission Clinical Review Admission Pharmacy Review: Diarrhea (Acute) Uncontrolled diabetes mellitus with hyperglycemia (Acute) Gas gangrene (Acute) Diabetic wet gangrene of the foot (Acute) Cellulitis of foot (Acute) Gangrene of left foot (Acute) Hyponatremia (Acute) Cellulitis and abscess of foot (Acute) Discharge planning issues (Acute) celecoxib [From Celebrex] Allergy (Severe, Verified 03/25/24 15:22) BERRIOS-JAYME SYNDROME atorvastatin Adverse Reaction (Verified 03/25/24 15:22) Unknown Resuscitation Status Full Code Height 5 ft 9 in Weight 110.4 kg Pharmacy Admission Review Renal Dosing Renal Dosing: BUN 47 mg/dL (7-18) H 03/30/24 11:13 Creatinine 1.8 mg/dL (0.70-1.30) H 03/30/24 11:13 Medications needing adjustments: Reviewed (CrCl 48.7 mL/min) List of meds needing interventions: Current medications are okay Anticoagulation Anticoagulation: Hgb 10.1 g/dL (13.5-17.5) L 03/30/24 11:13 Hct 30.6 % (40.0-50.0) L 03/30/24 11:13 Plt Count 354 10^3/uL (130-400) 03/30/24 11:13 INR 1.1 (0.9-1.1) 03/25/24 16:30 Creatinine 1.8 mg/dL (0.70-1.30) H 03/30/24 11:13 DVT Prophylaxis: Reviewed Medications: Apixaban (5mg PO BID) Relevant Labs Relevant Labs: ESR 50 mm/hr (0-20) H 03/27/24 05:36 Sodium 137 mmol/L (136-145) 03/30/24 11:13 Potassium 5.2 mmol/L (3.5-5.1) H 03/30/24 11:13 Chloride 103 mmol/L (98-107) 03/30/24 11:13 Magnesium 2.0 mg/dL (1.8-2.4) 03/27/24 05:36 C-Reactive Protein 23.62 mg/dL (<or=0.5) H 03/27/24 05:36 Electrolytes, C-Reactive P, ESR: Reviewed (K 5.2, Hgb increased from 9.6 to 10.1) DM Control DM Control: Glucose 268 mg/dL (74-106) H 03/30/24 11:13 Finger Stick Blood Glucose 264 1136 Finger Stick Blood Glucose 264 1136 Finger Stick Blood Glucose 235 0750 Finger Stick Blood Glucose 235 0750 DM Control: Reviewed Insulin Dosing, Diabetic Medication: Has order for SS insulin, glargine 18 units at bedtime (increased today from 10 units) and patients own [facility] Cardiac Review Cardiac Review: Blood Pressure 127/60 1139 Blood Pressure 148/58 0751 Blood Pressure 115/57 0336 BP, HR, EF%: Reviewed (BP and HR WNL) QTc Review QTc: Reviewed (427 from 12/02/21 - most recent EKG on file) IV to PO Switch IV Medications: Reviewed (cefepime and vancomycin) Home Meds Home Med List reviewed: Reviewed Relevent Home Meds Not ordered & why?: sildenafil (PRN) Current Meds Current Medication Order Review: Reviewed Pharmacy Antibiotic Review Relevant Labs: WBC 7.42 10^3/uL (4.4-10.8) 03/30/24 11:13 Procalcitonin 0.5 ng/mL 03/27/24 05:36 Temperature 36.5 C Temperature 36.6 C Temperature 36.1 C Microbiology 03/25/24 16:35 Blood Culture - Preliminary Blood Staph hominis ssp hominis Anaerobic Gram Negative Cocci 03/26/24 15:09 Surgical Culture - Preliminary Foot - Left Staphylococcus Species Staphylococcus Species#2 Staphylococcus Species#3 Streptococcus species Gram Stain - Final 03/26/24 13:30 Surgical Culture - Preliminary Foot - Left Streptococcus species Streptococcus species#2 Gram Stain - Final 03/27/24 08:15 Blood Culture - Preliminary Blood NO GROWTH 72 HOURS 03/27/24 08:15 Blood Culture - Preliminary Blood NO GROWTH 72 HOURS 03/25/24 16:30 Blood Culture - Preliminary Blood NO GROWTH 96 HOURS 03/26/24 13:30 Anaerobic Culture - Preliminary Foot - Left Anaerobic mixed growth 03/26/24 15:09 Anaerobic Culture - Preliminary Foot - Left Anaerobic mixed growth Pharmacy Antibiotic Activity: C/S review and Reviewed, no change Comments: Patient is on cefepime and vancomycin, day 5, for cellulitis of left foot. Vancomycin currently dosed at 1.25g q24h, level ordered for tomorrow morning at 0600. Repeat blood cultures negative at 72 hours. Per morning meeting, patient will need about 6 weeks of antibiotics.
--- NOTE | 2024-03-30 15:55 | DI.RAD_ITS ---
Exam(s) XR PORTABLE CHEST AP POST LINE EXAM: XR PORTABLE CHEST AP POST LINE CLINICAL HISTORY: picc line placement. TECHNIQUE: 2D digital imaging was performed. COMPARISON: CR,XR XR CHEST 2V PA LATERAL from 12/02/2021 FINDINGS: Single AP portable view. Distal tip of the right PICC line is at the SVC-RA junction. Heart size is upper normal. The mediastinum is not widened. Lungs are clear. No infiltrates nor obvious pleural effusions. IMPRESSION: No acute pulmonary findings on this single AP portable view of the chest. PICC line as above DATA REPOSITORY: RADIATION DOSE DELIVERED:
[2024-03-30] MEDS: VANCOMYCIN/WATER (PEG) 1.25 GM/250 ML BAG IVPB (16:01)
--- NOTE | 2024-03-30 16:06 | DI.RAD_ITS ---
Exam(s) XR PORTABLE CHEST AP POST LINE EXAM: XR PORTABLE CHEST AP POST LINE CLINICAL HISTORY: picc line insertion. TECHNIQUE: 2D digital imaging was performed. COMPARISON: No exams were available for comparison FINDINGS: Single AP portable view. Heart size is upper normal. The mediastinum is not widened. Lungs are clear. No infiltrates nor obvious pleural effusions. Distal tip of the newly placed right PICC line is at the SVC-RA junction. IMPRESSION: Satisfactory position of the right PICC line DATA REPOSITORY: RADIATION DOSE DELIVERED:
[2024-03-30 16:08] VITALS: BP 147/63; PULSE 66; RESP 16; TEMP 37.7; O2SAT 96
[2024-03-30] MEDS: Sodium Zirconium Cyclosilicate 10 GM PKT PO ×2 (18:24→22:00)
[2024-03-30 19:29] VITALS: BP 168/67; PULSE 73; RESP 19; TEMP 36.4; O2SAT 97
[2024-03-30] MEDS: Insulin Glargine 300 UNITS/3 ML PEN 18 UNITS SC (19:46)
[2024-03-30 23:25] VITALS: BP 151/70; PULSE 65; RESP 19; TEMP 36.4; O2SAT 97
[2024-03-31 03:39] VITALS: BP 163/53; PULSE 64; RESP 18; TEMP 36.1; O2SAT 97
[2024-03-31] MEDS: Sodium Zirconium Cyclosilicate 10 GM PKT PO ×3 (06:00→21:56)
[2024-03-31] MEDS: Normal Saline Flush 10 ML SYR IVP ×7 (06:00→21:26)
[2024-03-31] MEDS: CEFEPIME 2 GM in Normal Saline 100 ML IVPB ×2 (06:27→17:55)
[2024-03-31 06:51] LABS: HCT 28.9 % (40.0-50.0); HGB 9.5 g/dL (13.5-17.5); MCH 27.5 pg (27.0-33.0); MCHC 32.9 % (32.0-36.0); MCV 84 fL (80-95); Platelet Count 346 10^3/uL (130-400); RBC 3.45 10^6/uL (4.36-5.78); RDW 12.6 % (11.8-14.1); RDW-SD 38.3 fL; WBC 8.28 10^3/uL (4.4-10.8)
[2024-03-31 07:11] LABS: Anion Gap 9.7 mmol/L (3-11); BUN 46 mg/dL (7-18); CO2 24.3 mmol/L (21.0-32.0); CREATININE 1.8 mg/dL (0.70-1.30); Calcium 8.9 mg/dL (8.5-10.1); Chloride 105 mmol/L (98-107); Estimated GFR 40.75 (mL/min/1.73m2); Glucose 204 mg/dL (74-106); Potassium 4.6 mmol/L (3.5-5.1); Sodium 139 mmol/L (136-145)
[2024-03-31 07:24] LABS: Vancomycin, Random 20.3 ug/mL
[2024-03-31 07:29] LABS: Absolute Basophil Count 0.08 10^3/uL (0.0-0.2); Absolute Eosinophil Count 0.99 10^3/uL (0.0-0.7); Absolute Lymphocyte Count 1.49 10^3/uL (1.2-3.4); Absolute Monocyte Count 0.41 10^3/uL (0.1-0.8); Absolute Neutrophil Count 4.97 10^3/uL (1.2-6.7); Bands % 1 %; Diff Comment Manual Differential; Metamyelocytes % 3; Myelocytes % 1; RBC Morphology Normal
[2024-03-31] MEDS: Lactobacillus Acidophilus CAP 1 CAP PO ×3 (07:52→20:50)
[2024-03-31] MEDS: Carvedilol 12.5 MG TAB PO ×2 (07:53→20:50)
[2024-03-31] MEDS: Rosuvastatin 20 MG TAB PO (07:53)
[2024-03-31] MEDS: Citalopram 20 MG TAB PO (07:53)
[2024-03-31] MEDS: Losartan 50 MG TAB PO (07:53)
[2024-03-31] MEDS: buPROPion 100 MG TAB PO ×2 (07:53→20:50)
[2024-03-31] MEDS: Apixaban 5 MG TAB PO ×2 (07:53→20:50)
[2024-03-31] MEDS: Insulin Glargine 300 UNITS/3 ML PEN 18 UNITS SC ×2 (07:54→21:54)
[2024-03-31] MEDS: Insulin Aspart 300 UNITS/3 ML PEN SC ×4 (07:55→21:54)
[2024-03-31 08:04] VITALS: BP 138/65; PULSE 64; RESP 18; TEMP 36.8; O2SAT 97
--- NOTE | 2024-03-31 10:36 | PT.INTREAT ---
PT Notes Visit Reasons: Cellulitis with Abscess Left Foot, NIDDM Inpatient Physical Therapy Initial Evaluation Date: 03/31/2024 Precautions: Per kardex clerk, NWB L LE with AD. Wound vacuum in place. Subjective: Not as tired as yesterday. Happy that strength is beginning to come back. Satisfied about how performed on the stairs. Understands that complying with WB precautions will allow for proerp healing of L foot wound. Objective: General Observation: Dressing and wound vacuum in place of the L eg and foot Mental Status: Alert and oriented x 4 Pain: 1-2/10 in the L foot Bed Mobility/Transfers: Minimal cueing provided for use of B hands as needed for support, movement sequence, AD management, and posture to reduce fall risk and minimize pain report Sit to stand supervision with FWW Stand to sit supervision with FWW Gait: 45 feet + 45 feet using FWW with NWB and occasional toe touch for balance during standing rest. Step asymmetric with decreased step height and length on the L. Stairs: Up and down 6 x 4-inch steps and 4 x 6-inch steps while holding onto B rails with contact guard assist and stand by assist of NATHALIA [place] for safety. No report of increased pain. PM THERA EX: Access Code: [email or web address] URL: [email or web address] Date: 03/31/2024 Prepared by: Ewa Monaco Exercises - Seated Hip Abduction with Resistance - 1 x daily - 7 x weekly - 1 sets - 10 reps - 5 hold - Seated March - 1 x daily - 7 x weekly - 1 sets - 10 reps - 5 hold - Seated Long Arc Quad - 1 x daily - 7 x weekly - 1 sets - 10 reps - 5 hold - Seated Hip Adduction Isometrics with Ball - 1 x daily - 7 x weekly - 1 sets - 10 reps - 5 hold - Seated Heel Raise - 1 x daily - 7 x weekly - 1 sets - 10 reps - 5 hold - Supine Straight Leg Raises - 1 x daily - 7 x weekly - 1 sets - 10 reps - 5 hold Balance: Static sitting: Normal Dynamic sitting: Normal Static standing: Fair Dynamic standing: Unable to test due to WB precaution Assessment: Fatigue and generalized weakness diminishing, allowing for improved mobility performance today. Moderate cueing were given to ensure consistent NWB on the L LE for each step. Patient continues to require guidance and supervision with mobility progression in compliance with WB precaution. Plan of Care/Treatment Plan: 1-2x/day, 7 days/week x 1 week. Plan of care has been reviewed with the DONOR SERVICES TEAM LEADER providing the service under Physical Therapy direction. Initiate Physical Therapy intervention for strengthening, bed mobility, transfers, gait, stairs, balance training, use of assistive device. DISCHARGE RECOMMENDATIONS: Patient will benefit from home health PT services in order to progress mobility level using least restrictive assistive ambulatory device, assess home safety, identify additional equipment needs, and establish a functional maintenance program that will increase ability of patient to remain at home. TREATMENT CODE/TIME: Session 1--50643 x 20 minutes for 1 unit (10:36-10:56). Session 2--[id number] x 17 minutes for 1 unit (13:28?13:45).
[2024-03-31 11:16] VITALS: BP 114/52; PULSE 61; RESP 16; TEMP 36.7; O2SAT 97
--- NOTE | 2024-03-31 13:10 | W.NUTRFU ---
Date of service: 03/31/24 Time of Service: 09:30 Nutrition Note NOTE: received request for nutrition consult regarding diabetes education/mgt Ptt is 69yo male with cellulitis of left food with abscess and accompanying diarrhea from abx/infection. Offered trial of Banatrol to help with diarrhea - pt declined after 1 sip due to not liking the taste. He has a history of CKD 4 and obesity. 204 for FPG this morning and continues with moderate ss coverage at meals and 2200. and getting 18 units lantus BID - pt states this is too little insulin as he takes 60units BID at home. PT states he checks glucose 3x daily and is not interested in using cgm as a tool at this time. His girlfriend does the cooking and shopping at home. Until recently pt drank 8 diet pepsis per day - even though no sugar he does realize this isn't benefiting him at all. He states he recently had wake up call in regards to his diet choices and knows he has to do better. 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 pt tolerating CHO consistent diet with normal consistencies. Will look to touch base with pt after discharge in anticipation in working together on his diet. Time Spent in Nutritional Counseling and Treatment: 15 min
[2024-03-31] MEDS: VANCOMYCIN/WATER (PEG) 1.25 GM/250 ML BAG IVPB (14:33)
--- NOTE | 2024-03-31 14:37 | PGE_ITS ---
Date of Service Date of service: 03/31/24 Time of Service: 09:20 Assessment and Plan Assessment and plan (1) Cellulitis and abscess of foot: Status: Acute Assessment and plan: 03/26/2024 OR with podiatry for debridement, please see notes Wound vac in place , new wound vac order in progress for HH nursing Foot dressed with KULWANT - DCI Preliminary wound cultures showed mixed anaerobic jamaica with Anaerobic GNR and 3 species of staphylococcus but not aureus On Vancomycin but no MRSA and on cefepime w/o pseudomonas -Consulting ID at [facility] on 03/30 and recommended to wait for speciety today, results still pending 03/25 blood cultures showed GPC, staph hominis but repeated blood cultures negative at 48 hours (2) Diabetes mellitus: Status: Chronic Assessment and plan: Continue Glucs AC & HS with SSI coverage On Jardiance home dose Lantus increased to 18 units BID was on 60 units BID at home Qualifiers: Chronic kidney disease stage: stage 4 (severe) Diabetes mellitus complication detail: with chronic kidney disease Diabetes mellitus complication status: with kidney complications Diabetes mellitus correction insulin use: with intermediate teacher use Diabetes mellitus type: type 2 Qualified Code(s): E11.22 - Type 2 diabetes mellitus with diabetic chronic kidney disease; N18.4 - Chronic kidney disease, stage 4 (severe); 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 Qualifiers: Sleep apnea type: obstructive Qualified Code(s): G47.33 - Obstructive sleep apnea (adult) (pediatric) (4) Diarrhea: Status: Acute Assessment and plan: resolved Probiotics intiated (5) CKD (chronic kidney disease): Status: Chronic Assessment and plan: stable and below baseline avoid nephrotoxic drugs and renal dose as needed. On vanocmycin Qualifiers: Chronic kidney disease stage: stage 4 (severe) Qualified Code(s): N18.4 - Chronic kidney disease, stage 4 (severe) (6) Morbid obesity: Status: Acute Assessment and plan: Continue Diabetic diet Nutrition consult completed and patient has the option to consult outpatient (7) Discharge planning issues: Status: Acute Assessment and plan: CM to f/u Plan for 6 weeks of IV antibiotics for evidence of exposed bone to the wound: Patient is agreeable to BID infusions at [facility] Strictly non-weightbearing - PT consult Possible graft once wound starts to heal Plan for wound debridement over the next 2 weeks as per podiatry HH for wound vac management Discussed with Dr. Keith Subjective Subjective Patient reports: feels better, tolerating liquids well, tolerating a regular diet, voiding w/o difficulty, flatus, bowel movement, shortness of breath and afebrile; denies still having pain, diarrhea, nausea or vomiting Exam Narrative Exam Narrative: Constitutional Alert and oriented X 4, no acute distress Neuro: A& O X4, non-focal Respiratory: lungs bilaterally CTA Cardiac: regular rate, regular rhythm,S1, S2 GI: abdomen soft, non-tender, non-distended, bowel sounds are present Extremities: Left foot KULWANT bandage in place with wound vac to the left lateral wound debridement site Psych: Appropriate mood and affect Objective Last Vital Signs Temp 36.7 C 03/31/24 11:16 Pulse 61 03/31/24 11:16 Resp 16 03/31/24 11:16 BP 114/52 L 03/31/24 11:16 Pulse Ox 97 03/31/24 11:16 Laboratory Results - last 24 hr 03/31/24 06:08 WBC 8.28 RBC 3.45 L Hgb 9.5 L Hct 28.9 L MCV 84 MCH 27.5 MCHC 32.9 RDW 12.6 Plt Count 346 MPV 9.0 Immature Gran % 0.0 Neutrophils % 59.0 Band Neutrophils % 1 Lymphocytes % 18.0 Monocytes % 5.0 Eosinophils % 12.0 Basophils % 1.0 Metamyelocytes % 3 Myelocytes % 1 Nucleated RBC % 0.0 Absolute Neutrophils 4.97 Absolute Lymphocytes 1.49 Absolute Monocytes 0.41 Absolute Eosinophils 0.99 H Absolute Basophils 0.08 RBC Morphology Normal Sodium 139 Potassium 4.6 Chloride 105 Carbon Dioxide 24.3 Anion Gap 9.7 BUN 46 H Creatinine 1.8 H Est GFR (CKD-EPI 2020) 40.75 Glucose 204 H Calcium 8.9 Random Vancomycin 20.3 Time Spent with Patient Time Spent with Patient: >50 minutes Time was spent: preparing to see the patient(eg.review tests), obtaining and/or reviewing separately otained hiistory, ordering medications,tests, procedures, referring, communicating with other health transitional care manager, indepentently interpreting results, counseling the patient and care coordination
[2024-03-31 15:55] VITALS: BP 140/61; PULSE 66; RESP 18; TEMP 36.3; O2SAT 96
--- NOTE | 2024-03-31 16:21 | CMPROGNOTE_ITS ---
Date of service: 03/31/24 Time of Service: 16:21 Care Management Progress Note Progress Note Text Progress Note Text: No changes to overall discharge plan. Anticipate, Alpesh will discharge home with a wound vac and IV ABX, if needed. Wound vac authorization is in progress. Orders for home IV therapy will be supported by CM when known, cultures are still pending. Alpesh will need New [facility] RN and PT. CM will follow. Discharge Potential Discharge Needs: PCP F/U Appt Anticipated Barriers to Discharge: None Identified Patient/Family Education Needs: Review discharge instructions, discuss Ask Me Three Transportation: Private vehicle Plan: Admitted for wound care and IV therapy, following wound debridment of his gangrenous left foot on 03/26/24. Cultures are pending. [facility] nursing will be needed for dressing changes and support with home IV therapy (if needed). Anticipate, Alpesh will discharge home with New [facility] PT/RN. when medically ready per MD. Pt will be transported home via private car at the time of discharge. CM will continue to support discharge considerations. SDOH(Care Management) Screening Will the Patient Participate in the Screening?: Yes Do you worry about having a steady place to live?: yes In the past 12 months, have you had to go without electric, gas, oil or water in your home?: no Have you or anyone in your house had to go without enough food to eat?: no Has lack of transportation kept you from medical appointments or from doing things needed for daily living?: no Has anyone in your support network made you feel unsafe for any reason?: no Health Related Social Needs Health related social needs: housing instability, housed, with risk of homelessness(Z59.811)
--- NOTE | 2024-03-31 17:09 | CHAPLAIN ---
Alpesh was up in the recliner getting ready to eat his dinner when I visited. His SO was with him. Alpesh said he was suppose to go home today, but he's waiting on a wound vac that hasn't arrived yet. He hopes to be going home tomorrow. He also waiting to get the right antibiotics he said. Another time he was giving some antibiotics that he was allergic to, and was very sick, he said. It took a week to figure out what was wrong, he explained. So he's willing wait and make sure everything is set, he said. Alpesh went to the OR last week for an infected wound on his foot.
[2024-03-31 20:54] VITALS: BP 139/57; PULSE 65; RESP 18; TEMP 36.7; O2SAT 95
[2024-03-31 21:43] LABS: Glucose 359 mg/dL (74-106)
[2024-04-01] VITALS (7 sets, daily range): BP systolic 115–170; BP diastolic 51–90; PULSE 60–71; RESP 15–20; TEMP 36.1–37; O2SAT 94–99
[2024-04-01] MEDS: Sodium Zirconium Cyclosilicate 10 GM PKT PO ×2 (05:13→14:21)
[2024-04-01] MEDS: CEFEPIME 2 GM in Normal Saline 100 ML IVPB (05:14)
[2024-04-01 07:09] LABS: HCT 28.6 % (40.0-50.0); HGB 9.1 g/dL (13.5-17.5); MCH 27.1 pg (27.0-33.0); MCHC 31.8 % (32.0-36.0); MCV 85 fL (80-95); MPV 8.5 fL (8.0-11.0); Platelet Count 358 10^3/uL (130-400); RBC 3.36 10^6/uL (4.36-5.78); RDW 12.6 % (11.8-14.1); RDW-SD 38.6 fL; WBC 8.21 10^3/uL (4.4-10.8)
[2024-04-01 07:14] LABS: ESR 49 mm/hr (0-20)
[2024-04-01 07:29] LABS: Anion Gap 7.4 mmol/L (3-11); BUN 47 mg/dL (7-18); CO2 25.6 mmol/L (21.0-32.0); CREATININE 1.8 mg/dL (0.70-1.30); Calcium 8.7 mg/dL (8.5-10.1); Chloride 105 mmol/L (98-107); Estimated GFR 40.75 (mL/min/1.73m2); Glucose 191 mg/dL (74-106); Potassium 4.3 mmol/L (3.5-5.1); Sodium 138 mmol/L (136-145)
[2024-04-01 07:46] LABS: Absolute Basophil Count 0.08 10^3/uL (0.0-0.2); Absolute Eosinophil Count 0.41 10^3/uL (0.0-0.7); Absolute Lymphocyte Count 1.64 10^3/uL (1.2-3.4); Absolute Monocyte Count 1.07 10^3/uL (0.1-0.8); Absolute Neutrophil Count 4.84 10^3/uL (1.2-6.7); Bands % 2 %; Metamyelocytes % 2
[2024-04-01 07:47] LABS: Diff Comment Manual Differential; RBC Morphology Normal
[2024-04-01] MEDS: Apixaban 5 MG TAB PO ×2 (07:47→20:20)
[2024-04-01] MEDS: Lactobacillus Acidophilus CAP 1 CAP PO ×3 (07:48→20:20)
[2024-04-01] MEDS: Carvedilol 12.5 MG TAB PO ×2 (07:48→20:20)
[2024-04-01] MEDS: Citalopram 20 MG TAB PO (07:48)
[2024-04-01] MEDS: buPROPion 100 MG TAB PO ×2 (07:48→20:20)
[2024-04-01] MEDS: Normal Saline Flush 10 ML SYR IVP ×2 (07:48→21:43)
[2024-04-01] MEDS: Losartan 50 MG TAB PO (07:48)
[2024-04-01] MEDS: Insulin Aspart 300 UNITS/3 ML PEN SC ×4 (07:50→21:36)
[2024-04-01] MEDS: Rosuvastatin 20 MG TAB PO (07:54)
[2024-04-01] MEDS: Insulin Glargine 300 UNITS/3 ML PEN 18 UNITS SC (07:54)
--- NOTE | 2024-04-01 09:55 | W.PM.PROGNOT ---
Date of Service Date of service: 04/01/24 Time of Service: 09:56 Assessment and Plan Assessment and plan (1) Cellulitis and abscess of foot: Status: Acute Assessment and plan: 03/26/2024 OR with podiatry for debridement, please see notes Wound vac in place to be changed today Foot dressed with KULWANT - DCI Preliminary wound cultures showed mixed anaerobic jamaica with Anaerobic GNR and 3 species of staphylococcus but not aureus On Vancomycin but no MRSA and on cefepime w/o pseudomonas no bacteroides: Lab does not do routine speciety and sensitivity on Anaerobic GN pathogens as per Aydee Morales from microbiology Lab report to be faxed to [facility] ID for consult at [phone]. Now available speciety: Staph simulans 1 and 2 and edpidermis and granulicatella Adiacens, strep mitis/ oralis/viridans -Consulted ID at [facility] on 03/30 and recommended to wait for speciety due on 03/31 on nano from 03/26. -04/01 reports not different from prior, call Dr. Hammer pathologist to discuss available speciety Consultation with [facility] ID today with Dr. Walter -Recommends Vancomycin IV to maintain level between 15- 20 w pharmacy consult and Ertapenem 1 gm IV Q 24 hours - 03/25 blood cultures showed GPC, staph hominis but repeated blood cultures negative at 120 hours. Anaerobic gram negative cocci added to 03/25 report at a later date then the initial call to Yoselin Rodriguez RN CC on [phone] at 1128. (2) Diabetes mellitus: Status: Chronic Assessment and plan: On Glucs AC & HS with SSI coverage, Jardiance home dose Lantus increased to 18 units BID was on 60 units BID at home Glucose around 200 to 350 will increase Lantus dose to 25 units twice daily Qualifiers: Chronic kidney disease stage: stage 4 (severe) Diabetes mellitus complication detail: with chronic kidney disease Diabetes mellitus complication status: with kidney complications Diabetes mellitus alf insulin use: with alf use Diabetes mellitus type: type 2 Qualified Code(s): E11.22 - Type 2 diabetes mellitus with diabetic chronic kidney disease; N18.4 - Chronic kidney disease, stage 4 (severe); Z79.4 - penitentiary (current) use of 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 Qualifiers: Sleep apnea type: obstructive Qualified Code(s): G47.33 - Obstructive sleep apnea (adult) (pediatric) (4) Diarrhea: Status: Acute Assessment and plan: resolved Probiotics intiated (5) CKD (chronic kidney disease): Status: Chronic Assessment and plan: stable and below baseline avoid nephrotoxic drugs and renal dose as needed. On vanocmycin Qualifiers: Chronic kidney disease stage: stage 4 (severe) Qualified Code(s): N18.4 - Chronic kidney disease, stage 4 (severe) (6) Morbid obesity: Status: Acute Assessment and plan: Continue Diabetic diet Nutrition consult completed and patient has the option to consult outpatient (7) Discharge planning issues: Status: Acute Assessment and plan: CM to f/u Plan for 6 weeks of IV antibiotics outpatient for evidence of exposed bone to the wound: Patient confirms home IV antibiotic preference Continue PT consult :Strictly non-weight bearing - Follow-up with podiatry for possible graft once wound starts to heal and plan for wound debridement over the next 2 weeks as per podiatry HH for wound vac management and home IV antibiotics teaching, blood work Discussed with Dr. Keith Subjective Subjective Patient reports: feels better, tolerating liquids well, tolerating a regular diet, voiding w/o difficulty, bowel movement and shortness of breath; denies diarrhea, blood in stool, nausea, vomiting or fever Exam Narrative Exam Narrative: Constitutional Alert and oriented X 4, no acute distress Neuro: A& O X4, non-focal Respiratory: lungs bilaterally CTA Cardiac: regular rate, regular rhythm,S1, S2 GI: abdomen soft, non-tender, non-distended, bowel sounds are present Extremities: Left foot KULWANT bandage in place with wound vac to the left lateral wound debridement site Psych: Appropriate mood and affect Objective Last Vital Signs Temp 36.6 C 04/01/24 07:40 Pulse 68 04/01/24 07:40 Resp 17 04/01/24 07:40 BP 126/59 L 04/01/24 07:40 Pulse Ox 99 04/01/24 07:40 Laboratory Results - last 24 hr 03/31/24 04/01/24 21:25 06:08 WBC 8.21 RBC 3.36 L Hgb 9.1 L Hct 28.6 L MCV 85 MCH 27.1 MCHC 31.8 L RDW 12.6 Plt Count 358 MPV 8.5 Immature Gran % See Differential Neutrophils % 57.0 Band Neutrophils % 2 Lymphocytes % 20.0 Monocytes % 13.0 Eosinophils % 5.0 Basophils % 1.0 Metamyelocytes % 2 Nucleated RBC % 0.0 Absolute Neutrophils 4.84 Absolute Lymphocytes 1.64 Absolute Monocytes 1.07 H Absolute Eosinophils 0.41 Absolute Basophils 0.08 RBC Morphology Normal ESR 49 H Sodium 138 Potassium 4.3 Chloride 105 Carbon Dioxide 25.6 Anion Gap 7.4 BUN 47 H Creatinine 1.8 H Est GFR (CKD-EPI 2020) 40.75 Glucose 359 H 191 H Calcium 8.7 C-Reactive Protein 2.70 H Time Spent with Patient Time Spent with Patient: >50 minutes Time was spent: preparing to see the patient(eg.review tests), obtaining and/or reviewing separately otained hiistory, ordering medications,tests, procedures, referring, communicating with other health childcare director, indepentently interpreting results, counseling the patient and care coordination
--- NOTE | 2024-04-01 10:55 | PDOC.CMPRO ---
Date of service: 04/01/24 Time of Service: 10:55 Care Management Progress Note Progress Note Text Progress Note Text: No changes to overall discharge plan. Anticipate, Aplesh will discharge home with a wound vac and IV ABX. Orders for home IV therapy will be supported by CM when known, cultures are still pending. Wound vac- PA is pending and is being followed by Karthik on [place]. Alpesh will need New [facility] RN/ PT. CM will follow. Discharge Potential Discharge Needs: PT Evaluation, PCP F/U Appt and Surgical F/U Appt Anticipated Barriers to Discharge: Other (Cultures from 03/27/24 are still pending) Patient/Family Education Needs: Review discharge instructions, discuss Ask Me Three Transportation: Private vehicle Plan: At this time, Alpesh is being treated with IV ABX and has cultures pending from 03/27/[address] Harris's request Cultures are now being sent to [facility]. ABX recommendations are expected to follow and may take up to 5 more days. New [facility] RN/PT will be ordered to support Alpesh with dressing changes, picc line assessments and support with his wound vac and IV therapy after discharge. Karthik on [place] is working on the wound vac authorization. CM will continue to support discharge considerations. SDOH(Care Management) Screening Will the Patient Participate in the Screening?: Yes Do you worry about having a steady place to live?: yes In the past 12 months, have you had to go without electric, gas, oil or water in your home?: no Have you or anyone in your house had to go without enough food to eat?: no Has lack of transportation kept you from medical appointments or from doing things needed for daily living?: no Has anyone in your support network made you feel unsafe for any reason?: no Health Related Social Needs Health related social needs: housing instability, housed, with risk of homelessness(Z59.811)
--- NOTE | 2024-04-01 13:03 | PGE_ITS ---
Date of Service Date of service: 04/01/24 Time of Service: 11:45 Assessment and Plan Assessment and plan (1) Gangrene of left foot: Status: Acute (2) Diabetic wet gangrene of the foot: Status: Acute (3) Gas gangrene: Status: Acute (4) CKD (chronic kidney disease): Status: Chronic Qualifiers: Chronic kidney disease stage: stage 4 (severe) Qualified Code(s): N18.4 - Chronic kidney disease, stage 4 (severe) (5) Cellulitis and abscess of foot: Status: Acute (6) Uncontrolled diabetes mellitus with hyperglycemia: Status: Acute (7) Heart failure: (8) DM (diabetes mellitus), type 2, uncontrolled w/ophthalmic complication: (9) Atherosclerosis of [place] coronary artery: (10) Osteomyelitis: Assessment and plan: Patient is seen bedside today status post OR I&D 03/26/2024. Labs and imaging reviewed. The wound appears to be healing at this time with no further abscess formation. Erythema appears to have resolved. I reviewed cultures today. There is heavy growth of anaerobic organisms however the specific organisms or sensitivities are not yet identified. Will await these results as this will be important in narrowing down antibiotics as the patient will require 6 weeks of antibiotics. Ester Kim has been in contact with infectious disease who agree with this. Wound VAC noted to be in place and functioning well with some drainage to the canister. Upon removal of the wound VAC the wound appears to be healing well. At this time, I recommend a wound VAC application by the wound care team with Adaptic, granufoam at 125 mmHg continuous pressure to be changed to Saturday. Advised the patient that once the wound appears to be granulating well we can then consider grafting the lateral wound to heal. I recommend keeping the wound dressings clean dry and intact. Patient to remain strictly nonweightbearing to the left lower extremity. He may heel touch for transfers. Recommend using a surgical shoe. I discussed risks for amputation if there is any further worsening or infection to bone. Will require at least 6 weeks of antibiotics. Will continue to follow. Patient to follow-up with mo outpatient within 1 week of discharge Subjective Subjective Interval history since last seen: Patient seen bedside today resting comfortably. Offers no acute complaints. Exam Extrem Other: Bilateral lower extremity physical exam: Derm: 7.0 x 6.5 x 1.0 cm full-thickness ulceration noted to the level of the pe riosteum to the lateral aspect of the left foot there is now mild granulation tissue noted to the wound bed (75% necrotic/fibrotic, 25% granular) with periosteum exposed, however overall doing well no periwound erythema, edema appears to be resolving with skin wrinkling noted as above, no crepitus no fluctuance no bogginess no proximal streaking noted at this time no malodor noted from the wound. Mild drainage/slough noted to the dressings, no active bleeding noted. Skin is otherwise warm dry and supple bilaterally no other open lesions or ulcerations noted bilaterally. Vascular: Strong posterior tibial pulse noted to the left lower extremity, DP pulse nonpalpable at this time, hair growth is present to the toes, edema noted to be resolving skin is warm to touch, mild duskiness noted to the wound edges dorsal medial aspect of the left foot MSK: No tenderness to palpation noted to the left foot or ankle. 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 Objective Last Vital Signs Temp 97.7 F 04/01/24 11:12 Pulse 63 04/01/24 11:12 Resp 16 04/01/24 11:12 BP 128/63 04/01/24 11:12 Pulse Ox 97 04/01/24 11:12 Laboratory Results - last 24 hr 03/31/24 04/01/24 21:25 06:08 WBC 8.21 RBC 3.36 L Hgb 9.1 L Hct 28.6 L MCV 85 MCH 27.1 MCHC 31.8 L RDW 12.6 Plt Count 358 MPV 8.5 Immature Gran % See Differential Neutrophils % 57.0 Band Neutrophils % 2 Lymphocytes % 20.0 Monocytes % 13.0 Eosinophils % 5.0 Basophils % 1.0 Metamyelocytes % 2 Nucleated RBC % 0.0 Absolute Neutrophils 4.84 Absolute Lymphocytes 1.64 Absolute Monocytes 1.07 H Absolute Eosinophils 0.41 Absolute Basophils 0.08 RBC Morphology Normal ESR 49 H Sodium 138 Potassium 4.3 Chloride 105 Carbon Dioxide 25.6 Anion Gap 7.4 BUN 47 H Creatinine 1.8 H Est GFR (CKD-EPI 2020) 40.75 Glucose 359 H 191 H Calcium 8.7 C-Reactive Protein 2.70 H Time Spent with Patient Time Spent with Patient: >50 minutes Time was spent: preparing to see the patient(eg.review tests), obtaining and/or reviewing separately otained hiistory, ordering medications,tests, procedures, referring, communicating with other health health care technician, indepentently interpreting results, counseling the patient and care coordination
[2024-04-01] MEDS: VANCOMYCIN/WATER (PEG) 1.25 GM/250 ML BAG IVPB (14:21)
--- NOTE | 2024-04-01 15:49 | PT.INTREAT ---
PT Notes Visit Reasons: Cellulitis with Abscess Left Foot, NIDDM Date: 04/01/2024 PRECAUTIONS: Per outpatient physical therapist assistant, NICHOLE Romero LE with AD. Wound vacuum in place. SUBJECTIVE: pt in bed when approached for therapy this afternoon, agrees to participating with therapy session. VITALS: monitored by nursing ? Therapeutic Activities 36719: Direct one-on-one instruction in dynamic activities to improve functional performance. ?? BED MOBILITY/TRANSFERS? Rolling L/R: independent Supine-sit: ?independent? Sit-supine: ?independent ? Sit-stand: ?SBA? Stand-sit: ??supervision ? Bed-Chair:? ?SBA ? Chair-bed: SBA Provided skilled cues and instruction on performance and technique throughout. Gait Training 66361: Direct one-on-one instruction and skilled instruction in: Employing an assistive device Modified weight-bearing status Movement sequencing Turning and movement with proper form Provided verbal cues for equipment management and technique Provided instruction in gait pattern Patient education regarding pacing and breathing techniques to maximize activity tolerance? GAIT? Assistive Device: ?FWW ? Weight bearing: NWB LLE Assist: ?SBA ? Distance:?? ?40' ? Deviation: ? ?Hop and TTWB with LLE with post OP shoes ? STAIRS:? Refused ? ASSESSMENT:?Pt required verbal cue for not placing TTWB to the floor, pt reports he is only doing it for balance, pt politely refused going up the stair expressing i only have to go up once when i get home and wont do it again. i have been through this for five time and is well aware on how to go up and down stairs. pt stayed in bed post session. PLAN: Continue with balance training, global strengthening and general conditioning for improved safety, mobility and activity tolerance until pt is ready for DC. TREATMENT CODE/TIME: [id number] 15mins(2:10-2:25pm)
[2024-04-01] MEDS: ERTAPENEM 1 GM in Normal Saline 50 ML IVPB (16:28)
[2024-04-01] MEDS: Insulin Glargine 300 UNITS/3 ML PEN 25 UNITS SC (21:36)
[2024-04-02 07:00] LABS: Abs Immature Grans 0.59 10^3/uL (0.0-0.06); Absolute Basophil Count 0.11 10^3/uL (0.0-0.2); Absolute Eosinophil Count 0.26 10^3/uL (0.0-0.7); Absolute Lymphocyte Count 1.36 10^3/uL (1.2-3.4); Absolute Monocyte Count 0.86 10^3/uL (0.1-0.8); Absolute Neutrophil Count 4.44 10^3/uL (1.2-6.7); Basophils % 1.4 %; Eosinophils % 3.4 %; HCT 30.2 % (40.0-50.0); HGB 9.6 g/dL (13.5-17.5); Immature Grans % 7.7 %; Lymphocytes % 17.8 %; MCH 27.4 pg (27.0-33.0); MCHC 31.8 % (32.0-36.0); MCV 86 fL (80-95); Monocytes % 11.3 %; Neutrophils % 58.4 %; Platelet Count 267 10^3/uL (130-400); RDW 12.9 % (11.8-14.1); WBC 7.62 10^3/uL (4.4-10.8)
[2024-04-02 07:26] LABS: BUN 46 mg/dL (7-18); CREATININE 1.8 mg/dL (0.70-1.30); Calcium 9.1 mg/dL (8.5-10.1); Chloride 105 mmol/L (98-107); Estimated GFR 40.75 (mL/min/1.73m2); Glucose 210 mg/dL (74-106); Potassium 4.4 mmol/L (3.5-5.1); Sodium 140 mmol/L (136-145)
[2024-04-02 07:46] LABS: Diff Comment Agrees w/ Instrument; RBC Morphology Normal
[2024-04-02 07:48] VITALS: BP 132/55; PULSE 60; RESP 18; TEMP 36.2; O2SAT 98
--- NOTE | 2024-04-02 07:57 | PGE_ITS ---
Date of Service Date of service: 04/02/24 Time of Service: 12:45 Assessment and Plan Assessment and plan (1) Cellulitis and abscess of foot: Status: Acute Assessment and plan: 03/26/2024 OR with podiatry for debridement, please see notes Wound vac in place Continue foot dressing with KULWANT - DCI and wound vac Continue IV antibiotics: Consultation with [facility] [place] [facility] today with Dr. Walter Recommendation for Vancomycin IV to maintain level between 15- 20 w pharmacy consult and Ertapenem 1 gm IV Q 24 hours -wound cultures showed mixed anaerobic [place] with Anaerobic GNR and Staph simulans 1 and 2 and edpidermis and granulicatella [place], strep mitis/ oralis/ viridans -No MRSA, bacteroides, or pseudomonas 03/25 blood cultures showed GPC, staph hominis but repeated blood cultures negative at 120 hours. Anaerobic gram negative cocci added to 03/25 report at a later date then the initial call to Yoselin Rodriguez RN CC on [phone] at 1128. (2) Diabetes mellitus: Status: Chronic Assessment and plan: On Glucs AC & HS with resistant SSI coverage, Jardiance home dose Lantus increased to 35 units BID was on 60 units BID at home Qualifiers: Diabetes mellitus type: type 2 Diabetes mellitus terminal computer operator insulin use: with terminal computer operator use Diabetes mellitus complication status: with kidney complications Diabetes mellitus complication detail: with chronic kidney disease Chronic kidney disease stage: stage 4 (severe) Qualified Code(s): E11.22 - Type 2 diabetes mellitus with diabetic chronic kidney disease; N18.4 - Chronic kidney disease, stage 4 (severe); Z79.4 - MCC (current) use of insulin (3) Sleep apnea: Status: Chronic Assessment and plan: continue home BiPAP with home settings. Qualifiers: Sleep apnea type: obstructive Qualified Code(s): G47.33 - Obstructive sleep apnea (adult) (pediatric) (4) CKD (chronic kidney disease): Status: Chronic Assessment and plan: stable and below baseline, Cr 1.8 w GFR 40 Avoid nephrotoxic drugs and renal dose as needed. On vancomycin Qualifiers: Chronic kidney disease stage: stage 4 (severe) Qualified Code(s): N18.4 - Chronic kidney disease, stage 4 (severe) (5) Morbid obesity: Status: Acute Assessment and plan: Continue Diabetic diet Nutrition consult completed and patient has the option to consult outpatient (6) Discharge planning issues: Status: Acute Assessment and plan: CM to f/u Plan for 6 weeks of IV antibiotics outpatient for evidence of exposed bone to the wound: Formed faxed on 04/01 for home IV antibiotics as per patient's preference Continue PT consult :Strictly non-weight bearing, refused today Follow-up with podiatry for possible graft once wound starts to heal and plan for wound debridement over the next 2 weeks as per podiatry HH RN for wound vac management and home IV antibiotics teaching, blood work Considering PT Discussed with Dr. Lawson Subjective Subjective Patient reports: feels better, tolerating liquids well, tolerating a regular diet, voiding w/o difficulty, flatus and afebrile; denies diarrhea, vomiting or shortness of breath Exam Narrative Exam Narrative: Constitutional In no acute distress Neuro: A& O X4 Respiratory: lungs bilaterally CTA Cardiac: regular rate, regular rhythm,S1, S2 GI: abdomen soft, non-tender, non-distended, bowel sounds are present Extremities: Left foot KULWANT bandage in place.Wound vac to the left foot debridement site in function Psych: Appropriate mood and affect Extrem Other: Bilateral lower extremity physical exam: Derm: 7.0 x 6.5 x 1.0 cm full-thickness ulceration noted to the level of the periosteum to the lateral aspect of the left foot there is now mild granulation tissue noted to the wound bed (75% necrotic/fibrotic, 25% granular) with periosteum exposed, however overall doing well no periwound erythema, edema appears to be resolving with skin wrinkling noted as above, no crepitus no fluctuance no bogginess no proximal streaking noted at this time no malodor noted from the wound. Mild drainage/slough noted to the dressings, no active bleeding noted. Skin is otherwise warm dry and supple bilaterally no other open lesions or ulcerations noted bilaterally. Vascular: Strong posterior tibial pulse noted to the left lower extremity, DP pulse nonpalpable at this time, hair growth is present to the toes, edema noted to be resolving skin is warm to touch, mild duskiness noted to the wound edges dorsal medial aspect of the left foot MSK: No tenderness to palpation noted to the left foot or ankle. 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 Objective Last Vital Signs Temp 36.2 C L 04/02/24 07:48 Pulse 60 04/02/24 07:48 Resp 18 04/02/24 07:48 BP 132/55 L 04/02/24 07:48 Pulse Ox 98 04/02/24 07:48 Laboratory Results - last 24 hr 04/02/24 05:55 WBC 7.62 RBC 3.50 L Hgb 9.6 L Hct 30.2 L MCV 86 MCH 27.4 MCHC 31.8 L RDW 12.9 Plt Count 267 MPV 9.0 Immature Gran % 7.7 Neutrophils % 58.4 Lymphocytes % 17.8 Monocytes % 11.3 Eosinophils % 3.4 Basophils % 1.4 Nucleated RBC % 0.0 Absolute Neutrophils 4.44 Absolute Lymphocytes 1.36 Absolute Monocytes 0.86 H Absolute Eosinophils 0.26 Absolute Basophils 0.11 RBC Morphology Normal Sodium 140 Potassium 4.4 Chloride 105 Carbon Dioxide 26.0 Anion Gap 9.0 BUN 46 H Creatinine 1.8 H Est GFR (CKD-EPI 2020) 40.75 Glucose 210 H Calcium 9.1 Time Spent with Patient Time Spent with Patient: >50 minutes Time was spent: preparing to see the patient(eg.review tests), obtaining and/or reviewing separately otained hiistory, ordering medications,tests, procedures, referring, communicating with other health hourly caregiver, indepentently interpreting results, counseling the patient and care coordination
[2024-04-02] MEDS: Insulin Aspart 300 UNITS/3 ML PEN SC ×4 (08:23→20:02)
[2024-04-02] MEDS: Insulin Glargine 300 UNITS/3 ML PEN 25 UNITS SC (08:24)
[2024-04-02] MEDS: Rosuvastatin 20 MG TAB PO (08:25)
[2024-04-02] MEDS: buPROPion 100 MG TAB PO ×2 (08:25→20:01)
[2024-04-02] MEDS: Carvedilol 12.5 MG TAB PO ×2 (08:25→20:02)
[2024-04-02] MEDS: Citalopram 20 MG TAB PO (08:25)
[2024-04-02] MEDS: Apixaban 5 MG TAB PO ×2 (08:25→20:01)
[2024-04-02] MEDS: Normal Saline Flush 10 ML SYR IVP ×3 (08:25→20:02)
[2024-04-02] MEDS: Losartan 50 MG TAB PO (08:25)
[2024-04-02] MEDS: Lactobacillus Acidophilus CAP 1 CAP PO ×3 (08:25→20:01)
--- NOTE | 2024-04-02 10:13 | PT.INNT ---
PT Notes Visit Reasons: Cellulitis with Abscess Left Foot, NIDDM Pt refused his session today and feels he does well on his own.
[2024-04-02 11:43] VITALS: BP 138/57; PULSE 63; RESP 17; TEMP 36.3; O2SAT 98
[2024-04-02] MEDS: VANCOMYCIN/WATER (PEG) 1.25 GM/250 ML BAG IVPB (13:37)
[2024-04-02 15:02] VITALS: BP 107/96; PULSE 67; RESP 20; TEMP 35.7; O2SAT 98
[2024-04-02] MEDS: ERTAPENEM 1 GM in Normal Saline 50 ML IVPB (15:40)
[2024-04-02 18:46] VITALS: RESP 19
--- NOTE | 2024-04-02 18:47 | RESPIRATORY ---
Pt's own [employer] Auto-BiPAP machine Max IPAP: 19 cmH2O Min EPAP: 17 cmH2O PS: 2 cmH2O No O2 bleed in Mask: Full mask Size: Medium DME: [facility]
[2024-04-02] MEDS: Insulin Glargine 300 UNITS/3 ML PEN 35 UNITS SC (20:01)
[2024-04-02 20:30] VITALS: BP 162/71; PULSE 69; RESP 20; TEMP 36.2; O2SAT 94
[2024-04-03 02:48] VITALS: BP 149/59; PULSE 60; RESP 20; TEMP 36.3; O2SAT 95
[2024-04-03 07:16] VITALS: BP 130/60; PULSE 61; RESP 18; TEMP 36.2; O2SAT 97
[2024-04-03] MEDS: Insulin Aspart 300 UNITS/3 ML PEN SC ×4 (07:55→21:12)
[2024-04-03] MEDS: Normal Saline Flush 10 ML SYR IVP ×3 (07:57→21:14)
[2024-04-03] MEDS: buPROPion 100 MG TAB PO ×2 (07:57→21:13)
[2024-04-03] MEDS: Rosuvastatin 20 MG TAB PO (07:58)
[2024-04-03] MEDS: Carvedilol 12.5 MG TAB PO ×2 (07:58→21:13)
[2024-04-03] MEDS: Apixaban 5 MG TAB PO ×2 (07:58→21:13)
[2024-04-03] MEDS: Lactobacillus Acidophilus CAP 1 CAP PO ×3 (07:58→21:13)
[2024-04-03] MEDS: Losartan 50 MG TAB PO (07:58)
[2024-04-03] MEDS: Citalopram 20 MG TAB PO (07:58)
[2024-04-03] MEDS: Insulin Glargine 300 UNITS/3 ML PEN 35 UNITS SC (08:02)
[2024-04-03 08:17] LABS: HCT 30.6 % (40.0-50.0); HGB 9.7 g/dL (13.5-17.5); MCH 27.2 pg (27.0-33.0); MCHC 31.7 % (32.0-36.0); MCV 86 fL (80-95); MPV 8.5 fL (8.0-11.0); Platelet Count 374 10^3/uL (130-400); RBC 3.57 10^6/uL (4.36-5.78); RDW 13.1 % (11.8-14.1); RDW-SD 40.6 fL; WBC 8.22 10^3/uL (4.4-10.8)
[2024-04-03 08:23] LABS: Anion Gap 8.5 mmol/L (3-11); BUN 41 mg/dL (7-18); CO2 26.5 mmol/L (21.0-32.0); CREATININE 1.7 mg/dL (0.70-1.30); Calcium 9.1 mg/dL (8.5-10.1); Chloride 106 mmol/L (98-107); Estimated GFR 43.64 (mL/min/1.73m2); Glucose 165 mg/dL (74-106); Potassium 4.6 mmol/L (3.5-5.1); Sodium 141 mmol/L (136-145)
[2024-04-03 08:29] LABS: Vancomycin, Random 22.6 ug/mL
[2024-04-03 08:35] LABS: Absolute Eosinophil Count 0.41 10^3/uL (0.0-0.7); Absolute Lymphocyte Count 1.23 10^3/uL (1.2-3.4); Absolute Monocyte Count 0.66 10^3/uL (0.1-0.8); Absolute Neutrophil Count 5.51 10^3/uL (1.2-6.7); Bands % 1 %
[2024-04-03 08:36] LABS: Absolute Basophil Count 0.08 10^3/uL (0.0-0.2); Diff Comment Manual Differential; Metamyelocytes % 4; RBC Morphology Normal
[2024-04-03 09:38] VITALS: RESP 19
[2024-04-03 11:17] VITALS: BP 124/53; PULSE 60; RESP 18; TEMP 36.3; O2SAT 97
--- NOTE | 2024-04-03 12:48 | CMPROGNOTE_ITS ---
Date of service: 04/03/24 Time of Service: 12:48 Care Management Progress Note Progress Note Text Progress Note Text: Alpesh was sitting up in bed when CM met with him. He had multiple family members in the room visiting. He stated that he was doing well today. CM discussed his plan for having terminal operations supervisor IV antibiotics. CM spoke to [facility] and [facility] today; both stated that the medication was covered with no copay, but they both had a copay for supplies. [facility] was from $38-$50/day ($266-$350/week), and [facility] was $210/week. Alpesh stated that he would prefer [facility] due to the lower copay, but that he needed to think about it, as it is a large cost over the course of six weeks. Per report, a wound vac needed to be ordered, and won't be here until Saturday at the earliest. CM will send [facility] additional paperwork to prepare for a potential start of care Saturday, if he is able to discharge on Saturday. He will need RN support to train his s/o, who Alpesh stated has helped with IV abx in the past. CM will continue to follow. Discharge Potential Discharge Needs: Other (Coordination of home IV antibiotic therapy) Anticipated Barriers to Discharge: Other (wound vac on order- will not be here until Saturday) Patient/Family Education Needs: Review discharge instructions, discuss Ask Me Three Transportation: Private vehicle Plan: At this time, Alpesh is being treated with IV ABX and has cultures pending from 03/27/[address] Harris's request Cultures are now being sent to [facility]. ABX recommendations are expected to follow and may take up to 5 more days. New [facility] RN/PT will be ordered to support Alpesh with dressing changes, picc line assessments and support with his wound vac and IV therapy after discharge. Karthik on MS is working on the wound vac authorization. CM will continue to support discharge considerations. SDOH(Care Management) Screening Will the Patient Participate in the Screening?: Yes Do you worry about having a steady place to live?: yes In the past 12 months, have you had to go without electric, gas, oil or water in your home?: no Have you or anyone in your house had to go without enough food to eat?: no Has lack of transportation kept you from medical appointments or from doing things needed for daily living?: no Has anyone in your support network made you feel unsafe for any reason?: no Health Related Social Needs Health related social needs: housing instability, housed, with risk of homele ssness(Z59.811)
[2024-04-03] MEDS: VANCOMYCIN/WATER (PEG) 1.25 GM/250 ML BAG IVPB (13:43)
--- NOTE | 2024-04-03 14:23 | PGE_ITS ---
Date of Service Date of service: 04/03/24 Time of Service: 12:30 Assessment and Plan Assessment and plan (1) Cellulitis and abscess of foot: Status: Acute Assessment and plan: 03/26/2024 OR with podiatry for debridement, please see notes Continue wound vac and replaced by the ordered wound VAC for home health management of the wound when available Continue foot dressing with KULWANT - DCI and wound vac Continue ertapenem and vancomycin IV as per [facility] infectious disease consultation recommendations Consultation with [facility] today with Dr. Walter Recommendation for Vancomycin IV to maintain level between 15- 20 w pharmacy consult and Ertapenem 1 gm IV Q 24 hours 03/25 blood cultures showed GPC, staph hominis but repeated blood cultures negative at 120 hours. Anaerobic gram negative cocci added to 03/25 report at a later date then the initial call to Yoselin Rodriguez RN CC on [phone] Vazquez from podiatry ordered speceity and sensitivity on gram-negative anaerobes, this was a send out thus follow-up is needed if the patient is discharged prior to results . (2) Diabetes mellitus: Status: Chronic Assessment and plan: On Glucs AC & HS with resistant SSI coverage, Jardiance home dose Lantus increased to 40 units BID was on 60 units BID at home;AM gluc 165 on BMP but day time blood sugars around 240 Qualifiers: Diabetes mellitus type: type 2 Diabetes mellitus long goods drier insulin use: with long goods drier use Diabetes mellitus complication status: with kidney complications Diabetes mellitus complication detail: with chronic kidney disease Chronic kidney disease stage: stage 4 (severe) Qualified Code(s): E11.22 - Type 2 diabetes mellitus with diabetic chronic kidney disease; N18.4 - Chronic kidney disease, stage 4 (severe); Z79.4 - long term care social worker (current) use of insulin (3) Sleep apnea: Status: Chronic Assessment and plan: ON home BiPAP with home settings. Qualifiers: Sleep apnea type: obstructive Qualified Code(s): G47.33 - Obstructive sleep apnea (adult) (pediatric) (4) CKD (chronic kidney disease): Status: Chronic Assessment and plan: stable and below baseline, Cr 1.7 today from 1.8, w GFR 40 on admission Avoid nephrotoxic drugs and renal dose as needed. On vancomycin daily with levels w/i goals Qualifiers: Chronic kidney disease stage: stage 4 (severe) Qualified Code(s): N18.4 - Chronic kidney disease, stage 4 (severe) (5) Morbid obesity: Status: Acute Assessment and plan: Continue Diabetic diet Long acting insulin adjustment in progress Nutrition consult was completed and patient was given the option to consult outpatient (6) Discharge planning issues: Status: Acute Assessment and plan: CM to f/u Plan for 6 weeks of IV antibiotics outpatient for evidence of exposed bone to the wound: Formed faxed on 04/01 for home IV antibiotics as per patient's preference Might be available on Saturday Continue PT consult :Strictly non-weight bearing, felt that he was doing well on his own yesterday and had refused PT then Follow-up with podiatry for possible graft once wound starts to heal and plan for wound debridement over the next 2 weeks as per podiatry HH RN for wound vac management and home IV antibiotics teaching, blood work Considering PT Discussed with Dr. Lawson Subjective Subjective Patient reports: no new complaints, feels better, tolerating liquids well and tolerating a regular diet; denies still having pain, diarrhea, nausea, vomiting, shortness of breath or fever Exam Narrative Exam Narrative: Constitutional In no acute distress Neuro: A& O X4 Respiratory: lungs bilaterally CTA Cardiac: regular rate, regular rhythm,S1, S2 GI: abdomen soft, non-tender, non-distended, bowel sounds are present Extremities: Left foot KULWANT bandage in place.Wound vac to the left foot debridement site in function Psych: Appropriate mood and affect Extrem Other: Wound to left foot Derm: full-thickness ulceration the left foot there with mild granulation tissue noted to the wound bed no periwound erythema but some maceration seen in the medial aspect of the wound ( wound vac sponge size will be adjusted),no peripheral wound edema, no proximal streaking noted at this time, no fould smell noted from the wound. Minimal drainage/slough noted to the dressings, no active bleeding noted. Vascular: DP pulse thready but palpable at this time MSK: No tenderness to palpation noted to the left foot. Fifth toe amputation noted to the left foot . Objective Last Vital Signs Temp 36.3 C L 04/03/24 11:17 Pulse 60 04/03/24 11:17 Resp 18 04/03/24 11:17 BP 124/53 L 04/03/24 11:17 Pulse Ox 97 04/03/24 11:17 Laboratory Results - last 24 hr 04/03/24 06:35 WBC 8.22 RBC 3.57 L Hgb 9.7 L Hct 30.6 L MCV 86 MCH 27.2 MCHC 31.7 L RDW 13.1 Plt Count 374 MPV 8.5 Immature Gran % 0.0 Neutrophils % 66.0 Band Neutrophils % 1 Lymphocytes % 15.0 Monocytes % 8.0 Eosinophils % 5.0 Basophils % 1.0 Metamyelocytes % 4 Nucleated RBC % 0.0 Absolute Neutrophils 5.51 Absolute Lymphocytes 1.23 Absolute Monocytes 0.66 Absolute Eosinophils 0.41 Absolute Basophils 0.08 RBC Morphology Normal Sodium 141 Potassium 4.6 Chloride 106 Carbon Dioxide 26.5 Anion Gap 8.5 BUN 41 H Creatinine 1.7 H Est GFR (CKD-EPI 2020) 43.64 Glucose 165 H Calcium 9.1 Random Vancomycin 22.6 Time Spent with Patient Time Spent with Patient: >50 minutes Time was spent: preparing to see the patient(eg.review tests), obtaining and/or reviewing separately otained hiistory, ordering medications,tests, procedures, referring, communicating with other health customer care coordinator, indepentently interpreting results, counseling the patient and care coordination
[2024-04-03 15:08] VITALS: BP 132/65; PULSE 65; RESP 18; TEMP 36.5; O2SAT 96
[2024-04-03] MEDS: ERTAPENEM 1 GM in Normal Saline 50 ML IVPB (15:52)
[2024-04-03 19:44] VITALS: BP 161/63; PULSE 67; RESP 18; TEMP 36.4; O2SAT 98
[2024-04-03] MEDS: Insulin Glargine 300 UNITS/3 ML PEN 40 UNITS SC (21:12)
[2024-04-04] VITALS (7 sets, daily range): BP systolic 138–169; BP diastolic 57–64; PULSE 62–65; RESP 15–20; TEMP 36.1–36.5; O2SAT 94–98
[2024-04-04] MEDS: Rosuvastatin 20 MG TAB PO (08:19)
[2024-04-04] MEDS: Carvedilol 12.5 MG TAB PO ×2 (08:19→19:58)
[2024-04-04] MEDS: Lactobacillus Acidophilus CAP 1 CAP PO ×3 (08:19→19:58)
[2024-04-04] MEDS: Citalopram 20 MG TAB PO (08:19)
[2024-04-04] MEDS: Losartan 50 MG TAB PO (08:19)
[2024-04-04] MEDS: Apixaban 5 MG TAB PO ×2 (08:19→19:58)
[2024-04-04] MEDS: Normal Saline Flush 10 ML SYR IVP ×3 (08:20→19:57)
[2024-04-04] MEDS: buPROPion 100 MG TAB PO ×2 (08:20→19:58)
[2024-04-04] MEDS: Insulin Glargine 300 UNITS/3 ML PEN 40 UNITS SC (08:23)
--- NOTE | 2024-04-04 10:02 | PGE_ITS ---
Date of Service Date of service: 04/04/24 Time of Service: 10:02 Assessment and Plan Assessment and plan (1) Cellulitis and abscess of foot: Status: Acute Assessment and plan: 03/26/2024 OR with podiatry for debridement, please see notes Continue wound vac and replaced by the ordered wound VAC for home health management of the wound when available Continue foot dressing with KULWANT - DCI and wound vac Continue ertapenem and vancomycin IV as per [facility] infectious disease consultation recommendations Consultation with [facility] ID completed with Dr. Walter Recommendation for Vancomycin IV to maintain level between 15- 20 w pharmacy consult and Ertapenem 1 gm IV Q 24 hours 03/25 blood cultures showed GPC, staph hominis but repeated blood cultures negative at 120 hours. Anaerobic gram negative cocci added to 03/25 report at a later date then the initial call to Yoselin Rodriguez RN CC on [phone] Harris from podiatry ordered speceity and sensitivity on gram-negative anaerobes- send out , follow-up is needed if the patient is discharged prior to results . (2) Diabetes mellitus: Status: Chronic Assessment and plan: On Glucs AC & HS with resistant SSI coverage, Jardiance home dose Lantus increased to 40 units BID onn 04/03 for fasting blood sugar of 165. The patient was on 60 units BID at home; fasting finger stick 106 today Lantus 40 units BID reduced to [address] Lawson and as per discussion will leave the patient on his severe SSI coverage d/t fingersticks around 217 to 259 on 04/03. Will reevaluate and readjust after 24 hours. BMP in AM Qualifiers: Chronic kidney disease stage: stage 4 (severe) Diabetes mellitus complication detail: with chronic kidney disease Diabetes mellitus complication status: with kidney complications Diabetes mellitus skilled nursing insulin use: with skilled nursing use Diabetes mellitus type: type 2 Qualified Code(s): E11.22 - Type 2 diabetes mellitus with diabetic chronic kidney disease; N18.4 - Chronic kidney disease, stage 4 (severe); Z79.4 - alf (current) use of insulin (3) Sleep apnea: Status: Chronic Assessment and plan: Continue home BiPAP with home settings. Well tolerated Qualifiers: Sleep apnea type: obstructive Qualified Code(s): G47.33 - Obstructive sleep apnea (adult) (pediatric) (4) CKD (chronic kidney disease): Status: Chronic Assessment and plan: Was stable on 04/03 and below baseline with Cr 1.7 BMP in AM Avoid nephrotoxic drugs and renal dose as needed. On vancomycin daily with levels w/i goals Qualifiers: Chronic kidney disease stage: stage 4 (severe) Qualified Code(s): N18.4 - Chronic kidney disease, stage 4 (severe) (5) Morbid obesity: Status: Acute Assessment and plan: Continue Diabetic diet Long acting insulin adjustment in progress Nutrition consult was completed and patient was given the option to consult outpatient (6) Discharge planning issues: Status: Acute Assessment and plan: CM to f/u Plan for 6 weeks of IV antibiotics outpatient for evidence of exposed bone to the wound: Forms faxed on 04/01 for home IV antibiotics as per patient's preference Might be available on Saturday Continue PT consult :Strictly non-weight bearing, felt that he was doing well on his own yesterday and had refused PT then Follow-up with podiatry for possible graft once wound starts to heal and plan for wound debridement over the next 2 weeks as per podiatry HH RN for wound vac management and home IV antibiotics teaching, blood work Weekly labs at home Considering HH PT Discussed with Dr. Lawson Subjective Subjective Patient reports: feels better, tolerating liquids well, tolerating a regular diet, voiding w/o difficulty and flatus; denies diarrhea, nausea, vomiting, shortness of breath or fever Exam Narrative Exam Narrative: Constitutional No acute distress Neuro: A& O X4 Respiratory: lungs bilaterally CTA Cardiac: regular rate, regular rhythm,S1, S2, positive pedal pulse to left foot. GI: abdomen soft, non-tender, non-distended, bowel sounds are present Extremities: Left foot KULWANT bandage in place.Wound vac in place to left foot Psych: Appropriate mood and affect Objective Last Vital Signs Temp 36.3 C L 04/04/24 07:19 Pulse 63 04/04/24 07:19 Resp 15 04/04/24 07:19 BP 138/64 04/04/24 07:19 Pulse Ox 94 04/04/24 07:19 Time Spent with Patient Time Spent with Patient: >50 minutes Time was spent: preparing to see the patient(eg.review tests), obtaining and/or reviewing separately otained hiistory, ordering medications,tests, procedures, referring, communicating with other health lawn caretaker, indepentently interpreting results, counseling the patient and care coordination
[2024-04-04] MEDS: Insulin Aspart 300 UNITS/3 ML PEN SC ×4 (12:14→21:28)
[2024-04-04] MEDS: VANCOMYCIN/WATER (PEG) 1.25 GM/250 ML BAG IVPB (12:18)
[2024-04-04] MEDS: ERTAPENEM 1 GM in Normal Saline 50 ML IVPB (14:21)
[2024-04-04] MEDS: Insulin Glargine 300 UNITS/3 ML PEN 35 UNITS SC (19:59)
[2024-04-05 04:14] VITALS: BP 111/43; PULSE 59; RESP 16; TEMP 37.3; O2SAT 98
[2024-04-05] MEDS: Normal Saline Flush 10 ML SYR IVP ×3 (05:52→20:08)
[2024-04-05 07:03] LABS: Anion Gap 8.4 mmol/L (3-11); BUN 45 mg/dL (7-18); CO2 25.6 mmol/L (21.0-32.0); Calcium 8.9 mg/dL (8.5-10.1); Chloride 105 mmol/L (98-107); Estimated GFR 35.91 (mL/min/1.73m2); Glucose 134 mg/dL (74-106); Potassium 4.8 mmol/L (3.5-5.1); Sodium 139 mmol/L (136-145)
[2024-04-05 08:06] VITALS: BP 150/62; PULSE 59; RESP 18; TEMP 36.5; O2SAT 97
[2024-04-05] MEDS: Insulin Aspart 300 UNITS/3 ML PEN SC ×4 (08:14→21:27)
[2024-04-05] MEDS: buPROPion 100 MG TAB PO ×2 (08:14→20:03)
[2024-04-05] MEDS: Apixaban 5 MG TAB PO ×2 (08:14→20:03)
[2024-04-05] MEDS: Rosuvastatin 20 MG TAB PO (08:14)
[2024-04-05] MEDS: Carvedilol 12.5 MG TAB PO ×2 (08:14→20:03)
[2024-04-05] MEDS: Losartan 50 MG TAB PO (08:14)
[2024-04-05] MEDS: Citalopram 20 MG TAB PO (08:14)
[2024-04-05] MEDS: Insulin Glargine 300 UNITS/3 ML PEN 35 UNITS SC ×2 (08:14→20:04)
[2024-04-05] MEDS: Lactobacillus Acidophilus CAP 1 CAP PO ×3 (08:14→20:03)
--- NOTE | 2024-04-05 10:16 | PGE_ITS ---
Date of Service Date of service: 04/05/24 Time of Service: 10:16 Assessment and Plan Assessment and plan (1) Cellulitis and abscess of foot: Status: Acute Assessment and plan: 03/26/2024 OR with podiatry for debridement, please see notes Continue wound vac and replaced by the ordered wound VAC for home health management, likely to be available on Saturday Ongoing foot dressing with KULWANT - DCI and wound vac; change M, W,F Continue ertapenem and vancomycin IV as per [facility] infectious disease consultation recommendations Consultation with [facility] ID completed with Dr. Walter Recommendation for Vancomycin IV to maintain level between 15- 20 w pharmacy consult and Ertapenem 1 gm IV Q 24 hours Vanco T : today at 18.8-pharmacy consult management 03/25 blood cultures showed GPC, staph hominis but repeated blood cultures negative at 120 hours. Anaerobic gram negative cocci added to 03/25 report at a later date then the initial call to Yoselin Rodriguez RN CC on [address] Harris from podiatry ordered speceity and sensitivity on gram-negative anaerobes- send out , follow-up is needed if the patient is discharged prior to results . (2) Diabetes mellitus: Status: Chronic Assessment and plan: On Glucs AC & HS with sensitive SSI coverage, as AC insulin bolus increased from 5 units to 10 units, Lantus 35 units BID with fasting glucose of 134- 127 Continue Jardiance home dose BMP in AM Qualifiers: Chronic kidney disease stage: stage 4 (severe) Diabetes mellitus complication detail: with chronic kidney disease Diabetes mellitus complication status: with kidney complications Diabetes mellitus middle or intermediate school principal insulin use: with middle or intermediate school principal use Diabetes mellitus type: type 2 Qualified Code(s): E11.22 - Type 2 diabetes mellitus with diabetic chronic kidney disease; N18.4 - Chronic kidney disease, stage 4 (severe); Z79.4 - 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 of insulin (3) Sleep apnea: Status: Chronic Assessment and plan: home BiPAP with home settings is well tolerated Continue on same settings Qualifiers: Sleep apnea type: obstructive Qualified Code(s): G47.33 - Obstructive sleep apnea (adult) (pediatric) (4) CKD (chronic kidney disease): Status: Chronic Assessment and plan: Increased Cr at 2.0 from 1.7 GRF:35.91 from 43.64 As below Qualifiers: Chronic kidney disease stage: stage 4 (severe) Qualified Code(s): N18.4 - Chronic kidney disease, stage 4 (severe) (5) Acute kidney injury superimposed on CKD: Status: Acute Assessment and plan: Cr up by 0.3 at 2.0 today LR at 100 cc/hour for 1 liter Consultation with pharmacy: Will order vancoT no urine output available in chart overnight BMP in AM As above (6) Morbid obesity: Status: Acute Assessment and plan: Continue Diabetic diet Long acting insulin adjustment: will continue to monitor Nutrition consult was completed and patient was given the option to consult outpatient (7) Discharge planning issues: Status: Acute Assessment and plan: CM to f/u possible d/c on Saturday pending availability of home wound vac and home antibiotics Plan for 6 weeks of IV antibiotics: from 03/25 to 05/06. Forms faxed on 04/01 for home IV antibiotics as per patient's preference Continue PT consult :Strictly non-weight bearing, felt that he was doing well on his own yesterday and had refused PT then Follow-up with podiatry for possible graft once wound starts to heal and plan for wound debridement over the next 2 weeks as per podiatry HH RN for wound vac management and home IV antibiotics teaching, blood work Weekly labs at home Considering HH PT Discussed with Dr. Lawson Subjective Subjective Patient reports: no new complaints, tolerating liquids well, tolerating a regular diet, voiding w/o difficulty, flatus and other (denies dysuria); denies diarrhea, nausea, vomiting, shortness of breath or fever Exam Narrative Exam Narrative: Constitutional No acute distress, but less interative today Neuro: A& O X4 Respiratory: lungs bilaterally CTA Cardiac: regular rhythm,S1, S2, no murmur , cap refill< 3 sec. to left foot. GI: abdomen soft, non-tender, non-distended, bowel sounds are present Extremities: Left foot KULWANT bandage in place.Wound vac in place to left foot Psych: Appropriate mood and affect seems more flat Objective Last Vital Signs Temp 36.5 C 04/05/24 08:06 Pulse 59 L 04/05/24 08:06 Resp 18 04/05/24 08:06 BP 150/62 H 04/05/24 08:06 Pulse Ox 97 04/05/24 08:06 Laboratory Results - last 24 hr 04/05/24 06:00 Sodium 139 Potassium 4.8 Chloride 105 Carbon Dioxide 25.6 Anion Gap 8.4 BUN 45 H Creatinine 2.0 H Est GFR (CKD-EPI 2020) 35.91 Glucose 134 H Calcium 8.9 Time Spent with Patient Time Spent with Patient: >50 minutes Time was spent: preparing to see the patient(eg.review tests), obtaining and/or reviewing separately otained hiistory, ordering medications,tests, procedures, referring, communicating with other health primary care coordinator, indepentently interpreting results, counseling the patient and care coordination
[2024-04-05 11:51] LABS: Vancomycin, Trough 18.8 ug/mL (10.0-20.0)
[2024-04-05] MEDS: Lactated Ringers 1,000 ML 100 ML IV (12:01)
[2024-04-05] MEDS: VANCOMYCIN/WATER (PEG) 1 GM/200 ML BAG IVPB (12:15)
[2024-04-05] MEDS: Insulin Aspart 300 UNITS/3 ML PEN 10 UNITS SC ×2 (12:15→16:58)
[2024-04-05 13:08] VITALS: BP 131/51; PULSE 62; RESP 18; TEMP 36.3; O2SAT 96
[2024-04-05] MEDS: ERTAPENEM 1 GM in Normal Saline 50 ML IVPB (15:01)
[2024-04-05 15:09] VITALS: BP 123/62; PULSE 59; RESP 18; TEMP 36.3; O2SAT 94
[2024-04-05 20:00] VITALS: BP 162/67; PULSE 65; RESP 18; TEMP 36.4; O2SAT 95
[2024-04-06] VITALS (7 sets, daily range): BP systolic 103–159; BP diastolic 45–70; PULSE 60–83; RESP 17–20; TEMP 36–36.5; O2SAT 96–98
[2024-04-06 06:15] LABS: Abs Immature Grans 0.19 10^3/uL (0.0-0.06); Absolute Basophil Count 0.13 10^3/uL (0.0-0.2); Absolute Eosinophil Count 0.21 10^3/uL (0.0-0.7); Absolute Lymphocyte Count 1.51 10^3/uL (1.2-3.4); Absolute Monocyte Count 0.76 10^3/uL (0.1-0.8); Absolute Neutrophil Count 4.08 10^3/uL (1.2-6.7); Basophils % 1.9 %; Eosinophils % 3.1 %; HCT 31.4 % (40.0-50.0); Immature Grans % 2.8 %; Lymphocytes % 21.9 %; MCH 27.5 pg (27.0-33.0); MCHC 31.8 % (32.0-36.0); MCV 86 fL (80-95); MPV 8.5 fL (8.0-11.0); Neutrophils % 59.3 %; Platelet Count 352 10^3/uL (130-400); RBC 3.64 10^6/uL (4.36-5.78); RDW 13.6 % (11.8-14.1); RDW-SD 42.1 fL; WBC 6.88 10^3/uL (4.4-10.8)
[2024-04-06 06:27] LABS: Anion Gap 7.4 mmol/L (3-11); BUN 45 mg/dL (7-18); CO2 26.6 mmol/L (21.0-32.0); CREATININE 1.8 mg/dL (0.70-1.30); Chloride 107 mmol/L (98-107); Estimated GFR 40.75 (mL/min/1.73m2); Glucose 193 mg/dL (74-106); Potassium 5.3 mmol/L (3.5-5.1); Sodium 141 mmol/L (136-145)
[2024-04-06] MEDS: Normal Saline Flush 10 ML SYR IVP ×2 (08:25→20:28)
[2024-04-06] MEDS: Apixaban 5 MG TAB PO ×2 (08:39→20:27)
[2024-04-06] MEDS: Lactobacillus Acidophilus CAP 1 CAP PO ×3 (08:39→20:28)
[2024-04-06] MEDS: Citalopram 20 MG TAB PO (08:39)
[2024-04-06] MEDS: Losartan 50 MG TAB PO (08:39)
[2024-04-06] MEDS: Rosuvastatin 20 MG TAB PO (08:39)
[2024-04-06] MEDS: buPROPion 100 MG TAB PO ×2 (08:39→20:27)
[2024-04-06] MEDS: Insulin Glargine 300 UNITS/3 ML PEN 35 UNITS SC ×2 (08:40→20:28)
[2024-04-06] MEDS: Insulin Aspart 300 UNITS/3 ML PEN 10 UNITS SC ×3 (08:40→17:52)
[2024-04-06] MEDS: Carvedilol 12.5 MG TAB PO ×2 (08:40→20:28)
[2024-04-06] MEDS: Insulin Aspart 300 UNITS/3 ML PEN SC ×4 (08:41→21:34)
--- NOTE | 2024-04-06 10:07 | W.PM.PROGNOT ---
Date of Service Date of service: 04/06/24 Time of Service: 09:15 Assessment and Plan Assessment and plan (1) Gangrene of left foot: Status: Acute (2) Diabetic wet gangrene of the foot: Status: Acute (3) Gas gangrene: Status: Acute (4) CKD (chronic kidney disease): Status: Chronic Qualifiers: Chronic kidney disease stage: stage 4 (severe) Qualified Code(s): N18.4 - Chronic kidney disease, stage 4 (severe) (5) Cellulitis and abscess of foot: Status: Acute (6) Uncontrolled diabetes mellitus with hyperglycemia: Status: Acute (7) Heart failure: (8) DM (diabetes mellitus), type 2, uncontrolled w/ophthalmic complication: (9) Atherosclerosis of [place] coronary artery: (10) Osteomyelitis: Assessment and plan: Patient is seen bedside today status post OR I&D 03/26/2024. Labs were reviewed today. White count, ESR, CRP downtrending now. Pathology report reviewed there is evidence for acute and chronic osteomyelitis noted at this time. Considering this, patient will require at least 6 weeks of IV antibiotics. Anaerobic cultures specific studies pending at this time. Will review and adjust antibiotics in consultation with infectious disease as needed. Wound VAC noted to be in place and functioning very well. Upon removal of the VAC there is increased granulation tissue noted to the wound bed, no periwound erythema edema drainage or malodor noted at this time. Periosteum remains exposed. I discussed the above findings with the patient in detail. He was advised that he will require 6 weeks of antibiotics. He will require local long-term wound care. He was advised that he remains at risk for worsening infection, blood loss. Patient is okay to be discharged from podiatry standpoint at this time. Patient is to follow-up with md outpatient within 1 week of discharge Subjective Subjective Interval history since last seen: Patient seen bedside today resting comfortably. Denies any pedal complaints. Has a wound VAC in place Exam Extrem Other: Bilateral lower extremity physical exam: Derm: 7.0 x 6.5 x 1.0 cm full-thickness ulceration noted to the level of the periosteum to the lateral aspect of the left foot there is now increased granulation tissue noted to the wound bed (75% necrotic/fibrotic, 30% granular) with periosteum exposed, however overall doing well no periwound erythema, edema appears to be resolving with skin wrinkling noted as above, no crepitus no fluctuance no bogginess no proximal streaking noted at this time no malodor noted from the wound. Mild drainage/slough noted to the dressings, no active bleeding noted. Skin is otherwise warm dry and supple bilaterally no other open lesions or ulcerations noted bilaterally. Vascular: Strong posterior tibial pulse noted to the left lower extremity, DP pulse nonpalpable at this time, hair growth is present to the toes, edema noted to be resolving skin is warm to touch, mild duskiness noted to the wound edges dorsal medial aspect of the left foot MSK: No tenderness to palpation noted to the left foot or ankle. 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 Objective Last Vital Signs Temp 97.0 F L 04/06/24 07:54 Pulse 62 04/06/24 07:54 Resp 20 04/06/24 07:54 BP 135/58 L 04/06/24 07:54 Pulse Ox 98 04/06/24 07:54 Laboratory Results - last 24 hr 04/05/24 04/06/24 11:05 05:35 WBC 6.88 RBC 3.64 L Hgb 10.0 L Hct 31.4 L MCV 86 MCH 27.5 MCHC 31.8 L RDW 13.6 Plt Count 352 MPV 8.5 Immature Gran % 2.8 Neutrophils % 59.3 Lymphocytes % 21.9 Monocytes % 11.0 Eosinophils % 3.1 Basophils % 1.9 Nucleated RBC % 0.0 Absolute Neutrophils 4.08 Absolute Lymphocytes 1.51 Absolute Monocytes 0.76 Absolute Eosinophils 0.21 Absolute Basophils 0.13 Sodium 141 Potassium 5.3 H Chloride 107 Carbon Dioxide 26.6 Anion Gap 7.4 BUN 45 H Creatinine 1.8 H Est GFR (CKD-EPI 2020) 40.75 Glucose 193 H Calcium 9.0 Vancomycin Trough 18.8 Time Spent with Patient Time Spent with Patient: 35-49 minutes Time was spent: preparing to see the patient(eg.review tests), obtaining and/or reviewing separately otained hiistory, referring, communicating with other health health care sanitary technician, indepentently interpreting results, counseling the patient and care coordination
[2024-04-06] MEDS: VANCOMYCIN/WATER (PEG) 1 GM/200 ML BAG IVPB (12:21)
[2024-04-06] MEDS: ERTAPENEM 1 GM in Normal Saline 50 ML IVPB (14:47)
--- NOTE | 2024-04-06 19:26 | CMPROGNOTE_ITS ---
Date of service: 04/06/24 Time of Service: 19:26 Care Management Progress Note Progress Note Text Progress Note Text: Alpesh was sitting up in his chair when CM met with him this morning to discuss his discharge plan. CM coordinated home IV abx through [facility], which will be delivered tomorrow (04/07) by noon. Alpesh has been looking forward to returning home, which has been delayed due to the wound vac which has been on order since last week. CM spoke to Bennie from [email or web address] (wound care vendor), who stated that he is able to deliver the wound vac tomorrow (04/07) by noon to [facility]. CM contacted [facility], who is prepared to begin new HH nursing on 04/08/24, which will be the start of care for his home IV abx. He will discharge tomorrow after his wound vac is placed and he his IV abx dose here. His s/o will transport him home. CM will continue to follow. Discharge Potential Discharge Needs: PCP F/U Appt Anticipated Barriers to Discharge: Treatment delay (delay in receiving wound vac) Patient/Family Education Needs: Review discharge instructions, discuss Ask Me Three Transportation: Private vehicle Plan: Alpesh will return home with new orders for HH RN, which will support him with home IV abx and wound vac maintenance. He will have his dose of IV antibiotics at [facility] on Saturday, 04/07, and have the home wound vac placed after delivery (scheduled for 04/07, delivered to [facility] by noon), and will discharge home with a plan to start his IV abx therapy at home on 04/08. His s/o will drive him home via private vehicle. He will follow up with his PCP, podiatry and his discharge plan of care. CM will continue to follow. SDOH(Care Management) Screening Will the Patient Participate in the Screening?: Yes Do you worry about having a steady place to live?: yes In the past 12 months, have you had to go without electric, gas, oil or water in your home?: no Have you or anyone in your house had to go without enough food to eat?: no Has lack of transportation kept you from medical appointments or from doing things needed for daily living?: no Has anyone in your support network made you feel unsafe for any reason?: no Health Related Social Needs Health related social needs: housing instability, housed, with risk of homelessness(Z59.811)
[2024-04-07 03:30] VITALS: BP 94/49; PULSE 59; RESP 16; TEMP 36.1; O2SAT 95
[2024-04-07 03:46] VITALS: BP 108/49
[2024-04-07 07:32] VITALS: BP 131/56; PULSE 61; RESP 18; TEMP 36.3; O2SAT 98
[2024-04-07] MEDS: buPROPion 100 MG TAB PO (08:15)
[2024-04-07] MEDS: Apixaban 5 MG TAB PO (08:15)
[2024-04-07] MEDS: Rosuvastatin 20 MG TAB PO (08:15)
[2024-04-07] MEDS: Citalopram 20 MG TAB PO (08:15)
[2024-04-07] MEDS: Carvedilol 12.5 MG TAB PO (08:15)
[2024-04-07] MEDS: Losartan 50 MG TAB PO (08:15)
[2024-04-07] MEDS: Lactobacillus Acidophilus CAP 1 CAP PO ×2 (08:15→14:17)
[2024-04-07] MEDS: Insulin Glargine 300 UNITS/3 ML PEN 35 UNITS SC (08:18)
[2024-04-07] MEDS: Insulin Aspart 300 UNITS/3 ML PEN 10 UNITS SC ×2 (08:18→11:51)
[2024-04-07] MEDS: Normal Saline Flush 10 ML SYR IVP ×2 (08:19→14:18)
--- NOTE | 2024-04-07 09:40 | PTTR_ITS ---
PT Notes Visit Reasons: Cellulitis with Abscess Left Foot, NIDDM Inpatient Physical Therapy Initial Evaluation Date: 04/07/2024 Precautions: Per garage door technician, NICHOLE Romero LE with AD. Wound vacuum in place. Subjective: All set with PT. Knows his exercises and has been able to move independently inside his room using his front-wheeled walker. Just waiting for wound vacuum for home prior to discharge. Objective: General Observation: Dressing and wound vacuum in place of the L leg and foot Mental Status: Alert and oriented x 4 Pain: None reported Bed Mobility/Transfers: Sit to stand independent Stand to sit independent Gait: Independent ambulator inside room using front-wheeled walker. Now okay to partially weight bear through heel per garage door technician. Balance: Static sitting: Normal Dynamic sitting: Normal Static standing: Fair Dynamic standing: Unable to test due to WB precaution Assessment: Activity tolerance back to baseline. Patient able to independently use front- wheeled walker for ambulation with good obeservance of WB precaution. Plan of Care/Treatment Plan: Decreased to 3x/week to assess for stability of gains in terms of mobility and safety. DISCHARGE RECOMMENDATIONS: Patient will benefit from home health PT services in order to progress mobility level using least restrictive assistive ambulatory device, assess home safety, identify additional equipment needs, and establish a functional maintenance program that will increase ability of patient to remain at home. TREATMENT CODE/TIME: 96313 x 15 minutes for 1 unit (9:40-9:55).
--- NOTE | 2024-04-07 11:21 | PDOC.CMDIS ---
Date of service: 04/07/24 Time of Service: 11:21 LACE Index Scoring Tool Questions: Length of Stay (in days): 7 - 13 Was the patient admitted via the E.D.?: Yes Comorbidities: Diabetes w/o Complication, with End Organ Damage and Liver or Renal Disease E.D. Visits: 1 Answers: Total Score: 14 Risk of Readmission: High Risk Care Management Discharge Plan Reason for Hospitalization: Gangrene of Left foot Discharge Plan: Wound Vac arrived at [facility] @ 11am today. IV ABX therapy was shipped yesterday and will be delivered today via [facility]. Alpesh is being discharged home via private vehicle with Amy. New [facility] RN/PT is ordered. Alpesh will follow up with community providers and his discharge plan of care as instructed. Patient/Family Education Needs: Review discharge instructions, limitations, medications and plan to follow up with community providers. Discuss ask me three. Services Needed at Discharge: DME Agency ([facility]- IV Meds and Supplies, Wound Vac was supplied by [facility]) and Home Health Care Services (New [facility] RN/PT, CM notified Kamran) SDOH Health Related Social Needs: Health related social needs risk of homeless Health related social needs: housing instability, housed, with risk of homelessness(Z59.811)
[2024-04-07] MEDS: VANCOMYCIN/WATER (PEG) 1 GM/200 ML BAG IVPB (11:48)
[2024-04-07] MEDS: Insulin Aspart 300 UNITS/3 ML PEN SC (11:50)
[2024-04-07 11:53] VITALS: BP 113/62; PULSE 57; RESP 17; TEMP 36.3; O2SAT 97
--- NOTE | 2024-04-07 12:38 | DSE_ITS ---
Date of service: 04/07/24 Time of Service: 12:38 DS: Diagnosis Discharge Diagnosis (1) Gangrene of left foot: Status: Acute (2) Diabetic wet gangrene of the foot: Status: Acute (3) Gas gangrene: Status: Acute (4) CKD (chronic kidney disease): Status: Chronic (5) Cellulitis and abscess of foot: Status: Acute (6) Uncontrolled diabetes mellitus with hyperglycemia: Status: Acute Discharge Plan Disposition Patient Disposition: Home W/Home Health Services Condition: Fair Discharge Details Reason For Visit: Cellulitis with Abscess Left Foot, NIDDM Admit Date/Time: 03/25/24 20:08 Admit Provider: Abimael Harry Attending Provider: Abimael Harry Primary Care Provider: Hammad Enrique Hospital Course Hospital Course: History: * Chronic left foot infection, worsened swelling, and drainage. * Diabetic with neuropathy, recent change to new shoes following boot use. * Failed outpatient oral antibiotics Hospital Course: * Initial Assessment (Date):03/26/2024 * Found with foul-smelling drainage and signs of gangrene over left foot. * Afebrile, pale, chronically ill appearance; received IV fluids and antibiotics. * Consulted podiatry for surgical evaluation and debridement planning. * Surgical Intervention (Date):03/27/24 * Debridement performed to address gangrene and potential osteomyelitis by Dr Harris * Continued IV antibiotics postoperatively; * Medical Management: * Hyponatremia: Managed with gentle IV hydration; fluid restriction if persists. * Diabetes Mellitus: Monitored with glucometer; Jardiance and insulin managed with hospitalization. * Sleep Apnea: Continued home BiPAP with monitoring due to morbid obesity. * Chronic Kidney Disease (CKD): Stable at stage IV; vancomycin dosing adjusted. Follow-up Plan: * Home Health to continue wound care and antibiotic therapy as per podiatry and infectious disease recommendations; wound vac and at least 6 weeks of IV antibiotics - vancomycin and ertapenem - consideration for CKD. * Monitor diabetes and CKD closely; consider outpatient nephrology follow-up - labs twice a week while receiving antibiotics. Results to PCP and [facility] * Podiatry to manage wound Home Meds and New Rx's Prescriptions: New ertapenem 1 gram recon soln 1 g IM Q24H Qty: 10 0RF vancomycin in dextrose 5 % 1.25 gram/250 mL piggyback 1 g IV Q24H Continued (DME) lancets [Accu-Chek Fastclix Lancet Drum] Misc See Dose Instructions .ROUTE .MEDSUPPLY Qty: 100 6RF Dose Instruction: As directed Rx Instructions: test TID (DME) pen needle, diabetic [BD Ultra-Fine Short Pen Needle] 31 gauge x 5/16 needle 1 ea SQ 5x day Qty: 400 3RF Rx Instructions: inject 4 times/day sildenafil (pulm.hypertension) 20 mg tablet 20 - 100 mg PO DAILY PRN (Reason: sexual activity) Qty: 30 5RF dapagliflozin propanediol [Farxiga] 10 mg tablet 10 mg PO DAILY Qty: 90 3RF nitroglycerin [Nitrostat] 0.4 mg tablet, sublingual 0.4 mg Sublingual PRN Qty: 25 1RF Rx Instructions: REPEAT Q5 MIN. PRN X 3 (DME) blood-glucose meter [Accu-Chek [place] Plus Meter] [facility] [place] Dose Instructions .ROUTE .MEDSUPPLY Qty: 1 0RF Dose Instruction: As directed Rx Instructions: As directed (DME) Accu-Chek Mariana Plus test strp Strip See Dose Instructions .ROUTE .MEDSUPPLY Qty: 300 3RF Dose Instruction: As directed Rx Instructions: test TID (DME) Accu-Chek Guide test strips Strip See Rx Instructions .ROUTE .MEDSUPPLY Qty: 300 3RF Rx Instructions: test 3 x day rosuvastatin 20 mg tablet 20 mg PO DAILY Qty: 90 3RF insulin glargine-yfgn [Semglee(insulin glarg-yfgn)Pen] 100 unit/mL (3 mL) insulin pen 60 unit subcut BID Qty: 45 3RF citalopram [Celexa] 20 mg tablet 20 mg PO DAILY Qty: 90 3RF losartan 100 mg tablet 50 mg PO DAILY Qty: 90 3RF Rx Instructions: dose reduce 12/11/23 (due to creatinine rise) carvedilol 12.5 mg tablet 12.5 mg PO BID Qty: 180 3RF Rx Instructions: must administer with a meal/food insulin aspart U-100 [Novolog FlexPen U-100 Insulin] 100 unit/mL (3 mL) insulin pen 26 - 30 unit subcut AC Qty: 27 3RF Rx Instructions: diabetes E11.9 24 units plus sliding scale before each meal needs three boxes for a thirty day supply bupropion HCl 100 mg tablet 100 mg PO BID Qty: 180 3RF Eliquis 5 mg tablet 5 mg PO BID Qty: 180 3RF Discharge Instructions Instructions: Negative Pressure Wound Therapy, Cellulitis (skin infection) in adults - Discharge instructions Additional Instructions: Home health will come to manage the wound vac and provide support for the IV antibiotic administration. Wound care per Dr Steven THOMPSON and era browning twice a week - results to PCP & [facility] Stand Alone Forms: Nursing Discharge Form Referrals: [facility] [Outside] - 04/24/24 11:00 am (This appointment is a [facility] Infectious Disease ) Hammad Enrique MD [Primary Care Provider] - 04/16/24 9:20 am (followed by Dr Harris) Tammy Harris DPM [[facility] STAFF PHYSICIAN] - 04/14/24 1:00 pm () Activity:: Activity as Tolerated Equipment/Supplies:: wound vac Diet:: diabetic Discharge Orders Discharge Orders: Discharge Order (Routine); Ordered 04/07/24 Ordered By: Naomi Durán Discharge Data Discharge Date/Time-TO BE ENTERED AT DEPARTURE: 04/07/24 17:09 DS: Summary Time Spent with Patient providing and/or coordinating discharge services: Greater than 30 minutes Status at Discharge Functional status at discharge: uses cane/walker Overall status at discharge: patient is progressing back to baseline Mental Status: mental status grossly normal Speech and Movement: speech and movement normal Mood: congruent mood Affect: normal affect Quality:SDOH Health Related Social Needs: Health related social needs risk of homeless Exam Narrative Exam Narrative: Constitutional No acute distress, but less interative today Neuro: A& O X4 Respiratory: lungs bilaterally CTA Cardiac: regular rhythm,S1, S2, no murmur , cap refill< 3 sec. to left foot. GI: abdomen soft, non-tender, non-distended, bowel sounds are present Extremities: Left foot KULWANT bandage in place.Wound vac in place to left foot Psych: Appropriate mood and affect seems more flat Psych Mental Status: mental status grossly normal Speech and Movement: speech and movement normal Mood: congruent mood Affect: normal affect DS: Data Vitals/I&O Vitals and I&O: Vital Signs Temperature 36.3 C L 04/07/24 11:53 Temperature Source Skin 04/07/24 11:53 Pulse 57 L 04/07/24 11:53 Pulse Rhythm Regular 04/06/24 20:20 Pulse 62 03/26/24 14:41 Respiratory Rate 17 04/07/24 11:53 Respiratory Effort Normal, Non-Labored 04/06/24 20:20 Respiratory Depth Normal 04/06/24 20:20 Respiratory Pattern Normal 04/06/24 20:20 Blood Pressure 113/62 04/07/24 11:53 Blood Pressure Mean 84 03/26/24 14:41 Pulse Oximetry 97 04/07/24 11:53 Respiratory End-tidal CO2 43 03/26/24 14:41 Oxygen Delivery Method Room Air 04/07/24 11:53 Oxygen Flow Rate 0 04/07/24 11:53 Fraction of Inspired Oxygen (FIO2) 21 04/05/24 19:46 Pain Level 0 04/07/24 11:53 Comment RN Notified 04/06/24 03:07 Intake & Output 04/06/24 04/07/24 04/07/24 23:59 11:59 23:59 Intake Total 300 / 1300 370 / 370 Output Total 500 / 500 150 / 150 Balance -200 / 800 220 / 220 Weight 103.7 kg Intake: IV 300 / 1300 Oral 370 / 370 Output: Urine 500 / 500 150 / 150 Other: Urine Color Pale Pale Yellow Yellow Urine Appearance Clear Clear Urine Odor Normal Comment pT stated that he used commode. Stool Size Small Stool Characteristics Soft Formed Voiding Methods Urinal Bedside Commode Data Completed and Pending Labs on day of discharge: Preliminary micro results at discharge 03/25/24 16:35 Blood Culture - Preliminary Blood Staph hominis ssp hominis Anaerobic Gram Negative Cocci 03/26/24 15:09 Anaerobic Culture - Preliminary Foot - Left Anaerobic gram negative eduardo Anaerobic gram negative eduardo#2 PFSH All Active Problems (Updated 04/07/24 @ 12:54 by Naomi Durán NP) Acute kidney injury superimposed on CKD (Acute) Morbid obesity (Acute) Diarrhea (Acute) Uncontrolled diabetes mellitus with hyperglycemia (Acute) Gas gangrene (Acute) Diabetic wet gangrene of the foot (Acute) Cellulitis of foot (Acute) Gangrene of left foot (Acute) Hyponatremia (Acute) CKD (chronic kidney disease) (Chronic) Cellulitis and abscess of foot (Acute) Cerumen impaction (Acute) Conductive hearing loss (Acute) Hyperkalemia (Acute) Erectile dysfunction (Acute) Diabetes mellitus (Chronic) Obesity (Acute) Diabetic retinopathy (Acute ~12/2021) 01/12/22 B/L MODERATE/SHIPPEE-KB Hyperlipidemia associated with type 2 diabetes mellitus (Acute) Mixed hearing loss (Acute) Depressive disorder (Acute 08/10/13) Mixed conductive and sensorineural hearing loss of right ear with restricted hearing of left ear (Acute) DVT prophylaxis (Acute) Urinary retention (Acute) Hypoglycemia (Acute) Sleep apnea (Chronic 05/16/15) KATRIN (acute kidney injury) (Acute) Diabetes mellitus, type II (Acute) a. Hgb A1C 11.6 b. on high dose glargine insulin therapy Discharge planning issues (Acute) Transaminitis (Acute) Rash (Acute) Arthritis of right shoulder region (Acute) Arthritis of left shoulder region (Acute) History of rotator cuff tear (Acute ~1995) Tendinitis of long head of biceps brachii of left shoulder (Acute) Tendinitis of long head of biceps brachii of right shoulder (Acute) Tendinitis of left rotator cuff (Acute) Right rotator cuff tendonitis (Acute) Multiple exostoses (Acute) Abnormal auditory perception (Acute) Essential hypertension (Acute) if creat ok, will add KULWANT Chronic renal impairment, stage 2 (mild) (Acute) Hx of colonic polyps (Acute) Low back pain (Acute) Sensorineural hearing loss, bilateral (Chronic 07/16/16) Medical History Well adult Impacted cerumen of both ears Acute osteomyelitis of right foot (06/25/16) Rupture of left quadriceps muscle (01/15/18) Proliferative diabetic retinopathy (08/06/12) 08/09/16; [facility] Polyp of colon (11/17/13) DR. Dick RODRIGUEZ; TUBULAR ADENOMA Hyperlipidemia (03/26/13) Heart failure 01/31/17 [facility] ; EF 45-50%;ATRIAL DIALATION on coumadin DM (diabetes mellitus), type 2, uncontrolled w/ophthalmic complication (08/06/12) Atherosclerosis of [place] coronary artery Stent 1999 Positive MPI in May 2010 Depression Coronary disease a. s/p cath with stent 1999 b. MPI positive for ischemia 2009 Current use of insulin Osteomyelitis (08/13/14) a. left foot fifth metatarsal and proximal phalanx Surgical History History of appendectomy History of intravascular stent placement History of right knee surgery (04/22/14) S/P cataract surgery 10/02/18; [facility];B/L-kb QUADRICEPS REPAIR 01/16/18 (L) PROCEDURES INSERT 1 VASCULAR STENT, 1999 LEFT CIRC. Colonoscopy - MAC (11/17/13) H/O surgical procedure a. Right quadriceps repair [address] Smart b. Colonoscopy 11/17/[address] Rodriguez Family History Mother , AGE 84 Diabetes Stroke Father Depression Heart disease Hyperlipidemia Hypertension Sister Alcohol abuse Substance abuse Diabetes Depression Social History Smoking/Tobacco Use Status: Never Second Hand Exposure: Yes Smoking risk assessment performed?: Yes Alcohol Intake: never Drug use: Never Substance use type: does not use Caregiver/Support person: No Household members: significant other Housing: house Communication Needs: Hard of Hearing Do you need help understanding health information?: Never Pets and animals: No Sexually active: Yes Do you think of yourself as: straight/heterosexual Current gender identity: male What is your relationship status?: never How often do you talk on the phone with friends or family?: three or more times per week How often do you get together with friends or relatives?: decline to answer How often do you attend pentecostal or gnosticism services?: decline to answer Do you belong to any clubs or organized social groups?: no Panel score (0-1 are the most socially isolated patients): 1 What type of physical activity do you participate in: other Details: Rowing Duration: 15-30 minutes/day Frequency: daily Verna/Scientology: Hoahaoism Special verna needs: No Seatbelt use: always Helmet use: Yes Helmet use: always Drive intox or ride w/intox chair car driver: No Do you feel safe at home: Yes Do you feel safe in your relationship?: Yes Time Spent with Patient Time Spent with Patient: 45-69 minutes Time was spent: preparing to see the patient(eg.review tests), ordering medications,tests, procedures, referring, communicating with other health skin care technician, indepentently interpreting results, counseling the patient and care coordination
[2024-04-07] MEDS: ERTAPENEM 1 GM in Normal Saline 50 ML IVPB (13:25)
--- NOTE | 2024-04-07 13:35 | PDOC.HHF2F_ITS ---
Home Health Referral Home Health Orders Clinical synopsis of why skilled professionals are needed: History: * Chronic left foot infection, worsened swelling, and drainage. * Diabetic with neuropathy, recent change to new shoes following boot use. * Failed outpatient oral antibiotics Hospital Course: * Initial Assessment (Date):03/26/2024 * Found with foul-smelling drainage and signs of gangrene over left foot. * Afebrile, pale, chronically ill appearance; received IV fluids and antibiotics. * Consulted podiatry for surgical evaluation and debridement planning. * Surgical Intervention (Date):03/27/24 * Debridement performed to address gangrene and potential osteomyelitis by Dr Harris * Continued IV antibiotics postoperatively; * Medical Management: * Hyponatremia: Managed with gentle IV hydration; fluid restriction if persists. * Diabetes Mellitus: Monitored with glucometer; Jardiance and insulin managed with hospitalization. * Sleep Apnea: Continued home BiPAP with monitoring due to morbid obesity. * Chronic Kidney Disease (CKD): Stable at stage IV; vancomycin dosing adjusted. Follow-up Plan: * Continue wound care and antibiotic therapy as per podiatry and infectious disease recommendations; wound vac and at least 6 weeks of IV antibiotics - vancomycin and ertapenem - consideration for CKD. * Monitor diabetes and CKD closely; consider outpatient nephrology follow-up - labs twice a week while receiving antibiotics. Results to PCP and [facility] * Podiatry to manage wound Prognosis: * Patient responded well to initial surgical intervention and antibiotic therapy. * Continued management critical to prevent recurrence and complications Medical diagnosis necessitation home health referral: Cellulitis, gas gangrene of left foot requiring IV antibiotics and wound vac. Registered Nurse: Check all that apply Instruct on new or changed medication(s)/assess compliance: Ordered Assess for exacerbation of medical condition, instruct patient/caregivers on signs and symptoms to report for early detection: Ordered IV therapy, consisting of: Vancomycin 1250 mg every 24 h until 05/07/24 Ertapenem 1 gm every 24h until 05/07/24 Assess wound for signs and symptoms of infection, instruct on wound care and/or provide skilled wound care consisting of: Wound vac to be changed MWF, granu foam, 125 mmhg, surgical shoe, NWB to the left foot, crutches or knee scooter Other: Labs: vancomycin trough and BMP twice a week; PICC line dressing change and care weekly. Physical Therapist: Check all that apply Increase strength & endurance for safe mobility at home: Ordered To design/establish home maintenance program: Ordered Fall reduction therapy program for patient with history of frequent falls: Ordered Home safety evaluation and teaching/gait training including stair management (if applicable): Ordered Occupational Therapist: Evaluate and treat for patient unable to perform ADL/IADL/self-care: Ordered Upper extremity strengthening, range and motion: Ordered Medical Records Receptionist: Assist with community resources: Ordered Assist with long-term care planning: Ordered Home Bound Status Requires the aid of supportive device (check all that apply): Crutches (knee walker) Assistance of another person (Describe assistance and medical necessity): Patient can not ambulate safely without a device or a person helping him. Describe why leaving home would require a considerable and taxing effort: Safety Concerns: describe Encounter Date and Reason: I certify that a FTF encounter for this patient was performed on April 07, 2024 and that such encounter was related to the primary reason the patient requires home health services. The encounter was conducted in the following manner: * By me as the certifying physician, LABORER MINE, PA or * By an inpatient physician, LABORER MINE or PA during an inpatient stay who communicated findings to me, Certification And Authentication I certify that I composed the above information based on my clinical judgment relating to this patient's medical condition and, if applicable, clinical findings communicated to me by the NPP or inpatient physician who performed the FTF encounter. Name of Provider that will be monitoring home health services: Hammad Enirque
--- NOTE | 2024-04-07 15:47 | CHAPLAIN ---
I had a brief visit with Alpesh. He said he believes he's going home today because the wound vac has arrived. He was here for surgery to debried a wound on his left foot. His has been visiting often.
[2024-06-09 10:35] LABS: Susceptibility, Anaerobic MIC See Comments
[2024-06-09 10:36] LABS: Susceptibility, Anaerobic MIC See Comments
== END 2024-04-07 17:09 | disposition home health service (06) | DRG 264 ==
LOC: ER 20:53 → MS 20:57
PROVIDERS: Internal Medicine; Nurse Practitioner Acute Care; Nurse Practitioner Family; Podiatrist; Admitting Provider Family Medicine; Emergency Provider Emergency Medicine; PCP Family Medicine; Visit Provider Family Medicine
PROC: 0J9R0ZZ Drainage of Left Foot Subcutaneous Tissue and Fascia, Open Approach (ICD-10-PCS; CPT 10060; principal; 2024-03-26 11:15)
DX: E11.52 Type 2 diabetes mellitus with diabetic peripheral angiopathy with gangrene (principal); A48.0 Gas gangrene; L03.116 Cellulitis of left lower limb; L02.612 Cutaneous abscess of left foot; E87.1 Hypo-osmolality and hyponatremia; N18.4 Chronic kidney disease, stage 4 (severe); N17.9 Acute kidney failure, unspecified; I13.0 Hypertensive heart and chronic kidney disease with heart failure and stage 1 through stage 4 chronic kidney disease, or unspecified chronic kidney disease; L97.426 Non-pressure chronic ulcer of left heel and midfoot with bone involvement without evidence of necrosis; M86.8X7 Other osteomyelitis, ankle and foot; E11.22 Type 2 diabetes mellitus with diabetic chronic kidney disease; Z79.4 Long term (current) use of insulin; G47.33 Obstructive sleep apnea (adult) (pediatric); E11.65 Type 2 diabetes mellitus with hyperglycemia; I50.9 Heart failure, unspecified; I25.10 Atherosclerotic heart disease of native coronary artery without angina pectoris; E66.01 Morbid (severe) obesity due to excess calories; Z68.33 Body mass index [BMI] 33.0-33.9, adult; E11.40 Type 2 diabetes mellitus with diabetic neuropathy, unspecified; E87.5 Hyperkalemia; E11.319 Type 2 diabetes mellitus with unspecified diabetic retinopathy without macular edema; E78.5 Hyperlipidemia, unspecified; Z95.5 Presence of coronary angioplasty implant and graft; Z89.422 Acquired absence of other left toe(s); E11.621 Type 2 diabetes mellitus with foot ulcer; R19.7 Diarrhea, unspecified; B95.7 Other staphylococcus as the cause of diseases classified elsewhere
CPT/HCPCS: 10060; 28060; 28104; 36573; 00123; 36410; 36415; 71045; 76942; 80048; 80053; 82947; 84145; 85027; 85652; 86850; 86900; 86901; 87040; 87077; 87181; 96365; 96366; 96367; 97110; 97161; 97530; 99223; 99285; 73590; 73630; 80202; 83735; 85025; 85610; 85730; 86140; 87070; 87075; 87186; 87205; 88304; 88307; 88311; 99232; 99233; 99239; J0690; J0692; J0736; J1335; J1815; J2250; J2704; J3372

== ENCOUNTER 2024-04-08 19:23 | Outpatient (REF) | payer MEDICARE, OTHER, SELFPAY ==
[2024-04-08 19:40] LABS: Anion Gap 10.1 mmol/L (3-11); BUN 40 mg/dL (7-18); CO2 20.9 mmol/L (21.0-32.0); CREATININE 1.3 mg/dL (0.70-1.30); Chloride 110 mmol/L (98-107); Estimated GFR 60.21 (mL/min/1.73m2); Glucose 222 mg/dL (74-106); Potassium 4.9 mmol/L (3.5-5.1); Sodium 141 mmol/L (136-145)
== END 2024-04-08 19:24 | disposition home or self-care (01) ==
LOC: LBN 19:23
PROVIDERS: PCP Family Medicine; Visit Provider Nurse Practitioner Acute Care
DX: I96 Gangrene, not elsewhere classified (principal); E11.65 Type 2 diabetes mellitus with hyperglycemia
CPT/HCPCS: 80048; 80202

== ENCOUNTER 2024-04-10 18:13 | Emergency (ER) | payer MEDICARE, OTHER, SELFPAY ==
--- NOTE | 2024-04-10 18:00 | RT.EKG_ITS ---
APPROVED REPORT Exam: Resting ECG Reason for Exam: Hyperkalemia Patient Location: E HR:59 bpm ECG Measurements Heart Rate 59 AXIS WI 238 P 9 QRSd 119 QRS -50 QT 438 T 48 QTc 436 Conclusion Sinus bradycardia...rate< 60 Prolonged WI interval...WI >220, V-rate 50- 90 Incomplete RBBB and LAFB...axis(240,-40), S>R II III aVF
[2024-04-10 18:15] VITALS: BP 159/63; PULSE 60; RESP 16; TEMP 36.3; O2SAT 96
--- NOTE | 2024-04-10 18:30 | ED.GENADUL_ITS ---
Discharge Plan Disposition Patient Disposition: Home Condition: Stable Discharge Details Clinical Impression: Acute hyperkalemia Primary Care Provider: Hammad Enrique ED Provider: Kareem Monaco Home Meds and New Rx's Prescriptions: Continued (DME) lancets [Accu-Chek Fastclix Lancet Drum] Misc See Dose Instructions .ROUTE .MEDSUPPLY Qty: 100 6RF Dose Instruction: As directed Rx Instructions: test TID (DME) pen needle, diabetic [BD Ultra-Fine Short Pen Needle] 31 gauge x 5/16 needle 1 ea SQ 5x day Qty: 400 3RF Rx Instructions: inject 4 times/day sildenafil (pulm.hypertension) 20 mg tablet 20 - 100 mg PO DAILY PRN (Reason: sexual activity) Qty: 30 5RF dapagliflozin propanediol [Farxiga] 10 mg tablet 10 mg PO DAILY Qty: 90 3RF nitroglycerin [Nitrostat] 0.4 mg tablet, sublingual 0.4 mg Sublingual PRN Qty: 25 1RF Rx Instructions: REPEAT Q5 MIN. PRN X 3 (DME) blood-glucose meter [Accu-Chek Mariana Plus Meter] [facility] [place] Dose Instructions .ROUTE .MEDSUPPLY Qty: 1 0RF Dose Instruction: As directed Rx Instructions: As directed (DME) Accu-Chek Mariana Plus test strp Strip See Dose Instructions .ROUTE .MEDSUPPLY Qty: 300 3RF Dose Instruction: As directed Rx Instructions: test TID (DME) Accu-Chek Guide test strips Strip See Rx Instructions .ROUTE .MEDSUPPLY Qty: 300 3RF Rx Instructions: test 3 x day rosuvastatin 20 mg tablet 20 mg PO DAILY Qty: 90 3RF insulin glargine-yfgn [Semglee(insulin glarg-yfgn)Pen] 100 unit/mL (3 mL) insulin pen 60 unit subcut BID Qty: 45 3RF citalopram [Celexa] 20 mg tablet 20 mg PO DAILY Qty: 90 3RF losartan 100 mg tablet 50 mg PO DAILY Qty: 90 3RF Rx Instructions: dose reduce 12/11/23 (due to creatinine rise) carvedilol 12.5 mg tablet 12.5 mg PO BID Qty: 180 3RF Rx Instructions: must administer with a meal/food insulin aspart U-100 [Novolog FlexPen U-100 Insulin] 100 unit/mL (3 mL) in sulin pen 26 - 30 unit subcut AC Qty: 27 3RF Rx Instructions: diabetes E11.9 24 units plus sliding scale before each meal needs three boxes for a thirty day supply bupropion HCl 100 mg tablet 100 mg PO BID Qty: 180 3RF Eliquis 5 mg tablet 5 mg PO BID Qty: 180 3RF ertapenem 1 gram recon soln 1 g IM Q24H Qty: 10 0RF vancomycin in dextrose 5 % 1.25 gram/250 mL piggyback 1 g IV Q24H Discharge Instructions Additional Instructions: She read the food labels and eat foods that are low in potassium the lokelma instructions can be found below Follow-up with your primary care provider this week and discuss if you should continue Lokelma, also have your potassium rechecked Saturday If you feel more ill or have new symptoms such as severe weakness or chest pain return to the emergency department for reevaluation Empty entire packet contents into drinking glass containing approximately 3 tablespoons of water or more if desired then stir well and drink immediately. If powder remains in the drinking glass, add water, stir and drink immediately. Repeat this process until no powder remains. Administer other oral medications at least 2 hours before or 2 hours after sodium zirconium cyclosilicate. HPI General Mode of arrival: EMS . Date/Time Provider Initiated Documentation: 04/10/24 18:14 . Limitations to Documentation: no limitations . Information obtained by: patient . History of Present Illness 69 year old M presents to the emergency department with the chief complaint of elevated potassium, described as moderate, Patient started experiencing this day(s) (1) and it has been constant. No relieving factors improve symptom(s), No exacerbating factors reported . Patient notes no other symptoms.. Patient did receive the following treatments prior to arrival, none Related Data Home Medications ?Medication ?Instructions ?Recorded ?Confirmed blood-glucose meter (Accu-Chek #1 ea 12/30/18 04/10/24 Mariana Plus Meter) lancets (Accu-Chek Fastclix Lancet #100 ea 10/20/19 04/10/24 Drum) blood sugar diagnostic (Accu-Chek #300 ea 01/05/21 04/10/24 Mariana Plus test strips) pen needle, diabetic 31 gauge x #400 ea 11/07/22 04/10/24 5/16 (BD Ultra-Fine Short Pen Needle) sildenafil (pulm.hypertension) 20 20 - 100 mg (1 - 5 x 20 mg) PO 11/07/22 04/10/24 mg tablet DAILY PRN sexual activity #30 tabs blood sugar diagnostic (Accu-Chek #300 ea 04/22/23 04/10/24 Guide test strips) rosuvastatin 20 mg tablet 20 mg PO DAILY #90 tabs 05/09/23 04/10/24 dapagliflozin propanediol 10 mg 10 mg PO DAILY #90 tabs 08/27/23 04/10/24 tablet (Farxiga) nitroglycerin 0.4 mg sublingual 0.4 mg sublingual PRN #25 tabs 08/27/23 04/10/24 tablet (Nitrostat) insulin glargine-yfgn 100 unit/mL 60 unit (0.6 mL) subcut BID #45 mL 09/17/23 04/10/24 (3 mL) subcutaneous pen (Semglee (insulin glargine-yfgn) Pen) citalopram 20 mg tablet (Celexa) 20 mg PO DAILY #90 tabs 11/14/23 04/10/24 losartan 100 mg tablet 50 mg (1/2 x 100 mg) PO DAILY #90 12/11/23 04/10/24 tabs carvedilol 12.5 mg tablet 12.5 mg PO BID #180 tabs 02/01/24 04/10/24 insulin aspart U-100 100 unit/mL 26 - 30 unit (0.26 - 0.3 mL) 02/03/24 04/10/24 (3 mL) subcutaneous pen (Novolog subcut AC #27 SYRGS FlexPen U-100 Insulin aspart) bupropion HCl 100 mg tablet 100 mg PO BID #180 tabs 03/17/24 04/10/24 apixaban 5 mg tablet (Eliquis) 5 mg PO BID #180 tabs 03/18/24 04/10/24 ertapenem 1 gram solution for 1 g IM Q24H #10 ea 04/07/24 04/10/24 injection vancomycin 1.25 gram/250 mL in 1 g IV Q24H 07/09/24 07/12/24 dextrose 5 % intravenous piggyback Previous Rx's ?Medication ?Instructions ?Recorded blood-glucose meter (Accu-Chek #1 ea 12/30/18 Mariana Plus Meter) lancets (Accu-Chek Fastclix Lancet #100 ea 10/20/19 Drum) blood sugar diagnostic (Accu-Chek #300 ea 01/05/21 Mariana Plus test strips) pen needle, diabetic 31 gauge x #400 ea 11/07/22/ (BD Ultra-Fine Short Pen Needle) sildenafil (pulm.hypertension) 20 20 - 100 mg (1 - 5 x 20 mg) PO 11/07/22 mg tablet DAILY PRN sexual activity #30 tabs blood sugar diagnostic (Accu-Chek #300 ea 04/22/23 Guide test strips) rosuvastatin 20 mg tablet 20 mg PO DAILY #90 tabs 05/09/23 dapagliflozin propanediol 10 mg 10 mg PO DAILY #90 tabs 08/27/23 tablet (Farxiga) nitroglycerin 0.4 mg sublingual 0.4 mg sublingual PRN #25 tabs 08/27/23 tablet (Nitrostat) insulin glargine-yfgn 100 unit/mL 60 unit (0.6 mL) subcut BID #45 mL 09/17/23 (3 mL) subcutaneous pen (Semglee (insulin glargine-yfgn) Pen) citalopram 20 mg tablet (Celexa) 20 mg PO DAILY #90 tabs 11/14/23 losartan 100 mg tablet 50 mg (1/2 x 100 mg) PO DAILY #90 12/11/23 tabs carvedilol 12.5 mg tablet 12.5 mg PO BID #180 tabs 02/01/24 insulin aspart U-100 100 unit/mL 26 - 30 unit (0.26 - 0.3 mL) 02/03/24 (3 mL) subcutaneous pen (Novolog subcut AC #27 SYRGS FlexPen U-100 Insulin aspart) bupropion HCl 100 mg tablet 100 mg PO BID #180 tabs 03/17/24 apixaban 5 mg tablet (Eliquis) 5 mg PO BID #180 tabs 03/18/24 ertapenem 1 gram solution for 1 g IM Q24H #10 ea 04/07/24 injection vancomycin 1.25 gram/250 mL in 1 g IV Q24H 04/07/24 dextrose 5 % intravenous piggyback Allergies Allergy/AdvReac Type Severity Reaction Status Date / Time celecoxib (From Celebrex) Allergy Severe BERRIOS-JAYME Verified 03/25/24 15:22 SYNDROME atorvastatin AdvReac Unknown Verified 03/25/24 15:22 General Stated Complaint: GenMedical SCOTT: 3 Review of Systems All systems reviewed & are unremarkable except as noted in HPI and below Constitutional Constitutional: Denies chills, Denies fever(s) and Denies weakness Cardiovascular Cardiovascular: Denies chest pain and Denies dyspnea Respiratory Respiratory: Denies cough and Denies dyspnea Gastrointestinal Gastrointestinal: Denies abdominal pain, Denies nausea and Denies vomiting Musculoskeletal Musculoskeletal: Denies joint swelling Neurologic Neurologic: Denies weakness Exam Const General: no acute distress Orientation: alert HENMT Head: normal to inspection Ears: external ears normal General nose exam: external nose normal Mouth: moist mucous membranes Eyes General: appearance normal, both eyes and all related structures Neck Neck: normal visual inspection Resp Effort & Inspection: normal respiratory effort and able to speak in complete sentences Cardio Rate: regular rate Skin General skin exam: no rashes or lesions noted Neuro General: patient alert and patient oriented x3 Psych Mental Status: mental status grossly normal Course Vital Signs Vital signs: Vital Signs Temperature 36.3 C L 04/10/24 18:15 Pulse 60 04/10/24 18:15 Respiratory Rate 16 04/10/24 18:15 Blood Pressure 159/63 H 04/10/24 18:15 Pulse Oximetry 96 04/10/24 18:15 Temperature 36.3 C L 04/10/24 18:15 Temperature Source Temporal Artery Scan 04/10/24 18:15 Pulse 60 04/10/24 18:15 Respiratory Rate 16 04/10/24 18:15 Blood Pressure 159/63 H 04/10/24 18:15 Pulse Oximetry 96 04/10/24 18:15 Oxygen Delivery Method Room Air 04/10/24 18:15 Oxygen Flow Rate 0 04/10/24 18:15 Medical Decision Making 69-year-old male with a history of diabetes and recent admission for osteomyelitis and debridement and surgery on her foot receiving IV antibiotics as an outpatient, comes in after he had blood work done today and his potassium was 6.2. He denies any symptoms and states he feels fine, has no fevers, no severe foot pain, has been urinating and making normal bowel movements per patient. No abdominal pain or chest pain. He is alert and oriented on arrival speaking clearly in no distress. Given he is asymptomatic we will just check a metabolic panel to confirm this was not a pseudohyperkalemia. Testing mildly elevated at 5.9, he says he has not been following a strict high potassium diet. He has been urinating normally. Given he is asymptomatic we will give a dose of oral Lokelma. He does not want to be admitted to and feel his potassium levels are not high enough to be admitted. Will provide him a dose of Lokelma for tomorrow and Saturday as well and he will get his potassium rechecked on Saturday. Return precautions given Differential Diagnosis Differential Diagnosis: Hyperkalemia, pseudohyperkalemia Medical Records Medical records reviewed: Yes I reviewed the patient's medical records. Lab Data Lab results reviewed: Yes I reviewed the patient's lab results. ECG Data Attestation: I personally reviewed and interpreted this ECG (s) as follows: Prior ECG tracings: available for review Interpretation: sinus rate of 59 pr 238 no stemi Quality:SDOH Health Related Social Needs: Health related social needs risk of homeless PFSH All Active Problems (Updated 04/10/24 @ 19:21 by Kareem Monaco MD) Acute hyperkalemia (Acute) Uncontrolled diabetes mellitus with hyperglycemia (Acute) Cellulitis of foot (Acute) Cerumen impaction (Acute) Conductive hearing loss (Acute) Hyperkalemia (Acute) Erectile dysfunction (Acute) Obesity (Acute) Diabetic retinopathy (Acute ~12/2021) 01/12/22 B/L MODERATE/SHIPPEE-KB Hyperlipidemia associated with type 2 diabetes mellitus (Acute) Mixed hearing loss (Acute) Depressive disorder (Acute 08/10/13) Mixed conductive and sensorineural hearing loss of right ear with restricted hearing of left ear (Acute) DVT prophylaxis (Acute) Urinary retention (Acute) Hypoglycemia (Acute) KATRIN (acute kidney injury) (Acute) Diabetes mellitus, type II (Acute) a. Hgb A1C 11.6 b. on high dose glargine insulin therapy Transaminitis (Acute) Rash (Acute) Arthritis of right shoulder region (Acute) Arthritis of left shoulder region (Acute) History of rotator cuff tear (Acute ~1995) Tendinitis of long head of biceps brachii of left shoulder (Acute) Tendinitis of long head of biceps brachii of right shoulder (Acute) Tendinitis of left rotator cuff (Acute) Right rotator cuff tendonitis (Acute) Multiple exostoses (Acute) Abnormal auditory perception (Acute) Essential hypertension (Acute) if creat ok, will add KULWANT Chronic renal impairment, stage 2 (mild) (Acute) Hx of colonic polyps (Acute) Low back pain (Acute) Sensorineural hearing loss, bilateral (Chronic 07/16/16) Medical History Well adult Impacted cerumen of both ears Acute osteomyelitis of right foot (06/25/16) Rupture of left quadriceps muscle (01/15/18) Proliferative diabetic retinopathy (08/06/12) 08/09/16; [facility] Polyp of colon (11/17/13) DR. Dick RODRIGUEZ; TUBULAR ADENOMA Hyperlipidemia (03/26/13) Heart failure 01/31/17 [facility] ; EF 45-50%;ATRIAL DIALATION on coumadin DM (diabetes mellitus), type 2, uncontrolled w/ophthalmic complication (08/06/12) Atherosclerosis of [place] coronary artery Stent 1999 Positive MPI in May 2010 Depression Coronary disease a. s/p cath with stent 1999 b. MPI positive for ischemia 2009 Current use of insulin Osteomyelitis (08/13/14) a. left foot fifth metatarsal and proximal phalanx Surgical History History of appendectomy History of intravascular stent placement History of right knee surgery (04/22/14) [place]/P [place]02[place]18[place] [facility] [place]-kb QUADRICEPS REPAIR 01/16/18 (L) PROCEDURES INSERT 1 VASCULAR STENT, 1999 LEFT CIRC. Colonoscopy - MAC (11/17/13) H/O surgical procedure a. Right quadriceps repair [address] Smart b. Colonoscopy 11/17/[address] Rodriguez Family History Mother , AGE 84 Diabetes Stroke Father Depression Heart disease Hyperlipidemia Hypertension Sister Alcohol abuse Substance abuse Diabetes Depression Social History Smoking/Tobacco Use Status: Never Second Hand Exposure: Yes Smoking risk assessment performed?: Yes Alcohol Intake: never Drug use: Never Substance use type: does not use Caregiver/Support person: No Household members: significant other Housing: house Communication Needs: Hard of Hearing Do you need help understanding health information?: Never Pets and animals: No Sexually active: Yes Do you think of yourself as: straight/heterosexual Current gender identity: male What is your relationship status?: never How often do you talk on the phone with friends or family?: three or more times per week How often do you get together with friends or relatives?: decline to answer How often do you attend cheondoism or latter day services?: decline to answer Do you belong to any clubs or organized social groups?: no Panel score (0-1 are the most socially isolated patients): 1 What type of physical activity do you participate in: other Details: Rowing Duration: 15-30 minutes/day Frequency: daily Verna/Sabianist: Nondenominational Special verna needs: No Seatbelt use: always Helmet use: Yes Helmet use: always Drive intox or ride w/intox dedicated driver: No Do you feel safe at home: Yes Do you feel safe in your relationship?: Yes
[2024-04-10 18:42] VITALS: RESP 12
[2024-04-10 18:50] LABS: Anion Gap 6.8 mmol/L (3-11); BUN 57 mg/dL (7-18); CO2 26.2 mmol/L (21.0-32.0); CREATININE 1.9 mg/dL (0.70-1.30); Calcium 8.9 mg/dL (8.5-10.1); Chloride 105 mmol/L (98-107); Estimated GFR 38.19 (mL/min/1.73m2); Glucose 210 mg/dL (74-106); Potassium 5.9 mmol/L (3.5-5.1); Sodium 138 mmol/L (136-145)
[2024-04-10] MEDS: Sodium Zirconium Cyclosilicate 10 GM PKT PO ×3 (19:19→19:23)
[2024-04-10 19:30] VITALS: PULSE 58; RESP 10; TEMP 36.8; O2SAT 98
== END 2024-04-10 20:45 | disposition home or self-care (01) ==
PROVIDERS: Emergency Provider Emergency Medicine; PCP Family Medicine
DX: E87.5 Hyperkalemia (principal); I12.9 Hypertensive chronic kidney disease with stage 1 through stage 4 chronic kidney disease, or unspecified chronic kidney disease; E11.22 Type 2 diabetes mellitus with diabetic chronic kidney disease; N18.9 Chronic kidney disease, unspecified; E78.5 Hyperlipidemia, unspecified; E11.3599 Type 2 diabetes mellitus with proliferative diabetic retinopathy without macular edema, unspecified eye
CPT/HCPCS: 36415; 80048; 93005; 99283; 93010

== ENCOUNTER 2024-04-10 19:11 | Outpatient (REF) | payer MEDICARE, OTHER, SELFPAY ==
[2024-04-10 16:42] LABS: BUN 57 mg/dL (7-18); CREATININE 1.9 mg/dL (0.70-1.30); Calcium 8.7 mg/dL (8.5-10.1); Chloride 105 mmol/L (98-107); Estimated GFR 38.19 (mL/min/1.73m2); Glucose 218 mg/dL (74-106); Sodium 139 mmol/L (136-145); Vancomycin, Trough 19.6 ug/mL (10.0-20.0)
[2024-04-10 17:04] LABS: Potassium 6.2 mmol/L (3.5-5.1)
== END 2024-04-10 19:12 | disposition home or self-care (01) ==
LOC: LBN 19:11
PROVIDERS: PCP Family Medicine; Visit Provider Nurse Practitioner Acute Care
DX: Z79.899 Other long term (current) drug therapy (principal)
CPT/HCPCS: 80048; 80202

== ENCOUNTER 2024-04-13 12:35 | Day surgery (SDC) | payer MEDICARE, OTHER, SELFPAY ==
--- NOTE | 2024-04-13 15:23 | DI.RAD_ITS ---
Exam(s) XR PORTABLE CHEST AP POST LINE EXAM: XR PORTABLE CHEST AP POST LINE CLINICAL HISTORY: Status post PICC line placement. TECHNIQUE: 2D digital imaging was performed. COMPARISON: CR XR PORTABLE CHEST AP POST LINE from 03/30/2024 FINDINGS: Single AP portable view. On this 1st postprocedure image the distal with a PICC line is in the upper SVC. Heart size is upper normal. The mediastinum is not widened. Visualized lungs are clear realizing that the left lung base is not included in the field of view of this portable study. IMPRESSION: As above. PICC line should be advanced 2 cm DATA REPOSITORY: RADIATION DOSE DELIVERED:
--- NOTE | 2024-04-13 15:24 | DI.RAD_ITS ---
Exam(s) XR PORTABLE CHEST AP POST LINE EXAM: XR PORTABLE CHEST AP POST LINE CLINICAL HISTORY: PICC placement. TECHNIQUE: 2D digital imaging was performed. COMPARISON: CR XR PORTABLE CHEST AP POST LINE from 04/13/2024 FINDINGS: Single AP portable view. The distal tip of the newly placed right PICC line is seen to be at the SVC-RA junction as evident on the image of 04/13/2024 performed at 15:05 p.m. Heart size is upper normal. The mediastinum is not widened. Visualized lungs are clear although the left costophrenic angle is not included in the field of view of this portable supine view. IMPRESSION: Distal tip of the newly placed right PICC line is at the SVC-RA junction. DATA REPOSITORY: RADIATION DOSE DELIVERED:
== END 2024-04-13 12:36 | disposition home or self-care (01) ==
LOC: DSU 04-21 12:35
PROVIDERS: PCP Family Medicine; Visit Provider Podiatrist
DX: Z79.2 Long term (current) use of antibiotics (principal); Z45.2 Encounter for adjustment and management of vascular access device
CPT/HCPCS: 36573; 71045

== ENCOUNTER 2024-04-16 09:46 | Outpatient (CLI) | payer MEDICARE, OTHER, SELFPAY ==
[2024-04-16 12:19] LABS: Potassium 5.3 mmol/L (3.5-5.1)
== END 2024-04-16 09:47 | disposition home or self-care (01) ==
LOC: LOS 09:46
PROVIDERS: PCP Family Medicine; Referring Provider Family Medicine; Visit Provider Family Medicine
DX: E87.5 Hyperkalemia (principal); E11.9 Type 2 diabetes mellitus without complications; L08.9 Local infection of the skin and subcutaneous tissue, unspecified; N18.2 Chronic kidney disease, stage 2 (mild)
CPT/HCPCS: 36415; 84132

== ENCOUNTER 2024-04-17 12:32 | Outpatient (REF) | payer MEDICARE, OTHER, SELFPAY ==
[2024-04-17 13:16] LABS: Anion Gap 6.4 mmol/L (3-11); BUN 29 mg/dL (7-18); CO2 29.6 mmol/L (21.0-32.0); CREATININE 1.8 mg/dL (0.70-1.30); Calcium 8.6 mg/dL (8.5-10.1); Chloride 108 mmol/L (98-107); Estimated GFR 40.75 (mL/min/1.73m2); Potassium 4.9 mmol/L (3.5-5.1); Sodium 144 mmol/L (136-145)
[2024-04-17 13:42] LABS: Glucose 49 mg/dL (74-106)
== END 2024-04-17 12:33 | disposition home or self-care (01) ==
LOC: LBN 12:32
PROVIDERS: PCP Family Medicine; Visit Provider Nurse Practitioner Acute Care
DX: L03.116 Cellulitis of left lower limb (principal); L02.612 Cutaneous abscess of left foot; M86.8X7 Other osteomyelitis, ankle and foot; E11.22 Type 2 diabetes mellitus with diabetic chronic kidney disease; N18.4 Chronic kidney disease, stage 4 (severe); I13.0 Hypertensive heart and chronic kidney disease with heart failure and stage 1 through stage 4 chronic kidney disease, or unspecified chronic kidney disease
CPT/HCPCS: 80048

== ENCOUNTER → 2024-04-21 09:38 | Outpatient (BNVA) | payer MEDICARE, OTHER, SELFPAY | PROVIDERS: PCP Family Medicine; Referring Provider Family Medicine; Visit Provider Podiatrist | DX: E11.65 Type 2 diabetes mellitus with hyperglycemia (principal); L03.116 Cellulitis of left lower limb; L97.522 Non-pressure chronic ulcer of other part of left foot with fat layer exposed; M86.8X7 Other osteomyelitis, ankle and foot | CPT/HCPCS: 99024 ==

== ENCOUNTER 2024-04-21 10:25 | Emergency (ER) | payer MEDICARE, OTHER, SELFPAY ==
[2024-04-21] VITALS (32 sets, daily range): BP systolic 92–152; BP diastolic 45–70; PULSE 54–72; RESP 10–23; TEMP 36.4; O2SAT 84–99
--- NOTE | 2024-04-21 10:30 | RT.EKG_ITS ---
APPROVED REPORT Exam: Resting ECG Reason for Exam: Hypotensive Patient Location: E HR:57 bpm ECG Measurements Heart Rate 57 AXIS WA 271 P 42 QRSd 117 QRS 131 QT 441 T 32 QTc 430 Conclusion Sinus bradycardia 57 1st degree block 271 no stemi
--- NOTE | 2024-04-21 10:54 | W.ED.GENAD ---
Discharge Plan Disposition Patient Disposition: Home Condition: Improving Discharge Details Clinical Impression: Acute dehydration, Hypotension, Hypoglycemia associated with diabetes Primary Care Provider: Hammad Enrique ED Provider: Amy Thomas Home Meds and New Rx's Prescriptions: Continued (DME) lancets [Accu-Chek Fastclix Lancet Drum] Misc See Dose Instructions .ROUTE .MEDSUPPLY Qty: 100 6RF Dose Instruction: As directed Rx Instructions: test TID (DME) pen needle, diabetic [BD Ultra-Fine Short Pen Needle] 31 gauge x 5/16 needle 1 ea SQ 5x day Qty: 400 3RF Rx Instructions: inject 4 times/day sildenafil (pulm.hypertension) 20 mg tablet 20 - 100 mg PO DAILY PRN (Reason: sexual activity) Qty: 30 5RF dapagliflozin propanediol [Farxiga] 10 mg tablet 10 mg PO DAILY Qty: 90 3RF nitroglycerin [Nitrostat] 0.4 mg tablet, sublingual 0.4 mg Sublingual PRN Qty: 25 1RF Rx Instructions: REPEAT Q5 MIN. PRN X 3 (DME) Dexcom G7 Lunchroom Attendant Misc See Rx Instructions .MEDSUPPLY Qty: 1 0RF Rx Instructions: As directed (DME) Dexcom G7 Sensor Device See Rx Instructions .Route Qty: 1 12RF Rx Instructions: As directed rosuvastatin 20 mg tablet 20 mg PO DAILY Qty: 90 3RF (DME) blood-glucose meter [Accu-Chek Mariana Plus Meter] misc See Dose Instructions .ROUTE .MEDSUPPLY Qty: 1 0RF Dose Instruction: As directed Rx Instructions: As directed (DME) Accu-Chek Mariana Plus test strp Strip See Dose Instructions .ROUTE .MEDSUPPLY Qty: 300 3RF Dose Instruction: As directed Rx Instructions: test TID (DME) Accu-Chek Guide test strips Strip See Rx Instructions .ROUTE .MEDSUPPLY Qty: 300 3RF Rx Instructions: test 3 x day insulin glargine-yfgn [Semglee(insulin glarg-yfgn)Pen] 100 unit/mL (3 mL) insulin pen 60 unit subcut BID Qty: 45 3RF citalopram [Celexa] 20 mg tablet 20 mg PO DAILY Qty: 90 3RF losartan 100 mg tablet 50 mg PO DAILY Qty: 90 3RF Rx Instructions: dose reduce 12/11/23 (due to creatinine rise) carvedilol 12.5 mg tablet 12.5 mg PO BID Qty: 180 3RF Rx Instructions: must administer with a meal/food insulin aspart U-100 [Novolog FlexPen U-100 Insulin] 100 unit/mL (3 mL) insulin pen 26 - 30 unit subcut AC Qty: 27 3RF Rx Instructions: diabetes E11.9 24 units plus sliding scale before each meal needs three boxes for a thirty day supply bupropion HCl 100 mg tablet 100 mg PO BID Qty: 180 3RF Eliquis 5 mg tablet 5 mg PO BID Qty: 180 3RF vancomycin in dextrose 5 % 1.25 gram/250 mL piggyback 1 g IV Q36H Patient Comments: due at noon today ertapenem 1 gram recon soln 1 g IM Q24H Qty: 10 0RF Discharge Instructions Instructions: Dehydration, Adult ED, Low Blood Sugar, Adult ED Additional Instructions: Please eat full meals 3 times daily with protein while taking your insulin. Increase oral fluids and electrolyte drinks while having diarrhea. Continue with your antibiotics as previously scheduled. No evidence of heart attack today, your liver enzymes are slightly elevated and your kidney functions are slightly elevated. Please discuss this with your primary care provider and home health provider. Your vancomycin trough is within therapeutic range today. Please return to the ER for any worsening dizziness, fatigue, sweaty, chest pain shortness of breath or any concerns. Follow up with primary care provider in 3-5 days. Return to ED sooner if any worsening or concerns. Referrals: Hammad Enrique MD [Primary Care Provider] - 3 days Discharge Data Discharge Date/Time-TO BE ENTERED AT DEPARTURE: 04/21/24 14:23 HPI General Mode of arrival: wheelchair. Date/Time Provider Initiated Documentation: 04/21/24 10:27. Limitations to Documentation: no limitations and altered mental status. Information obtained by: patient, family (Girlfriend, Amy), RN/MD (Sent here from podiatry office), RN notes reviewed and old records reviewed. HPI Narrative: 69-year-old male presents to the ER chief, planing of low blood pressure, borderline low blood sugar after being seen at podiatry office this morning. Patient was recently admitted and discharged with home health for gangrenous foot ulcer with osteomyelitis. He does have a PICC line noted to his right upper extremity and is receiving vancomycin and ertapenem twice daily. He is a insulin-dependent diabetic he reports he did take 20 units of possibly NovoLog this morning, patient and his girlfriend are unsure of exactly what insulin he took this morning. He also does take Lantus twice daily on a normal basis, he did eat breakfast this morning of crackers and diet soda. Upon arrival to his scheduled podiatry appointment for reevaluate and dressing change he was noted to have a low blood pressure be slightly altered diaphoretic and ashen colored. BGL upon arrival is 72, blood pressure is 92/49 pulse is 54. He was given orange juice upon arrival and peanut butter. He denies any abdominal pain denies any chest pain shortness of breath he does endorse slight headache, neuroexam is intact. He does endorse diarrhea which is getting worse on a daily basis. Past medical history includes morbid obesity chronic kidney disease, diabetes, hyperlipidemia depression coronary artery disease, he is on Eliquis for DVT prophylaxis. Related Data Home Medications ?Medication ?Instructions ?Recorded ?Confirmed blood-glucose meter (Accu-Chek #1 ea 12/30/18 04/21/24 Mariana Plus Meter) lancets (Accu-Chek Fastclix Lancet #100 ea 10/20/19 04/21/24 Drum) blood sugar diagnostic (Accu-Chek #300 ea 01/05/21 04/21/24 Mariana Plus test strips) pen needle, diabetic 31 gauge x #400 ea 11/07/22 04/21/24/16 (BD Ultra-Fine Short Pen Needle) sildenafil (pulm.hypertension) 20 20 - 100 mg (1 - 5 x 20 mg) PO 11/07/22 04/21/24 mg tablet DAILY PRN sexual activity #30 tabs blood sugar diagnostic (Accu-Chek #300 ea 04/22/23 04/21/24 Guide test strips) dapagliflozin propanediol 10 mg 10 mg PO DAILY #90 tabs 08/27/23 04/21/24 tablet (Farxiga) nitroglycerin 0.4 mg sublingual 0.4 mg sublingual PRN #25 tabs 08/27/23 04/21/24 tablet (Nitrostat) insulin glargine-yfgn 100 unit/mL 60 unit (0.6 mL) subcut BID #45 mL 09/17/23 04/21/24 (3 mL) subcutaneous pen (Semglee (insulin glargine-yfgn) Pen) citalopram 20 mg tablet (Celexa) 20 mg PO DAILY #90 tabs 11/14/23 04/21/24 losartan 100 mg tablet 50 mg (1/2 x 100 mg) PO DAILY #90 12/11/23 04/21/24 tabs carvedilol 12.5 mg tablet 12.5 mg PO BID #180 tabs 02/01/24 04/21/24 insulin aspart U-100 100 unit/mL 26 - 30 unit (0.26 - 0.3 mL) 02/03/24 04/21/24 (3 mL) subcutaneous pen (Novolog subcut AC #27 SYRGS FlexPen U-100 Insulin aspart) bupropion HCl 100 mg tablet 100 mg PO BID #180 tabs 03/17/24 04/21/24 apixaban 5 mg tablet (Eliquis) 5 mg PO BID #180 tabs 03/18/24 04/21/24 ertapenem 1 gram solution for 1 g IM Q24H #10 ea 04/07/24 04/21/24 injection vancomycin 1.25 gram/250 mL in 1 g IV Q36H 04/15/24 04/21/24 dextrose 5 % intravenous piggyback blood-glucose meter,continuous #1 ea 04/16/24 04/21/24 (Dexcom G7 Lunchroom Attendant) blood-glucose sensor (Dexcom G7 #1 ea 04/16/24 04/21/24 Sensor device) rosuvastatin 20 mg tablet 20 mg PO DAILY #90 tabs 04/16/24 04/21/24 Previous Rx's ?Medication ?Instructions ?Recorded blood-glucose meter (Accu-Chek #1 ea 12/30/18 Mariana Plus Meter) lancets (Accu-Chek Fastclix Lancet #100 ea 10/20/19 Drum) blood sugar diagnostic (Accu-Chek #300 ea 01/05/21 Mariana Plus test strips) pen needle, diabetic 31 gauge x #400 ea 11/07/2202/12 (BD Ultra-Fine Short Pen Needle) sildenafil (pulm.hypertension) 20 20 - 100 mg (1 - 5 x 20 mg) PO 11/07/22 mg tablet DAILY PRN sexual activity #30 tabs blood sugar diagnostic (Accu-Chek #300 ea 04/22/23 Guide test strips) dapagliflozin propanediol 10 mg 10 mg PO DAILY #90 tabs 08/27/23 tablet (Farxiga) nitroglycerin 0.4 mg sublingual 0.4 mg sublingual PRN #25 tabs 08/27/23 tablet (Nitrostat) insulin glargine-yfgn 100 unit/mL 60 unit (0.6 mL) subcut BID #45 mL 09/17/23 (3 mL) subcutaneous pen (Semglee (insulin glargine-yfgn) Pen) citalopram 20 mg tablet (Celexa) 20 mg PO DAILY #90 tabs 11/14/23 losartan 100 mg tablet 50 mg (1/2 x 100 mg) PO DAILY #90 12/11/23 tabs carvedilol 12.5 mg tablet 12.5 mg PO BID #180 tabs 02/01/24 insulin aspart U-100 100 unit/mL 26 - 30 unit (0.26 - 0.3 mL) 02/03/24 (3 mL) subcutaneous pen (Novolog subcut AC #27 SYRGS FlexPen U-100 Insulin aspart) bupropion HCl 100 mg tablet 100 mg PO BID #180 tabs 03/17/24 apixaban 5 mg tablet (Eliquis) 5 mg PO BID #180 tabs 03/18/24 ertapenem 1 gram solution for 1 g IM Q24H #10 ea 04/07/24 injection vancomycin 1.25 gram/250 mL in 1 g IV Q36H 04/15/24 dextrose 5 % intravenous piggyback blood-glucose meter,continuous #1 ea 04/16/24 (Dexcom G7 Lunchroom Attendant) blood-glucose sensor (Dexcom G7 #1 04/16/24 Sensor device) rosuvastatin 20 mg tablet 20 mg PO DAILY #90 tabs 04/16/24 Allergies Allergy/AdvReac Type Severity Reaction Status Date / Time celecoxib (From Celebrex) Allergy Severe BERRIOS-JAYME Verified 04/21/24 11:19 SYNDROME atorvastatin AdvReac Unknown Verified 04/21/24 11:19 General Stated Complaint: AMS/LOC SCOTT: 3 Review of Systems All systems reviewed & are unremarkable except as noted in HPI and below Constitutional Constitutional: Reports as per HPI, Reports excessive sweating, Denies headache(s), Reports malaise and Reports weakness Eyes Eyes: Denies loss of vision ENT Ears, Nose, Mouth, and Throat: Reports dizziness, Denies headache(s) and Reports disequilibrium Cardiovascular Cardiovascular: Denies chest pain, Reports diaphoresis, Reports lightheadedness and Reports dyspnea on exertion Respiratory Respiratory: Reports dyspnea on exertion Gastrointestinal Gastrointestinal: Denies abdominal pain, Reports diarrhea, Reports loose stools, Denies nausea and Denies vomiting Genitourinary Genitourinary: Denies dysuria and Reports urinary hesitancy Neurologic Neurologic: Denies confusion, Reports dizziness, Denies headache(s), Denies loss of vision, Denies memory loss, Reports disequilibrium and Reports weakness Psychiatric Psychiatric: Denies confusion and Denies memory loss Endocrine Endocrine: Reports excessive sweating Exam Narrative Exam Narrative: Constitutional: Alert and oriented x3. Appears stated age. Obese body habitus. Slightly diaphoretic upon initial presentation, appears pale. Head: Normocephalic, no trauma. Eyes: Pupils PERRL, Red reflex noted, EOM's intact. Eyelids symmetrical without lesions, discharge, or swelling. ENT: Bilateral TM's WNL, External ear normal to inspection, no mastoid TTP, swelling, or erythema, Nasal turbinates WNL, no nasal discharge. Normal dentition, Posterior pharynx WNL, no exudate. Chest: RRR, Normal S1, S2, distal pulses intact. Soft blood pressure initial BP 92/49, patient complaining of dizziness. Resp: Lungs clear to auscultation bilaterally, no wheezes, rales, or rhonchi. Abdomen: Soft, non-distended, Normoactive bowel sounds all 4 quads. Musculoskeletal: Unable to assess gait, moves all 4 extremities without difficulty. Does have his left leg wrapped in a dressing was just seen at podiatry office for diabetic ulcer with a wound VAC removed today. Skin: No suspicious rashes or lesions. Capillary refill less than 2 sec. clammy, cool. Neurologic: Cranial nerves II-XII intact. Alert and oriented x 3. Motor: No deficits noted. Sensory: Intact bilaterally all 4 extremities. Generalized weakness. Hematologic/Lymphatic: No ecchymosis, no lymphadenopathy. Course Vital Signs Vital signs: Vital Signs Temperature 36.4 C L 04/21/24 10:33 Pulse 54 L 04/21/24 10:33 Respiratory Rate 12 04/21/24 10:33 Blood Pressure 92/49 L 04/21/24 10:33 Pulse Oximetry 93 04/21/24 10:33 Temperature 36.4 C L 04/21/24 10:33 Temperature Source Temporal Artery Scan 04/21/24 10:33 Pulse 54 L 04/21/24 10:33 Respiratory Rate 12 04/21/24 10:33 Respiratory Effort Normal, Non-Labored 04/21/24 10:37 Blood Pressure 92/49 L 04/21/24 10:33 Blood Pressure Position Sitting 04/21/24 10:33 Pulse Oximetry 93 04/21/24 10:33 Oxygen Delivery Method Room Air 04/21/24 10:33 Oxygen Flow Rate 0 04/21/24 10:33 Pain Level 0 04/21/24 10:33 Lab/Test Results Lab/Test Results: 04/21/24 10:38 Blood Blood Culture - Pending 04/21/24 10:38 Blood Blood Culture - Pending Medical Decision Making 69-year-old male presents to the ER chief, planing of low blood pressure, borderline low blood sugar after being seen at podiatry office this morning. Patient was recently admitted and discharged with home health for gangrenous foot ulcer with osteomyelitis. He does have a PICC line noted to his right upper extremity and is receiving vancomycin and ertapenem twice daily. He is a insulin-dependent diabetic he reports he did take 20 units of possibly NovoLog this morning, patient and his girlfriend are unsure of exactly what insulin he took this morning. He also does take Lantus twice daily on a normal basis, he did eat breakfast this morning of crackers and diet soda. Upon arrival to his scheduled podiatry appointment for reevaluate and dressing change he was noted to have a low blood pressure be slightly altered diaphoretic and ashen colored. BGL upon arrival is 72, blood pressure is 92/49 pulse is 54. He was given orange juice upon arrival and peanut butter. He denies any abdominal pain denies any chest pain shortness of breath he does endorse slight headache, neuro-exam is intact. He does endorse diarrhea which is getting worse on a daily basis. Past medical history includes morbid obesity chronic kidney disease, diabetes, hyperlipidemia depression coronary artery disease, he is on Eliquis for DVT prophylaxis. Cardiac workup ordered including serial troponins, EKG, CBC CMP, urinalysis blood cultures x 2 and lactate and a C. difficile. Differential diagnosis includes but not limited to hypoglycemia episode, CAD, C. difficile, electrolyte disturbance, sepsis. Initial workup shows no leukocytosis, hemoglobin hematocrit at baseline at 10 and 32, platelets are 129, VBG within normal limits BUN is elevated 26 creatinine 2.0 GFR 35, patient's baseline creatinine is 1.81.95. Magnesium slightly low at 1.7 elevated transaminase's AST 38 ALT 128 alk phos was 211 initial troponin within normal limits. Did add on a vancomycin trough, albumin is 3.0. Liver enzymes have been elevated in the past in 2021. Chest x-ray shows no acute abnormality tip of the PICC line in the superior vena cava. Ordered patient a diabetic tray. On reevaluation: He reports he feels better his blood pressure is 134/64 he has received approximately 400 cc of LR, repeat BGL fingerstick is 100. Discussed kidney functions and liver functions with patient he denies any alcohol. Vancomycin trough is within therapeutic range it is 10.7, patient was fed here. Patient up to bedside commode, reports he feels better. He denies any dizziness, lightheadedness, upon standing. Headache has improved after fluids. Blood pressure 140/46 at this time. Will discharge to home to take previously scheduled antibiotics with close follow-up with home health and PCP. Medical Records Medical records reviewed: Yes I reviewed the patient's medical records. Imaging Data Radiologic Study: Imaging: X-Ray Radiologist's impression: Exam(s) XR PORTABLE CHEST AP EXAM: XR PORTABLE CHEST AP CLINICAL HISTORY: Hypotensive TECHNIQUE: 2D digital imaging was performed of the chest. One image was obtained. An AP view was obtained. COMPARISON: CR XR PORTABLE CHEST AP POST LINE from 04/13/2024 FINDINGS: MEDIASTINUM: Normal. HEART: Normal. PULMONARY VASCULATURE: Normal. LUNGS: Clear. PLEURAL SPACE: No pleural effusion or pneumothorax. BONE:Within normal limits for the patient's age. OTHER FINDINGS:The tip of the right PICC line is in the superior vena cava. IMPRESSION: No acute pulmonary findings. Lab Data Lab results reviewed: Yes I reviewed the patient's lab results. Labs: 04/21/24 11:36 Blood Blood Culture - Preliminary NO GROWTH 24 HOURS 04/21/24 10:57 Blood Blood Culture - Preliminary NO GROWTH 24 HOURS Laboratory Tests Range/Units 04/21/24 04/21/24 04/21/24 10:57 11:47 12:25 WBC (4.4-10.8) 10^3/uL 4.96 RBC (4.36-5.78) 10^6/uL 3.65 L Hgb (13.5-17.5) g/dL 10.0 L Hct (40.0-50.0) % 32.1 L MCV (80-95) fL 88 MCH (27.0-33.0) pg 27.4 MCHC (32.0-36.0) % 31.2 L RDW (11.8-14.1) % 13.6 Plt Count (130-400) 10^3/uL 129 L MPV (8.0-11.0) fL 8.3 Immature Gran % % 1.2 Neutrophils % % 54.0 Lymphocytes % % 18.8 Monocytes % % 14.1 Eosinophils % % 10.1 Basophils % % 1.8 Nucleated RBC % (0.0-0.3) % 0.0 Absolute Neutrophils (1.2-6.7) 10^3/uL 2.68 Absolute Lymphocytes (1.2-3.4) 10^3/uL 0.93 L Absolute Monocytes (0.1-0.8) 10^3/uL 0.70 Absolute Eosinophils (0.0-0.7) 10^3/uL 0.50 Absolute Basophils (0.0-0.2) 10^3/uL 0.09 VBG pH (7.31-7.41) 7.31 VBG pCO2 (41-51) mmHg 51 VBG pO2 mmHg 37 VBG HCO3 (23-28) mmol/L 26 VBG Total CO2 (24-29) mmol/L 25 VBG O2 Saturation % 66 VBG Base Excess (-2-3) mmol/L -1 VBG Lactate (0.6-1.4) mmol/L 1.1 Sodium (136-145) mmol/L 140 Potassium (3.5-5.1) mmol/L 4.9 Chloride (98-107) mmol/L 106 Carbon Dioxide (21.0-32.0) mmol/L 28.4 Anion Gap (3-11) mmol/L 5.6 BUN (7-18) mg/dL 26 H Creatinine (0.70-1.30) mg/dL 2.0 H Est GFR (CKD-EPI 2020) (mL/min/1.73m2) 35.91 Glucose (74-106) mg/dL 78 Calcium (8.5-10.1) mg/dL 8.8 Magnesium (1.8-2.4) mg/dL 1.7 L Total Bilirubin (0.2-1.0) mg/dL 0.28 AST (15-37) U/L 38 H ALT (16-63) U/L 128 H Alkaline Phosphatase (46-116) U/L 211 H Troponin I (< or =60) ng/L < 50 Total Protein (6.4-8.2) g/dL 7.0 Albumin (3.4-5.0) g/dL 3.0 L Urine Color (Yellow) Urine Clarity (Clear) Urine pH (5-8) Ur Specific [place] (1.005-1.025) Urine Protein (Neg-Trace) mg/dL Urine Ketones (Negative) mg/dL Urine Blood (Negative) Urine Nitrite (Negative) Urine Bilirubin (Negative) Urine Urobilinogen (Up to 0.2) mg/dL Ur Leukocyte Esterase (Negative) Urine Glucose (Negative) mg/dL Stl C.difficile Tox PCR Vancomycin Trough (10.0-20.0) ug/mL 10.7 Add-On Test Request done Range/Units 04/21/24 04/21/24 13:38 14:02 WBC (4.4-10.8) 10^3/uL RBC (4.36-5.78) 10^6/uL Hgb (13.5-17.5) g/dL Hct (40.0-50.0) % MCV (80-95) fL MCH (27.0-33.0) pg MCHC (32.0-36.0) % RDW (11.8-14.1) % Plt Count (130-400) 10^3/uL MPV (8.0-11.0) fL Immature Gran % % Neutrophils % % Lymphocytes % % Monocytes % % Eosinophils % % Basophils % % Nucleated RBC % (0.0-0.3) % Absolute Neutrophils (1.2-6.7) 10^3/uL Absolute Lymphocytes (1.2-3.4) 10^3/uL Absolute Monocytes (0.1-0.8) 10^3/uL Absolute Eosinophils (0.0-0.7) 10^3/uL Absolute Basophils (0.0-0.2) 10^3/uL VBG pH (7.31-7.41) VBG pCO2 (41-51) mmHg VBG pO2 mmHg VBG HCO3 (23-28) mmol/L VBG Total CO2 (24-29) mmol/L VBG O2 Saturation % VBG Base Excess (-2-3) mmol/L VBG Lactate (0.6-1.4) mmol/L Sodium (136-145) mmol/L Potassium (3.5-5.1) mmol/L Chloride (98-107) mmol/L Carbon Dioxide (21.0-32.0) mmol/L Anion Gap (3-11) mmol/L BUN (7-18) mg/dL Creatinine (0.70-1.30) mg/dL Est GFR (CKD-EPI 2020) (mL/min/1.73m2) Glucose (74-106) mg/dL Calcium (8.5-10.1) mg/dL Magnesium (1.8-2.4) mg/dL Total Bilirubin (0.2-1.0) mg/dL AST (15-37) U/L ALT (16-63) U/L Alkaline Phosphatase (46-116) U/L Troponin I (< or =60) ng/L Cancelled Total Protein (6.4-8.2) g/dL Albumin (3.4-5.0) g/dL Urine Color (Yellow) Yellow Urine Clarity (Clear) Clear Urine pH (5-8) 5.5 Ur Specific [place] (1.005-1.025) 1.015 Urine Protein (Neg-Trace) mg/dL Negative Urine Ketones (Negative) mg/dL Negative Urine Blood (Negative) Negative Urine Nitrite (Negative) Negative Urine Bilirubin (Negative) Negative Urine Urobilinogen (Up to 0.2) mg/dL 0.2 Ur Leukocyte Esterase (Negative) Negative Urine Glucose (Negative) mg/dL Negative Stl C.difficile Tox PCR Cancelled Vancomycin Trough (10.0-20.0) ug/mL Add-On Test Request Quality:SDOH Health Related Social Needs: Health related social needs risk of homeless Critical Care Time Critical Care Time Critical Care Time: Yes Total Critical Care Time: 45 Attestation: I spent greater than 35 minutes addressing this patient's acute life threatening illness. This time was spent engaged in actions directly related to the patient's care. Failure to initiate these interventions would have likely resulted in clinically significant or life threatening deterioration in the patients condition. [facility] All Active Problems (Updated 04/21/24 @ 14:02 by Amy Thomas NP) Hypoglycemia associated with diabetes (Acute) Hypotension (Acute) Acute dehydration (Acute) Osteomyelitis of left foot (Acute) Ulcer of left foot with fat layer exposed (Acute) Foot infection (Acute) Acute hyperkalemia (Acute) Uncontrolled diabetes mellitus with hyperglycemia (Acute) Cellulitis of foot (Acute) Cerumen impaction (Acute) Conductive hearing loss (Acute) Hyperkalemia (Acute) Erectile dysfunction (Acute) Obesity (Acute) Diabetic retinopathy (Acute ~12/2021) 01/12/22 B/L MODERATE/SHIPPEE-KB Hyperlipidemia associated with type 2 diabetes mellitus (Acute) Mixed hearing loss (Acute) Depressive disorder (Acute 08/10/13) Mixed conductive and sensorineural hearing loss of right ear with restricted hearing of left ear (Acute) DVT prophylaxis (Acute) Urinary retention (Acute) Hypoglycemia (Acute) KATRIN (acute kidney injury) (Acute) Diabetes mellitus, type II (Acute) a. Hgb A1C 11.6 b. on high dose glargine insulin therapy Transaminitis (Acute) Rash (Acute) Arthritis of right shoulder region (Acute) Arthritis of left shoulder region (Acute) History of rotator cuff tear (Acute ~1995) Tendinitis of long head of biceps brachii of left shoulder (Acute) Tendinitis of long head of biceps brachii of right shoulder (Acute) Tendinitis of left rotator cuff (Acute) Right rotator cuff tendonitis (Acute) Multiple exostoses (Acute) Abnormal auditory perception (Acute) Essential hypertension (Acute) if creat ok, will add KULWANT Chronic renal impairment, stage 2 (mild) (Acute) Hx of colonic polyps (Acute) Low back pain (Acute) Sensorineural hearing loss, bilateral (Chronic 07/16/16) Medical History Morbid obesity CKD (chronic kidney disease) Cellulitis and abscess of foot Diabetes mellitus Sleep apnea (05/16/15) Well adult Impacted cerumen of both ears Acute osteomyelitis of right foot (06/25/16) Rupture of left quadriceps muscle (01/15/18) Proliferative diabetic retinopathy (08/06/12) 08/09/16; [facility] Polyp of colon (11/17/13) DR. Dick RODRIGUEZ; TUBULAR ADENOMA Hyperlipidemia (03/26/13) Depression Coronary disease a. s/p cath with stent 1999 b. MPI positive for ischemia 2009 Current use of insulin Surgical History History of appendectomy History of intravascular stent placement History of right knee surgery (04/22/14) S/P cataract surgery 10/02/18; [facility] [place];B/L-kb QUADRICEPS REPAIR 01/16/18 (L) PROCEDURES INSERT 1 VASCULAR STENT, 1999 LEFT CIRC. Colonoscopy - MAC (11/17/13) H/O surgical procedure a. Right quadriceps repair [address] Smart b. Colonoscopy 11/17/[address] Rodriguez Family History Mother , AGE 84 Diabetes Stroke Father Depression Heart disease Hyperlipidemia Hypertension Sister Alcohol abuse Substance abuse Diabetes Depression Social History Smoking/Tobacco Use Status: Never Second Hand Exposure: Yes Smoking risk assessment performed?: Yes Alcohol Intake: never Drug use: Never Substance use type: does not use Caregiver/Support person: No Household members: significant other Housing: house Communication Needs: Hard of Hearing Do you need help understanding health information?: Never Pets and animals: No Sexually active: Yes Do you think of yourself as: straight/heterosexual Current gender identity: male What is your relationship status?: never How often do you talk on the phone with friends or family?: three or more times per week How often do you get together with friends or relatives?: decline to answer How often do you attend hindu or voodoo services?: decline to answer Do you belong to any clubs or organized social groups?: no Panel score (0-1 are the most socially isolated patients): 1 What type of physical activity do you participate in: other Details: Rowing Duration: 15-30 minutes/day Frequency: daily Verna/Sabianist: Mosque Special verna needs: No Seatbelt use: always Helmet use: Yes Helmet use: always Drive intox or ride w/intox driver license agent: No Do you feel safe at home: Yes Do you feel safe in your relationship?: Yes
[2024-04-21 11:08] LABS: Abs Immature Grans 0.06 10^3/uL (0.0-0.06); Absolute Basophil Count 0.09 10^3/uL (0.0-0.2); Absolute Lymphocyte Count 0.93 10^3/uL (1.2-3.4); Absolute Neutrophil Count 2.68 10^3/uL (1.2-6.7); BE (Venous) -1 mmol/L (-2-3); Basophils % 1.8 %; Eosinophils % 10.1 %; HCO3 (Venous) 26 mmol/L (23-28); HCT 32.1 % (40.0-50.0); Immature Grans % 1.2 %; Lymphocytes % 18.8 %; MCH 27.4 pg (27.0-33.0); MCHC 31.2 % (32.0-36.0); MCV 88 fL (80-95); MPV 8.3 fL (8.0-11.0); Monocytes % 14.1 %; O2 Sat (Venous) 66 %; Platelet Count 129 10^3/uL (130-400); RBC 3.65 10^6/uL (4.36-5.78); RDW 13.6 % (11.8-14.1); TCO2 (Venous) 25 mmol/L (24-29); WBC 4.96 10^3/uL (4.4-10.8); pCO2 (Venous) 51 mmHg (41-51); pH (Venous) 7.31 (7.31-7.41); pO2 (Venous) 37 mmHg
[2024-04-21 11:09] LABS: Lactate 1.1 mmol/L (0.6-1.4)
--- NOTE | 2024-04-21 11:20 | DI.RAD_ITS ---
Exam(s) XR PORTABLE CHEST AP EXAM: XR PORTABLE CHEST AP CLINICAL HISTORY: Hypotensive TECHNIQUE: 2D digital imaging was performed of the chest. One image was obtained. An AP view was ob tained. COMPARISON: CR XR PORTABLE CHEST AP POST LINE from 04/13/2024 FINDINGS: MEDIASTINUM: Normal. HEART: Normal. PULMONARY VASCULATURE: Normal. LUNGS: Clear. PLEURAL SPACE: No pleural effusion or pneumothorax. BONE:Within normal limits for the patient's age. OTHER FINDINGS:The tip of the right PICC line is in the superior vena cava. IMPRESSION: No acute pulmonary findings. DATA REPOSITORY: RADIATION DOSE DELIVERED:
[2024-04-21 11:27] LABS: ALT 128 U/L (16-63); AST 38 U/L (15-37); Alkaline Phosphatase 211 U/L (46-116); Anion Gap 5.6 mmol/L (3-11); BUN 26 mg/dL (7-18); Bilirubin, Total 0.28 mg/dL (0.2-1.0); CO2 28.4 mmol/L (21.0-32.0); Calcium 8.8 mg/dL (8.5-10.1); Chloride 106 mmol/L (98-107); Estimated GFR 35.91 (mL/min/1.73m2); Glucose 78 mg/dL (74-106); Magnesium 1.7 mg/dL (1.8-2.4); Potassium 4.9 mmol/L (3.5-5.1); Sodium 140 mmol/L (136-145); Troponin I < 50 ng/L (< or =60)
[2024-04-21] MEDS: Lactated Ringers 500 ML IV (12:00)
[2024-04-21 12:56] LABS: Vancomycin, Trough 10.7 ug/mL (10.0-20.0)
[2024-04-21 13:10] LABS: Lab Add On Test done
[2024-04-21 14:12] LABS: Bilirubin Negative (Negative); Blood Negative (Negative); Clarity Clear (Clear); Glucose Negative (Negative); Ketones Negative (Negative); Leukocyte Esterase Negative (Negative); Nitrite Negative (Negative); Specific Gravity 1.015 (1.005-1.025); Urobilinogen 0.2 mg/dL (Up to 0.2); pH 5.5 (5-8)
== END 2024-04-21 14:23 | disposition home or self-care (01) ==
PROVIDERS: Emergency Provider Registered Nurse Emergency; PCP Family Medicine
DX: E11.65 Type 2 diabetes mellitus with hyperglycemia (principal); E86.0 Dehydration; I95.9 Hypotension, unspecified; E11.69 Type 2 diabetes mellitus with other specified complication; M86.172 Other acute osteomyelitis, left ankle and foot; E11.52 Type 2 diabetes mellitus with diabetic peripheral angiopathy with gangrene; I96 Gangrene, not elsewhere classified; E11.3599 Type 2 diabetes mellitus with proliferative diabetic retinopathy without macular edema, unspecified eye; I12.9 Hypertensive chronic kidney disease with stage 1 through stage 4 chronic kidney disease, or unspecified chronic kidney disease; E11.22 Type 2 diabetes mellitus with diabetic chronic kidney disease; N18.30 Chronic kidney disease, stage 3 unspecified; I25.10 Atherosclerotic heart disease of native coronary artery without angina pectoris; I44.0 Atrioventricular block, first degree; R00.1 Bradycardia, unspecified
CPT/HCPCS: 11042; 36415; 80053; 82805; 82962; 87040; 87493; 93005; 96360; 96361; 99285; 71045; 80202; 81003; 83605; 83735; 84484; 85025; 93010; 99284

== ENCOUNTER 2024-04-22 22:45 | Outpatient (REF) | payer MEDICARE, OTHER, SELFPAY ==
[2024-04-22 15:14] LABS: Vancomycin, Trough 6.4 ug/mL (10.0-20.0)
== END 2024-04-22 22:46 | disposition home or self-care (01) ==
LOC: LBN 22:45
PROVIDERS: PCP Family Medicine; Visit Provider Nurse Practitioner Acute Care
DX: T14.8XXA Other injury of unspecified body region, initial encounter; L08.9 Local infection of the skin and subcutaneous tissue, unspecified; L03.90 Cellulitis, unspecified
CPT/HCPCS: 80202

== ENCOUNTER 2024-04-23 09:41 | Outpatient (REF) | payer MEDICARE, OTHER, SELFPAY ==
[2024-04-23 13:53] LABS: C Diff PCR Negative (Negative)
[2024-04-24 11:48] LABS: Campylobacter PCR Negative (Negative); Salmonella PCR Negative (Negative); Shiga Toxin PCR Negative (Negative); Shigella/Enteroinvasive Ecoli Negative (Negative)
== END 2024-04-23 09:42 | disposition home or self-care (01) ==
LOC: LBN 09:41
PROVIDERS: PCP Family Medicine; Visit Provider Registered Nurse Emergency
DX: R19.7 Diarrhea, unspecified (principal)
CPT/HCPCS: 87493; 87505; 83630; 87177

== ENCOUNTER 2024-04-26 11:04 | Emergency (ER) | payer MEDICARE, OTHER, SELFPAY ==
[2024-04-26 11:07] VITALS: BP 105/76; PULSE 73; RESP 20; TEMP 36.3; O2SAT 97
--- NOTE | 2024-04-26 11:15 | ED.GENADUL_ITS ---
Discharge Plan Disposition Patient Disposition: Home Discharge Details Clinical Impression: Complication associated with peripherally inserted central catheter (PICC) Primary Care Provider: Hammad Enrique ED Provider: Michael Meek Home Meds and New Rx's Prescriptions: No Action (DME) lancets [Accu-Chek Fastclix Lancet Drum] Misc See Dose Instructions .ROUTE .MEDSUPPLY Qty: 100 6RF Dose Instruction: As directed Rx Instructions: test TID (DME) pen needle, diabetic [BD Ultra-Fine Short Pen Needle] 31 gauge x 5/16 needle 1 ea SQ 5x day Qty: 400 3RF Rx Instructions: inject 4 times/day sildenafil (pulm.hypertension) 20 mg tablet 20 - 100 mg PO DAILY PRN (Reason: sexual activity) Qty: 30 5RF dapagliflozin propanediol [Farxiga] 10 mg tablet 10 mg PO DAILY Qty: 90 3RF nitroglycerin [Nitrostat] 0.4 mg tablet, sublingual 0.4 mg Sublingual PRN Qty: 25 1RF Rx Instructions: REPEAT Q5 MIN. PRN X 3 (DME) Dexcom G7 Manual Lathe Operator Misc See Rx Instructions .MEDSUPPLY Qty: 1 0RF Rx Instructions: As directed (DME) Dexcom G7 Sensor Device See Rx Instructions .Route Qty: 1 12RF Rx Instructions: As directed rosuvastatin 20 mg tablet 20 mg PO DAILY Qty: 90 3RF (DME) blood-glucose meter [Accu-Chek Mariana Plus Meter] [facility] See Dose Instructions .ROUTE .MEDSUPPLY Qty: 1 0RF Dose Instruction: As directed Rx Instructions: As directed (DME) Accu-Chek Mariana Plus test strp Strip See Dose Instructions .ROUTE .MEDSUPPLY Qty: 300 3RF Dose Instruction: As directed Rx Instructions: test TID insulin glargine-yfgn [Semglee(insulin glarg-yfgn)Pen] 100 unit/mL (3 mL) insulin pen 60 unit subcut BID Qty: 45 3RF citalopram [Celexa] 20 mg tablet 20 mg PO DAILY Qty: 90 3RF losartan 100 mg tablet 50 mg PO DAILY Qty: 90 3RF Rx Instructions: dose reduce 12/11/23 (due to creatinine rise) carvedilol 12.5 mg tablet 12.5 mg PO BID Qty: 180 3RF Rx Instructions: must administer with a meal/food bupropion HCl 100 mg tablet 100 mg PO BID Qty: 180 3RF Eliquis 5 mg tablet 5 mg PO BID Qty: 180 3RF vancomycin in dextrose 5 % 1.25 gram/250 mL piggyback 1 g IV Q36H Patient Comments: due at noon today (DME) Accu-Chek Guide test strips Strip See Rx Instructions .ROUTE .MEDSUPPLY Qty: 300 3RF Rx Instructions: test 3 x day insulin aspart U-100 [Novolog FlexPen U-100 Insulin] 100 unit/mL (3 mL) insulin pen 26 - 30 unit subcut AC Qty: 27 3RF Rx Instructions: diabetes E11.9 24 units plus sliding scale before each meal needs three boxes for a thirty day supply ertapenem 1 gram recon soln 1 g IM Q24H Qty: 10 0RF Discharge Instructions Instructions: Peripherally-Inserted Central Catheter Additional Instructions: Please continue to flush the PICC line before and after all medications and monitor for any further complications. Please otherwise continue to administer medications as directed along with follow-up and changing out of the PICC line as already arranged. Feel free to return the emergency department for any new or significant worsening of symptoms Referrals: Hammad Enrique MD [Primary Care Provider] - (As needed) Discharge Data Discharge Date/Time-TO BE ENTERED AT DEPARTURE: 04/26/24 11:20 HPI General Mode of arrival: ambulatory . Date/Time Provider Initiated Documentation: 04/26/24 11:10 . Limitations to Documentation: no limitations . Information obtained by: patient and RN notes reviewed . History of Present Illness 69 year old M presents to the emergency department with the chief complaint of PICC line complication, Patient notes no other symptoms.. Related Data Home Medications ?Medication ?Instructions ?Recorded ?Confirmed blood-glucose meter (Accu-Chek #1 ea 12/30/18 04/26/24 Mariana Plus Meter) lancets (Accu-Chek Fastclix Lancet #100 ea 10/20/19 04/26/24 Drum) blood sugar diagnostic (Accu-Chek #300 ea 01/05/21 04/26/24 Mariana Plus test strips) pen needle, diabetic 31 gauge x #400 ea 11/07/22 04/26/24 5/16 (BD Ultra-Fine Short Pen Needle) sildenafil (pulm.hypertension) 20 20 - 100 mg (1 - 5 x 20 mg) PO 11/07/22 04/26/24 mg tablet DAILY PRN sexual activity #30 tabs dapagliflozin propanediol 10 mg 10 mg PO DAILY #90 tabs 08/27/23 04/26/24 tablet (Farxiga) nitroglycerin 0.4 mg sublingual 0.4 mg sublingual PRN #25 tabs 08/27/23 04/26/24 tablet (Nitrostat) insulin glargine-yfgn 100 unit/mL 60 unit (0.6 mL) subcut BID #45 mL 09/17/23 04/26/24 (3 mL) subcutaneous pen (Semglee (insulin glargine-yfgn) Pen) citalopram 20 mg tablet (Celexa) 20 mg PO DAILY #90 tabs 11/14/23 04/26/24 losartan 100 mg tablet 50 mg (1/2 x 100 mg) PO DAILY #90 12/11/23 04/26/24 tabs carvedilol 12.5 mg tablet 12.5 mg PO BID #180 tabs 02/01/24 04/26/24 bupropion HCl 100 mg tablet 100 mg PO BID #180 tabs 03/17/24 04/26/24 apixaban 5 mg tablet (Eliquis) 5 mg PO BID #180 tabs 03/18/24 04/26/24 ertapenem 1 gram solution for 1 g IM Q24H #10 ea 04/07/24 04/26/24 injection vancomycin 1.25 gram/250 mL in 1 g IV Q36H 04/15/24 04/26/24 dextrose 5 % intravenous piggyback blood-glucose meter,continuous #1 ea 04/16/24 04/26/24 (Dexcom G7 Manual Lathe Operator) blood-glucose sensor (Dexcom G7 #1 ea 04/16/24 04/26/24 Sensor device) rosuvastatin 20 mg tablet 20 mg PO DAILY #90 tabs 04/16/24 04/26/24 blood sugar diagnostic (Accu-Chek #300 ea 04/22/24 04/26/24 Guide test strips) insulin aspart U-100 100 unit/mL 26 - 30 unit (0.26 - 0.3 mL) 04/23/24 04/26/24 (3 mL) subcutaneous pen (Novolog subcut AC #27 SYRGS FlexPen U-100 Insulin aspart) Previous Rx's ?Medication ?Instructions ?Recorded blood-glucose meter (Accu-Chek #1 ea 12/30/18 Mariana Plus Meter) lancets (Accu-Chek Fastclix Lancet #100 ea 10/20/19 Drum) blood sugar diagnostic (Accu-Chek #300 ea 01/05/21 Mariana Plus test strips) pen needle, diabetic 31 gauge x #400 ea 11/07/2202/12 (BD Ultra-Fine Short Pen Needle) sildenafil (pulm.hypertension) 20 20 - 100 mg (1 - 5 x 20 mg) PO 11/07/22 mg tablet DAILY PRN sexual activity #30 tabs dapagliflozin propanediol 10 mg 10 mg PO DAILY #90 tabs 08/27/23 tablet (Farxiga) nitroglycerin 0.4 mg sublingual 0.4 mg sublingual PRN #25 tabs 08/27/23 tablet (Nitrostat) insulin glargine-yfgn 100 unit/mL 60 unit (0.6 mL) subcut BID #45 mL 09/17/23 (3 mL) subcutaneous pen (Semglee (insulin glargine-yfgn) Pen) citalopram 20 mg tablet (Celexa) 20 mg PO DAILY #90 tabs 11/14/23 losartan 100 mg tablet 50 mg (1/2 x 100 mg) PO DAILY #90 12/11/23 tabs carvedilol 12.5 mg tablet 12.5 mg PO BID #180 tabs 02/01/24 bupropion HCl 100 mg tablet 100 mg PO BID #180 tabs 03/17/24 apixaban 5 mg tablet (Eliquis) 5 mg PO BID #180 tabs 03/18/24 ertapenem 1 gram solution for 1 g IM Q24H #10 ea 04/07/24 injection vancomycin 1.25 gram/250 mL in 1 g IV Q36H 04/15/24 dextrose 5 % intravenous piggyback blood-glucose meter,continuous #1 ea 04/16/24 (Dexcom G7 Manual Lathe Operator) blood-glucose sensor (Dexcom G7 #1 ea 04/16/24 Sensor device) rosuvastatin 20 mg tablet 20 mg PO DAILY #90 tabs 04/16/24 blood sugar diagnostic (Accu-Chek #300 ea 04/22/24 Guide test strips) insulin aspart U-100 100 unit/mL 26 - 30 unit (0.26 - 0.3 mL) 04/23/24 (3 mL) subcutaneous pen (Novolog subcut AC #27 SYRGS FlexPen U-100 Insulin aspart) Allergies Allergy/AdvReac Type Severity Reaction Status Date / Time celecoxib (From Celebrex) Allergy Severe BERRIOS-JAYME Verified 04/26/24 11:10 SYNDROME atorvastatin AdvReac Unknown Verified 04/26/24 11:10 General Stated Complaint: GenMedical SCOTT: 4 Review of Systems Constitutional Constitutional: Denies fever(s) Musculoskeletal Musculoskeletal: Denies radiating pain into limb Exam Const General: cooperative, no acute distress and not ill appearing Orientation: alert, awake and oriented x3 HENMT Mouth: moist mucous membranes Resp Effort & Inspection: normal respiratory effort, able to speak in complete sentences and no respiratory distress Skin General skin exam: no rashes or lesions noted Neuro General: patient alert, patient awake and patient oriented x3 Extrem Right upper extremity: shoulder/upper arm Details: other (PICC line in place wi th normal appearance) Course Vital Signs Vital signs: Vital Signs Temperature 36.3 C L 04/26/24 11:07 Pulse 73 04/26/24 11:07 Respiratory Rate 20 04/26/24 11:07 Blood Pressure 105/76 04/26/24 11:07 Pulse Oximetry 97 04/26/24 11:07 Temperature 36.3 C L 04/26/24 11:07 Temperature Source Skin 04/26/24 11:07 Pulse 73 04/26/24 11:07 Respiratory Rate 20 04/26/24 11:07 Blood Pressure 105/76 04/26/24 11:07 Blood Pressure Position Sitting 04/26/24 11:07 Pulse Oximetry 97 04/26/24 11:07 Oxygen Delivery Method Room Air 04/26/24 11:07 Oxygen Flow Rate 0 04/26/24 11:07 Pain Level 0 04/26/24 11:07 Medical Decision Making Patient presenting to the emergency department for chief complaint of inability to flush PICC line. Patient denies all other complaints. did try to flush at home but was unable to. Prior to me being able to assess PICC line staff antisubmarine officer was able to start getting it flushed. I also did flush PICC line and was able to both flush and get appropriate blood flow. Given no other complaints I do feel the patient is able to be safely discharged for continued home use of PICC line. After discussion of diagnosis and plan of care patient and significant other has no further needs, questions, or concerns and states clear understanding to return to the emergency department for any worsening symptoms. This documentation was generated using iVideosongsation system, please disregard any oddities of phrase or misspellings. Quality:SDOH Health Related Social Needs: Health related social needs risk of homeless PFSH All Active Problems Complication associated with peripherally inserted central catheter (PICC) (Acute) Hypoglycemia associated with diabetes (Acute) Hypotension (Acute) Acute dehydration (Acute) Osteomyelitis of left foot (Acute) Ulcer of left foot with fat layer exposed (Acute) Foot infection (Acute) Acute hyperkalemia (Acute) Uncontrolled diabetes mellitus with hyperglycemia (Acute) Cellulitis of foot (Acute) Cerumen impaction (Acute) Conductive hearing loss (Acute) Hyperkalemia (Acute) Erectile dysfunction (Acute) Obesity (Acute) Diabetic retinopathy (Acute ~12/2021) 01/12/22 B/L MODERATE/SHIPPEE-KB Hyperlipidemia associated with type 2 diabetes mellitus (Acute) Mixed hearing loss (Acute) Depressive disorder (Acute 08/10/13) Mixed conductive and sensorineural hearing loss of right ear with restricted hearing of left ear (Acute) DVT prophylaxis (Acute) Urinary retention (Acute) Hypoglycemia (Acute) KATRIN (acute kidney injury) (Acute) Diabetes mellitus, type II (Acute) a. Hgb A1C 11.6 b. on high dose glargine insulin therapy Transaminitis (Acute) Rash (Acute) Arthritis of right shoulder region (Acute) Arthritis of left shoulder region (Acute) History of rotator cuff tear (Acute ~1995) Tendinitis of long head of biceps brachii of left shoulder (Acute) Tendinitis of long head of biceps brachii of right shoulder (Acute) Tendinitis of left rotator cuff (Acute) Right rotator cuff tendonitis (Acute) Multiple exostoses (Acute) Abnormal auditory perception (Acute) Essential hypertension (Acute) if creat ok, will add KULWANT Chronic renal impairment, stage 2 (mild) (Acute) Hx of colonic polyps (Acute) Low back pain (Acute) Sensorineural hearing loss, bilateral (Chronic 07/16/16) Medical History Morbid obesity CKD (chronic kidney disease) Cellulitis and abscess of foot Diabetes mellitus Sleep apnea (05/16/15) Well adult Impacted cerumen of both ears Acute osteomyelitis of right foot (06/25/16) Rupture of left quadriceps muscle (01/15/18) Proliferative diabetic retinopathy (08/06/12) 08/09/16; [facility] Polyp of colon (11/17/13) DR. Dick RODRIGUEZ; TUBULAR ADENOMA Hyperlipidemia (03/26/13) Depression Coronary disease a. s/p cath with stent 1999 b. MPI positive for ischemia 2009 Current use of insulin Surgical History History of appendectomy History of intravascular stent placement History of right knee surgery (04/22/14) S/P cataract surgery 10[place]02/18[place] [facility] [place]-kb QUADRICEPS REPAIR 01/16/18 (L) PROCEDURES INSERT 1 VASCULAR STENT, 1999 LEFT CIRC. Colonoscopy - MAC (11/17/13) H/O surgical procedure a. Right quadriceps repair [address] Smart b. Colonoscopy 11/17/[address] Rodriguez Family History Mother , AGE 84 Diabetes Stroke Father Depression Heart disease Hyperlipidemia Hypertension Sister Alcohol abuse Substance abuse Diabetes Depression Social History Smoking/Tobacco Use Status: Never Second Hand Exposure: Yes Smoking risk assessment performed?: Yes Alcohol Intake: never Drug use: Never Substance use type: does not use Caregiver/Support person: No Household members: significant other Housing: house Communication Needs: Hard of Hearing Do you need help understanding health information?: Never Pets and animals: No Sexually active: Yes Do you think of yourself as: straight/heterosexual Current gender identity: male What is your relationship status?: never How often do you talk on the phone with friends or family?: three or more times per week How often do you get together with friends or relatives?: decline to answer How often do you attend sikhism or catholic services?: decline to answer Do you belong to any clubs or organized social groups?: no Panel score (0-1 are the most socially isolated patients): 1 What type of physical activity do you participate in: other Details: Rowing Duration: 15-30 minutes/day Frequency: daily Verna/Nondenominational: Buddhism Special verna needs: No Seatbelt use: always Helmet use: Yes Helmet use: always Drive intox or ride w/intox driver messenger: No Do you feel safe at home: Yes Do you feel safe in your relationship?: Yes
== END 2024-04-26 11:20 | disposition home or self-care (01) ==
PROVIDERS: Emergency Provider Nurse Practitioner Family; PCP Family Medicine
DX: T82.9XXA Unspecified complication of cardiac and vascular prosthetic device, implant and graft, initial encounter (principal)
CPT/HCPCS: 99281; 99282

== ENCOUNTER 2024-04-27 16:49 | Outpatient (REF) | payer MEDICARE, OTHER, SELFPAY ==
[2024-04-27 16:30] LABS: BUN 41 mg/dL (7-18); CO2 28.8 mmol/L (21.0-32.0); CREATININE 1.6 mg/dL (0.70-1.30); Calcium 8.8 mg/dL (8.5-10.1); Chloride 106 mmol/L (98-107); Estimated GFR 46.93 (mL/min/1.73m2); Glucose 326 mg/dL (74-106)
[2024-04-27 16:37] LABS: Anion Gap 7.2 mmol/L (3-11); Potassium 5.9 mmol/L (3.5-5.1); Sodium 142 mmol/L (136-145)
== END 2024-04-27 16:50 | disposition home or self-care (01) ==
LOC: LBN 16:49
PROVIDERS: PCP Family Medicine; Visit Provider Nurse Practitioner Acute Care
DX: L03.116 Cellulitis of left lower limb (principal); L02.612 Cutaneous abscess of left foot; E11.22 Type 2 diabetes mellitus with diabetic chronic kidney disease; N18.4 Chronic kidney disease, stage 4 (severe)
CPT/HCPCS: 80048

== ENCOUNTER 2024-04-29 19:25 | Outpatient (REF) | payer MEDICARE, OTHER, SELFPAY ==
[2024-04-29 19:59] LABS: Vancomycin, Trough 12.8 ug/mL (10.0-20.0)
== END 2024-04-29 19:26 | disposition home or self-care (01) ==
LOC: LBN 19:25
PROVIDERS: PCP Family Medicine; Visit Provider Nurse Practitioner Acute Care
DX: T81.30XA Disruption of wound, unspecified, initial encounter (principal)
CPT/HCPCS: 80202

== ENCOUNTER 2024-05-01 18:54 | Outpatient (REF) | payer MEDICARE, OTHER, SELFPAY ==
[2024-05-01 13:13] LABS: Anion Gap 7.5 mmol/L (3-11); BUN 51 mg/dL (7-18); CO2 28.5 mmol/L (21.0-32.0); CREATININE 2.2 mg/dL (0.70-1.30); Calcium 8.8 mg/dL (8.5-10.1); Chloride 103 mmol/L (98-107); Estimated GFR 32.03 (mL/min/1.73m2); Glucose 280 mg/dL (74-106); Potassium 5.6 mmol/L (3.5-5.1); Sodium 139 mmol/L (136-145)
[2024-05-01 17:25] LABS: Vancomycin, Trough 16.7 ug/mL (10.0-20.0)
== END 2024-05-01 18:55 | disposition home or self-care (01) ==
LOC: LBN 18:54
PROVIDERS: PCP Family Medicine; Visit Provider Nurse Practitioner Acute Care
DX: L02.612 Cutaneous abscess of left foot (principal); L03.116 Cellulitis of left lower limb; E11.22 Type 2 diabetes mellitus with diabetic chronic kidney disease; N18.4 Chronic kidney disease, stage 4 (severe); Z79.2 Long term (current) use of antibiotics
CPT/HCPCS: 80048; 80202

== ENCOUNTER 2024-05-04 20:26 | Outpatient (REF) | payer MEDICARE, OTHER, SELFPAY ==
[2024-05-04 18:18] LABS: BUN 36 mg/dL (7-18); CREATININE 1.5 mg/dL (0.70-1.30); Chloride 107 mmol/L (98-107); Estimated GFR 50.71 (mL/min/1.73m2); Glucose 202 mg/dL (74-106); Potassium 5.6 mmol/L (3.5-5.1); Sodium 142 mmol/L (136-145)
== END 2024-05-04 20:27 | disposition home or self-care (01) ==
LOC: LBN 20:26
PROVIDERS: PCP Family Medicine; Visit Provider Nurse Practitioner Acute Care
DX: Z79.2 Long term (current) use of antibiotics (principal)
CPT/HCPCS: 80048

== ENCOUNTER → 2024-05-06 10:08 | Outpatient (CLI) | payer MEDICARE, OTHER, SELFPAY ==
--- NOTE | 2024-05-06 08:30 | DI.RAD_ITS ---
Exam(s) XR FOOT LT COMPLETE EXAM: XR FOOT LT COMPLETE CLINICAL HISTORY: OM left foot, M86.9; ulcer of lt foot with fat exposed, L97.522. TECHNIQUE: 2D digital imaging was performed. 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 There is a drain in place over this area now evident. There is no obvious radiographic evidence of osteomyel itis in the remaining proximal 3rd of the 5th metatarsal nor in the other metatarsals and phalanges o f the 1st through 4th toes, inclusive. No radiopaque foreign bodies. IMPRESSION: Stable appearance. No obvious radiographic evidence of osteomyelitis. DATA REPOSITORY: RADIATION DOSE DELIVERED:
== END ==
PROVIDERS: PCP Family Medicine; Visit Provider Podiatrist
DX: M86.9 Osteomyelitis, unspecified (principal); L97.522 Non-pressure chronic ulcer of other part of left foot with fat layer exposed
CPT/HCPCS: 11042; 73630

== ENCOUNTER 2024-05-08 15:18 | Outpatient (REF) | payer MEDICARE, OTHER, SELFPAY ==
[2024-05-08 12:00] LABS: Anion Gap 5.2 mmol/L (3-11); BUN 35 mg/dL (7-18); CO2 30.8 mmol/L (21.0-32.0); CREATININE 1.8 mg/dL (0.70-1.30); Calcium 8.6 mg/dL (8.5-10.1); Chloride 107 mmol/L (98-107); Estimated GFR 40.75 (mL/min/1.73m2); Glucose 103 mg/dL (74-106); Sodium 143 mmol/L (136-145)
== END 2024-05-08 15:19 | disposition home or self-care (01) ==
LOC: LBN 15:18
PROVIDERS: PCP Family Medicine; Visit Provider Nurse Practitioner Acute Care
DX: Z79.2 Long term (current) use of antibiotics (principal)
CPT/HCPCS: 80048

== ENCOUNTER 2024-05-11 22:07 | Outpatient (REF) | payer MEDICARE, OTHER, SELFPAY ==
[2024-05-11 13:44] LABS: Anion Gap 3.9 mmol/L (3-11); BUN 30 mg/dL (7-18); CO2 32.1 mmol/L (21.0-32.0); Calcium 8.9 mg/dL (8.5-10.1); Chloride 105 mmol/L (98-107); Estimated GFR 35.91 (mL/min/1.73m2); Glucose 224 mg/dL (74-106); Potassium 5.1 mmol/L (3.5-5.1); Sodium 141 mmol/L (136-145); Vancomycin, Trough 14.3 ug/mL (10.0-20.0)
== END 2024-05-11 22:08 | disposition home or self-care (01) ==
LOC: LBN 22:07
PROVIDERS: PCP Family Medicine; Visit Provider Family Medicine
DX: L02.612 Cutaneous abscess of left foot (principal); Z79.2 Long term (current) use of antibiotics
CPT/HCPCS: 80048; 80202

== ENCOUNTER 2024-05-15 12:19 | Outpatient (REF) | payer MEDICARE, OTHER, SELFPAY ==
[2024-05-15 13:55] LABS: Anion Gap 7.7 mmol/L (3-11); BUN 52 mg/dL (7-18); CO2 30.3 mmol/L (21.0-32.0); CREATININE 2.2 mg/dL (0.70-1.30); Calcium 8.9 mg/dL (8.5-10.1); Chloride 105 mmol/L (98-107); Estimated GFR 32.03 (mL/min/1.73m2); Glucose 105 mg/dL (74-106); Potassium 5.1 mmol/L (3.5-5.1); Sodium 143 mmol/L (136-145)
[2024-05-15 14:00] LABS: Vancomycin, Trough 21.7 ug/mL (10.0-20.0)
== END 2024-05-15 12:20 | disposition home or self-care (01) ==
LOC: LBN 12:19
PROVIDERS: PCP Family Medicine; Visit Provider Nurse Practitioner Acute Care
DX: L02.612 Cutaneous abscess of left foot (principal); I13.0 Hypertensive heart and chronic kidney disease with heart failure and stage 1 through stage 4 chronic kidney disease, or unspecified chronic kidney disease; L03.116 Cellulitis of left lower limb
CPT/HCPCS: 80048; 80202

== ENCOUNTER → 2024-05-19 09:34 | Outpatient (BNVA) | payer MEDICARE, OTHER, SELFPAY | PROVIDERS: PCP Family Medicine; Referring Provider Family Medicine; Visit Provider Podiatrist | DX: E11.65 Type 2 diabetes mellitus with hyperglycemia (principal); L97.522 Non-pressure chronic ulcer of other part of left foot with fat layer exposed; M86.9 Osteomyelitis, unspecified; L03.116 Cellulitis of left lower limb | CPT/HCPCS: 11042 ==

== ENCOUNTER 2024-05-19 17:14 | Outpatient (REF) | payer MEDICARE, OTHER, SELFPAY ==
[2024-05-19 16:52] LABS: Abs Immature Grans 0.03 10^3/uL (0.0-0.06); Absolute Basophil Count 0.08 10^3/uL (0.0-0.2); Absolute Eosinophil Count 0.48 10^3/uL (0.0-0.7); Absolute Lymphocyte Count 0.97 10^3/uL (1.2-3.4); Absolute Monocyte Count 0.55 10^3/uL (0.1-0.8); Absolute Neutrophil Count 2.45 10^3/uL (1.2-6.7); Basophils % 1.8 %; Eosinophils % 10.5 %; HCT 32.7 % (40.0-50.0); HGB 10.3 g/dL (13.5-17.5); Immature Grans % 0.7 %; Lymphocytes % 21.3 %; MCH 26.8 pg (27.0-33.0); MCHC 31.5 % (32.0-36.0); MCV 85 fL (80-95); MPV 9.1 fL (8.0-11.0); Monocytes % 12.1 %; Neutrophils % 53.6 %; Platelet Count 236 10^3/uL (130-400); RBC 3.84 10^6/uL (4.36-5.78); RDW 13.1 % (11.8-14.1); RDW-SD 39.8 fL; WBC 4.56 10^3/uL (4.4-10.8)
[2024-05-19 17:02] LABS: ESR 40 mm/hr (0-20)
[2024-05-19 17:40] LABS: Anion Gap 8.6 mmol/L (3-11); BUN 41 mg/dL (7-18); C-Reactive Protein 0.77 mg/dL (<or=0.5); CO2 28.4 mmol/L (21.0-32.0); CREATININE 2.2 mg/dL (0.70-1.30); Calcium 8.8 mg/dL (8.5-10.1); Chloride 106 mmol/L (98-107); Estimated GFR 32.03 (mL/min/1.73m2); Glucose 205 mg/dL (74-106); Potassium 4.9 mmol/L (3.5-5.1); Sodium 143 mmol/L (136-145)
[2024-05-19 17:55] LABS: Vancomycin, Trough 11.9 ug/mL (10.0-20.0)
== END 2024-05-19 17:15 | disposition home or self-care (01) ==
LOC: LBN 17:14
PROVIDERS: PCP Family Medicine; Visit Provider Podiatrist
DX: M86.9 Osteomyelitis, unspecified (principal); L97.522 Non-pressure chronic ulcer of other part of left foot with fat layer exposed
CPT/HCPCS: 80048; 85652; 80202; 85025; 86140

== ENCOUNTER 2024-05-22 14:55 | Outpatient (REF) | payer MEDICARE, OTHER, SELFPAY ==
[2024-05-22 12:51] LABS: Anion Gap 6.8 mmol/L (3-11); BUN 45 mg/dL (7-18); CO2 28.2 mmol/L (21.0-32.0); CREATININE 2.1 mg/dL (0.70-1.30); Calcium 8.9 mg/dL (8.5-10.1); Chloride 101 mmol/L (98-107); Estimated GFR 33.87 (mL/min/1.73m2); Glucose 306 mg/dL (74-106); Potassium 5.2 mmol/L (3.5-5.1); Sodium 136 mmol/L (136-145)
== END 2024-05-22 14:56 | disposition home or self-care (01) ==
LOC: LBN 14:55
PROVIDERS: PCP Family Medicine; Visit Provider Family Medicine
DX: Z79.2 Long term (current) use of antibiotics (principal); M86.172 Other acute osteomyelitis, left ankle and foot
CPT/HCPCS: 80048

== ENCOUNTER 2024-05-25 17:54 | Outpatient (REF) | payer MEDICARE, OTHER, SELFPAY ==
[2024-05-25 12:54] LABS: Abs Immature Grans 0.04 10^3/uL (0.0-0.06); Absolute Basophil Count 0.08 10^3/uL (0.0-0.2); Absolute Eosinophil Count 0.44 10^3/uL (0.0-0.7); Absolute Lymphocyte Count 0.97 10^3/uL (1.2-3.4); Absolute Monocyte Count 0.73 10^3/uL (0.1-0.8); Absolute Neutrophil Count 3.81 10^3/uL (1.2-6.7); Basophils % 1.3 %; Eosinophils % 7.2 %; HCT 32.3 % (40.0-50.0); HGB 10.3 g/dL (13.5-17.5); Immature Grans % 0.7 %; MCH 27.2 pg (27.0-33.0); MCHC 31.9 % (32.0-36.0); MCV 85 fL (80-95); MPV 8.8 fL (8.0-11.0); Neutrophils % 62.8 %; Platelet Count 234 10^3/uL (130-400); RBC 3.79 10^6/uL (4.36-5.78); RDW 13.2 % (11.8-14.1); RDW-SD 40.4 fL; WBC 6.07 10^3/uL (4.4-10.8)
[2024-05-25 12:58] LABS: ESR 34 mm/hr (0-20)
[2024-05-25 12:59] LABS: C-Reactive Protein 1.77 mg/dL (<or=0.5)
== END 2024-05-25 17:55 | disposition home or self-care (01) ==
LOC: LBN 17:54
PROVIDERS: PCP Family Medicine; Visit Provider Podiatrist
DX: M86.9 Osteomyelitis, unspecified (principal)
CPT/HCPCS: 85652; 85025; 86140

== ENCOUNTER 2024-05-26 19:11 | Outpatient (REF) | payer MEDICARE, OTHER, SELFPAY | END 2024-05-26 19:12 | disposition home or self-care (01) | LOC: LBN 19:11 | PROVIDERS: PCP Family Medicine; Visit Provider Nurse Practitioner Acute Care | DX: Z79.2 Long term (current) use of antibiotics (principal); L03.116 Cellulitis of left lower limb | CPT/HCPCS: 80202 ==

== ENCOUNTER 2024-05-29 00:30 | Outpatient (CLI) | payer MEDICARE, OTHER, SELFPAY ==
--- NOTE | 2024-05-29 08:10 | DI.RAD_ITS ---
Exam(s) XR FOOT LT COMPLETE EXAM: XR FOOT LT COMPLETE CLINICAL HISTORY: ULCER LT FOOT, OSTEOMYELITIS LT FOOT, M86.9,L97.522. TECHNIQUE: 2D digital imaging was performed. Three views. COMPARISON: No exams were available for comparison FINDINGS: BONES:Evaluation of the bony detail is somewhat limited due to presence of overlying surgical drain. Amputation at the level of base of the 5th metatarsal is again noted. No acute fracture is present. No bony destructive lesion is seen. JOINTS: No dislocation present. SOFT TISSUE: A drain is seen lateral to the base of the 5th metatarsal. A small amount of soft tissu e air is present. IMPRESSION: Stable appearance of the left foot with amputation at the base of the 5th metatarsal and drain in agustin ce. DATA REPOSITORY: RADIATION DOSE DELIVERED:
== END 2024-05-29 00:50 ==
LOC: DI 00:30
PROVIDERS: PCP Family Medicine; Visit Provider Podiatrist
DX: L97.522 Non-pressure chronic ulcer of other part of left foot with fat layer exposed; Z98.890 Other specified postprocedural states
CPT/HCPCS: 73630

== ENCOUNTER 2024-06-01 13:03 | Outpatient (REF) | payer MEDICARE, OTHER, SELFPAY ==
[2024-06-01 14:00] LABS: Anion Gap 10.2 mmol/L (3-11); BUN 43 mg/dL (7-18); CO2 26.8 mmol/L (21.0-32.0); CREATININE 1.9 mg/dL (0.70-1.30); Calcium 8.6 mg/dL (8.5-10.1); Chloride 102 mmol/L (98-107); Estimated GFR 38.19 (mL/min/1.73m2); Glucose 380 mg/dL (74-106); Potassium 5.3 mmol/L (3.5-5.1); Sodium 139 mmol/L (136-145); Vancomycin, Trough 7.3 ug/mL (10.0-20.0)
== END 2024-06-01 13:04 | disposition home or self-care (01) ==
LOC: LBN 13:03
PROVIDERS: PCP Family Medicine; Visit Provider Family Medicine
DX: L03.116 Cellulitis of left lower limb
CPT/HCPCS: 80048; 80202; 84132

== ENCOUNTER → 2024-06-02 10:54 | Outpatient (BNVA) | payer MEDICARE, OTHER, SELFPAY | PROVIDERS: PCP Family Medicine; Referring Provider Family Medicine; Visit Provider Podiatrist | DX: L03.116 Cellulitis of left lower limb (principal); L97.522 Non-pressure chronic ulcer of other part of left foot with fat layer exposed; E11.69 Type 2 diabetes mellitus with other specified complication; M86.9 Osteomyelitis, unspecified | CPT/HCPCS: Q4166; 15002; 15275; 99024 ==

== ENCOUNTER 2024-06-05 15:55 | Outpatient (REF) | payer MEDICARE, OTHER, SELFPAY ==
[2024-06-05 12:34] LABS: BUN 68 mg/dL (7-18); CREATININE 2.4 mg/dL (0.70-1.30); Calcium 9.4 mg/dL (8.5-10.1); Chloride 100 mmol/L (98-107); Estimated GFR 28.85 (mL/min/1.73m2); Glucose 205 mg/dL (74-106); Potassium 4.9 mmol/L (3.5-5.1); Sodium 137 mmol/L (136-145)
== END 2024-06-05 15:56 | disposition home or self-care (01) ==
LOC: LBN 15:55
PROVIDERS: PCP Family Medicine; Visit Provider Family Medicine
DX: Z79.2 Long term (current) use of antibiotics (principal)
CPT/HCPCS: 80048

== ENCOUNTER → 2024-06-11 10:48 | Outpatient (BNVA) | payer MEDICARE, OTHER, SELFPAY | PROVIDERS: PCP Family Medicine; Referring Provider Family Medicine; Visit Provider Podiatrist | DX: E11.65 Type 2 diabetes mellitus with hyperglycemia (principal); L03.116 Cellulitis of left lower limb; L97.522 Non-pressure chronic ulcer of other part of left foot with fat layer exposed; M86.8X7 Other osteomyelitis, ankle and foot | CPT/HCPCS: Q4166; 15002; 15275 ==

== ENCOUNTER 2024-06-17 19:26 | Outpatient (REF) | payer MEDICARE, OTHER, SELFPAY ==
[2024-06-17 11:34] LABS: Anion Gap 7.9 mmol/L (3-11); BUN 63 mg/dL (7-18); CO2 26.1 mmol/L (21.0-32.0); CREATININE 2.3 mg/dL (0.70-1.30); Calcium 8.7 mg/dL (8.5-10.1); Chloride 98 mmol/L (98-107); Estimated GFR 30.36 (mL/min/1.73m2); Glucose 368 mg/dL (74-106); Potassium 5.2 mmol/L (3.5-5.1); Sodium 132 mmol/L (136-145)
== END 2024-06-17 19:27 | disposition home or self-care (01) ==
LOC: LBN 19:26
PROVIDERS: PCP Family Medicine; Visit Provider Family Medicine
DX: E87.1 Hypo-osmolality and hyponatremia (principal); M86.9 Osteomyelitis, unspecified; E11.621 Type 2 diabetes mellitus with foot ulcer; L97.529 Non-pressure chronic ulcer of other part of left foot with unspecified severity; Z09 Encounter for follow-up examination after completed treatment for conditions other than malignant neoplasm; E11.65 Type 2 diabetes mellitus with hyperglycemia; L03.116 Cellulitis of left lower limb; E11.9 Type 2 diabetes mellitus without complications; L97.522 Non-pressure chronic ulcer of other part of left foot with fat layer exposed
CPT/HCPCS: 80048

== ENCOUNTER 2024-06-18 09:37 | Outpatient (REF) | payer MEDICARE, OTHER, SELFPAY ==
--- NOTE | 2024-06-18 10:25 | BONE_PTH ---
PATIENT: Alpesh Hernandez LOC: [facility] U#:[id number] AGE/SX: 69/M ROOM: RE06/18/[address]: Tammy Harris DPM : 1955 BED: DIS: 06/18/2024 SPEC #: [id number] RECD: 06/18/24 16:57 STATUS: TREVA REJoanie #: [id number] ALVARO: 06/18/24 10:[address]: Tammy Harris DEPT: Surgical Specimen RECD BY: Radha Hicks ENTERED: 06/18/24 16:58 SP TYPE: Bone OTHR DR: Hammad Enrique MD Tissues: 1 - BONE BX/CURRETTE NOT PATH FRACTURE 2 - BONE BX/CURRETTE NOT PATH FRACTURE Procedures: GROSS AND MICRO LEVEL 5 SKIN LEVEL 4 DECALCIFICATION Comments: [id number]
== END 2024-06-18 09:38 | disposition home or self-care (01) ==
LOC: LBN 09:37
PROVIDERS: PCP Family Medicine; Referring Provider Family Medicine; Visit Provider Podiatrist
DX: L97.522 Non-pressure chronic ulcer of other part of left foot with fat layer exposed; E11.65 Type 2 diabetes mellitus with hyperglycemia; L03.116 Cellulitis of left lower limb; M86.172 Other acute osteomyelitis, left ankle and foot
CPT/HCPCS: 15002; 15275; 20240; 29580; 88305; Q4166; 29850; 87070; 87075; 87205; 88304; 88307; 88311

== ENCOUNTER → 2024-06-18 09:37 | Outpatient (BNVA) | payer MEDICARE, OTHER, SELFPAY | PROVIDERS: PCP Family Medicine; Referring Provider Family Medicine; Visit Provider Podiatrist | DX: L03.116 Cellulitis of left lower limb (principal); M86.172 Other acute osteomyelitis, left ankle and foot; E11.65 Type 2 diabetes mellitus with hyperglycemia; L97.522 Non-pressure chronic ulcer of other part of left foot with fat layer exposed; E11.621 Type 2 diabetes mellitus with foot ulcer | CPT/HCPCS: 15002; 15275; 20240; Q4166 ==

== ENCOUNTER 2024-06-23 01:26 | Outpatient (CLI) | payer MEDICARE, OTHER, SELFPAY ==
--- NOTE | 2024-06-23 06:30 | DI.RAD_ITS ---
Exam(s) XR FOOT LT COMPLETE EXAM: XR FOOT LT COMPLETE CLINICAL HISTORY: ? worsening osteomyelitis lt foot, m86.9. TECHNIQUE: 2D digital imaging was performed of the left foot. Three images were obtained. AP, obli que and lateral views were obtained. COMPARISON: CR XR FOOT LT COMPLETE from 05/29/2024 FINDINGS: BONES: There is again seen an amputation of the 5th toe to the level of the base of the 5th metatarsa l bone. The remnant 5th metatarsal bone appears unchanged compared to the prior examination. No new erosive changes are seen. There is an enthesophyte at the posterior calcaneus. JOINTS: No dislocation present. SOFT TISSUE: No soft tissue gas is seen. Vascular calcifications are present. IMPRESSION: Stable appearance of the left foot. DATA REPOSITORY: RADIATION DOSE DELIVERED:
== END 2024-06-23 01:46 ==
LOC: DI 01:26
PROVIDERS: PCP Family Medicine; Visit Provider Podiatrist
DX: M86.172 Other acute osteomyelitis, left ankle and foot (principal); E11.65 Type 2 diabetes mellitus with hyperglycemia; L03.116 Cellulitis of left lower limb; L97.522 Non-pressure chronic ulcer of other part of left foot with fat layer exposed
CPT/HCPCS: 11042; 29580; 36415; 85652; 29850; 73630; 82565; 83036; 84132; 85025; 86140

== ENCOUNTER 2024-06-23 08:49 | Outpatient (CLI) | payer MEDICARE, OTHER, SELFPAY ==
[2024-06-23 08:48] LABS: Abs Immature Grans 0.04 10^3/uL (0.0-0.06); Absolute Basophil Count 0.07 10^3/uL (0.0-0.2); Absolute Eosinophil Count 0.28 10^3/uL (0.0-0.7); Absolute Lymphocyte Count 1.08 10^3/uL (1.2-3.4); Absolute Monocyte Count 0.66 10^3/uL (0.1-0.8); Absolute Neutrophil Count 3.81 10^3/uL (1.2-6.7); Basophils % 1.2 %; Eosinophils % 4.7 %; HCT 37.8 % (40.0-50.0); Immature Grans % 0.7 %; Lymphocytes % 18.2 %; MCH 26.9 pg (27.0-33.0); MCHC 31.7 % (32.0-36.0); MCV 85 fL (80-95); MPV 7.7 fL (8.0-11.0); Monocytes % 11.1 %; Neutrophils % 64.1 %; Platelet Count 306 10^3/uL (130-400); RBC 4.46 10^6/uL (4.36-5.78); RDW 13.1 % (11.8-14.1); RDW-SD 40.1 fL; WBC 5.94 10^3/uL (4.4-10.8)
[2024-06-23 08:53] LABS: ESR 24 mm/hr (0-20)
[2024-06-23 08:56] LABS: Potassium 5.3 mmol/L (3.5-5.1)
[2024-06-23 09:10] LABS: C-Reactive Protein 1.08 mg/dL (<or=0.5)
[2024-06-23 09:17] LABS: Hemoglobin A1C 8.4 % (<5.7)
[2024-06-23 09:40] LABS: Lab Add On Test DONE
[2024-06-23 09:52] LABS: CREATININE 1.8 mg/dL (0.70-1.30); Estimated GFR 40.75 (mL/min/1.73m2)
== END 2024-06-23 08:50 | disposition home or self-care (01) ==
LOC: LBO 08:50
PROVIDERS: PCP Family Medicine; Visit Provider Podiatrist
DX: I10 Essential (primary) hypertension (principal); M86.9 Osteomyelitis, unspecified; E11.621 Type 2 diabetes mellitus with foot ulcer; L97.522 Non-pressure chronic ulcer of other part of left foot with fat layer exposed; E87.5 Hyperkalemia
CPT/HCPCS: 36415; 85652; 82565; 83036; 84132; 85025; 86140

== ENCOUNTER 2024-07-03 14:14 | Outpatient (REF) | payer MEDICARE, OTHER, SELFPAY ==
[2024-07-03 15:30] LABS: Anion Gap 6.2 mmol/L (3-11); BUN 40 mg/dL (7-18); CO2 27.8 mmol/L (21.0-32.0); Calcium 9.1 mg/dL (8.5-10.1); Chloride 105 mmol/L (98-107); Estimated GFR 35.91 (mL/min/1.73m2); Glucose 259 mg/dL (74-106); Potassium 4.9 mmol/L (3.5-5.1); Sodium 139 mmol/L (136-145)
== END 2024-07-03 14:15 | disposition home or self-care (01) ==
LOC: LBN 14:14
PROVIDERS: PCP Family Medicine; Referring Provider Family Medicine; Visit Provider Podiatrist
DX: E87.1 Hypo-osmolality and hyponatremia (principal)
CPT/HCPCS: 80048

== ENCOUNTER → 2024-07-09 14:43 | Outpatient (BNVA) | payer MEDICARE, OTHER, SELFPAY | PROVIDERS: PCP Family Medicine; Referring Provider Family Medicine; Visit Provider Podiatrist | DX: Z51.89 Encounter for other specified aftercare (principal); M86.9 Osteomyelitis, unspecified; E11.65 Type 2 diabetes mellitus with hyperglycemia; L03.116 Cellulitis of left lower limb; E11.9 Type 2 diabetes mellitus without complications; L97.522 Non-pressure chronic ulcer of other part of left foot with fat layer exposed | CPT/HCPCS: 11042 ==

== ENCOUNTER 2024-07-10 19:49 | Outpatient (REF) | payer MEDICARE, OTHER, SELFPAY ==
[2024-07-10 17:59] LABS: Anion Gap 9.2 mmol/L (3-11); BUN 55 mg/dL (7-18); CO2 26.8 mmol/L (21.0-32.0); CREATININE 2.1 mg/dL (0.70-1.30); Calcium 9.1 mg/dL (8.5-10.1); Chloride 107 mmol/L (98-107); Estimated GFR 33.87 (mL/min/1.73m2); Glucose 131 mg/dL (74-106); Potassium 5.3 mmol/L (3.5-5.1); Sodium 143 mmol/L (136-145)
== END 2024-07-10 19:50 | disposition home or self-care (01) ==
LOC: LBN 19:49
PROVIDERS: PCP Family Medicine; Visit Provider Family Medicine
DX: L03.90 Cellulitis, unspecified (principal); Z09 Encounter for follow-up examination after completed treatment for conditions other than malignant neoplasm; M86.9 Osteomyelitis, unspecified; E11.65 Type 2 diabetes mellitus with hyperglycemia; L97.522 Non-pressure chronic ulcer of other part of left foot with fat layer exposed
CPT/HCPCS: 80048

== ENCOUNTER 2024-07-28 03:21 | Outpatient (CLI) | payer MEDICARE, OTHER, SELFPAY ==
[2024-07-28 13:41] LABS: Anion Gap 8.6 mmol/L (3-11); BUN 52 mg/dL (7-18); CO2 29.4 mmol/L (21.0-32.0); Calcium 9.4 mg/dL (8.5-10.1); Chloride 107 mmol/L (98-107); Estimated GFR 35.91 (mL/min/1.73m2); Glucose 179 mg/dL (74-106); Potassium 5.2 mmol/L (3.5-5.1); Sodium 145 mmol/L (136-145)
== END 2024-07-28 03:22 | disposition home or self-care (01) ==
PROVIDERS: PCP Family Medicine; Visit Provider Family Medicine
DX: E87.5 Hyperkalemia (principal); Z51.89 Encounter for other specified aftercare; M86.9 Osteomyelitis, unspecified; E11.65 Type 2 diabetes mellitus with hyperglycemia; L03.116 Cellulitis of left lower limb; E11.9 Type 2 diabetes mellitus without complications; L97.522 Non-pressure chronic ulcer of other part of left foot with fat layer exposed
CPT/HCPCS: 36415; 80048

== ENCOUNTER → 2024-07-29 09:43 | Outpatient (BNVA) | payer MEDICARE, OTHER, SELFPAY | PROVIDERS: PCP Family Medicine; Referring Provider Family Medicine; Visit Provider Podiatrist | DX: Z51.89 Encounter for other specified aftercare (principal); M86.9 Osteomyelitis, unspecified; E11.65 Type 2 diabetes mellitus with hyperglycemia; L03.115 Cellulitis of right lower limb; E11.9 Type 2 diabetes mellitus without complications; L97.522 Non-pressure chronic ulcer of other part of left foot with fat layer exposed | CPT/HCPCS: 11042 ==

== ENCOUNTER → 2024-08-06 09:02 | Outpatient (BNVA) | payer MEDICARE, OTHER, SELFPAY | PROVIDERS: PCP Family Medicine; Referring Provider Family Medicine; Visit Provider Podiatrist | DX: Z51.89 Encounter for other specified aftercare (principal); M86.9 Osteomyelitis, unspecified; E11.65 Type 2 diabetes mellitus with hyperglycemia; L97.522 Non-pressure chronic ulcer of other part of left foot with fat layer exposed | CPT/HCPCS: 11042; 29580; 29850 ==

== ENCOUNTER 2024-08-06 10:15 | Emergency (ER) | payer MEDICARE, OTHER, SELFPAY ==
[2024-08-06] VITALS (48 sets, daily range): BP systolic 83–160; BP diastolic 33–65; PULSE 58–78; RESP 5–24; TEMP 36.6; O2SAT 79–100
--- NOTE | 2024-08-06 10:15 | RT.EKG_ITS ---
APPROVED REPORT Exam: Resting ECG Reason for Exam: Hypotension Patient Location: E HR:60 bpm ECG Measurements Heart Rate 60 AXIS UT 236 P 49 QRSd 114 QRS -63 QT 417 T 58 QTc 418 Conclusion Sinus rhythm 60 normal axis no stemi
[2024-08-06] MEDS: Lactated Ringers 1,000 ML 1000 ML IV (10:57)
[2024-08-06 11:09] LABS: Abs Immature Grans 0.07 10^3/uL (0.0-0.06); Absolute Basophil Count 0.09 10^3/uL (0.0-0.2); Absolute Eosinophil Count 0.34 10^3/uL (0.0-0.7); Absolute Lymphocyte Count 1.04 10^3/uL (1.2-3.4); Absolute Monocyte Count 0.84 10^3/uL (0.1-0.8); Absolute Neutrophil Count 5.06 10^3/uL (1.2-6.7); Basophils % 1.2 %; Eosinophils % 4.6 %; HCT 40.5 % (40.0-50.0); HGB 12.6 g/dL (13.5-17.5); Immature Grans % 0.9 %; MCH 26.3 pg (27.0-33.0); MCHC 31.1 % (32.0-36.0); MCV 85 fL (80-95); MPV 8.6 fL (8.0-11.0); Monocytes % 11.3 %; Platelet Count 274 10^3/uL (130-400); RBC 4.79 10^6/uL (4.36-5.78); RDW 13.3 % (11.8-14.1); RDW-SD 41.6 fL; WBC 7.44 10^3/uL (4.4-10.8)
[2024-08-06 11:14] LABS: ESR 33 mm/hr (0-20)
[2024-08-06 11:25] LABS: ALT 64 U/L (16-63); AST 26 U/L (15-37); Albumin 3.6 g/dL (3.4-5.0); Alkaline Phosphatase 148 U/L (46-116); Anion Gap 8.4 mmol/L (3-11); BUN 58 mg/dL (7-18); C-Reactive Protein 0.85 mg/dL (<or=0.5); CO2 26.6 mmol/L (21.0-32.0); CREATININE 2.3 mg/dL (0.70-1.30); Calcium 9.5 mg/dL (8.5-10.1); Chloride 107 mmol/L (98-107); Estimated GFR 30.36 (mL/min/1.73m2); Glucose 183 mg/dL (74-106); Potassium 5.5 mmol/L (3.5-5.1); Sodium 142 mmol/L (136-145); Total Protein 7.8 g/dL (6.4-8.2)
[2024-08-06 11:35] LABS: BE (Venous) -3 mmol/L (-2-3); HCO3 (Venous) 24 mmol/L (23-28); Lactate 1.9 mmol/L (0.6-1.4); O2 Sat (Venous) 67 %; TCO2 (Venous) 23 mmol/L (24-29); pCO2 (Venous) 52 mmHg (41-51); pH (Venous) 7.27 (7.31-7.41); pO2 (Venous) 39 mmHg
[2024-08-06 11:47] LABS: Procalcitonin < 0.10 ng/mL
[2024-08-06] MEDS: Insulin REGULAR-Human 100 UNITS/ML UNIT SC (11:57)
[2024-08-06 12:27] LABS: Anion Gap 6.1 mmol/L (3-11); BUN 57 mg/dL (7-18); CO2 27.9 mmol/L (21.0-32.0); CREATININE 2.1 mg/dL (0.70-1.30); Calcium 9.1 mg/dL (8.5-10.1); Chloride 108 mmol/L (98-107); Estimated GFR 33.87 (mL/min/1.73m2); Glucose 155 mg/dL (74-106); Sodium 142 mmol/L (136-145)
[2024-08-06 12:28] LABS: Potassium 6.2 mmol/L (3.5-5.1)
[2024-08-06] MEDS: Dextrose 50%-Water 25 GM/50 ML SYR IVP (12:57)
[2024-08-06] MEDS: Albuterol 2.5 MG/3 ML INH SOLN VIAL UPD (12:58)
[2024-08-06] MEDS: Insulin REGULAR-Human 100 UNITS/ML UNIT IV (12:58)
--- NOTE | 2024-08-06 13:16 | W.ED.GENAD ---
Discharge Plan Disposition Patient Disposition: Home Discharge Details Clinical Impression: Hypotension, Serum potassium elevated Primary Care Provider: Hammad Enrique ED Provider: Rubi Kim Home Meds and New Rx's Prescriptions: No Action (DME) lancets [Accu-Chek Fastclix Lancet Drum] Misc See Dose Instructions .ROUTE .MEDSUPPLY Qty: 100 6RF Dose Instruction: As directed Rx Instructions: test TID insulin degludec [Tresiba FlexTouch U-200] 200 unit/mL (3 mL) insulin pen 80 unit subcut DAILY MDD 80 90 Days Qty: 36 4RF Rx Instructions: Inject 80 units subcutaneously once daily. Call Joel before starting. amoxicillin-pot clavulanate 875-125 mg tablet 1 tab PO BID Qty: 70 0RF Rx Instructions: 5wk course ordered by [facility] 08/05/24 (end date anticipated 09/10/24) doxycycline hyclate 100 mg capsule 100 mg PO BID Qty: 70 0RF Rx Instructions: 5wk course ordered by [facility] 08/05/24 (end date anticipated 09/10/24) (taken in combination with Amox-clav) (DME) pen needle, diabetic [BD Ultra-Fine Short Pen Needle] 31 gauge x 5/16 needle 1 ea SQ 5x day Qty: 400 3RF Rx Instructions: inject 4 times/day sildenafil (pulm.hypertension) 20 mg tablet 20 - 100 mg PO DAILY PRN (Reason: sexual activity) Qty: 30 5RF dapagliflozin propanediol [Farxiga] 10 mg tablet 10 mg PO DAILY Qty: 90 3RF nitroglycerin [Nitrostat] 0.4 mg tablet, sublingual 0.4 mg Sublingual PRN Qty: 25 1RF Rx Instructions: REPEAT Q5 MIN. PRN X 3 (DME) Dexcom G7 Cisco Engineer Misc See Rx Instructions .MEDSUPPLY Qty: 1 0RF Rx Instructions: As directed (DME) Dexcom G7 Sensor Device See Rx Instructions .Route Qty: 1 12RF Rx Instructions: As directed losartan 50 mg tablet 50 mg PO DAILY Qty: 90 3RF insulin glargine-yfgn [Semglee(insulin glarg-yfgn)Pen] 100 unit/mL (3 mL) insulin pen 60 unit subcut BID Qty: 45 3RF citalopram [Celexa] 20 mg tablet 20 mg PO DAILY Qty: 90 3RF carvedilol 12.5 mg tablet 12.5 mg PO BID Qty: 180 3RF Rx Instructions: must administer with a meal/food bupropion HCl 100 mg tablet 100 mg PO BID Qty: 180 3RF Eliquis 5 mg tablet 5 mg PO BID Qty: 180 3RF insulin aspart U-100 [Novolog FlexPen U-100 Insulin] 100 unit/mL (3 mL) insulin pen 26 - 30 unit subcut AC Qty: 27 3RF Rx Instructions: diabetes E11.9 24 units plus sliding scale before each meal needs three boxes for a thirty day supply (DME) Accu-Chek Mariana Plus test strp Strip See Dose Instructions .ROUTE .MEDSUPPLY Qty: 300 3RF Dose Instruction: As directed Rx Instructions: test TID rosuvastatin 20 mg tablet 20 mg PO DAILY Qty: 90 3RF (DME) blood-glucose meter [Accu-Chek Guide Glucose Meter] Misc See Rx Instructions .ROUTE .MEDSUPPLY Qty: 1 0RF Rx Instructions: As directed (DME) blood-glucose meter Misc See Dose Instructions .ROUTE .MEDSUPPLY Qty: 1 0RF Dose Instruction: As directed Rx Instructions: test 3 x/day (DME) Accu-Chek Guide test strips Strip See Rx Instructions .ROUTE .MEDSUPPLY Qty: 300 3RF Rx Instructions: test 3 x day Discharge Instructions Additional Instructions: Your blood pressure was transiently low when you arrived to the emergency department, but has been returned to normal levels and your workup for infection seems stable. Make sure you are eating and drinking well your Potassium level was slightly elevated and has come down with therapy. It looks like your potassium is chronically elevated. Please follow-up with your PCP for continued management of this and monitoring HPI General Date/Time Provider Initiated Documentation: 08/06/24 10:50. Limitations to Documentation: no limitations. Information obtained by: patient. HPI Narrative: 69-year-old gentleman with past medical history of diabetes, CKD left foot infection presents for evaluation of low blood pressure. Patient had an appointment in podiatry clinic today. The reports that his wound is infection is improving. He is currently on antibiotics and is followed closely by infectious disease. He reports that he did take his blood pressure medication this morning and that his blood pressure is normally within normal limits. He denies any fever chills or decreased urine output or decreased oral intake to explain his low blood pressure. He states that he feels great. Related Data Home Medications ?Medication ?Instructions ?Recorded ?Confirmed lancets (Accu-Chek Fastclix Lancet #100 ea 10/20/19 08/06/24 Drum) pen needle, diabetic 31 gauge x #400 ea 11/07/22 08/06/24/16 (BD Ultra-Fine Short Pen Needle) sildenafil (pulm.hypertension) 20 20 - 100 mg (1 - 5 x 20 mg) PO 11/07/22 08/06/24 mg tablet DAILY PRN sexual activity #30 tabs dapagliflozin propanediol 10 mg 10 mg PO DAILY #90 tabs 08/27/23 08/06/24 tablet (Farxiga) nitroglycerin 0.4 mg sublingual 0.4 mg sublingual PRN #25 tabs 08/27/23 08/06/24 tablet (Nitrostat) insulin glargine-yfgn 100 unit/mL 60 unit (0.6 mL) subcut BID #45 mL 09/17/23 08/06/24 (3 mL) subcutaneous pen (Semglee (insulin glargine-yfgn) Pen) citalopram 20 mg tablet (Celexa) 20 mg PO DAILY #90 tabs 11/14/23 08/06/24 carvedilol 12.5 mg tablet 12.5 mg PO BID #180 tabs 02/01/24 08/06/24 bupropion HCl 100 mg tablet 100 mg PO BID #180 tabs 03/17/24 08/06/24 apixaban 5 mg tablet (Eliquis) 5 mg PO BID #180 tabs 03/18/24 08/06/24 blood-glucose meter,continuous #1 ea 04/16/24 08/06/24 (Dexcom G7 Cisco Engineer) blood-glucose sensor (Dexcom G7 #1 ea 04/16/24 08/06/24 Sensor device) insulin aspart U-100 100 unit/mL 26 - 30 unit (0.26 - 0.3 mL) 04/23/24 08/06/24 (3 mL) subcutaneous pen (Novolog subcut AC #27 SYRGS FlexPen U-100 Insulin aspart) blood sugar diagnostic (Accu-Chek #300 ea 05/12/24 08/06/24 Mariana Plus test strips) rosuvastatin 20 mg tablet 20 mg PO DAILY #90 tabs 05/18/24 08/06/24 blood-glucose meter (Accu-Chek #1 ea 05/21/24 08/06/24 Guide Glucose Meter) blood-glucose meter #1 ea 05/23/24 08/06/24 blood sugar diagnostic (Accu-Chek #300 ea 05/28/24 08/06/24 Guide test strips) losartan 50 mg tablet 50 mg PO DAILY #90 tabs 06/23/24 08/06/24 insulin degludec 200 unit/mL (3 80 unit (0.4 mL) subcut DAILY 90 07/16/24 08/06/24 mL) subcutaneous pen ([facility] #36 mL FlexTouch U-200 insulin) amoxicillin 875 mg-potassium 1 tab PO BID #70 tabs 08/06/24 08/06/24 clavulanate 125 mg tablet doxycycline hyclate 100 mg capsule 100 mg PO BID #70 caps 08/06/24 08/06/24 Previous Rx's ?Medication ?Instructions ?Recorded lancets (Accu-Chek Fastclix Lancet #100 ea 10/20/19 Drum) pen needle, diabetic 31 gauge x #400 ea 11/07/2202/12 (BD Ultra-Fine Short Pen Needle) sildenafil (pulm.hypertension) 20 20 - 100 mg (1 - 5 x 20 mg) PO 11/07/22 mg tablet DAILY PRN sexual activity #30 tabs dapagliflozin propanediol 10 mg 10 mg PO DAILY #90 tabs 08/27/23 tablet (Farxiga) nitroglycerin 0.4 mg sublingual 0.4 mg sublingual PRN #25 tabs 08/27/23 tablet (Nitrostat) insulin glargine-yfgn 100 unit/mL 60 unit (0.6 mL) subcut BID #45 mL 09/17/23 (3 mL) subcutaneous pen (Semglee (insulin glargine-yfgn) Pen) citalopram 20 mg tablet (Celexa) 20 mg PO DAILY #90 tabs 02/15/24 carvedilol 12.5 mg tablet 12.5 mg PO BID #180 tabs 02/01/24 bupropion HCl 100 mg tablet 100 mg PO BID #180 tabs 03/17/24 apixaban 5 mg tablet (Eliquis) 5 mg PO BID #180 tabs 03/18/24 blood-glucose meter,continuous #1 ea 04/16/24 (Dexcom G7 Cisco Engineer) blood-glucose sensor (Dexcom G7 #1 ea 04/16/24 Sensor device) insulin aspart U-100 100 unit/mL 26 - 30 unit (0.26 - 0.3 mL) 04/23/24 (3 mL) subcutaneous pen (Novolog subcut AC #27 SYRGS FlexPen U-100 Insulin aspart) blood sugar diagnostic (Accu-Chek #300 ea 05/12/24 Mariana Plus test strips) rosuvastatin 20 mg tablet 20 mg PO DAILY #90 tabs 05/18/24 blood-glucose meter (Accu-Chek #1 ea 05/21/24 Guide Glucose Meter) blood-glucose meter #1 ea 05/23/24 blood sugar diagnostic (Accu-Chek #300 ea 05/28/24 Guide test strips) losartan 50 mg tablet 50 mg PO DAILY #90 tabs 06/23/24 insulin degludec 200 unit/mL (3 80 unit (0.4 mL) subcut DAILY 90 07/16/24 mL) subcutaneous pen (Tresiba days #36 mL FlexTouch U-200 insulin) amoxicillin 875 mg-potassium 1 tab PO BID #70 tabs 08/06/24 clavulanate 125 mg tablet doxycycline hyclate 100 mg capsule 100 mg PO BID #70 caps 08/06/24 Allergies Allergy/AdvReac Type Severity Reaction Status Date / Time celecoxib (From Celebrex) Allergy Severe BERRIOS-JAYME Verified 08/06/24 10:26 SYNDROME atorvastatin AdvReac Unknown Verified 08/06/24 10:26 General Stated Complaint: Cellulitis SCOTT: 3 Exam Narrative Exam Narrative: Review of Systems: All systems reviewed & are unremarkable except as noted in HPI and below Well-developed, no acute distress NCAT RRR no murmur hypotensive Unlabored respiratory effort, clear bilaterally Nondistended abdomen soft nontender Right lower extremity universally wrapped in Unna boot Course Vital Signs Vital signs: Vital Signs Temperature 36.6 C 08/06/24 10:20 Pulse 78 08/06/24 10:20 Respiratory Rate 18 08/06/24 10:20 Blood Pressure 95/45 L 08/06/24 10:20 Pulse Oximetry 98 08/06/24 10:20 Temperature 36.6 C 08/06/24 10:20 Pulse 61 08/06/24 12:11 Pulse 64 08/06/24 12:20 Respiratory Rate 24 08/06/24 12:20 Respiratory Effort Normal 08/06/24 10:25 Blood Pressure 133/49 L 08/06/24 12:11 Blood Pressure Mean 80 08/06/24 12:11 Pulse Oximetry 98 08/06/24 12:20 Lab/Test Results Lab/Test Results: 08/06/24 11:19 Blood Blood Culture - Pending 08/06/24 10:20 Blood Blood Culture - Pending Laboratory Tests Range/Units 08/06/24 08/06/24 08/06/24 10:20 11:30 12:05 WBC (4.4-10.8) 10^3/uL 7.44 RBC (4.36-5.78) 10^6/uL 4.79 Hgb (13.5-17.5) g/dL 12.6 L Hct (40.0-50.0) % 40.5 MCV (80-95) fL 85 MCH (27.0-33.0) pg 26.3 L MCHC (32.0-36.0) % 31.1 L RDW (11.8-14.1) % 13.3 Plt Count (130-400) 10^3/uL 274 MPV (8.0-11.0) fL 8.6 Immature Gran % % 0.9 Neutrophils % % 68.0 Lymphocytes % % 14.0 Monocytes % % 11.3 Eosinophils % % 4.6 Basophils % % 1.2 Nucleated RBC % (0.0-0.3) % 0.0 Absolute Neutrophils (1.2-6.7) 10^3/uL 5.06 Absolute Lymphocytes (1.2-3.4) 10^3/uL 1.04 L Absolute Monocytes (0.1-0.8) 10^3/uL 0.84 H Absolute Eosinophils (0.0-0.7) 10^3/uL 0.34 Absolute Basophils (0.0-0.2) 10^3/uL 0.09 ESR (0-20) mm/hr 33 H VBG pH (7.31-7.41) 7.27 L VBG pCO2 (41-51) mmHg 52 H VBG pO2 mmHg 39 VBG HCO3 (23-28) mmol/L 24 VBG Total CO2 (24-29) mmol/L 23 L VBG O2 Saturation % 67 VBG Base Excess (-2-3) mmol/L -3 L VBG Lactate (0.6-1.4) mmol/L 1.9 H Sodium (136-145) mmol/L 142 142 Potassium (3.5-5.1) mmol/L 5.5 H 6.2 H* Chloride (98-107) mmol/L 107 108 H Carbon Dioxide (21.0-32.0) mmol/L 26.6 27.9 Anion Gap (3-11) mmol/L 8.4 6.1 BUN (7-18) mg/dL 58 H 57 H Creatinine (0.70-1.30) mg/dL 2.3 H 2.1 H Est GFR (CKD-EPI 2020) (mL/min/1.73m2) 30.36 33.87 Glucose (74-106) mg/dL 183 H 155 H Calcium (8.5-10.1) mg/dL 9.5 9.1 Total Bilirubin (0.2-1.0) mg/dL 0.30 AST (15-37) U/L 26 ALT (16-63) U/L 64 H Alkaline Phosphatase (46-116) U/L 148 H C-Reactive Protein (<or=0.5) mg/dL 0.85 H Total Protein (6.4-8.2) g/dL 7.8 Albumin (3.4-5.0) g/dL 3.6 Procalcitonin ng/mL < 0.10 Medical Decision Making Emergent evaluation of hypotension. Patient was sent from podiatry clinic for evaluation of this. He reports that he is asymptomatic. He did take his blood pressure medication this morning. He is being followed by left lower extremity osteomyelitis and has report that his symptoms are improving. Given ongoing infection and the fact that he is currently on antibiotic therapy I am concerned for possible worsening of infectious etiology or sepsis causing his hypotension. Plan for lab work, fluid resuscitation and close monitoring Lab work reviewed. There is no leukocytosis or anemia. ESR mildly elevated. CRP is mildly elevated but decreased from prior. His procalcitonin is not elevated. Of concern the patient does have some mild acidosis with a pH of 7.2 and lactic acid slightly elevated at 1.9. His renal function is at baseline. His potassium was noted to be elevated. I have trended prior potassiums and noted that since he typically is above 5. It is unclear why he has chronic hyperkalemia. He does not have any EKG changes. I have given medication to shift his potassium including insulin and dextrose and albuterol as well as IV fluids. Patient did make urine in the emergency department. And his repeat potassium was down within the range that he normally has. I feel his transient hypotension was likely secondary to some volume depletion. He had not had anything to eat or drink this morning prior to going to clinic and had taken his blood pressure medication. Advised him to keep a log of his blood pressure. he states that his primary care doctor is following his chronic hyperkalemia and thus far they have not made a definitive diagnosis of this. The patient is asymptomatic and workup has been fairly benign otherwise. At this time I feel he is stable for discharge home. He will continue his wound care and podiatry and infectious disease workup. Follow-up closely with PCP as needed. Quality:SDOH Health Related Social Needs: Health related social needs housing instability, housed, with risk of homelessness(Z59.811) [facility] All Active Problems (Updated 08/06/24 @ 14:20 by Rubi Kim MD) Serum potassium elevated (Acute) Hypotension (Acute) Exostoses, multiple (Acute) Osteomyelitis of left foot (Acute) Ulcer of left foot with fat layer exposed (Acute) Foot infection (Acute) Uncontrolled diabetes mellitus with hyperglycemia (Acute) Cellulitis of foot (Acute) Cerumen impaction (Acute) Conductive hearing loss (Acute) Hyperkalemia (Acute) Erectile dysfunction (Acute) Obesity (Acute) Diabetic retinopathy (Acute ~12/2021) 01/12/22 B/L MODERATE/SHIPPEE-KB Hyperlipidemia associated with type 2 diabetes mellitus (Acute) Mixed hearing loss (Acute) Depressive disorder (Acute 08/10/13) Mixed conductive and sensorineural hearing loss of right ear with restricted hearing of left ear (Acute) DVT prophylaxis (Acute) Urinary retention (Acute) Hypoglycemia (Acute) KATRIN (acute kidney injury) (Acute) Diabetes mellitus, type II (Acute) a. Hgb A1C 11.6 b. on high dose glargine insulin therapy Transaminitis (Acute) Rash (Acute) Arthritis of right shoulder region (Acute) Arthritis of left shoulder region (Acute) History of rotator cuff tear (Acute ~1995) Tendinitis of long head of biceps brachii of left shoulder (Acute) Tendinitis of long head of biceps brachii of right shoulder (Acute) Tendinitis of left rotator cuff (Acute) Right rotator cuff tendonitis (Acute) Multiple exostoses (Acute) Abnormal auditory perception (Acute) Essential hypertension (Acute) if creat ok, will add KULWANT Chronic renal impairment, stage 2 (mild) (Acute) Hx of colonic polyps (Acute) Low back pain (Acute) Sensorineural hearing loss, bilateral (Chronic 07/16/16) Medical History Morbid obesity CKD (chronic kidney disease) Cellulitis and abscess of foot Diabetes mellitus Sleep apnea (05/16/15) Well adult Impacted cerumen of both ears Acute osteomyelitis of right foot (06/25/16) Rupture of left quadriceps muscle (01/15/18) Proliferative diabetic retinopathy (08/06/12) 08/09/16; [facility] Polyp of colon (11/17/13) DR. Dick RODRIGUEZ; TUBULAR ADENOMA Hyperlipidemia (03/26/13) Depression Coronary disease a. s/p cath with stent 1999 b. MPI positive for ischemia 2009 Current use of insulin Surgical History History of appendectomy History of intravascular stent placement History of right knee surgery (04/22/14) S/P cataract surgery 10/02/18; [facility] [place];B/L-kb QUADRICEPS REPAIR 01/16/18 (L) PROCEDURES INSERT 1 VASCULAR STENT, 1999 LEFT CIRC. Colonoscopy - MAC (11/17/13) H/O surgical procedure a. Right quadriceps repair [address] Smart b. Colonoscopy 11/17/[address] Rodriguez Family History Mother , AGE 84 Diabetes Stroke Father Depression Heart disease Hyperlipidemia Hypertension Sister Alcohol abuse Substance abuse Diabetes Depression Social History Smoking/Tobacco Use Status: Never Second Hand Exposure: Yes Smoking risk assessment performed?: Yes Alcohol Intake: never Drug use: Never Substance use type: does not use Caregiver/Support person: No Household members: significant other Housing: house Communication Needs: Hard of Hearing Do you need help understanding health information?: Never Pets and animals: No Sexually active: Yes Do you think of yourself as: straight/heterosexual Current gender identity: male What is your relationship status?: never How often do you talk on the phone with friends or family?: three or more times per week How often do you get together with friends or relatives?: decline to answer How often do you attend samaritan or advent services?: decline to answer Do you belong to any clubs or organized social groups?: no Panel score (0-1 are the most socially isolated patients): 1 What type of physical activity do you participate in: other Details: Rowing Duration: 15-30 minutes/day Frequency: daily Verna/Congregational: Mu-Ism Special verna needs: No Seatbelt use: always Helmet use: Yes Helmet use: always Drive intox or ride w/intox day haul or farm charter bus driver: No Do you feel safe at home: Yes Do you feel safe in your relationship?: Yes
[2024-08-06 14:13] LABS: Potassium 5.1 mmol/L (3.5-5.1)
== END 2024-08-06 14:38 | disposition home or self-care (01) ==
PROVIDERS: Emergency Provider Emergency Medicine; PCP Family Medicine
DX: I95.9 Hypotension, unspecified (principal); E87.5 Hyperkalemia; Z59.811 Housing instability, housed, with risk of homelessness; E11.22 Type 2 diabetes mellitus with diabetic chronic kidney disease; N18.9 Chronic kidney disease, unspecified; E11.69 Type 2 diabetes mellitus with other specified complication
CPT/HCPCS: 11042; 29580; 36415; 36416; 80048; 80053; 82805; 82962; 84145; 85652; 87040; 93005; 94640; 96361; 96372; 96374; 96375; 99284; 29850; 83605; 84132; 85025; 86140; 93010; J1815; J7613

== ENCOUNTER → 2024-08-13 09:29 | Outpatient (BNVA) | payer MEDICARE, OTHER, SELFPAY | PROVIDERS: PCP Family Medicine; Referring Provider Family Medicine; Visit Provider Podiatrist | DX: L97.522 Non-pressure chronic ulcer of other part of left foot with fat layer exposed (principal); M86.9 Osteomyelitis, unspecified; Z51.89 Encounter for other specified aftercare; E11.65 Type 2 diabetes mellitus with hyperglycemia | CPT/HCPCS: 11042; 15002; 15275; Q4166; Q4118 ==

== ENCOUNTER 2024-08-13 14:10 | Outpatient (CLI) | payer MEDICARE, OTHER, SELFPAY ==
--- NOTE | 2024-08-13 10:15 | DI.RAD_ITS ---
Exam(s) XR FOOT LT COMPLETE EXAM: XR FOOT LT COMPLETE CLINICAL HISTORY: L97.522, M86.9 Chronic ulcer lt foot, lateral foot OM. TECHNIQUE: 2D digital imaging was performed. Three views. 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 No acute fracture is present. No [place] destructive lesion is seen. Enthesophyte at Achilles insertion. JOINTS: No dislocation present. SOFT TISSUE: Soft tissue swelling and air laterally with overlying gauze. Vascular calcifications. IMPRESSION: soft tissue laceration. No evidence of osteomyelitis. Stable appearance of amputation at the base o f the 5th metatarsal. DATA REPOSITORY: RADIATION DOSE DELIVERED:
== END 2024-08-13 14:30 ==
PROVIDERS: PCP Family Medicine; Visit Provider Podiatrist
DX: L97.522 Non-pressure chronic ulcer of other part of left foot with fat layer exposed (principal)
CPT/HCPCS: 15002; 15275; Q4166; 73630; Q4118

== ENCOUNTER → 2024-08-20 08:52 | Outpatient (BNVA) | payer MEDICARE, OTHER, SELFPAY | PROVIDERS: PCP Family Medicine; Referring Provider Family Medicine; Visit Provider Podiatrist | DX: Z51.89 Encounter for other specified aftercare (principal); L97.522 Non-pressure chronic ulcer of other part of left foot with fat layer exposed; M86.9 Osteomyelitis, unspecified; E11.65 Type 2 diabetes mellitus with hyperglycemia | CPT/HCPCS: 11042; 15002; 15275; Q4166; Q4118 ==

== ENCOUNTER 2024-08-20 12:19 | Outpatient (CLI) | payer MEDICARE, OTHER, SELFPAY ==
[2024-08-20 10:14] LABS: Abs Immature Grans 0.06 10^3/uL (0.0-0.06); Absolute Eosinophil Count 0.73 10^3/uL (0.0-0.7); Absolute Lymphocyte Count 1.34 10^3/uL (1.2-3.4); Absolute Monocyte Count 0.72 10^3/uL (0.1-0.8); Absolute Neutrophil Count 4.56 10^3/uL (1.2-6.7); Basophils % 1.3 %; Eosinophils % 9.7 %; HCT 39.4 % (40.0-50.0); HGB 12.2 g/dL (13.5-17.5); Immature Grans % 0.8 %; Lymphocytes % 17.8 %; MCH 26.1 pg (27.0-33.0); MCV 84 fL (80-95); MPV 8.4 fL (8.0-11.0); Monocytes % 9.6 %; Neutrophils % 60.8 %; Platelet Count 314 10^3/uL (130-400); RBC 4.68 10^6/uL (4.36-5.78); RDW 13.8 % (11.8-14.1); WBC 7.51 10^3/uL (4.4-10.8)
[2024-08-20 10:20] LABS: ESR 20 mm/hr (0-20)
[2024-08-20 10:26] LABS: C-Reactive Protein 0.61 mg/dL (<or=0.5)
== END 2024-08-20 12:20 | disposition home or self-care (01) ==
LOC: LBO 12:23
PROVIDERS: PCP Family Medicine; Visit Provider Podiatrist
DX: M86.9 Osteomyelitis, unspecified (principal)
CPT/HCPCS: 15002; 15275; 29581; 36415; 85652; Q4166; 85025; 86140; Q4118

== ENCOUNTER → 2024-09-03 08:51 | Outpatient (BNVA) | payer MEDICARE, OTHER, SELFPAY | PROVIDERS: PCP Family Medicine; Visit Provider Podiatrist | DX: L97.522 Non-pressure chronic ulcer of other part of left foot with fat layer exposed (principal); M86.9 Osteomyelitis, unspecified; Z51.89 Encounter for other specified aftercare; E11.65 Type 2 diabetes mellitus with hyperglycemia | CPT/HCPCS: 11042 ==

== ENCOUNTER → 2024-09-14 10:16 | Outpatient (BNVA) | payer MEDICARE, OTHER, SELFPAY | PROVIDERS: PCP Family Medicine; Referring Provider Family Medicine; Visit Provider Podiatrist | DX: M86.9 Osteomyelitis, unspecified (principal); L97.522 Non-pressure chronic ulcer of other part of left foot with fat layer exposed; Z51.89 Encounter for other specified aftercare; E11.65 Type 2 diabetes mellitus with hyperglycemia | CPT/HCPCS: 15002; 15275; Q4137 ==

== ENCOUNTER 2024-09-14 13:21 | Outpatient (CLI) | payer MEDICARE, OTHER, SELFPAY ==
[2024-09-14 11:26] LABS: Abs Immature Grans 0.05 10^3/uL (0.0-0.06); Absolute Basophil Count 0.11 10^3/uL (0.0-0.2); Absolute Eosinophil Count 0.57 10^3/uL (0.0-0.7); Absolute Lymphocyte Count 1.43 10^3/uL (1.2-3.4); Absolute Neutrophil Count 4.07 10^3/uL (1.2-6.7); Basophils % 1.5 %; Eosinophils % 7.9 %; HCT 43.6 % (40.0-50.0); HGB 13.7 g/dL (13.5-17.5); Immature Grans % 0.7 %; Lymphocytes % 19.8 %; MCH 26.5 pg (27.0-33.0); MCHC 31.4 % (32.0-36.0); MCV 84 fL (80-95); MPV 8.4 fL (8.0-11.0); Monocytes % 13.8 %; Neutrophils % 56.3 %; Platelet Count 290 10^3/uL (130-400); RBC 5.17 10^6/uL (4.36-5.78); RDW 13.6 % (11.8-14.1); RDW-SD 41.8 fL; WBC 7.23 10^3/uL (4.4-10.8)
[2024-09-14 11:28] LABS: ESR 15 mm/hr (0-20)
[2024-09-14 12:11] LABS: Anion Gap 10.3 mmol/L (3-11); BUN 46 mg/dL (7-18); C-Reactive Protein 0.87 mg/dL (<or=0.5); CO2 29.7 mmol/L (21.0-32.0); Calcium 9.6 mg/dL (8.5-10.1); Chloride 104 mmol/L (98-107); Estimated GFR 35.91 (mL/min/1.73m2); Glucose 117 mg/dL (74-106); Potassium 4.9 mmol/L (3.5-5.1); Sodium 144 mmol/L (136-145)
== END 2024-09-14 13:22 | disposition home or self-care (01) ==
LOC: LBO 13:24
PROVIDERS: PCP Family Medicine; Visit Provider Podiatrist
DX: M86.9 Osteomyelitis, unspecified (principal); L97.522 Non-pressure chronic ulcer of other part of left foot with fat layer exposed
CPT/HCPCS: 15002; 15275; 36415; 80048; 85652; 85025; 86140; Q4137

== ENCOUNTER → 2024-10-05 09:30 | Outpatient (BNVA) | payer MEDICARE, OTHER, SELFPAY | PROVIDERS: PCP Family Medicine; Referring Provider Family Medicine; Visit Provider Podiatrist | DX: M86.9 Osteomyelitis, unspecified (principal); L97.522 Non-pressure chronic ulcer of other part of left foot with fat layer exposed; Z51.89 Encounter for other specified aftercare; E11.65 Type 2 diabetes mellitus with hyperglycemia | CPT/HCPCS: 11042; 15275; Q4137 ==

== ENCOUNTER 2024-10-19 14:50 | Outpatient (CLI) | payer MEDICARE, OTHER, SELFPAY ==
[2024-10-19 12:55] LABS: Hemoglobin A1C 7.2 % (<5.7)
== END 2024-10-19 14:51 | disposition home or self-care (01) ==
LOC: LOS 14:55
PROVIDERS: PCP Family Medicine; Visit Provider Family Medicine
DX: E11.9 Type 2 diabetes mellitus without complications (principal)
CPT/HCPCS: 36415; 83036

== ENCOUNTER → 2024-10-20 10:20 | Outpatient (BNVA) | payer MEDICARE, OTHER, SELFPAY | PROVIDERS: PCP Family Medicine; Referring Provider Family Medicine; Visit Provider Podiatrist | DX: L03.116 Cellulitis of left lower limb (principal); L97.522 Non-pressure chronic ulcer of other part of left foot with fat layer exposed; Z51.89 Encounter for other specified aftercare; E11.65 Type 2 diabetes mellitus with hyperglycemia; M86.9 Osteomyelitis, unspecified | CPT/HCPCS: 11042 ==

== ENCOUNTER 2024-10-20 11:25 | Outpatient (REF) | payer MEDICARE, OTHER, SELFPAY | END 2024-10-20 11:26 | disposition home or self-care (01) | LOC: LBN 11:25 | PROVIDERS: PCP Podiatrist; Visit Provider Podiatrist | DX: L97.522 Non-pressure chronic ulcer of other part of left foot with fat layer exposed (principal) | CPT/HCPCS: 87070; 87075; 87205 ==

== ENCOUNTER 2024-10-26 19:28 | Outpatient (REF) | payer MEDICARE, OTHER, SELFPAY ==
[2024-10-26 13:23] LABS: Abs Immature Grans 0.05 10^3/uL (0.0-0.06); Absolute Basophil Count 0.08 10^3/uL (0.0-0.2); Absolute Eosinophil Count 0.85 10^3/uL (0.0-0.7); Absolute Lymphocyte Count 1.12 10^3/uL (1.2-3.4); Absolute Monocyte Count 0.76 10^3/uL (0.1-0.8); Absolute Neutrophil Count 3.21 10^3/uL (1.2-6.7); Basophils % 1.3 %; HCT 40.1 % (40.0-50.0); HGB 12.6 g/dL (13.5-17.5); Immature Grans % 0.8 %; Lymphocytes % 18.5 %; MCH 26.7 pg (27.0-33.0); MCHC 31.4 % (32.0-36.0); MCV 85 fL (80-95); MPV 8.6 fL (8.0-11.0); Monocytes % 12.5 %; Neutrophils % 52.9 %; Platelet Count 233 10^3/uL (130-400); RBC 4.72 10^6/uL (4.36-5.78); RDW 13.7 % (11.8-14.1); RDW-SD 42.9 fL; WBC 6.07 10^3/uL (4.4-10.8)
[2024-10-26 13:28] LABS: ESR 34 mm/hr (0-20)
[2024-10-26 13:38] LABS: ALT 60 U/L (16-63); AST 24 U/L (15-37); Albumin 3.4 g/dL (3.4-5.0); Alkaline Phosphatase 146 U/L (46-116); Anion Gap 5.2 mmol/L (3-11); BUN 42 mg/dL (7-18); Bilirubin, Total 0.18 mg/dL (0.2-1.0); C-Reactive Protein 0.59 mg/dL (<or=0.5); CO2 28.8 mmol/L (21.0-32.0); CREATININE 2.1 mg/dL (0.70-1.30); Calcium 8.9 mg/dL (8.5-10.1); Chloride 107 mmol/L (98-107); Estimated GFR 33.87 (mL/min/1.73m2); Glucose 112 mg/dL (74-106); Potassium 5.4 mmol/L (3.5-5.1); Sodium 141 mmol/L (136-145); Total Protein 6.5 g/dL (6.4-8.2)
--- NOTE | 2024-10-31 02:19 | NUR.NOTE ---
In pt chart for emt call to provider Nora Velazquez Note:
== END 2024-10-26 19:29 | disposition home or self-care (01) ==
LOC: LBN 19:28
PROVIDERS: PCP Family Medicine; Visit Provider Podiatrist
DX: M86.9 Osteomyelitis, unspecified (principal); E11.621 Type 2 diabetes mellitus with foot ulcer
CPT/HCPCS: 80053; 85652; 85025; 86140